=== PATIENT | female | born 1930 | race Caucasian/White ===

== ENCOUNTER → 2016-11-04 | Outpatient (CLI) | payer BC ==
[~2016-11-04] MED LIST: ACET-1311 PO; ASPEC81 PO; ATEZ1200 IV; Boost Nutritional Drink PO; HYDR-4715 PO; MAGN400T6 PO; METO1TAB31 PO; METO1TAB66 PO; MGNO400 PO; MRLP17 PO; MULT-506 PO; NRV5 PO; PANT40TA PO; POLY335019 PO; PRT40 PO; TPRSR/100 PO; TPRSR/25 PO; TPRSR50 PO
[2016-11-04 09:28] LABS: BLOOD UREA NITROGEN 23 mg/dl (7-18); BUN/CREATININE RATIO 22.8 (10-20); CALCIUM 9.2 mg/dl (8.5-10.1); CARBON DIOXIDE 26 mmol/L (21-32); CHLORIDE 101 mmol/L (98-107); GLUCOSE 88 mg/dl (70-99); SODIUM 137 mmol/L (136-145)
== END | disposition home or self-care (01) ==
LOC: C.LABFOXDH 09:05
PROVIDERS: ATTEND Internal Medicine
DX: E87.1 Hypo-osmolality and hyponatremia (principal)

== ENCOUNTER → 2016-11-12 | Outpatient (CLI) | payer BC | END | disposition home or self-care (01) | LOC: C.LABFOXDH 09:23 | PROVIDERS: ATTEND Internal Medicine | DX: E87.1 Hypo-osmolality and hyponatremia (principal) ==

== ENCOUNTER → 2016-11-15 | Outpatient (CLI) | payer BC ==
[2016-11-15 08:41] LABS: BASO % 0.5 %; BASO ABS # 0.01 K/uL (0-0.2); COMPLETE YES; EOS % 4.7 %; IG% 0.5 %; LYMPH % 42.3 %; LYMPH ABS # 0.91 K/uL (1.2-3.4); MEAN CELL VOLUME 86.5 fL (80-100); MEAN CORPUSCULAR HEMOGLOBIN 28.5 pg (25-34); MEAN CORPUSCULAR HGB CONC 32.9 g/dl (32-36); MEAN PLATELET VOLUME 9.9 fL (7.4-10.4); MONO % 1.4 %; NEUT % 50.6 %; PLATELET COUNT 236 K/uL (130-400); RED BLOOD COUNT 3.93 M/uL (4.2-5.4); WHITE BLOOD COUNT 2.15 K/uL (4.8-10.8)
[2016-11-15 08:49] LABS: ALT/SGPT 44 U/L (12-78); BLOOD UREA NITROGEN 32 mg/dl (7-18); BUN/CREATININE RATIO 38.5 (10-20); CALCIUM 8.5 mg/dl (8.5-10.1); CARBON DIOXIDE 25 mmol/L (21-32); CHLORIDE 105 mmol/L (98-107); CREATININE 0.82 mg/dl (0.60-1.20); GLUCOSE 79 mg/dl (70-99); MAGNESIUM 2.4 mg/dl (1.8-2.4); SODIUM 139 mmol/L (136-145)
[2016-11-15 08:52] LABS: ALB/GLOB RATIO 0.8 (0.9-2); ALKALINE PHOSPHATASE 98 U/L (45-117); AST/SGOT 39 U/L (15-37)
== END | disposition home or self-care (01) ==
LOC: C.LABFOXDH 07:57
PROVIDERS: ATTEND Internal Medicine
DX: C66.9 Malignant neoplasm of unspecified ureter (principal)

== ENCOUNTER → 2016-11-19 | Outpatient (CLI) | payer BC | END | disposition home or self-care (01) | LOC: C.LABFOXDH 08:56 | PROVIDERS: ATTEND Internal Medicine | DX: E87.1 Hypo-osmolality and hyponatremia (principal) ==

== ENCOUNTER 2016-11-20 14:34 | Inpatient (IN) | payer BC, OTHER ==
[~2016-11-20] VITALS: Ht 165.1 cm; Wt 70.3 kg
[~2016-11-20 14:34] MED LIST changes: -ACET-1311 PO; -ASPEC81 PO; -ATEZ1200 IV; -Boost Nutritional Drink PO; -HYDR-4715 PO; -MAGN400T6 PO; -METO1TAB31 PO; -METO1TAB66 PO; -MGNO400 PO; -MRLP17 PO; -PANT40TA PO; -POLY335019 PO; -PRT40 PO; -TPRSR/100 PO; -TPRSR50 PO
[2016-11-20] MEDS ORDERED: SODIUM CHLORIDE 0.9% 1000ML 1,000 ML IV STA (15:06)
[2016-11-20] MEDS ORDERED: SODIUM CHLORIDE 0.9% 500ML 500 ML IV STA (15:15)
[2016-11-20] MEDS ORDERED: ONDANSETRON INJ 2 MG/ML 2 ML VIAL IV STA (15:16)
[2016-11-20 15:45] LABS: BASO % 0.1 %; BASO ABS # 0.01 K/uL (0-0.2); COMPLETE YES; EOS % 0.1 %; HEMATOCRIT 41.2 % (37-47); IG% 0.1 %; LYMPH % 16.8 %; LYMPH ABS # 1.16 K/uL (1.2-3.4); MEAN CELL VOLUME 83.2 fL (80-100); MEAN CORPUSCULAR HEMOGLOBIN 28.7 pg (25-34); MEAN CORPUSCULAR HGB CONC 34.5 g/dl (32-36); MONO % 9.4 %; NEUT % 73.5 %; PLATELET COUNT 153 K/uL (130-400); RED BLOOD COUNT 4.95 M/uL (4.2-5.4)
[2016-11-20 16:16] LABS: BUN/CREATININE RATIO 28.3 (10-20); CALCIUM 9.8 mg/dl (8.5-10.1); CREATININE 1.5 mg/dl (0.60-1.20); MAGNESIUM 2.3 mg/dl (1.8-2.4); POTASSIUM 3.3 mmol/L (3.5-5.1)
--- NOTE | 2016-11-20 16:19 | DIAGNOSTIC IMAGING REPORT ---
CT SCAN OF THE ABDOMEN AND PELVIS WITHOUT IV CONTRAST CLINICAL HISTORY: Upper abdominal pain. Vomiting. History of ureteral neoplasm. COMPARISON STUDY: Abdominal CT scans dated 10/17/2016 and 08/19/2016. TECHNIQUE: CT scan of the abdomen and pelvis is performed from the lung bases to the proximal femora. Images are reviewed in the axial, sagittal, and coronal planes. IV contrast was not administered for this examination as per the referring clinician. Note that the examination was performed in significantly suboptimal fashion without oral and IV contrast. The examination is also greater by motion artifact as well as by streak artifact from the patient's arms which could not be elevated above the abdomen. CT DOSE: 647.48 mGy.cm FINDINGS: Lung bases: The heart is normal in size and without pericardial effusion. There are scattered coronary artery calcifications. A large calcified granuloma is seen in the left lower lobe. There are small pleural effusions with bibasilar opacities. There is a tiny hiatal hernia. Calcified mediastinal and hilar nodes are partially imaged. Liver: The unenhanced liver is normal in size, contour, and attenuation. There is central intrahepatic biliary ductal dilatation. Gallbladder: Surgically absent noting clips in the gallbladder fossa. Spleen: Normal in size and attenuation. There are calcified splenic granulomas. Pancreas: Atrophic and grossly unremarkable. Adrenal glands: Unremarkable. Kidneys and ureters: The unenhanced kidneys are atrophic, with the right kidney asymmetrically atrophic as compared to the left. There are no renal calculi identified. There is mild to moderate right-sided hydronephrosis. This has modestly improved from 10/17/2016. There is no left-sided hydronephrosis. A 2.0 cm cyst is noted in the left kidney. There is a large extrarenal pelvis on the right. Again seen is an infiltrative soft tissue lesion consistent with tumor adjacent to the right proximal ureter and extending into the retroperitoneum. Soft tissue density is again suggested in the right proximal ureter and likely represents urothelial lesion. A large fluid collection is again seen in the right retroperitoneal space extending from below the right kidney into the right iliac region. This measures approximately 24.5 x 6 x 6 cm and likely represents a urinoma. This appears 2 modestly decreased in size from the 10/17/2016 examination. Abdominal vasculature: The abdominal aorta is normal in course and caliber noting advanced atherosclerotic calcification. Stomach and bowel: There is a hiatal hernia. The distal esophagus is filled with fluid. The stomach is markedly distended and fluid-filled, as is the duodenum. There is a focal change in caliber in the distal duodenum as seen on axial image #202. There is abrupt transition point identified at this site, and the small bowel is decompressed distally. This is consistent with a distal duodenal obstruction. No pneumatosis intestinalis or portal venous gas is seen. There is moderate to advanced colonic diverticulosis without CT evidence of acute diverticulitis. The appendix is not identified and reported surgically absent. Peritoneum: There is no intraperitoneal free air. No abdominal ascites is seen. A midline surgical scar is noted in the pelvis. Lymphadenopathy: Lymphadenopathy suggested in the upper retroperitoneal space on the right. Pelvic viscera: The bladder wall appears thickened and trabeculated. The uterus is normal as visualized. No adnexal lesion is seen. Surgical clips are noted along the right hemipelvis. Skeletal structures: The skeletal structures are osteopenic. There is moderate lumbosacral spondylosis. Grade 1 anterolisthesis is present L4-L5. Vertebral body height is maintained throughout the imaged spine. A large posterior disc osteophyte complex is seen at L5-S1. Sclerotic changes are seen involving the sacroiliac joints and pubic symphysis. No lytic or blastic bony lesions are seen. IMPRESSION: 1. Significant suboptimal examination without oral and IV contrast. The examination is also significantly degraded by streak and motion artifact. 2. The stomach and duodenum are markedly distended and fluid-filled. There is an abrupt transition point involving the distal duodenum at the ligament of Treitz, and the small bowel distally is decompressed. Findings are consistent with obstruction at the level of the distal duodenum. This is of unclear etiology. Surgical consultation is advised. 3. There is mild to moderate right hydroureteronephrosis. This appears modestly improved from 10/17/2016. 4. Again seen is a large and simple appearing fluid collection in the right retroperitoneal space located below the kidney and extending into the right pelvis. Difference considerations remain a urinoma or possibly a seroma/lymphocele. This appears modestly decreased in size from 10/17/2016. 5. 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 Retroperitoneal lymphadenopathy and a right ureteral urothelial lesion are again suspected. 6. The bladder wall appears thickened, similar to previous. 7. Moderate to advanced colonic diverticulosis without CT evidence of acute diverticulitis. 8. Small pleural effusions with bibasilar airspace opacities comminuted from previous. This could represent atelectasis and/or aspiration pneumonitis. Note that fluid fills visualized portions of the distended esophagus and this may place the patient at risk for aspiration. 9. Additional changes as above. Electronically signed by: Salinas Coleman M.D. 11/20/2016 4:17 PM Dictated Date/Time: 11/20/2016 3:55 PM
[2016-11-20] MEDS ORDERED: XYLOCAINE 1%/SOD BICARB 20 ML VIAL INFIL ONE (16:45)
--- NOTE | 2016-11-20 17:17 | History and Physical ---
History & Physical Date & Time of Service: Nov 20, 2016 at 17:08 Chief Complaint: Vomiting X 5 Days Primary Care Physician: Josh Varghese M.D. History of Present Illness Source: patient, family The patient is a 86 year old female who presents to the Emergency Room from [facility] with complaints of intermittent nausea and vomiting starting about 4 days ago. She also complains of constipation and epigastric abdominal pain. Her last normal bowel movement was 4 days ago. She has not been passing gas. She was given Zofran this morning with some relief. She had a vomiting episode 5 hours after she took the Zofran. She was also given suppository last night and this morning. She had a very small bowel movement last night and this morning. She currently rates a symptom intensity of 3/10. She has had a loss of appetite. The patient denies any history of similar symptoms. She has a history of cholecystectomy and appendectomy occurring many years ago. The patient has a history of bladder cancer. She last had chemotherapy 9 days ago. Pt denies LOC, headache, fevers, chills, diaphoresis, visual changes, neck pain, chest pain, breathing difficulties, back pain, melena, hematochezia, diarrhea, urinary symptoms, numbness, weakness, lymphadenopathy, rash, or other complaints.now pt denies abdominal pain, no fever, no chest pain, Past Medical/Surgical History Medical Problems: (1) A-fib Status: Chronic (2) Acute electrocardiogram changes Status: Resolved (3) Hypertension Status: Chronic (4) Ureteral tumor Status: Chronic Surgical Problems: (1) History of appendectomy Status: Resolved (2) Hx of appendectomy Status: Resolved (3) S/P cholecystectomy Status: Resolved Family History FHx: cancer Social History Smoking Status: Never Smoker Smokeless Tobacco Use: No Alcohol Use: none Drug Use: none Marital Status: Housing status: assisted living Occupational Status: retired Multi-Drug Resistant Organisms History of MDRO: No Allergies Coded Allergies: No Known Allergies (Unverified , `, 11/20/16) Home Medications Scheduled Amlodipine Besylate (Amlodipine Besylate), 10 MG PO QAM Metoprolol Succinate (Metoprolol Succinate ER), 25 MG PO DAILY Multivitamin (Multivitamin), 1 TAB PO QAM Review of Systems Constitutional: No chills, No fatigue, No fever, No problem reported, No sweats , No weakness, No weight loss Eyes: No diplopia, No discharge, No eye pain, No problem reported, No redness, No worsening of vision ENT: No dental problems, No hearing loss, No nasal symptoms, No problem reported, No sore throat, No tinnitus, No trouble swallowing, No unusual epistaxis Respiratory: No cough, No dyspnea at rest, No dyspnea on exertion, No hemoptysis, No problem reported, No shortness of breath, No sputum, No wheezing Cardiovascular: No PND, No chest pain, No claudication, No edema, No orthopnea , No palpitations, No problem reported Abdomen: + nausea, + vomiting Neurologic: No balance problems, No memory loss, No numbness/tingling, No paralysis, No problem reported, No vertigo, No weakness Psychiatric: No anhedonism, No anxiety, No depression symptoms, No insomnia, No problem reported, No substance abuse Endocrine: No excessive thirst, No excessive urination, No fatigue, No problem reported Physical Exam Vital Signs Date Time Temp Pulse Resp B/P Pulse Ox O2 Delivery O2 Flow Rate FiO2 11/20/16 15:42 118 22 111/72 97 Room Air 11/20/16 15:02 110 11/20/16 14:40 37.0 119 14 118/86 93 Room Air General Appearance: WD/WN Head: normocephalic Eyes: normal inspection ENT: normal ENT inspection Neck: supple, no JVD Respiratory/Chest: chest non-tender, lungs clear Cardiovascular: regular rate, rhythm, no edema Abdomen/GI: normal bowel sounds, non tender, soft Genitourinary - Female: external genitalia normal, normal pelvic exam, normal cervix Neurologic/Psych: language therapist II-XII nml as tested, no motor/sensory deficits Skin: normal color, warm/dry Diagnostics Laboratory Results Results Past 24 Hours Test 11/20/16 15:30 Range/Units White Blood Count 6.90 4.8-10.8 K/uL Red Blood Count 4.95 4.2-5.4 M/uL Hemoglobin 14.2 12.0-16.0 g/dL Hematocrit 41.2 37-47 % Mean Corpuscular Volume 83.2 80-100 fL Mean Corpuscular Hemoglobin 28.7 25-34 pg Mean Corpuscular Hemoglobin Concent 34.5 32-36 g/dl Platelet Count 153 130-400 K/uL Mean Platelet Volume 9.0 7.4-10.4 fL Neutrophils (%) (Auto) 73.5 % Lymphocytes (%) (Auto) 16.8 % Monocytes (%) (Auto) 9.4 % Eosinophils (%) (Auto) 0.1 % Basophils (%) (Auto) 0.1 % Neutrophils # (Auto) 5.06 1.4-6.5 K/uL Lymphocytes # (Auto) 1.16 1.2-3.4 K/uL Monocytes # (Auto) 0.65 0.11-0.59 K/uL Eosinophils # (Auto) 0.01 0-0.5 K/uL Basophils # (Auto) 0.01 0-0.2 K/uL RDW Standard Deviation 47.3 36.4-46.3 fL RDW Coefficient of Variation 15.7 11.5-14.5 % Immature Granulocyte % (Auto) 0.1 % Immature Granulocyte # (Auto) 0.01 0.00-0.02 K/uL Sodium Level 130 136-145 mmol/L Potassium Level 3.3 3.5-5.1 mmol/L Chloride Level 85 98-107 mmol/L Carbon Dioxide Level 34 21-32 mmol/L Anion Gap 11.0 3-11 mmol/L Blood Urea Nitrogen 42 7-18 mg/dl Creatinine 1.50 0.60-1.20 mg/dl Est Creatinine Clear Calc Drug Dose 24.7 ml/min Estimated GFR () 36.4 Estimated GFR (Non- 31.4 BUN/Creatinine Ratio 28.3 10-20 Random Glucose 117 70-99 mg/dl Calcium Level 9.8 8.5-10.1 mg/dl Magnesium Level 2.3 1.8-2.4 mg/dl Total Bilirubin 0.8 0.2-1 mg/dl Direct Bilirubin 0.3 0-0.2 mg/dl Aspartate Amino Transf (AST/SGOT) 44 15-37 U/L Alanine Aminotransferase (ALT/SGPT) 57 12-78 U/L Alkaline Phosphatase 124 45-117 U/L Troponin I 0.198 0-0.045 ng/ml Total Protein 7.6 6.4-8.2 gm/dl Albumin 3.3 3.4-5.0 gm/dl Lipase 418 73-393 U/L Diagnostic Radiology CT scan-IMPRESSION: 1. Significant suboptimal examination without oral and IV contrast. The examination is also significantly degraded by streak and motion artifact. 2. The stomach and duodenum are markedly distended and fluid-filled. There is an abrupt transition point involving the distal duodenum at the ligament of Treitz, and the small bowel distally is decompressed. Findings are consistent with obstruction at the level of the distal duodenum. This is of unclear etiology. Surgical consultation is advised. 3. There is mild to moderate right hydroureteronephrosis. This appears modestly improved from 10/17/2016. 4. Again seen is a large and simple appearing fluid collection in the right retroperitoneal space located below the kidney and extending into the right pelvis. Difference considerations remain a urinoma or possibly a seroma/lymphocele. This appears modestly decreased in size from 10/17/2016. 5. 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 Retroperitoneal lymphadenopathy and a right ureteral urothelial lesion are again suspected. 6. The bladder wall appears thickened, similar to previous. 7. Moderate to advanced colonic diverticulosis without CT evidence of acute diverticulitis. 8. Small pleural effusions with bibasilar airspace opacities comminuted from previous. This could represent atelectasis and/or aspiration pneumonitis. Note that fluid fills visualized portions of the distended esophagus and this may place the patient at risk for aspiration. 9. Additional changes as above. Impression Assessment and Plan [facility] will admit to hospital GI consult for EGD NGT IV fluid repeat labs in AM, CBC, CMP, lactic acid I D/W pt and family members about diagnosis and treatment paln, pt may need surgery if pt's symptoms are worse. they understood, I answered all questions, will F/U
[2016-11-20] MEDS ORDERED: PROMETHAZINE HCL INJ 12.5 MG in SODIUM CHLORIDE 0.9% 50ML 50 ML IV PRN (18:15)
[2016-11-20] MEDS ORDERED: ONDANSETRON INJ 2 MG/ML 2 ML VIAL IV PRN ×2 (18:15)
[2016-11-20] MEDS ORDERED: MoRPHine SULFATE 2 MG/ML CARP IV PRN (18:15)
[2016-11-20] MEDS ORDERED: DiphenhydrAMINE HCL 50 MG/ML VIAL IV PRN (18:15)
[2016-11-20] MEDS ORDERED: LORAZEPAM 2 MG/ML 1 ML VIAL IV PRN (18:15)
[2016-11-20] MEDS ORDERED: VANCOMYCIN INJ 1,000 MG in SODIUM CHLORIDE 0.9% 250ML 250 ML IV STA (18:20)
[2016-11-20] MEDS ORDERED: METOPROLOL TARTRATE 1 MG/ML VIAL IV PRN (18:30)
[2016-11-20 18:34] VITALS: O2SAT 92; Ht 165.1 cm; Wt 70.3 kg
[2016-11-20] MEDS ORDERED: PIPERACILLIN/TAZOBACTAM 4.5 GM/100ML D5W ONE (18:38)
[2016-11-20] MEDS ORDERED: BENZOCAIN/TETRACA/BUTAM SPRAY 200 APPLN/20 GM SPRY ONE (18:39)
[2016-11-20] MEDS ORDERED: PANTOprazole INJ 40 MG in SYRINGE 0 ML IV SCH (18:45)
[2016-11-20] MEDS ORDERED: VANCOMYCIN CONSULT ACTIVE PRN (18:45)
[2016-11-20] MEDS ORDERED: PIPERACILL/TAZOBAC CONSULT ACTIVE PRN (18:45)
[2016-11-20] MEDS ORDERED: DIGOXIN IV 250 MCG in SYRINGE 9 ML IV SCH (19:00)
[2016-11-20] MEDS ORDERED: VANCOMYCIN INJ 1,500 MG in SODIUM CHLORIDE 0.9% 500ML 500 ML IV SCH (19:00)
[2016-11-20 19:08] LABS: CKMB/CK RATIO 3.2 (0-3.0)
--- NOTE | 2016-11-20 19:30 | Medical Student: [facility] ---
Med Student History & Physical Date & Time of Service: Nov 20, 2016 at 18:22 Chief Complaint: Vomiting X 5 Days Primary Care Physician: Josh Varghese M.D. 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 Her last BM was 3 days ago, and she has not been passing gas. No diarrhea. She tried using a suppository last night, but only had a very small BM afterwards. She has had minimal oral intake over the last few days. She has had constant chest pain over the last few days after she started vomiting. The pain is non-radiating, and it seems to improve with vomiting. No associated diaphoresis or dyspnea. She normally ambulates with a walker, but has not been very mobile over the last few days secondary to her GI symptoms. She underwent a distal R ureterectomy for a ureteral tumor in June 2016. She reports that she has had R leg swelling and redness since then. She had been doing well, but had a repeat CT scan in October that showed recurrence of the tumor (see below). The plan was to proceed with chemotherapy, and she had her first dose of this 9 days ago. She denies any recent hematuria, but has noticed some tenderness with urination. She was admitted to the hospital 10/26-10/29/17 for AMS related to hyponatremia with Na of 125 on admission. This improved to 135 during admission. Her mentation has improved since then per family. Past Medical/Surgical History CT abd/pelvis from 10/17/16 showed: Significant increase in enhancing infiltrative soft tissue tumor within and adjacent to the R ureter since CT of 08/19/16. Associated vascular encasement. Multiple adjacent enhancing nodules. R hydronephrosis. Medical Problems: (1) Altered mental status Status: Acute (2) Aphasia Status: Acute (3) Change in mental status Status: Acute (4) Dysphagia Status: Acute (5) Speaking difficulty Status: Acute (6) Stroke-like symptoms Status: Acute (7) TIA (transient ischemic attack) Status: Acute (8) UTI (urinary tract infection) Status: Acute Surgical Problems: (1) History of appendectomy Status: Resolved (2) Hx of appendectomy Status: Resolved 3. Ureteral tumor resection Social History Pt lives in an assisted living facility. Smoking Status: Never Smoker Smokeless Tobacco Use: No Alcohol Use: none Drug Use: none Marital Status: Housing status: assisted living Occupational Status: retired Allergies Coded Allergies: No Known Allergies (Unverified , `, 11/22/16) Medications Amlodipine Besylate (Amlodipine Besylate), 10 MG PO QAM Metoprolol Succinate (Metoprolol Succinate ER), 25 MG PO DAILY Multivitamin (Multivitamin), 1 TAB PO QAM Review of Systems Constitutional: No chills, No fever, No sweats ENT: + problem reported (Hoarse voice secondary to vomiting. ) Respiratory: No cough, No shortness of breath Cardiovascular: + chest pain, No palpitations (as per HPI) Abdomen: + constipation, + nausea, + pain, + vomiting, No GI bleeding, No diarrhea Musculoskeletal: + swelling Genitourinary - Female: No hematuria, No urinary frequency, No urinary urgency Integumentary: + color change (R leg) Physical Exam Vital Signs (24 Hours) Date Time Temp Pulse Resp B/P Pulse Ox O2 Delivery O2 Flow Rate FiO2 11/20/16 17:14 124/79 11/20/16 17:04 110 92 11/20/16 16:34 129 24 94 11/20/16 15:42 111/72 11/20/16 15:42 118 22 111/72 97 Room Air 11/20/16 15:34 109 21 92 11/20/16 15:04 124 22 93 11/20/16 15:02 110 11/20/16 14:40 37.0 119 14 118/86 93 Room Air 11/20/16 14:38 118/86 General Appearance: + pertinent finding (Elderly female sitting up in bed with NG tube in place draining green fluid. ) Head: normocephalic, atraumatic Eyes: normal inspection, PERRL, EOMI, sclerae normal ENT: pharynx normal Neck: supple, no JVD, trachea midline Respiratory/Chest: lungs clear, normal breath sounds, no respiratory distress, no accessory muscle use, + pertinent finding (Mild tenderness to palpation over the sternum. ) Cardiovascular: no gallop, no JVD, no murmur, normal peripheral pulses, + pertinent finding (Tachycardic and irregularly irregular. ) Abdomen/GI: soft, + pertinent finding (Tenderness to palpation in the epigastrium, RUQ, and RLQ, worst in the epigastrium. Hypoactive bowel sounds. Appears distended. No rebound or guarding. ) Back: normal inspection, no CVA tenderness Extremities/Musculoskelatal: + pertinent finding (RLE is erythematous, edematous, and warm over the low to mid tibia. No edema of the LLE. ) Neurologic/Psych: car sweeper II-XII nml as tested, no motor/sensory deficits, alert, normal mood/affect, normal reflexes, oriented x 3 Skin: warm/dry, no rash Diagnostics Laboratory Results Results Past 24 Hours Test 11/20/16 15:30 Range/Units White Blood Count 6.90 4.8-10.8 K/uL Red Blood Count 4.95 4.2-5.4 M/uL Hemoglobin 14.2 12.0-16.0 g/dL Hematocrit 41.2 37-47 % Mean Corpuscular Volume 83.2 80-100 fL Mean Corpuscular Hemoglobin 28.7 25-34 pg Mean Corpuscular Hemoglobin Concent 34.5 32-36 g/dl Platelet Count 153 130-400 K/uL Mean Platelet Volume 9.0 7.4-10.4 fL Neutrophils (%) (Auto) 73.5 % Lymphocytes (%) (Auto) 16.8 % Monocytes (%) (Auto) 9.4 % Eosinophils (%) (Auto) 0.1 % Basophils (%) (Auto) 0.1 % Neutrophils # (Auto) 5.06 1.4-6.5 K/uL Lymphocytes # (Auto) 1.16 1.2-3.4 K/uL Monocytes # (Auto) 0.65 0.11-0.59 K/uL Eosinophils # (Auto) 0.01 0-0.5 K/uL Basophils # (Auto) 0.01 0-0.2 K/uL RDW Standard Deviation 47.3 36.4-46.3 fL RDW Coefficient of Variation 15.7 11.5-14.5 % Immature Granulocyte % (Auto) 0.1 % Immature Granulocyte # (Auto) 0.01 0.00-0.02 K/uL Sodium Level 130 136-145 mmol/L Potassium Level 3.3 3.5-5.1 mmol/L Chloride Level 85 98-107 mmol/L Carbon Dioxide Level 34 21-32 mmol/L Anion Gap 11.0 3-11 mmol/L Blood Urea Nitrogen 42 7-18 mg/dl Creatinine 1.50 0.60-1.20 mg/dl Est Creatinine Clear Calc Drug Dose 24.7 ml/min Estimated GFR () 36.4 Estimated GFR (Non- 31.4 BUN/Creatinine Ratio 28.3 10-20 Random Glucose 117 70-99 mg/dl Calcium Level 9.8 8.5-10.1 mg/dl Magnesium Level 2.3 1.8-2.4 mg/dl Total Bilirubin 0.8 0.2-1 mg/dl Direct Bilirubin 0.3 0-0.2 mg/dl Aspartate Amino Transf (AST/SGOT) 44 15-37 U/L Alanine Aminotransferase (ALT/SGPT) 57 12-78 U/L Alkaline Phosphatase 124 45-117 U/L Troponin I 0.198 0-0.045 ng/ml Total Protein 7.6 6.4-8.2 gm/dl Albumin 3.3 3.4-5.0 gm/dl Lipase 418 73-393 U/L Diagnostic Radiology CT abd/-pelvis without contrast: IMPRESSION: 1. Significant suboptimal examination without oral and IV contrast. The examination is also significantly degraded by streak and motion artifact. 2. The stomach and duodenum are markedly distended and fluid-filled. There is an abrupt transition point involving the distal duodenum at the ligament of Treitz, and the small bowel distally is decompressed. Findings are consistent with obstruction at the level of the distal duodenum. This is of unclear etiology. Surgical consultation is advised. 3. There is mild to moderate right hydroureteronephrosis. This appears modestly improved from 10/17/2016. 4. Again seen is a large and simple appearing fluid collection in the right retroperitoneal space located below the kidney and extending into the right pelvis. Difference considerations remain a urinoma or possibly a seroma/lymphocele. This appears modestly decreased in size from 10/17/2016. 5. 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 Retroperitoneal lymphadenopathy and a right ureteral urothelial lesion are again suspected. 6. The bladder wall appears thickened, similar to previous. 7. Moderate to advanced colonic diverticulosis without CT evidence of acute diverticulitis. 8. Small pleural effusions with bibasilar airspace opacities comminuted from previous. This could represent atelectasis and/or aspiration pneumonitis. Note that fluid fills visualized portions of the distended esophagus and this may place the patient at risk for aspiration. 9. Additional changes as above. : Atrial fibrillation at 112 bpm. T wave inversions in inferior leads as well as V2-V6. No STEMI or Q wave MIs. 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 Physical exam with hypoactive bowel sounds and somewhat diffuse abdominal pain. CT abd/ pelvis shows evidence of small bowel obstruction at the level of the distal ileus. Small bowel obstruction - Physical exam with hypoactive bowel sounds and somewhat diffuse abdominal pain. CT abd/pelvis shows evidence of small bowel obstruction at the level of the distal ileus. NG tube was placed in the ED and has drained roughly 2000 mL of green bilious fluid with improvement in the pt's symptoms. No peritoneal signs to suggest perforation. No evidence of aspiration at this time with clear lungs. - Will continue NG tube for at least the next day with NPO status. - General surgery has been consulted. - Promethazine and ondansetron as needed for nausea. - Morphine 1-2 mg as needed for pain, will try to minimize narcotics to prevent worsening obstipation. R leg edema, warmth, and erythema - Physical exam is consistent with cellulitis. CT shows no evidence to suggest obstruction secondary to her ureteral cancer. - Given that the pt has been immobile over the last few days as well as her underlying urologic malignancy, will obtain venous duplex to assess for DVT. - Will start vancomycin and Zosyn to cover for possible healthcare acquired organisms as well as any possible aspiration. Electrolyte abnormalities - Hyponatremia with Na of 130, hypokalemia with K of 3.3, hypochloremia with Cl of 85. These are all likely secondary to dehydration from vomiting. She received 500 mL NS in the ED. - Will give normal saline 125 mL/hr with 20 mEq potassium. - Will recheck BMP in 3-4 hours given that the NG tube has drained roughly 2 L of fluid. - Serial BMPs and magnesium level. Elevated creatinine - 1.5 today, up from baseline of around 1.0. This likely represents prerenal azotemia given BUN/Cr ratio of 28. - Will give IVF as above and monitor daily BMP. - Given that the pt has been immobile and dehydrated the last few days to will obtain CK r/o rhabdomyolysis. Atrial fibrillation - EKG shows Afib with RVR, HR in 110s. The tachycardia is likely compensatory given her dehydration. BP has been stable. - If she remains tachycardic after fluid resuscitation, will consider adding Digoxin. - Hold her PO metoprolol. - Will obtain echocardiogram. - Monitor on telemetry. Elevated troponin of 0.198- This likely represents demand ischemia secondary to her Afib. - Will trend troponin overnight. - Obtain EKG if the pt has chest pain. Elevated lipase of 418 - Given the minimal elevation, this likely represents acute phase reaction, but will add amylase to further assess for pancreatitis. - Repeat lipase and amylase in the morning. HTN, chronic - Will hold PO amlodipine at this time. Ureteral cancer - Pt is followed for this by Dr. Morris of urology and Dr. Carol Suero of hem/onc. - Will consult hem/onc. - Will obtain UA given report of tenderness with urination. DVT prophylaxis - Will place SCDs. Awaiting US results to determine anticoagulation. Level of Care Telemetry Assessment and Plan GI--CT scan has suggested an obstruction involving the distal duodenum at the level of the ligament of Treitz. She had an NG tube placed to low intermittent suction while in the emergency department and has already emptied out 1700 mL, and with patient reporting feeling significantly improved at that time. She was seen by surgery while the emergency department, and they have suggested conservative treatment and they will reassess in the a.m. Atrial fibrillation with RVR with elevated troponin of 0.198 and low potassium of 3.3. The patient will be admitted to the telemetry unit for serial cardiac enzymes, cardiac rhythm monitoring, and a 2-D echocardiogram with Dopplers. She 'll be placed on normal saline with potassium chloride 20 mEq at 100 ML's per hour, and recheck the BMP in 4 hours. She'll be given digoxin 0.25 mg IV 1 in the emergency department, and will have Lopressor 5 mg IV every 4 hours when necessary for rate control. Her primary treatment this point needs to be that of volume replacement and potassium supplementation. We will hold amlodipine 10 mg by mouth every morning and metoprolol succinate ER 25 mg by mouth daily. --patient's blood following with Dr. Morris from urology regarding bladder lesions. There is noted a mild to moderate right hydroureteronephrosis which is modestly improved from 10/17/2016. There is again seen a large and simple- appearing fluid collection in the right retroperitoneal space located below the kidney and extending into the right pelvis with differential including a urinoma or possibly seroma/lymphocele, which is also modestly decreased in size from 10/17/2016. The ill-defined/infiltrative tumor around the right renal pelvis extending into the retroperitoneum is similar to previous. Renal insufficiency --creatinine 1.50 upon admission. Will repeat BMP and magnesium level in 4 hours as noted above and in the a.m. Hyponatremia--when she was admitted on October 26 through October 29 sodium at that time was as low as 125, and was 135 upon discharge. Sodium today is 130 , and will follow serial BMP as noted above. Right lower extremity cellulitis--she did show swelling on the right leg, and Dopplers were negative for DVT bilaterally. To cover both potential organisms of the GI system and skin, she restarted on vancomycin IV with renal dosing, and Zosyn 3.375 mg IV every 8 hours. Attending Addendum: I have seen and examined this patient personally, have supervised the medical student's interaction, and there is a separate H&P associated with this patient.
--- NOTE | 2016-11-20 19:33 | EMERGENCY ROOM VISIT NOTE ---
History Report prepared by Annel: Kosta Dias Under the Supervision of: Dr. Bernard Leon M.D. First contact with patient: 15:05 Chief Complaint: VOMITING Stated Complaint: VOMITING X 5 DAYS Nursing Triage Summary: Patient arrived via EMS from [facility]. Patient c/o n/v since Sat/Sun (5 days) and throat discomfort. Pt denies diarrhea, states she had not had a BM in 4 days so [facility] gave her a suppository last night with minimal results. Patient states she started Chemo Last friday (1 1/2 weeks ago) for bladder/ureter cancer. Pt states hx afib. History of Present Illness The patient is a 86 year old female who presents to the Emergency Room from [facility] with complaints of intermittent nausea and vomiting starting about 4 days ago. She also complains of constipation and epigastric abdominal pain. Her last normal bowel movement was 4 days ago. She has not been passing gas. She was given Zofran this morning with some relief. She had a vomiting episode 5 hours after she took the Zofran. She was also given suppository last night and this morning. She had a very small bowel movement last night and this morning. She currently rates a symptom intensity of 3/10. She has had a loss of appetite. The patient denies any history of similar symptoms. She has a history of cholecystectomy and appendectomy occurring many years ago. The patient has a history of bladder cancer. She last had chemotherapy 9 days ago. Pt denies LOC, headache, fevers, chills, diaphoresis, visual changes, neck pain, chest pain, breathing difficulties, back pain, melena, hematochezia, diarrhea, urinary symptoms, numbness, weakness, lymphadenopathy, rash, or other complaints. Source of History: patient Onset: about 4 days ago Position: other (global) Symptom Intensity: 3/10 Quality: other (nausea and vomiting) Timing: intermittent Modifying Factors (Relieving): other (Zofran with some relief, suppository ) Associated Symptoms: + abdominal pain Review of Systems See HPI for pertinent positives and negatives. A total of ten systems were reviewed and were otherwise negative. Past Medical & Surgical Medical Problems: (1) A-fib (2) Acute electrocardiogram changes (3) Hypertension (4) Hyponatremia (5) SBO (small bowel obstruction) (6) Ureteral tumor Surgical Problems: (1) History of appendectomy (2) Hx of appendectomy (3) S/P cholecystectomy Family History FHx: cancer Social History Smoking Status: Never Smoker Alcohol Use: none Drug Use: none Marital Status: Housing Status: lives alone Occupation Status: retired Current/Historical Medications Scheduled Amlodipine Besylate (Amlodipine Besylate), 10 MG PO QAM Metoprolol Succinate (Metoprolol Succinate ER), 25 MG PO DAILY Multivitamin (Multivitamin), 1 TAB PO QAM Allergies Coded Allergies: No Known Allergies (Unverified , `, 11/20/16) Physical Exam Vital Signs Date Time Temp Pulse Resp B/P Pulse Ox O2 Delivery O2 Flow Rate FiO2 11/20/16 19:03 124 11/20/16 18:34 92 Room Air 11/20/16 17:14 124/79 11/20/16 17:04 110 92 11/20/16 16:34 129 24 94 11/20/16 15:42 111/72 11/20/16 15:42 118 22 111/72 97 Room Air 11/20/16 15:34 109 21 92 11/20/16 15:04 124 22 93 11/20/16 15:02 110 11/20/16 14:40 37.0 119 14 118/86 93 Room Air 11/20/16 14:38 118/86 Physical Exam GENERAL: Awake, alert, uncomfortable-appearing, in no acute distress HENT: Normocephalic, atraumatic. Oropharynx unremarkable. EYES: Normal conjunctiva. Sclera non-icteric. NECK: Supple. No nuchal rigidity. FROM. No JVD. RESPIRATORY: Clear to auscultation. CARDIAC: Irregular rhythm and tachycardic rate. Extremities warm and well perfused. Pulses equal. ABDOMEN: Soft. Right upper quadrant and right lower quadrant tenderness but greater in the lower quadrant. No rebound or guarding. No masses. RECTAL: Deferred. MUSCULOSKELETAL: Chest examination reveals no tenderness. The back is symmetrical on inspection without obvious abnormality. There is no CVA tenderness to palpation. No joint edema. LOWER EXTREMITIES: Calves are equal size bilaterally and non-tender. No discoloration. 1+ edema, right greater than left. NEURO: Normal sensorium. No sensory or motor deficits noted. SKIN: No rash or jaundice noted. Medical Decision & Procedures ER Provider Diagnostic Interpretation: CT: Radiology results as stated below per my review and radiologist interpretation CT SCAN OF THE ABDOMEN AND PELVIS WITHOUT IV CONTRAST CLINICAL HISTORY: Upper abdominal pain. Vomiting. History of ureteral neoplasm. COMPARISON STUDY: Abdominal CT scans dated 10/17/2016 and 08/19/2016. TECHNIQUE: CT scan of the abdomen and pelvis is performed from the lung bases to the proximal femora. Images are reviewed in the axial, sagittal, and coronal planes. IV contrast was not administered for this examination as per the referring clinician. Note that the examination was performed in significantly suboptimal fashion without oral and IV contrast. The examination is also greater by motion artifact as well as by streak artifact from the patient's arms which could not be elevated above the abdomen. CT DOSE: 647.48 mGy.cm FINDINGS: Lung bases: The heart is normal in size and without pericardial effusion. There are scattered coronary artery calcifications. A large calcified granuloma is seen in the left lower lobe. There are small pleural effusions with bibasilar opacities. There is a tiny hiatal hernia. Calcified mediastinal and hilar nodes are partially imaged. Liver: The unenhanced liver is normal in size, contour, and attenuation. There is central intrahepatic biliary ductal dilatation. Gallbladder: Surgically absent noting clips in the gallbladder fossa. Spleen: Normal in size and attenuation. There are calcified splenic granulomas. Pancreas: Atrophic and grossly unremarkable. Adrenal glands: Unremarkable. Kidneys and ureters: The unenhanced kidneys are atrophic, with the right kidney asymmetrically atrophic as compared to the left. There are no renal calculi identified. There is mild to moderate right-sided hydronephrosis. This has modestly improved from 10/17/2016. There is no left-sided hydronephrosis. A 2.0 cm cyst is noted in the left kidney. There is a large extrarenal pelvis on the right. Again seen is an infiltrative soft tissue lesion consistent with tumor adjacent to the right proximal ureter and extending into the retroperitoneum. Soft tissue density is again suggested in the right proximal ureter and likely represents urothelial lesion. A large fluid collection is again seen in the right retroperitoneal space extending from below the right kidney into the right iliac region. This measures approximately 24.5 x 6 x 6 cm and likely represents a urinoma. This appears 2 modestly decreased in size from the 10/17/2016 examination. Abdominal vasculature: The abdominal aorta is normal in course and caliber noting advanced atherosclerotic calcification. Stomach and bowel: There is a hiatal hernia. The distal esophagus is filled with fluid. The stomach is markedly distended and fluid-filled, as is the duodenum. There is a focal change in caliber in the distal duodenum as seen on axial image #202. There is abrupt transition point identified at this site, and the small bowel is decompressed distally. This is consistent with a distal duodenal obstruction. No pneumatosis intestinalis or portal venous gas is seen. There is moderate to advanced colonic diverticulosis without CT evidence of acute diverticulitis. The appendix is not identified and reported surgically absent. Peritoneum: There is no intraperitoneal free air. No abdominal ascites is seen. A midline surgical scar is noted in the pelvis. Lymphadenopathy: Lymphadenopathy suggested in the upper retroperitoneal space on the right. Pelvic viscera: The bladder wall appears thickened and trabeculated. The uterus is normal as visualized. No adnexal lesion is seen. Surgical clips are noted along the right hemipelvis. Skeletal structures: The skeletal structures are osteopenic. There is moderate lumbosacral spondylosis. Grade 1 anterolisthesis is present L4-L5. Vertebral body height is maintained throughout the imaged spine. A large posterior disc osteophyte complex is seen at L5-S1. Sclerotic changes are seen involving the sacroiliac joints and pubic symphysis. No lytic or blastic bony lesions are seen. IMPRESSION: 1. Significant suboptimal examination without oral and IV contrast. The examination is also significantly degraded by streak and motion artifact. 2. The stomach and duodenum are markedly distended and fluid-filled. There is an abrupt transition point involving the distal duodenum at the ligament of Treitz, and the small bowel distally is decompressed. Findings are consistent with obstruction at the level of the distal duodenum. This is of unclear etiology. Surgical consultation is advised. 3. There is mild to moderate right hydroureteronephrosis. This appears modestly improved from 10/17/2016. 4. Again seen is a large and simple appearing fluid collection in the right retroperitoneal space located below the kidney and extending into the right pelvis. Difference considerations remain a urinoma or possibly a seroma/lymphocele. This appears modestly decreased in size from 10/17/2016. 5. 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 Retroperitoneal lymphadenopathy and a right ureteral urothelial lesion are again suspected. 6. The bladder wall appears thickened, similar to previous. 7. Moderate to advanced colonic diverticulosis without CT evidence of acute diverticulitis. 8. Small pleural effusions with bibasilar airspace opacities comminuted from previous. This could represent atelectasis and/or aspiration pneumonitis. Note that fluid fills visualized portions of the distended esophagus and this may place the patient at risk for aspiration. 9. Additional changes as above. Electronically signed by: Salinas Coleman M.D. 11/20/2016 4:17 PM Dictated Date/Time: 11/20/2016 3:55 PM Laboratory Results 11/20/16 15:30 Red Blood Count 4.95, Mean Corpuscular Volume 83.2, Mean Corpuscular Hemoglobin 28.7, Mean Corpuscular Hemoglobin Concent 34.5, Mean Platelet Volume 9.0, Neutrophils (%) (Auto) 73.5, Lymphocytes (%) (Auto) 16.8, Monocytes (%) (Auto) 9.4, Eosinophils (%) (Auto) 0.1, Basophils (%) (Auto) 0.1, Neutrophils # (Auto) 5.06, Lymphocytes # (Auto) 1.16, Monocytes # (Auto) 0.65, Eosinophils # (Auto) 0.01, Basophils # (Auto) 0.01 11/20/16 15:30 Test 11/20/16 15:30 White Blood Count 6.90 K/uL (4.8-10.8) Red Blood Count 4.95 M/uL (4.2-5.4) Hemoglobin 14.2 g/dL (12.0-16.0) Hematocrit 41.2 % (37-47) Mean Corpuscular Volume 83.2 fL (80-100) Mean Corpuscular Hemoglobin 28.7 pg (25-34) Mean Corpuscular Hemoglobin Concent 34.5 g/dl (32-36) Platelet Count 153 K/uL (130-400) Mean Platelet Volume 9.0 fL (7.4-10.4) Neutrophils (%) (Auto) 73.5 % Lymphocytes (%) (Auto) 16.8 % Monocytes (%) (Auto) 9.4 % Eosinophils (%) (Auto) 0.1 % Basophils (%) (Auto) 0.1 % Neutrophils # (Auto) 5.06 K/uL (1.4-6.5) Lymphocytes # (Auto) 1.16 K/uL (1.2-3.4) Monocytes # (Auto) 0.65 K/uL (0.11-0.59) Eosinophils # (Auto) 0.01 K/uL (0-0.5) Basophils # (Auto) 0.01 K/uL (0-0.2) RDW Standard Deviation 47.3 fL (36.4-46.3) RDW Coefficient of Variation 15.7 % (11.5-14.5) Immature Granulocyte % (Auto) 0.1 % Immature Granulocyte # (Auto) 0.01 K/uL (0.00-0.02) Anion Gap 11.0 mmol/L (3-11) Est Creatinine Clear Calc Drug Dose 24.7 ml/min Estimated GFR () 36.4 Estimated GFR (Non- 31.4 BUN/Creatinine Ratio 28.3 (10-20) Calcium Level 9.8 mg/dl (8.5-10.1) Magnesium Level 2.3 mg/dl (1.8-2.4) Total Bilirubin 0.8 mg/dl (0.2-1) Direct Bilirubin 0.3 mg/dl (0-0.2) Aspartate Amino Transf (AST/SGOT) 44 U/L (15-37) Alanine Aminotransferase (ALT/SGPT) 57 U/L (12-78) Alkaline Phosphatase 124 U/L (45-117) Total Creatine Kinase 53 U/L (26-192) Creatine Kinase MB 1.7 ng/ml (0.5-3.6) Creatine Kinase MB Ratio 3.2 (0-3.0) Troponin I 0.193 ng/ml (0-0.045) Total Protein 7.6 gm/dl (6.4-8.2) Albumin 3.3 gm/dl (3.4-5.0) Amylase Level 90 U/L (25-115) Lipase 418 U/L (73-393) Laboratory results reviewed by me Medications Administered Medications (Trade) Dose Ordered Sig/Blank Route Start Time Stop Time Status Last Admin Dose Admin Sodium Chloride 1,000 ml @ 125 mls/hr Q8H STAT IV 11/20/16 15:06 11/20/16 23:05 11/20/16 15:41 125 MLS/HR Sodium Chloride (Nss 500ml) 500 ml @ 999 mls/hr Q31M STAT IV 11/20/16 15:15 11/20/16 15:45 DC 11/20/16 15:42 999 MLS/HR Ondansetron HCl (Zofran Inj) 4 mg NOW STAT IV 11/20/16 15:16 11/20/16 15:18 DC 11/20/16 15:41 4 MG Lidocaine HCl (Buffered Lidocaine 1% Inj) 20 ml ONE ONCE INFIL 11/20/16 16:45 11/20/16 16:46 DC 11/20/16 17:00 20 ML Piperacillin Sod/ Tazobactam Sod (Zosyn Iv) 4.5 gm STK-MED ONCE .ROUTE 11/20/16 18:38 11/20/16 18:40 DC 11/20/16 18:48 4.5 GM Benzocaine/ Butamben/ Tetracaine HCl (Cetacaine Parrish) 200 appln STK-MED ONCE .ROUTE 11/20/16 18:39 11/20/16 18:41 DC 11/20/16 18:47 200 APPLN ECG Indication: nausea, vomiting Rate (beats per minute): 112 Rhythm: atrial fibrillation Findings: T-wave inversion (inferior, anterolateral) Comparison ECG Date: October 16, 2016 Change: T wave inversion in inferior and anterolateral leads are new when compared to October 16, 2016 but have been there before on ECG from June 06, 2016. ED Course 1505: The patient was evaluated in room B02. A complete history and physical exam was performed. 1506: Sodium Chloride 1000 ml @ 125 mls/hr IV 1515: Sodium Chloride 500 ml @ 999 mls/hr IV 1516: Zofran Inj 4 mg IV 1642: I discussed the patient's [facility] Upon reexamination, the patient was resting comfortably. I discussed the test results and treatment plan with her. The patient will be evaluated for further management. A NG tube will be placed. 1645: Lidocaine HCl NG tube. 1648: I discussed the patient's case with Dr. Siegel, general surgeon with [facility]. 1725: The patient had 800 mls output of NG tube. Upon reevaluation, the patient feels better. Internal medicine is aware of her elevated troponin. Medical Decision Triage Nursing notes reviewed. The patient's presentation and history were concerning for vomiting and abdominal pain. Etiologies such as obstruction, diverticulitis, inflammatory bowel disease, renal colic, PUD, biliary pathology, pancreatitis, mesenteric ischemia, aortic pathology, infections, genitourinary, UTI, perforated viscus, as well as others were entertained. The patient was hydrated with normal saline and given 4mg of zofran. She underwent blood work and CT imaging. The patient was doing better on reassessment. Her CT imaging revealed a proximal bowel obstruction. The patient had an NG tube placed with 1700 mL of fluid aspirated. The patient had an unremarkable CBC and dehydration on chemistry panel. The patient had an elevated troponin. Urinalysis pending. Consultation was made with internal medicine and general surgery. The patient was evaluated in the Emergency Room for further treatment. The chart was completed utilizing [employer] Speech voice recognition software. Grammatical errors, random word insertions, pronoun errors, and incomplete sentences are an occasional consequence of this system due to software limitations, ambient noise, and hardware issues. Any formal questions or concerns about the content, text, or information contained within the body of this dictation should be directly addressed to the physician for clarification. Consults Time Called: 1640 Consulting Physician: [facility] Returned Call: 1642 I discussed the patient's case with [facility] Additional Consults: Time Called: 1645 Consulted Physician: Dr. Siegel, general surgeon with [facility] Returned Call: 1649 Additional Comments: I discussed the patient's case with Dr. Siegel, general surgeon with [facility]. Impression Primary Impression: Bowel obstruction Additional Impressions: Elevated troponin Atrial fibrillation with RVR Scribe Attestation The scribe's documentation has been prepared under my direction and personally reviewed by me in its entirety. I confirm that the note above accurately reflects all work, treatment, procedures, and medical decision making performed by me. Departure Information Dispostion Being Evaluated By Hospitalist Referrals Iron Mcbride (PCP) Patient Instructions My [facility] Problem Qualifiers
--- NOTE | 2016-11-20 20:00 | DIAGNOSTIC IMAGING REPORT ---
BILATERAL LOWER EXTREMITY VENOUS DOPPLER HISTORY: Right leg swelling. COMPARISON STUDY: Right leg venous Doppler 08/29/2016. FINDINGS: There is normal compressibility, flow, and augmentation within the bilateral lower extremity deep venous systems. IMPRESSION: No DVT within the right or left lower extremity. Electronically signed by: Enzo Olmedo M.D. 11/20/2016 7:58 PM Dictated Date/Time: 11/20/2016 7:57 PM
[2016-11-20] MEDS ORDERED: MoRPHine SULFATE 4 MG/ML 1 ML CARP\\VIAL IV PRN (20:30)
[2016-11-20] MEDS ORDERED: LORAZEPAM INJ 0.5 MG in SYRINGE 0.75 ML IV PRN (20:45)
--- NOTE | 2016-11-20 20:54 | Pharmacy Progress Note ---
Pharmacy Antibiotic Consult Date of Service: Nov 20, 2016. Pharmacy Dosing Scope Pharmacy is consulted to initiate vancomycin and Zosyn IV dosing therapy, order appropriate labs and adjust drug dose/frequency. Subjective The patient is a 86 year old female admitted on Nov 20, 2016 at 18:20. Objective Height (Feet): 5 Height (Inches): 5.00 Weight (Kilograms): 68.300 Lab Results (24hrs): Laboratory Tests Test 11/20/16 15:30 11/20/16 20:00 BUN/Creatinine Ratio 28.3 Blood Urea Nitrogen 42 mg/dl Creatinine 1.50 mg/dl White Blood Count 6.90 K/uL Red Blood Count 4.95 M/uL Hemoglobin 14.2 g/dL Hematocrit 41.2 % Mean Corpuscular Volume 83.2 fL Mean Corpuscular Hemoglobin 28.7 pg Mean Corpuscular Hemoglobin Concent 34.5 g/dl Platelet Count 153 K/uL Mean Platelet Volume 9.0 fL Neutrophils (%) (Auto) 73.5 % Lymphocytes (%) (Auto) 16.8 % Monocytes (%) (Auto) 9.4 % Eosinophils (%) (Auto) 0.1 % Basophils (%) (Auto) 0.1 % Neutrophils # (Auto) 5.06 K/uL Lymphocytes # (Auto) 1.16 K/uL Monocytes # (Auto) 0.65 K/uL Eosinophils # (Auto) 0.01 K/uL Basophils # (Auto) 0.01 K/uL Recent Pertinent Medications Item Value Date Time Piperacillin Sod/ 115 ml @ 28.75 mls/hr 11/21/16 0000 Tazobactam Sod Q8@0000,0800,1600/IV 3.375 gm/Dextrose Vancomycin HCl 530 ml @ 200 mls/hr 11/20/16 1900 1500 mg/Sodium TODAY@1900/IV 11/20/162007 Chloride Piperacillin Sod/ 4.5 gm 11/20/16 183 Tazobactam Sod .STK-MED ONCE/.ROUTE 11/20/16 1848 (Zosyn Iv) Assessment & Plan Patient with SBO, possible GI infection. Currently dehydrated, so renal function may change with hydration. Loading dose: vancomycin 1500 mg IV X 1 dose then: will check random level in am and redose empirically when vanco level is less than 18. If renal function stabilizes, will calculate ongoing doses. Goal peak level estimate: between 25-40 mcg/mL. Goal trough level estimate: between 15-20 mcg/mL. Random level has been ordered for: 11/21/16 with am labs. Zosyn 4.5 Gm IV loading dose given in ED, then 3.375 Gm (extended infusion over 4 hr) q8h for CrCl greater than 20 ml/min. Pharmacy will continue to follow and will adjust dose/frequency as necessary. Thank you
--- NOTE | 2016-11-20 21:03 | History and Physical ---
History & Physical Date & Time of Service: Nov 20, 2016 at 21:03 Chief Complaint: Afib, Sbo Primary Care Physician: Josh Varghese M.D. History of Present Illness The patient is a 86 year old female resident at [facility] who presents emergency department with complaint of intermittent nausea ,vomiting ,constipation ,lack of appetite and epigastric abdominal pain that began about 4 days prior to arrival. Last BM was 4 days ago, and she has not been passing gas since that time. She has some relief with Zofran this morning but then had a vomiting episode 5 hours after that dose. She was given a suppository last evening and this morning with only minimal results. She has a history of bladder cancer, and last underwent chemotherapy 9 days ago. Past Medical/Surgical History Medical Problems: (1) A-fib Status: Chronic (2) Acute electrocardiogram changes Status: Resolved (3) Hypertension Status: Chronic (4) Ureteral tumor Status: Chronic Surgical Problems: (1) History of appendectomy Status: Resolved (2) Hx of appendectomy Status: Resolved (3) S/P cholecystectomy Status: Resolved Family History FHx: cancer Social History Smoking Status: Never Smoker Smokeless Tobacco Use: No Alcohol Use: none Drug Use: none Marital Status: Housing status: assisted living Occupational Status: retired Multi-Drug Resistant Organisms History of MDRO: No Allergies Coded Allergies: No Known Allergies (Unverified , `, 11/20/16) Home Medications Scheduled Amlodipine Besylate (Amlodipine Besylate), 10 MG PO QAM Metoprolol Succinate (Metoprolol Succinate ER), 25 MG PO DAILY Multivitamin (Multivitamin), 1 TAB PO QAM Review of Systems The patient denies chest pain, palpitations, shortness of breath, cough, lower extremity swelling, vision change, hearing change, sore throat, fevers, chills, sweats, weight change, blood in urine or stool, dysuria, urinary frequency or urgency, lightheadedness, dizziness, headache, memory loss, rash, abnormal bruising or bleeding, imbalance, focal weakness, numbness or tingling in arms or legs, arthralgias or myalgias, back or neck pain, night sweats, or allergy symptoms. The review of systems is otherwise negative other than for that already noted above, and at least 10 systems have been reviewed. Physical Exam Vital Signs Date Time Temp Pulse Resp B/P Pulse Ox O2 Delivery O2 Flow Rate FiO2 11/20/16 20:47 132 11/20/16 19:29 110 18 123/75 94 Room Air 11/20/16 19:03 124 11/20/16 18:34 92 Room Air 11/20/16 17:14 124/79 11/20/16 17:04 110 92 11/20/16 16:34 129 24 94 11/20/16 15:42 111/72 11/20/16 15:42 118 22 111/72 97 Room Air 11/20/16 15:34 109 21 92 11/20/16 15:04 124 22 93 11/20/16 15:02 110 11/20/16 14:40 37.0 119 14 118/86 93 Room Air 11/20/16 14:38 118/86 The patient is awake, well-developed and adequately nourished, alert and oriented 3, has an NG tube in place, lying in bed and in no acute distress. HEENT--PERRL, EOMI, mucous membranes moist, and oropharynx normal. NG tube in place. Neck--supple, no JVD or bruits, thyroid normal, trachea midline, no adenopathy. Heart--normal S1 and S2, no extra beats, no murmurs, rubs or gallops. Lungs--clear bilaterally with good air movement, no respiratory distress, no accessory muscle use. Abdomen--decreased bowel sounds, soft , mildly distended and nontender. Extremities--no cyanosis, clubbing or edema. There are good distal pulses b/l. Dermatologic--normal skin turgor, normal color, warm and dry, no abnormal lymph nodes, no rash. Neurologic--cranial nerves II through XII grossly intact. Rheumatologic--normal range of motion, nontender, muscles and joints. Psychiatric--normal affect. Diagnostics Laboratory Results Results Past 24 Hours Test 11/20/16 15:30 11/20/16 20:25 Range/Units White Blood Count 6.90 4.8-10.8 K/uL Red Blood Count 4.95 4.2-5.4 M/uL Hemoglobin 14.2 12.0-16.0 g/dL Hematocrit 41.2 37-47 % Mean Corpuscular Volume 83.2 80-100 fL Mean Corpuscular Hemoglobin 28.7 25-34 pg Mean Corpuscular Hemoglobin Concent 34.5 32-36 g/dl Platelet Count 153 130-400 K/uL Mean Platelet Volume 9.0 7.4-10.4 fL Neutrophils (%) (Auto) 73.5 % Lymphocytes (%) (Auto) 16.8 % Monocytes (%) (Auto) 9.4 % Eosinophils (%) (Auto) 0.1 % Basophils (%) (Auto) 0.1 % Neutrophils # (Auto) 5.06 1.4-6.5 K/uL Lymphocytes # (Auto) 1.16 1.2-3.4 K/uL Monocytes # (Auto) 0.65 0.11-0.59 K/uL Eosinophils # (Auto) 0.01 0-0.5 K/uL Basophils # (Auto) 0.01 0-0.2 K/uL RDW Standard Deviation 47.3 36.4-46.3 fL RDW Coefficient of Variation 15.7 11.5-14.5 % Immature Granulocyte % (Auto) 0.1 % Immature Granulocyte # (Auto) 0.01 0.00-0.02 K/uL Sodium Level 130 136-145 mmol/L Potassium Level 3.3 3.5-5.1 mmol/L Chloride Level 85 98-107 mmol/L Carbon Dioxide Level 34 21-32 mmol/L Anion Gap 11.0 3-11 mmol/L Blood Urea Nitrogen 42 7-18 mg/dl Creatinine 1.50 0.60-1.20 mg/dl Est Creatinine Clear Calc Drug Dose 24.7 ml/min Estimated GFR () 36.4 Estimated GFR (Non- 31.4 BUN/Creatinine Ratio 28.3 10-20 Random Glucose 117 70-99 mg/dl Calcium Level 9.8 8.5-10.1 mg/dl Magnesium Level 2.3 1.8-2.4 mg/dl Total Bilirubin 0.8 0.2-1 mg/dl Direct Bilirubin 0.3 0-0.2 mg/dl Aspartate Amino Transf (AST/SGOT) 44 15-37 U/L Alanine Aminotransferase (ALT/SGPT) 57 12-78 U/L Alkaline Phosphatase 124 45-117 U/L Total Creatine Kinase 53 26-192 U/L Creatine Kinase MB 1.7 0.5-3.6 ng/ml Creatine Kinase MB Ratio 3.2 0-3.0 Troponin I 0.193 0-0.045 ng/ml Total Protein 7.6 6.4-8.2 gm/dl Albumin 3.3 3.4-5.0 gm/dl Amylase Level 90 25-115 U/L Lipase 418 73-393 U/L Diagnostic Radiology Patient Name: SUBHA MARLOW Unit Number: [id number] Dictated: 11/20/161554 Transcribed: 11/20/161554 EV Printed Date/Time: [~ rep prt dt]/[~ rep prt tm] [~ rep ct labl] - [~ rep ct ivnm] [facility] [place] [address] Dictated: 11/20/161554 Transcribed: 11/20/161554 EV Printed Date/Time: [~ rep prt dt]/[~ rep prt tm] [~ rep ct labl] - [~ rep ct ivnm] CONTRAST CLINICAL HISTORY: Upper abdominal pain. Vomiting. History of ureteral neoplasm. COMPARISON STUDY: Abdominal CT scans dated 10/17/2016 and 08/19/2016. TECHNIQUE: CT scan of the abdomen and pelvis is performed from the lung bases to the proximal femora. Images are reviewed in the axial, sagittal, and coronal planes. IV contrast was not administered for this examination as per the referring clinician. Note that the examination was performed in significantly suboptimal fashion without oral and IV contrast. The examination is also greater by motion artifact as well as by streak artifact from the patient's arms which could not be elevated above the abdomen. CT DOSE: 647.48 mGy.cm FINDINGS: Lung bases: The heart is normal in size and without pericardial effusion. There are scattered coronary artery calcifications. A large calcified granuloma is seen in the left lower lobe. There are small pleural effusions with bibasilar opacities. There is a tiny hiatal hernia. Calcified mediastinal and hilar nodes are partially imaged. Liver: The unenhanced liver is normal in size, contour, and attenuation. There is central intrahepatic biliary ductal dilatation. Gallbladder: Surgically absent noting clips in the gallbladder fossa. Spleen: Normal in size and attenuation. There are calcified splenic granulomas. Pancreas: Atrophic and grossly unremarkable. Adrenal glands: Unremarkable. Kidneys and ureters: The unenhanced kidneys are atrophic, with the right kidney asymmetrically atrophic as compared to the left. There are no renal calculi identified. There is mild to moderate right-sided hydronephrosis. This has modestly improved from 10/17/2016. There is no left-sided hydronephrosis. A 2.0 cm cyst is noted in the left kidney. There is a large extrarenal pelvis on the right. Again seen is an infiltrative soft tissue lesion consistent with tumor adjacent to the right proximal ureter and extending into the retroperitoneum. Soft tissue density is again suggested in the right proximal ureter and likely represents urothelial lesion. A large fluid collection is again seen in the right retroperitoneal space extending from below the right kidney into the right iliac region. This measures approximately 24.5 x 6 x 6 cm and likely represents a urinoma. This appears 2 modestly decreased in size from the 10/17/2016 examination. Abdominal vasculature: The abdominal aorta is normal in course and caliber noting advanced atherosclerotic calcification. Stomach and bowel: There is a hiatal hernia. The distal esophagus is filled with fluid. The stomach is markedly distended and fluid-filled, as is the duodenum. There is a focal change in caliber in the distal duodenum as seen on axial image #202. There is abrupt transition point identified at this site, and the small bowel is decompressed distally. This is consistent with a distal duodenal obstruction. No pneumatosis intestinalis or portal venous gas is seen. There is moderate to advanced colonic diverticulosis without CT evidence of acute diverticulitis. The appendix is not identified and reported surgically absent. Peritoneum: There is no intraperitoneal free air. No abdominal ascites is seen. A midline surgical scar is noted in the pelvis. Lymphadenopathy: Lymphadenopathy suggested in the upper retroperitoneal space on the right. Pelvic viscera: The bladder wall appears thickened and trabeculated. The uterus is normal as visualized. No adnexal lesion is seen. Surgical clips are noted along the right hemipelvis. Skeletal structures: The skeletal structures are osteopenic. There is moderate lumbosacral spondylosis. Grade 1 anterolisthesis is present L4-L5. Vertebral body height is maintained throughout the imaged spine. A large posterior disc osteophyte complex is seen at L5-S1. Sclerotic changes are seen involving the sacroiliac joints and pubic symphysis. No lytic or blastic bony lesions are seen. IMPRESSION: 1. Significant suboptimal examination without oral and IV contrast. The examination is also significantly degraded by streak and motion artifact. 2. The stomach and duodenum are markedly distended and fluid-filled. There is an abrupt transition point involving the distal duodenum at the ligament of Treitz, and the small bowel distally is decompressed. Findings are consistent with obstruction at the level of the distal duodenum. This is of unclear etiology. Surgical consultation is advised. 3. There is mild to moderate right hydroureteronephrosis. This appears modestly improved from 10/17/2016. 4. Again seen is a large and simple appearing fluid collection in the right retroperitoneal space located below the kidney and extending into the right pelvis. Difference considerations remain a urinoma or possibly a seroma/lymphocele. This appears modestly decreased in size from 10/17/2016. 5. 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 Retroperitoneal lymphadenopathy and a right ureteral urothelial lesion are again suspected. 6. The bladder wall appears thickened, similar to previous. 7. Moderate to advanced colonic diverticulosis without CT evidence of acute diverticulitis. 8. Small pleural effusions with bibasilar airspace opacities comminuted from previous. This could represent atelectasis and/or aspiration pneumonitis. Note that fluid fills visualized portions of the distended esophagus and this may place the patient at risk for aspiration. 9. Additional changes as above. Electronically signed by: Salinas Coleman M.D. 11/20/2016 4:17 PM Dictated Date/Time: 11/20/2016 3:55 PM The status of this report is Signed. Draft = Not yet reviewed or approved by Radiologist. Signed = Reviewed and approved by Radiologist. <AttendingPhy></AttendingPhy> <FamilyPhy>Iron Mcbride</FamilyPhy> < PrimaryPhy>Josh Varghese M.D.</PrimaryPhy> <UnitNumber>[id number]</UnitNumber > <VisitNumber>[id number]</VisitNumber> <PatientName>SUBHA MARLOW</ PatientName> <DateOfBirth>1930</DateOfBirth> <Location>[facility]</Location> < ServiceDate>11/20/16</ServiceDate> <MNE>ESINDI</MNE> <OrderingPhy>Bernard Leon MD</OrderingPhy> <OrderingPhyMNE>f rep ord dr escobar</OrderingPhyMNE> < DictatingPhyMNE>f rep dict dr escobar</DictatingPhyMNE> <CCListMNE>f rep ct mne</ CCListMNE> <AdmittingPhyMNE>f pt admit dr escobar</AdmittingPhyMNE> <AttendingPhyMNE >f pt attend dr escobar</AttendingPhyMNE> <ConsultingPhyMNE>f pt consult dr escobar</ConsultingPhyMNE> <FamilyPhyMNE>f pt fam dr escobar</FamilyPhyMNE> <OtherPhyMNE>f pt other dr escobar</OtherPhyMNE> < PrimaryPhyMNE>f pt prim care dr escobar</PrimaryPhyMNE> <ReferringPhyMNE>f pt referring dr escobar</ReferringPhyMNE> Patient Name: SUBHA MARLOW Unit Number: [id number] Dictated: 11/20/161956 Transcribed: 11/20/161956 [facility] Printed Date/Time: [~ rep prt dt]/[~ rep prt tm] [~ rep ct labl] - [~ rep ct ivnm] [facility] [place] [place] [address] Dictated: 11/20/161956 Transcribed: 11/20/161956 [facility] Printed Date/Time: [~ rep prt dt]/[~ rep prt tm] [~ rep ct labl] - [~ rep ct ivnm] BILATERAL LOWER EXTREMITY VENOUS DOPPLER HISTORY: Right leg swelling. COMPARISON STUDY: Right leg venous Doppler 08/29/2016. FINDINGS: There is normal compressibility, flow, and augmentation within the bilateral lower extremity deep venous systems. IMPRESSION: No DVT within the right or left lower extremity. Electronically signed by: Enzo Olmedo M.D. 11/20/2016 7:58 PM Dictated Date/Time: 11/20/2016 7:57 PM The status of this report is Signed. Draft = Not yet reviewed or approved by Radiologist. Signed = Reviewed and approved by Radiologist. <AttendingPhy></AttendingPhy> <FamilyPhy>Iron Mcbride</FamilyPhy> < PrimaryPhy>Josh Varghese M.D.</PrimaryPhy> <UnitNumber>[id number]</UnitNumber > <VisitNumber>[id number]</VisitNumber> <PatientName>SUBHA MARLOW</ PatientName> <DateOfBirth>1930</DateOfBirth> <Location>[facility]</Location> < ServiceDate>11/20/16</ServiceDate> <MNE>ESINDI</MNE> <OrderingPhy>Nicanor Velasquez M.D.</OrderingPhy> <OrderingPhyMNE>f rep ord dr escobar</OrderingPhyMNE> < DictatingPhyMNE>f rep dict dr escobar</DictatingPhyMNE> <CCListMNE>f rep ct shawn</ CCListMNE> <AdmittingPhyMNE>f pt admit dr escobar</AdmittingPhyMNE> <AttendingPhyMNE >f pt attend dr escobar</AttendingPhyMNE> <ConsultingPhyMNE>f pt consult dr escobar</ConsultingPhyMNE> <FamilyPhyMNE>f pt fam dr escobar</FamilyPhyMNE> <OtherPhyMNE>f pt other dr escobar</OtherPhyMNE> < PrimaryPhyMNE>f pt prim care dr escobar</PrimaryPhyMNE> <ReferringPhyMNE>f pt referring dr escobar</ReferringPhyMNE> EKG EKG shows atrial fibrillation with RVR, with ST-T changes in the inferior leads and leads V3 through V6. Impression Assessment and Plan GI--CT scan has suggested an obstruction involving the distal duodenum at the level of the ligament of Treitz. She had an NG tube placed to low intermittent suction while in the emergency department and has already emptied out 1700 mL, and with patient reporting feeling significantly improved at that time. She was seen by surgery while the emergency department, and they have suggested conservative treatment and they will reassess in the a.m. Atrial fibrillation with RVR with elevated troponin of 0.198 and low potassium of 3.3. The patient will be admitted to the telemetry unit for serial cardiac enzymes, cardiac rhythm monitoring, and a 2-D echocardiogram with Dopplers. She 'll be placed on normal saline with potassium chloride 20 mEq at 100 ML's per hour, and recheck the BMP in 4 hours. She'll be given digoxin 0.25 mg IV 1 in the emergency department, and will have Lopressor 5 mg IV every 4 hours when necessary for rate control. Her primary treatment this point needs to be that of volume replacement and potassium supplementation. We will hold amlodipine 10 mg by mouth every morning and metoprolol succinate ER 25 mg by mouth daily. --patient's blood following with Dr. Morris from urology regarding bladder lesions. There is noted a mild to moderate right hydroureteronephrosis which is modestly improved from 10/17/2016. There is again seen a large and simple- appearing fluid collection in the right retroperitoneal space located below the kidney and extending into the right pelvis with differential including a urinoma or possibly seroma/lymphocele, which is also modestly decreased in size from 10/17/2016. The ill-defined/infiltrative tumor around the right renal pelvis extending into the retroperitoneum is similar to previous. Renal insufficiency --creatinine 1.50 upon admission. Will repeat BMP and magnesium level in 4 hours as noted above and in the a.m. Hyponatremia--when she was admitted on October 26 through October 29 sodium at that time was as low as 125, and was 135 upon discharge. Sodium today is 130 , and will follow serial BMP as noted above. Right lower extremity cellulitis--she did show swelling on the right leg, and Dopplers were negative for DVT bilaterally. To cover both potential organisms of the GI system and skin, she restarted on vancomycin IV with renal dosing, and Zosyn 3.375 mg IV every 8 hours. Level of Care Telemetry Advanced Directives Existing Advance Directive: Yes Existing Living Will: Yes Existing Power of Oiler And Greaser: Yes Resuscitation Status FULL RESUSCITATION VTE Prophylaxis VTE Risk Assessment Done? Y/N: Yes Risk Level: Moderate Given or contraindicated: SCD's
[2016-11-20 21:08] LABS: BUN/CREATININE RATIO 29.8 (10-20); CALCIUM 9.2 mg/dl (8.5-10.1); CREATININE 1.4 mg/dl (0.60-1.20); MAGNESIUM 2.2 mg/dl (1.8-2.4); POTASSIUM 2.9 mmol/L (3.5-5.1)
[2016-11-20] MEDS: NSS + 20MEQ KCL 1000ML 1,000 ML IV SCH (21:56)
[2016-11-20 23:56] VITALS: BP 87/55; PULSE 103; TEMP 36.8; O2SAT 90
[2016-11-21] VITALS (7 sets, daily range): BP systolic 90–149; BP diastolic 60–84; PULSE 89–120; TEMP 36.8–38.1; O2SAT 92–95
[2016-11-21] MEDS: PIPERACILL/TAZOBAC IV 3.375 GM in DEXTROSE 5% 100ML 100 ML IV SCH ×4 (00:51→23:51)
[2016-11-21 03:08] LABS: CKMB/CK RATIO 3.1 (0-3.0)
[2016-11-21] MEDS: NSS + 20MEQ KCL 1000ML 1,000 ML IV SCH ×3 (03:54→18:51)
[2016-11-21 06:12] LABS: BASO % 0.2 %; BASO ABS # 0.01 K/uL (0-0.2); COMPLETE YES; EOS % 0.4 %; HEMATOCRIT 33.8 % (37-47); LYMPH % 21.5 %; LYMPH ABS # 1.08 K/uL (1.2-3.4); MEAN CELL VOLUME 84.9 fL (80-100); MEAN CORPUSCULAR HEMOGLOBIN 29.1 pg (25-34); MEAN CORPUSCULAR HGB CONC 34.3 g/dl (32-36); MEAN PLATELET VOLUME 9.4 fL (7.4-10.4); MONO % 9.3 %; NEUT % 68.6 %; PLATELET COUNT 113 K/uL (130-400); RED BLOOD COUNT 3.98 M/uL (4.2-5.4); WHITE BLOOD COUNT 5.03 K/uL (4.8-10.8)
[2016-11-21 06:40] LABS: BUN/CREATININE RATIO 31.2 (10-20); CALCIUM 8.4 mg/dl (8.5-10.1); CREATININE 1.1 mg/dl (0.60-1.20); POTASSIUM 3.2 mmol/L (3.5-5.1)
[2016-11-21 06:55] LABS: ALB/GLOB RATIO 0.8 (0.9-2)
[2016-11-21] MEDS: POTASSIUM CHLR 10 MEQ / WTR 10 MEQ in PREMIXED WATER 100 ML IV SCH ×4 (07:57→12:16)
--- NOTE | 2016-11-21 08:34 | Surgery Progress Note ---
Surgery Progress Note Date of Service Nov 21, 2016. Subjective + feeling well pt is doing better, no abdominal pain, no N/V, no fever, NGT- 1850ml, not pass gas yet, Objective Vital Signs: Date Time Temp Pulse Resp B/P Pulse Ox O2 Delivery O2 Flow Rate FiO2 11/21/16 07:49 37.1 89 18 102/61 92 Room Air 11/21/16 04:05 Room Air 11/21/16 03:58 37.0 96 18 90/60 95 Room Air 11/21/16 00:00 Room Air 11/20/16 23:56 36.8 103 18 87/55 90 Room Air 11/20/16 20:47 132 11/20/16 19:29 110 18 123/75 94 Room Air 11/20/16 19:03 124 11/20/16 18:34 92 Room Air 11/20/16 17:14 124/79 11/20/16 17:04 110 92 11/20/16 16:34 129 24 94 11/20/16 15:42 111/72 11/20/16 15:42 118 22 111/72 97 Room Air 11/20/16 15:34 109 21 92 11/20/16 15:04 124 22 93 11/20/16 15:02 110 11/20/16 14:40 37.0 119 14 118/86 93 Room Air 11/20/16 14:38 118/86 General Appearance: WD/WN Head: normocephalic Neck: supple Respiratory/Chest: chest non-tender, lungs clear, normal breath sounds Cardiovascular: regular rate, rhythm, no edema, no gallop, no JVD Abdomen: normal bowel sounds, non tender, non distended, soft Extremities: normal range of motion, non-tender, normal inspection Laboratory Results: Results Past 24 Hours Test 11/20/16 15:30 11/20/16 20:25 11/21/16 02:29 11/21/16 05:58 Range/Units White Blood Count 6.90 5.03 4.8-10.8 K/uL Red Blood Count 4.95 3.98 4.2-5.4 M/uL Hemoglobin 14.2 11.6 12.0-16.0 g/dL Hematocrit 41.2 33.8 37-47 % Mean Corpuscular Volume 83.2 84.9 80-100 fL Mean Corpuscular Hemoglobin 28.7 29.1 25-34 pg Mean Corpuscular Hemoglobin Concent 34.5 34.3 32-36 g/dl Platelet Count 153 113 130-400 K/uL Mean Platelet Volume 9.0 9.4 7.4-10.4 fL Neutrophils (%) (Auto) 73.5 68.6 % Lymphocytes (%) (Auto) 16.8 21.5 % Monocytes (%) (Auto) 9.4 9.3 % Eosinophils (%) (Auto) 0.1 0.4 % Basophils (%) (Auto) 0.1 0.2 % Neutrophils # (Auto) 5.06 3.45 1.4-6.5 K/uL Lymphocytes # (Auto) 1.16 1.08 1.2-3.4 K/uL Monocytes # (Auto) 0.65 0.47 0.11-0.59 K/uL Eosinophils # (Auto) 0.01 0.02 0-0.5 K/uL Basophils # (Auto) 0.01 0.01 0-0.2 K/uL RDW Standard Deviation 47.3 49.1 36.4-46.3 fL RDW Coefficient of Variation 15.7 15.9 11.5-14.5 % Immature Granulocyte % (Auto) 0.1 0.0 % Immature Granulocyte # (Auto) 0.01 0.00 0.00-0.02 K/uL Sodium Level 130 131 134 136-145 mmol/L Potassium Level 3.3 2.9 3.2 3.5-5.1 mmol/L Chloride Level 85 88 98 98-107 mmol/L Carbon Dioxide Level 34 33 25 21-32 mmol/L Anion Gap 11.0 10.0 11.0 3-11 mmol/L Blood Urea Nitrogen 42 42 34 7-18 mg/dl Creatinine 1.50 1.40 1.10 0.60-1.20 mg/dl Est Creatinine Clear Calc Drug Dose 24.7 26.4 33.6 ml/min Estimated GFR () 36.4 39.6 53.0 Estimated GFR (Non- 31.4 34.2 45.7 BUN/Creatinine Ratio 28.3 29.8 31.2 10-20 Random Glucose 117 105 86 70-99 mg/dl Calcium Level 9.8 9.2 8.4 8.5-10.1 mg/dl Magnesium Level 2.3 2.2 2.0 1.8-2.4 mg/dl Total Bilirubin 0.8 0.8 0.2-1 mg/dl Direct Bilirubin 0.3 0.3 0-0.2 mg/dl Aspartate Amino Transf (AST/SGOT) 44 104 15-37 U/L Alanine Aminotransferase (ALT/SGPT) 57 93 12-78 U/L Alkaline Phosphatase 124 129 45-117 U/L Total Creatine Kinase 53 49 26-192 U/L Creatine Kinase MB 1.7 1.5 0.5-3.6 ng/ml Creatine Kinase MB Ratio 3.2 3.1 0-3.0 Troponin I 0.193 0.263 0-0.045 ng/ml Total Protein 7.6 5.7 6.4-8.2 gm/dl Albumin 3.3 2.5 3.4-5.0 gm/dl Amylase Level 90 25-115 U/L Lipase 418 368 73-393 U/L Lactic Acid Level 0.7 0.4-2.0 mmol/L Globulin 3.2 2.5-4.0 gm/dl Albumin/Globulin Ratio 0.8 0.9-2 Random Vancomycin Level 15.2 mcg/ml Assessment & Plan IMP SBO pt is doing better, lactic acid 1.1 Continue treatment, correct low K repeat labs in AM, will f/u
--- NOTE | 2016-11-21 10:03 | Pharmacy Progress Note ---
Pharmacy Antibiotic Prog Note Date of Service: Nov 21, 2016. Subjective: The patient received a Vancomycin loading dose yesterday with further dosing to be determined after assessing random level/renal fxn today. The patient is currently on day #2 of IV therapy. Objective: Height (Feet): 5 Height (Inches): 5.00 Weight (Kilograms): 68.300 Levels: Item Value Date Time Random Vancomycin Level 15.2 mcg/ml 11/21/16 0558 Lab Results (24hrs): Laboratory Tests Test 11/20/16 15:30 11/20/16 20:25 11/21/16 05:58 BUN/Creatinine Ratio 28.3 29.8 31.2 Blood Urea Nitrogen 42 mg/dl 42 mg/dl 34 mg/dl Creatinine 1.50 mg/dl 1.40 mg/dl 1.10 mg/dl White Blood Count 6.90 K/uL 5.03 K/uL Red Blood Count 4.95 M/uL 3.98 M/uL Hemoglobin 14.2 g/dL 11.6 g/dL Hematocrit 41.2 % 33.8 % Mean Corpuscular Volume 83.2 fL 84.9 fL Mean Corpuscular Hemoglobin 28.7 pg 29.1 pg Mean Corpuscular Hemoglobin Concent 34.5 g/dl 34.3 g/dl Platelet Count 153 K/uL 113 K/uL Mean Platelet Volume 9.0 fL 9.4 fL Neutrophils (%) (Auto) 73.5 % 68.6 % Lymphocytes (%) (Auto) 16.8 % 21.5 % Monocytes (%) (Auto) 9.4 % 9.3 % Eosinophils (%) (Auto) 0.1 % 0.4 % Basophils (%) (Auto) 0.1 % 0.2 % Neutrophils # (Auto) 5.06 K/uL 3.45 K/uL Lymphocytes # (Auto) 1.16 K/uL 1.08 K/uL Monocytes # (Auto) 0.65 K/uL 0.47 K/uL Eosinophils # (Auto) 0.01 K/uL 0.02 K/uL Basophils # (Auto) 0.01 K/uL 0.01 K/uL Recent Pertinent Medications: Item Value Date Time Vancomycin HCl 530 ml @ 200 mls/hr 11/20/16 1900 1500 mg/Sodium TODAY@1900/IV 11/20/16 2008 Chloride Vancomycin HCl 270 ml @ 125 mls/hr 11/21/16 1000 1000 mg/Sodium Q18H/IV Chloride Item Value Date Time Piperacillin Sod/ 4.5 gm 11/20/161837 Tazobactam Sod .STK-MED ONCE/.ROUTE 11/20/16 1848 (Zosyn Iv) Piperacillin Sod/ 115 ml @ 28.75 mls/hr 11/21/16 0000 Tazobactam Sod Q8@0000,0800,1600/IV 11/21/16 0757 3.375 gm/Dextrose Assessment & Plan: Vancomycin * 86 yo female admitted with SBO/RLE cellulitis on IV Vanco/Zosyn to cover infection from possible GI/skin sources * significant improvement in renal fxn overnight, SCr almost returned to baseline * calculated maintenance dosing based on improvement/baseline renal fxn * Maintenance dose: Vancomycin 1gm IV q18h * Goal trough level: ~15mcg/mL * Trough level ordered for: 11/22/16 2200 Pharmacy will continue to follow and will adjust dose/frequency as necessary. Thank you
[2016-11-21] MEDS: PANTOprazole INJ 40 MG in SYRINGE 0 ML IV SCH (10:50)
[2016-11-21] MEDS: VANCOMYCIN INJ 1,000 MG in SODIUM CHLORIDE 0.9% 250ML 250 ML IV SCH (10:51)
--- NOTE | 2016-11-21 10:53 | Medical Student: [facility] ---
Med Student Progress Note Date of Service Nov 21, 2016. 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 She had an NG tube placed and drained roughly 2 L yesterday and an additional 300 mL overnight. She reports feeling much better. No nausea or vomiting, and her abdominal pain has improved. She still has not passed gas. She still has decreased appetite. Her main complaint currently is sore throat. She denies CP, dyspnea, or palpitations. Review of Systems Constitutional: No fever ENT: + sore throat Respiratory: No cough, No shortness of breath Cardiac: No chest pain Abdomen: No nausea, No pain, No vomiting Musculoskeletal: + swelling (R leg) Female : No dysuria All Other Systems: Reviewed and Negative Objective Vital Signs Date Time Temp Pulse Resp B/P Pulse Ox O2 Delivery O2 Flow Rate FiO2 11/21/16 07:49 37.1 89 18 102/61 92 Room Air 11/21/16 04:05 Room Air 11/21/16 03:58 37.0 96 18 90/60 95 Room Air 11/21/16 00:00 Room Air 11/20/16 23:56 36.8 103 18 87/55 90 Room Air 11/20/16 20:47 132 11/20/16 19:29 110 18 123/75 94 Room Air 11/20/16 19:03 124 11/20/16 18:34 92 Room Air 11/20/16 17:14 124/79 11/20/16 17:04 110 92 11/20/16 16:34 129 24 94 11/20/16 15:42 111/72 11/20/16 15:42 118 22 111/72 97 Room Air 11/20/16 15:34 109 21 92 11/20/16 15:04 124 22 93 11/20/16 15:02 110 11/20/16 14:40 37.0 119 14 118/86 93 Room Air 11/20/16 14:38 118/86 Physical Exam General Appearance: + pertinent finding (Elderly pt sitting up in bed with NG tube draining scant clear/green fluid. ) Eyes: bilateral eyes EOMI, bilateral eyes normal inspection ENT: hearing grossly normal, + pertinent finding (NG tube in place. ) Neck: no JVD, no carotid bruits, trachea midline Respiratory/Chest: chest non-tender, lungs clear, normal breath sounds, no respiratory distress, no accessory muscle use Cardiovascular: no gallop, no JVD, no murmur, + pertinent finding (Normal rate , irregularly irregular rhythm. ) Abdomen: non tender, soft, no organomegaly, + pertinent finding (Hypoactive bowel sounds. ) Extremities: + pertinent finding (Redness, swelling, and warmth over the R tibia with some excoriations. Radial and DP pulses 2+. 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 nml as tested, no motor/sensory deficits, alert, normal mood/affect, oriented x 3 Skin: normal color, warm/dry Laboratory Results Last 24 Hours Test 11/20/16 15:30 11/20/16 20:25 11/21/16 02:29 11/21/16 05:58 White Blood Count 6.90 K/uL 5.03 K/uL Red Blood Count 4.95 M/uL 3.98 M/uL Hemoglobin 14.2 g/dL 11.6 g/dL Hematocrit 41.2 % 33.8 % Mean Corpuscular Volume 83.2 fL 84.9 fL Mean Corpuscular Hemoglobin 28.7 pg 29.1 pg Mean Corpuscular Hemoglobin Concent 34.5 g/dl 34.3 g/dl Platelet Count 153 K/uL 113 K/uL Mean Platelet Volume 9.0 fL 9.4 fL Neutrophils (%) (Auto) 73.5 % 68.6 % Lymphocytes (%) (Auto) 16.8 % 21.5 % Monocytes (%) (Auto) 9.4 % 9.3 % Eosinophils (%) (Auto) 0.1 % 0.4 % Basophils (%) (Auto) 0.1 % 0.2 % Neutrophils # (Auto) 5.06 K/uL 3.45 K/uL Lymphocytes # (Auto) 1.16 K/uL 1.08 K/uL Monocytes # (Auto) 0.65 K/uL 0.47 K/uL Eosinophils # (Auto) 0.01 K/uL 0.02 K/uL Basophils # (Auto) 0.01 K/uL 0.01 K/uL RDW Standard Deviation 47.3 fL 49.1 fL RDW Coefficient of Variation 15.7 % 15.9 % Immature Granulocyte % (Auto) 0.1 % 0.0 % Immature Granulocyte # (Auto) 0.01 K/uL 0.00 K/uL Sodium Level 130 mmol/L 131 mmol/L 134 mmol/L Potassium Level 3.3 mmol/L 2.9 mmol/L 3.2 mmol/L Chloride Level 85 mmol/L 88 mmol/L 98 mmol/L Carbon Dioxide Level 34 mmol/L 33 mmol/L 25 mmol/L Anion Gap 11.0 mmol/L 10.0 mmol/L 11.0 mmol/L Blood Urea Nitrogen 42 mg/dl 42 mg/dl 34 mg/dl Creatinine 1.50 mg/dl 1.40 mg/dl 1.10 mg/dl Est Creatinine Clear Calc Drug Dose 24.7 ml/min 26.4 ml/min 33.6 ml/min Estimated GFR () 36.4 39.6 53.0 Estimated GFR (Non- 31.4 34.2 45.7 BUN/Creatinine Ratio 28.3 29.8 31.2 Random Glucose 117 mg/dl 105 mg/dl 86 mg/dl Calcium Level 9.8 mg/dl 9.2 mg/dl 8.4 mg/dl Magnesium Level 2.3 mg/dl 2.2 mg/dl 2.0 mg/dl Total Bilirubin 0.8 mg/dl 0.8 mg/dl Direct Bilirubin 0.3 mg/dl 0.3 mg/dl Aspartate Amino Transf (AST/SGOT) 44 U/L 104 U/L Alanine Aminotransferase (ALT/SGPT) 57 U/L 93 U/L Alkaline Phosphatase 124 U/L 129 U/L Total Creatine Kinase 53 U/L 49 U/L Creatine Kinase MB 1.7 ng/ml 1.5 ng/ml Creatine Kinase MB Ratio 3.2 3.1 Troponin I 0.193 ng/ml 0.263 ng/ml Total Protein 7.6 gm/dl 5.7 gm/dl Albumin 3.3 gm/dl 2.5 gm/dl Amylase Level 90 U/L Lipase 418 U/L 368 U/L Lactic Acid Level 0.7 mmol/L Globulin 3.2 gm/dl Albumin/Globulin Ratio 0.8 Random Vancomycin Level 15.2 mcg/ml Diagnostic Radiology CT abd/-pelvis without contrast: IMPRESSION: 1. Significant suboptimal examination without oral and IV contrast. The examination is also significantly degraded by streak and motion artifact. 2. The stomach and duodenum are markedly distended and fluid-filled. There is an abrupt transition point involving the distal duodenum at the ligament of Treitz, and the small bowel distally is decompressed. Findings are consistent with obstruction at the level of the distal duodenum. This is of unclear etiology. Surgical consultation is advised. 3. There is mild to moderate right hydroureteronephrosis. This appears modestly improved from 10/17/2016. 4. Again seen is a large and simple appearing fluid collection in the right retroperitoneal space located below the kidney and extending into the right pelvis. Difference considerations remain a urinoma or possibly a seroma/lymphocele. This appears modestly decreased in size from 10/17/2016. 5. 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 Retroperitoneal lymphadenopathy and a right ureteral urothelial lesion are again suspected. 6. The bladder wall appears thickened, similar to previous. 7. Moderate to advanced colonic diverticulosis without CT evidence of acute diverticulitis. 8. Small pleural effusions with bibasilar airspace opacities comminuted from previous. This could represent atelectasis and/or aspiration pneumonitis. Note that fluid fills visualized portions of the distended esophagus and this may place the patient at risk for aspiration. 9. Additional changes as above. Electronically signed by: Salinas Coleman M.D. 11/20/2016 4:17 PM BILATERAL LOWER EXTREMITY VENOUS DOPPLER HISTORY: Right leg swelling. COMPARISON STUDY: Right leg venous Doppler 08/29/2016. FINDINGS: There is normal compressibility, flow, and augmentation within the bilateral lower extremity deep venous systems. IMPRESSION: No DVT within the right or left lower extremity. EKG EKG done at 1442 on 11/20/16: Atrial fibrillation at 112 bpm. T wave inversions in inferior leads as well as V2-V6. No STEMI or Q wave MIs. Medications Medications Administered Medications (Trade) Dose Ordered Sig/Blank Route Start Time Stop Time Status Last Admin Dose Admin Sodium Chloride 1,000 ml @ 125 mls/hr Q8H STAT IV 11/20/16 15:06 11/20/16 20:26 DC 11/20/16 15:41 125 MLS/HR Sodium Chloride (Nss 500ml) 500 ml @ 999 mls/hr Q31M STAT IV 11/20/16 15:15 11/20/16 15:45 DC 11/20/16 15:42 999 MLS/HR Ondansetron HCl (Zofran Inj) 4 mg NOW STAT IV 11/20/16 15:16 11/20/16 15:18 DC 11/20/16 15:41 4 MG Lidocaine HCl 20 ml 20 ml ONE ONCE INFIL 11/20/16 16:45 11/20/16 16:46 DC 11/20/16 17:00 20 ML Potassium Chloride/Sodium Chloride 1,000 ml @ 150 mls/hr Q6H40M IV 11/20/16 21:00 12/20/16 20:59 11/21/16 03:54 150 MLS/HR Piperacillin Sod/ Tazobactam Sod 3.375 gm/Dextrose 115 ml @ 28.75 mls/ hr Q8@0000,0800,1600 IV 11/21/16 00:00 11/30/16 20:00 11/21/16 07:57 28.75 MLS/HR Digoxin 250 mcg/ Syringe 10 ml @ 2 mls/min TODAY@1900 IV 11/20/16 19:00 11/20/16 19:30 DC 11/20/16 20:47 2 MLS/MIN Pantoprazole Sodium/Syringe (Protonix Inj/ Syringe) 10 ml @ 5 mls/min TODAY@1845 IV 11/20/16 18:45 11/20/16 19:30 DC 11/20/16 20:05 5 MLS/MIN Piperacillin Sod/ Tazobactam Sod (Zosyn Iv) 4.5 gm STK-MED ONCE .ROUTE 11/20/16 18:38 11/20/16 18:40 DC 11/20/16 18:48 4.5 GM Benzocaine/ Butamben/ Tetracaine HCl 200 appln 200 appln STK-MED ONCE .ROUTE 11/20/16 18:39 11/20/16 18:41 DC 11/20/16 18:47 200 APPLN Vancomycin HCl 1500 mg/Sodium Chloride 530 ml @ 200 mls/hr TODAY@1900 IV 11/20/16 19:00 11/20/16 23:00 DC 11/20/16 20:08 200 MLS/HR Potassium Chloride/Prmx (Kcl 10 Meq / Wtr/Premixed Water) 100 ml @ 100 mls/hr Q1H IV 11/21/16 08:00 11/21/16 11:59 11/21/16 07:57 100 MLS/HR Assessment and Plan Assessment and Plan: Pt is an 86 year old female with a history of Afib, HTN, and 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 Small bowel obstruction - Physical exam with hypoactive bowel sounds, nontender abdomen today. CT abd/pelvis shows evidence of small bowel obstruction at the level of the distal ileus. NG tube was placed in the ED and has drained roughly 2000 mL of billious fluid with another 300 mL overnight. No peritoneal signs to suggest perforation. No evidence of aspiration at this time with clear lungs. - Will continue NG tube until pt passes gas. - General surgery has been consulted. - Promethazine and ondansetron as needed for nausea. - Morphine 1-2 mg as needed for pain, will try to minimize narcotics to prevent worsening obstipation. R leg edema, warmth, and erythema - Venous duplex showed no evidence of DVT in either leg. Physical exam is consistent with cellulitis. CT shows no evidence to suggest obstruction secondary to her ureteral cancer. - Continue vancomycin and Zosyn for cellulitis. Elevated liver enzymes - This is likely secondary to the bowel obstruction with secondary cholestasis, as alkaline phosphatase is also elevated. - Will continue to follow daily LFTs. Electrolyte abnormalities - Na improved from 130 yesterday to 134 today, still hypokalemic with K of 3.2, hypochloremia with Cl of 98 compared to 85 yesterday. These are all likely secondary to dehydration from vomiting. - Continue normal saline 125 mL/hr with 40 mEq potassium. - Continue daily BMPs. Elevated creatinine - Improved to 1.1 today, down from 1.5 yesterday, with IVF. CK was normal. - Will give IVF as above and monitor daily BMP. Atrial fibrillation - Pt has remained in Afib, rate controlled with Digoxin. Echocardiogram from 10/28/16 showed: Interpretation Summary n Conclusions -- n 1. Normal LV size, mild concentric LVH. n 2. Normal LV function. LVEF 60-65%. No regional wall motion abnormalities. n 3. Normal RV size and function. n 4. Grade I diastolic dysfunction. Moderate left atrial enlargement. n 5. No significant valvular pathology. n 6. Compared with prior study on 03/20/2016: No significant changes. - Will plan to restart her home PO metoprolol. -ASHLI VASC score is 4 (age, HTN, female). Will plan to add anticoagulation given moderate high risk of embolic event. Elevated troponin of 0. 263 today, 0.198 yesterday- This likely represents demand ischemia secondary to her Afib. - Will continue to trend troponin. - Obtain EKG if the pt has chest pain. - Will consult cardiology. Elevated lipase of 418 yesterday- Repeat lipase and amylase WNL today. HTN, chronic - Will hold PO amlodipine at this time. Ureteral cancer - Pt is followed for this by Dr. Morris of urology and Dr. Carol Suero of hem/onc. - Will consult hem/onc. - Will obtain UA given report of tenderness with urination. DVT prophylaxis - Will place SCDs. Will plan to add anticoagulation.
[2016-11-21 11:39] LABS: CKMB/CK RATIO 2.9 (0-3.0)
[2016-11-21] MEDS ORDERED: NURSING VERBAL MED ORDER ONE ×2 (14:15→17:45)
--- NOTE | 2016-11-21 14:55 | Progress Note ---
Subjective Date of Service: Nov 21, 2016. Subjective Pt evaluation today including: conversation w/ patient, conversation w/ family , physical exam, chart review, lab review, review of studies, conversation w/ diet consultant, review of inpatient medication list feeling, better, no nausea vomiting, no abdominal pain, not passing gas, no bowel movement yet Problem List Medical Problems: (1) Altered mental status Status: Acute (2) Aphasia Status: Acute (3) Atrial fibrillation with RVR Status: Acute (4) Bowel obstruction Status: Acute (5) Change in mental status Status: Acute (6) Dysphagia Status: Acute (7) Elevated troponin Status: Acute (8) Speaking difficulty Status: Acute (9) Stroke-like symptoms Status: Acute (10) TIA (transient ischemic attack) Status: Acute (11) UTI (urinary tract infection) Status: Acute Review of Systems Constitutional: No chills, No fatigue, No fever, No problem reported, No sweats , No weakness, No weight loss Eyes: No diplopia, No discharge, No eye pain, No redness, No worsening of vision ENT: No dental problems, No hearing loss, No nasal symptoms, No sore throat, No tinnitus, No trouble swallowing, No unusual epistaxis Respiratory: No cough, No dyspnea at rest, No dyspnea on exertion, No hemoptysis, No shortness of breath, No sputum, No wheezing Cardiac: No PND, No chest pain, No claudication, No edema, No orthopnea, No palpitations Abdomen: No constipation, No diarrhea, No nausea, No pain, No vomiting Musculoskeletal: No calf pain, No joint pain, No muscle pain, No swelling Female : No abnormal vaginal bleeding, No dysuria, No hematuria, No incontinence, No urinary frequency, No vaginal discharge Neurologic: No balance problems, No memory loss, No numbness/tingling, No paralysis, No vertigo, No weakness Psychiatric: No anhedonism, No anxiety, No depression symptoms, No insomnia, No substance abuse Heme: No abnormal bleeding/bruising, No clotting problems, No night sweats, No swollen lymph nodes Endo: No excessive thirst, No excessive urination, No fatigue Skin: No bleeding, No color change, No itch, No new/changing skin lesions, No rash Objective Vital Signs Date Time Temp Pulse Resp B/P Pulse Ox O2 Delivery O2 Flow Rate FiO2 11/21/16 12:05 Room Air 11/21/16 08:00 Room Air 11/21/16 07:49 37.1 89 18 102/61 92 Room Air 11/21/16 04:05 Room Air 11/21/16 03:58 37.0 96 18 90/60 95 Room Air 11/21/16 00:00 Room Air 11/20/16 23:56 36.8 103 18 87/55 90 Room Air 11/20/16 20:47 132 11/20/16 19:29 110 18 123/75 94 Room Air 11/20/16 19:03 124 11/20/16 18:34 92 Room Air 11/20/16 17:14 124/79 11/20/16 17:04 110 92 11/20/16 16:34 129 24 94 11/20/16 15:42 111/72 11/20/16 15:42 118 22 111/72 97 Room Air 11/20/16 15:34 109 21 92 11/20/16 15:04 124 22 93 11/20/16 15:02 110 11/20/16 14:40 37.0 119 14 118/86 93 Room Air Physical Exam General Appearance: WD/WN, no apparent distress, + thin, + pertinent finding ( pleasant) Eyes: normal inspection, PERRL, EOMI, sclerae normal ENT: normal ENT inspection, hearing grossly normal, pharynx normal Neck: supple, no adenopathy, thyroid normal, no JVD, no carotid bruits, trachea midline Respiratory/Chest: chest non-tender, lungs clear, normal breath sounds, no respiratory distress, no accessory muscle use, + decreased breath sounds Cardiovascular: regular rate, rhythm, no edema, no gallop, no JVD, no murmur Abdomen: non tender, soft, no organomegaly, no pulsatile mass, + abnormal bowel sounds (decreased bowel sounds) Extremities: normal range of motion, non-tender, normal inspection, no pedal edema, no calf tenderness, normal capillary refill, pelvis stable Neurologic/Psychiatric: mortgage operations manager II-XII nml as tested, no motor/sensory deficits, alert, normal mood/affect, oriented x 3 Skin: warm/dry, no rash, + pertinent finding (right lower extremity skin increase edema is a little bit better than yesterday) Lymphatic: no adenopathy Laboratory Results Last 24 Hours Test 11/20/16 15:30 11/20/16 20:25 11/21/16 02:29 11/21/16 05:58 White Blood Count 6.90 K/uL 5.03 K/uL Red Blood Count 4.95 M/uL 3.98 M/uL Hemoglobin 14.2 g/dL 11.6 g/dL Hematocrit 41.2 % 33.8 % Mean Corpuscular Volume 83.2 fL 84.9 fL Mean Corpuscular Hemoglobin 28.7 pg 29.1 pg Mean Corpuscular Hemoglobin Concent 34.5 g/dl 34.3 g/dl Platelet Count 153 K/uL 113 K/uL Mean Platelet Volume 9.0 fL 9.4 fL Neutrophils (%) (Auto) 73.5 % 68.6 % Lymphocytes (%) (Auto) 16.8 % 21.5 % Monocytes (%) (Auto) 9.4 % 9.3 % Eosinophils (%) (Auto) 0.1 % 0.4 % Basophils (%) (Auto) 0.1 % 0.2 % Neutrophils # (Auto) 5.06 K/uL 3.45 K/uL Lymphocytes # (Auto) 1.16 K/uL 1.08 K/uL Monocytes # (Auto) 0.65 K/uL 0.47 K/uL Eosinophils # (Auto) 0.01 K/uL 0.02 K/uL Basophils # (Auto) 0.01 K/uL 0.01 K/uL RDW Standard Deviation 47.3 fL 49.1 fL RDW Coefficient of Variation 15.7 % 15.9 % Immature Granulocyte % (Auto) 0.1 % 0.0 % Immature Granulocyte # (Auto) 0.01 K/uL 0.00 K/uL Sodium Level 130 mmol/L 131 mmol/L 134 mmol/L Potassium Level 3.3 mmol/L 2.9 mmol/L 3.2 mmol/L Chloride Level 85 mmol/L 88 mmol/L 98 mmol/L Carbon Dioxide Level 34 mmol/L 33 mmol/L 25 mmol/L Anion Gap 11.0 mmol/L 10.0 mmol/L 11.0 mmol/L Blood Urea Nitrogen 42 mg/dl 42 mg/dl 34 mg/dl Creatinine 1.50 mg/dl 1.40 mg/dl 1.10 mg/dl Est Creatinine Clear Calc Drug Dose 24.7 ml/min 26.4 ml/min 33.6 ml/min Estimated GFR () 36.4 39.6 53.0 Estimated GFR (Non- 31.4 34.2 45.7 BUN/Creatinine Ratio 28.3 29.8 31.2 Random Glucose 117 mg/dl 105 mg/dl 86 mg/dl Calcium Level 9.8 mg/dl 9.2 mg/dl 8.4 mg/dl Magnesium Level 2.3 mg/dl 2.2 mg/dl 2.0 mg/dl Total Bilirubin 0.8 mg/dl 0.8 mg/dl Direct Bilirubin 0.3 mg/dl 0.3 mg/dl Aspartate Amino Transf (AST/SGOT) 44 U/L 104 U/L Alanine Aminotransferase (ALT/SGPT) 57 U/L 93 U/L Alkaline Phosphatase 124 U/L 129 U/L Total Creatine Kinase 53 U/L 49 U/L Creatine Kinase MB 1.7 ng/ml 1.5 ng/ml Creatine Kinase MB Ratio 3.2 3.1 Troponin I 0.193 ng/ml 0.263 ng/ml Total Protein 7.6 gm/dl 5.7 gm/dl Albumin 3.3 gm/dl 2.5 gm/dl Amylase Level 90 U/L Lipase 418 U/L 368 U/L Lactic Acid Level 0.7 mmol/L Globulin 3.2 gm/dl Albumin/Globulin Ratio 0.8 Random Vancomycin Level 15.2 mcg/ml Test 11/21/16 11:00 Total Creatine Kinase 58 U/L Creatine Kinase MB 1.7 ng/ml Creatine Kinase MB Ratio 2.9 Troponin I 0.191 ng/ml Assessment and Plan Pt is an 86 year old female with a history of Afib, HTN, and 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 NG tube was placed in the ED and has drained roughly 2000 mL of billious fluid with another 300 mL overnight. Has been on NG tube, seem stable and improving Has consulted General surgery, decrease IV fluid Cellulitis ing right leg Venous duplex showed no evidence of DVT in either leg. Continue antibiotics for now Elevated liver enzymes today is worse , likely from dehydration and bowel obstruction: follow-up Atrial fibrillation - Pt has remained in Afib, rate controlled with Digoxin. Echocardiogram from 10/28/16 showed: Interpretation Summary [id number]- VASc Score: 4 HAS- Bled Score:bleeding rate was 3.74% per year Elevated troponin of 0. 263 today, 0.198 yesterday- This likely represents demand ischemia secondary to her Afib. As requested audiology consult because an elevated troponin, and has chronic A. fib Patient does not have any blood thinner for stroke prevention, and I was not able to identify the reason in her progress note, therefore will consult cardiology HTN, Ureteral cancer : consult Plan: We'll continue current conservative treatment for bowel obstruction, IV fluid pain medication and supportive care, surgeon is on the case We'll request her ply bander to see, Follow-up labs and PLT levels Discussed with patient about care plan answer all the questions, with present of RN discussed with patient about CODE STATUS, she requests do not resuscitation DVT prophylaxis - HEPARIN PLUS SCDs. Continued [facility] stay due to: multiple IV medications needed Discharge planning: uncertain
[2016-11-21] MEDS ORDERED: CHLORASEPTIC 1.4% SOLN 180 ML BTL MT PRN (18:30)
--- NOTE | 2016-11-21 19:01 | CARDIOLOGY CONSULTATION ---
DATE OF CONSULTATION: 11/21/2016 HISTORY OF PRESENT ILLNESS: Klaudia Chung is an 86-year-old female seen in cardiology consultation per the request of Dr. Navarro for the evaluation of atrial fibrillation with rapid ventricular rate. Her primary care provider is Dr. Varghese. I follow her from outpatient cardiology standpoint and she had last seen me in the office on 10/08/2016. The patient presented to [facility] via the Emergency Room yesterday complaining of several days of abdominal discomfort, nauseousness and vomiting. She has been found to have a small-bowel obstruction. She has had significant symptomatic relief after the placement of a nasogastric tube, which is still draining green-bilious material. On arrival to the Emergency Department on 11/20/2016 at 1442 hours, she was noted to be in atrial fibrillation with rapid ventricular rate at 112 beats per minute with mild associated diffuse ST abnormalities in the anterior, lateral and inferior leads. Her cardiac enzymes have been mildly elevated with a troponin of 0.198, 0.193, 0.263, and 0.191 ng/ml thus far this admission with last measurement having been performed at 11:00 this morning. The patient denies any chest discomfort, denies shortness of breath and has no subjective palpitations. She received IV digoxin initially which controlled her rate reasonably well. She has not been on a standing dose of AV-ami blockers due to concerns of relative low blood pressure. This afternoon on telemetry, it was noted that her ventricular rates have gone back up from a previous baseline earlier today of 85 beats per minute when resting to 100-130 beats per minute. At present, the patient is comfortable sitting at the side of her bed and her ventricular rate is 130 beats per minute, right now at 6:00 p.m. on 11/21/2016. She is receiving IV fluids and is also receiving piperacillin/tazobactam antibiotic as well as vancomycin. I had last seen the patient on 10/08/2016. Her cardiac history dates back to an inpatient cardiology consultation in March 2017 and on 03/19/2016. At that time, the patient had been seen in urgent cardiology consultation in the postanesthesia care unit for evaluation of an abnormal EKG. The patient had undergone cystoscopy with laser ablation and fulguration of a ureter tumor with exchanged for a right ureteral stent that day. The patient tolerated the procedure well from a hemodynamic standpoint without any significant fluctuations in her heart rate or blood pressure. On the site monitor; however, it was noted that during the procedure, she developed T-wave inversions. Post-procedure EKG revealed normal sinus rhythm with deep diffuse T-wave inversions, which were new compared to a prior preoperative EKG from January 2016. The patient had no symptoms suggestive of angina at that time. She was kept in the hospital for observation and serial cardiac enzymes were negative. On the day after her initial consultation, she underwent a symptom-limited stress echocardiogram with no evidence of inducible ischemia and she was therefore discharged. She had been seen in preoperative evaluation last month for additional procedures related to her bladder tumor and her EKG at that time revealed stable sinus rhythm at 60 beats per minute with occasional PVCs, normal ST segments and normal T waves. Her previous T-wave inversions had resolved and it was felt that this was a transient catecholamine post-procedure related phenomenon EKG changes in March 2016. PAST MEDICAL HISTORY: 1. Ureteral tumor. 2. Hypertension. PAST SURGICAL HISTORY: Laser cystoscopy. SOCIAL HISTORY: She is a nonsmoker and lives in assisted living. FAMILY HISTORY: Noncontributory. REVIEW OF SYSTEMS: Negative with the exceptions as outlined in the HPI. ALLERGIES: No known drug allergies. CURRENT MEDICATIONS: Acetaminophen intravenously as needed for pain, heparin 5000 units subQ q. 12 hours for DVT prophylaxis, lorazepam 0.5 mg q. 4 hours as needed for anxiety, metoprolol tartrate 5 mg IV q. 4 hours as needed for heart rate greater than 110, she has not received this, morphine sulfate 2 mg q. 2 hours p.r.n. pain, Zofran 4 mg IV q. 6 hours p.r.n. pain, Protonix 40 mg IV daily, Zosyn 3.375 mg IV q. 8 hours, vancomycin 1.5 grams administered earlier today. PHYSICAL EXAMINATION: VITAL SIGNS: Temperature 36.9, heart rate 130 and irregular; blood pressure 149/84 most recently, but it was lower earlier today with systolic blood pressures in the 100 mmHg range. GENERAL APPEARANCE: Well appearing, no acute distress. NECK: No bruits. CARDIOVASCULAR: tachycardia, irregular rhythm. No murmurs. LUNGS: Clear. No rales, rhonchi or wheezing. ABDOMEN: Mild tenderness. EXTREMITIES: No edema. HEENT: Nasogastric tube is in place. DIAGNOSTIC DATA: As noted in the HPI. In addition, the patient had a recent transthoracic echocardiogram performed on 10/28/2016 which revealed no significant valvular heart disease and normal LVEF. FINAL IMPRESSION: An 86-year-old female. 1. Newly recognized atrial fibrillation, mildly elevated ventricular rate, asymptomatic. 2. Small-bowel obstruction. 3. Underlying history of hypertension for which she is on metoprolol succinate 25 mg daily and lisinopril 20 mg daily as an outpatient. 4. History of transient T-wave inversions after laser cystoscopy for ureteral tumor in the past. 5. Ongoing workup for your ureteral tumor/bladder tumor. DISCUSSION AND RECOMMENDATIONS: When I interviewed the patient, she told me that her heart rhythm issue was a chronic issue. However, as far as I know, I have been seeing her for over 6 months and I was unaware that she has a history of atrial fibrillation. She was in sinus rhythm when I had seen her during her hospital stay in March 2016. She had a recent admission in late October 2016 for change in mental status and had a TIA stroke workup that was negative. Review of EKG during that admission revealed sinus rhythm and she is noted to be in atrial fibrillation at this point. As far as I know, this is her first atrial fibrillation episode that I know of. She has not been on chronic anticoagulation. At this time, ideally from a stroke prophylaxis standpoint, would add anticoagulation with perhaps unfractionated heparin infusion; however, given her nasogastric tube in place, and her overall frailty at age 86, and possible need for surgical intervention, I think the bleeding risk outweighs the benefit. I am going to change her IV metoprolol dose to be 5 mg IV q. 6 hours as a standing dose withhold for heart rate less than 60 and blood pressure less than 100 mmHg, to replace her oral metoprolol. The atrial fibrillation is likely precipitated by her high catecholamine state as she had days of symptoms before presenting for treatment for her small-bowel obstruction. I would agree with the impression that it was in her last hospitalist's note that the mild troponin elevation is likely due to demand induced myocardial injury from her atrial fibrillation with elevated rate, and the underlying illness associated with her small-bowel obstruction. I do not think a further repeat echocardiogram is necessary, she just had one less than 1 month ago. We will follow with you. ADDENDUM, 11/22/16, 12:54 PM. Patient reassessed after dictation of consult. Now that rate is improved after metoprolol rhythm appears to be sinus rhythm , sinus tachycardia with frequent PACs, not atrial fibrillation. Prior EKG from 11/20/16 and telemetry also consistent with SR with frequent supraventricular ectopy rather than atrial fibrillation. MTDD
[2016-11-21] MEDS: METOPROLOL TARTRATE 1 MG/ML VIAL IV. SCH ×2 (19:23→23:51)
[2016-11-21] MEDS: HEPARIN SOD 5000 UNIT/0.5 ML CARP SQ SCH (21:02)
--- NOTE | 2016-11-21 21:26 | ECHOCARDIOGRAM REPORT ---
*NOTICE TO RECEIVING REPUBLICAN AGENCY This information is strictly Confidential and protected under [place] law. [place] law prohibits you from making any further disclosure of this information unless further disclosure is expressly permitted by the written consent of the person to whom it pertains or is authorized by law. A general authorization for the release of medical or other information is not sufficient for this purpose. Hospital accepts no responsibility if the information is made available to any other person, INCLUDING THE PATIENT. Interpretation Summary * Name: SUBHA MARLOW Study Date: 11/21/2016 07:30 AM BP: 90/60 mmHg * Patient Location: .[facility]\S\N286\S\2 HR: 89 * : 1930 (M/d/yyyy) Gender: Female Height: 65 in * Age: 86 yrs Ethnicity: CA Weight: 150 lb * Ordering Physician: Nicanor Velasquez * Referring Physician: Iron Mcbride * Performed By: Bridgette Salmeron RDCS * * Reason For Study: Atrial Fibrillation, Elevated Troponin * BSA: 1.8 m2 * -- Conclusions -- * 1. Normal left ventricular size with hyperdynamic systolic function. EF > 70%. No regional wall motion abnormalities. No significant left ventricular hypertrophy. * 2. The left atrium is mildly dilated. * 3. No significant valvular abnormalities. * 4. Rhythm predominantly sinus with PACs, and possibly atrial runs. * 5. Technically difficult study, enhanced with IV Definity. * 6. No significant change from prior study on 10/27/2016. Procedure Details * A complete two-dimensional transthoracic echocardiogram was performed (2D, M-mode, Doppler and color flow Doppler). * The study was technically difficult. * The study was technically difficult, but visualization was adequate with the administration of Definity ultrasound contrast. * A contrast injection of Definity was performed to improve assessment of LV function. * Contrast was injected into an intravenous site in the left arm. * One vial of Definity ultrasound contrast was diluted in normal saline to a total volume of 10 ml. A total of '2' ml of solution was administered during imaging. * Lot # [id number] of Definity utilized for procedure. * Expiration date . * The attending nurse who injected the contrast agent was Eleonora Aguirre RN. Left Ventricle * Normal left ventricular size with hyperdynamic systolic function. EF > 70%. No regional wall motion abnormalities. No significant left ventricular hypertrophy. Right Ventricle * The right ventricle is normal in size and function. * The right ventricular systolic function is normal as assessed by tricuspid annular plane systolic excursion (TAPSE) (normal >1.5 cm). Atria * The left atrium is mildly dilated. * Right atrium not well visualized. * The thickening of interatrial septum suggests lipomatous hypertrophy. Mitral Valve * Sclerotic appearing mitral valve. * There is no mitral valve stenosis. * There is trace mitral regurgitation. Tricuspid Valve * The tricuspid valve is not well visualized. * There is no tricuspid stenosis. * Significant tricuspid regurgitation is absent. Aortic Valve * The aortic valve is normal in structure and function. * The aortic valve is trileaflet. * Focal calcifications noted near non coronary cusp. * No hemodynamically significant valvular aortic stenosis. * No aortic regurgitation is present. Pulmonic Valve * The pulmonary valve is inadequately visualized, but the Doppler data is adequate for interpretation. * There is no pulmonic valvular stenosis. * Trace pulmonic valvular regurgitation. Great Vessels * The aortic root is normal size. * Ascending aorta of normal dimension Pericardium/Pleural * There is no pericardial effusion. Great Vessels * Normal inferior vena cava size and collapsability with sniff indicates a normal right atrial pressure of 3 mmHg MMode 2D Measurements and Calculations IVSd 1.1 cm IVSs 1.2 cm LVIDd 4.0 cm LVIDs 2.4 cm LVPWd 1.1 cm LVPWs 1.7 cm IVS/LVPW 0.99 FS 39.9 % EDV(Teich) 71.1 ml ESV(Teich) 20.5 ml EF(Teich) 71.1 % EDV(cubed) 65.3 ml ESV(cubed) 14.1 ml EF(cubed) 78.3 % % IVS thick 6.0 % % LVPW thick 51.3 % LV mass(C)d 154.1 grams LV mass(C)dI 88.0 grams/m\S\2 LV mass(C)s 115.7 grams LV mass(C)sI 66.1 grams/m\S\2 SV(Teich) 50.6 ml SI(Teich) 28.9 ml/m\S\2 SV(cubed) 51.1 ml SI(cubed) 29.2 ml/m\S\2 Ao root diam 3.1 cm Ao root area 7.5 cm\S\2 ACS 1.5 cm LA dimension 2.5 cm asc Aorta Diam 3.0 cm LA/Ao 0.81 LVAd ap4 15.6 cm\S\2 LVLd ap4 5.9 cm EDV(MOD-sp4) 35.6 ml EDV(sp4-el) 35.3 ml LVAs ap4 7.6 cm\S\2 LVLs ap4 4.6 cm ESV(MOD-sp4) 11.6 ml ESV(sp4-el) 10.7 ml EF(MOD-sp4) 67.4 % EF(sp4-el) 69.7 % SV(MOD-sp4) 24.0 ml SI(MOD-sp4) 13.7 ml/m\S\2 SV(sp4-el) 24.6 ml SI(sp4-el) 14.0 ml/m\S\2 Doppler Measurements and Calculations MV E max prerna 81.5 cm/sec MV A max prerna 82.0 cm/sec MV E/A 0.99 Ao V2 max 153.4 cm/sec Ao max PG 9.4 mmHg Ao max PG (full) 4.0 mmHg LV V1 max PG 5.4 mmHg LV V1 max 116.4 cm/sec PA V2 max 129.0 cm/sec PA max PG 6.7 mmHg PI max prerna 148.0 cm/sec PI max PG 8.8 mmHg PI dec slope 205.0 cm/sec\S\2 PI P1/2t 211.4 msec TR max prerna 167.9 cm/sec RVSP(TR) 14.3 mmHg RAP systole 3.0 mmHg
[2016-11-22] VITALS (9 sets, daily range): BP systolic 119–164; BP diastolic 78–101; PULSE 93–109; TEMP 37.1–37.4; O2SAT 91–95
--- NOTE | 2016-11-22 01:34 | GASTROINTESTINAL CONSULTATION ---
DATE OF CONSULTATION: 11/21/2016 CHIEF COMPLAINT: Duodenal obstruction. HISTORY OF PRESENT ILLNESS: Mrs. Chung is an 86-year-old white female who presents to [facility] with abdominal pain, nausea and vomiting on November 20. This started approximately 3-4 days ago according to the patient and she has had difficulty in having bowel movements. She can recall that her last bowel movement was at least 3 days ago and has not been passing flatus as well. There were some home remedies tried including suppositories and use of Zofran for nausea and vomiting with a little response. Her hepatitis is diminished. The patient has a history of bladder cancer and had a course of chemotherapy approximately 9 days ago. She has a prior cholecystectomy and appendectomy many years ago, at least 30, by the patient's recollection. The patient denied any fevers, shaking chills with these events and also denies any melena or bright red blood per rectum and diarrhea. PAST SURGICAL HISTORY: Includes atrial fibrillation, hypertension, a ureteral tumor, appendectomy, and cholecystectomy remotely. FAMILY HISTORY: Significant for cancer. SOCIAL HISTORY: The patient denies tobacco or alcohol usage, is and and is retired. 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 ALLERGIES: The patient has no known drug allergies. CURRENT MEDICATIONS: Include amlodipine, metoprolol, and multivitamins in addition to the course of chemotherapy recently received. FAMILY HISTORY: Otherwise unremarkable except for history of cancer of unclear type. REVIEW OF SYSTEMS: Otherwise noncontributory based on 14-point exam except for mentioned above. The patient denies any dysuria or hematuria, has not had any rashes, chest pain, shortness of breath, or palpitations. PHYSICAL EXAMINATION: VITAL SIGNS: Today on admission, the patient was febrile with a blood pressure of 118/86, respirations 14, pulse 119 and 93% on room air. GENERAL: The patient is awake, alert and oriented x3 and sitting comfortably in bed. She has an NG tube in place that is draining bilious material. Overnight the patient had over 2000 mL of NG output but has not had any bowel movement or passed gas at this point. HEENT: Sclerae are anicteric. Oral mucosa is moist. HEART: Normal S1, S2. LUNGS: Clear to auscultation without rales, rhonchi or wheezes. ABDOMEN: Soft, mildly tympanitic without rebound or guarding. There is no hepatosplenomegaly. There is no rebound or guarding. I do not appreciate abdominal bruits. EXTREMITIES: Without clubbing, cyanosis or edema. RECTAL: Deferred at this time. NEUROLOGIC: The patient has no lateralizing or focal neurologic abnormalities. LABORATORY STUDIES: On admission, white count 6.9, hemoglobin 14.2, MCV 83, platelets 153,000. BUN and creatinine are 42 and 1.5, bicarbonate 34, potassium is slightly low at 3.3 as is sodium of 130. Liver function tests: Total bilirubin of 0.8, AST 44, ALT 57, alkaline phosphatase 124; lipase is 418, slightly elevated, although this is in the setting of a bowel obstruction; albumin is 3.3. IMAGING DATA: CT scan revealed abnormalities that include a markedly distended stomach and proximal duodenum. There is an abrupt transition point involving the distal duodenum at the level of the ligament of Treitz and the small bowel distal to that appears decompressed. There is also mild to moderate right hydroureteronephrosis that has perhaps slightly improved from October imaging. There is a large fluid collection in the right retroperitoneal space below the kidney. 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 There is also retroperitoneal lymphadenopathy, bladder wall thickening and moderate to advanced colonic diverticulosis without evidence of acute diverticulitis. IMPRESSION AND PLAN: Mrs. Chung is an 86-year-old female with a history of a ureteral/urothelial tumor with adenopathy, a soft tissue mass and currently evidence of a distal duodenal obstruction of unclear etiology. This may reflect either a luminal lesion or extrinsic compression. I believe that it is reasonable to attempt an upper endoscopy/push enteroscopy to get to the side of apparent transition and see if there is a luminal effect that may be sampled. It is unclear if they are downstream obstructions, based on the reports, it appears that the lesion and resulting proximal dilation is at the level of the duodenum. This depending on the nature of this lesion it is possible that a luminal stent of the duodenum may provide palliative relief of obstructive symptoms and permit oral nutrition and minimize obstructive features, if this represents the only lesion and only area of compression. I believe it is prudent to start with an upper endoscopy, enteroscopy tomorrow and further recommendations once this has been performed. I will make arrangements with Dr. Stafford for tomorrow afternoon. In the meantime, the patient should maintain n.p.o., IV fluids as needed and continued intermittent NG tube suction to decompress the stomach and avoid aspiration. All questions answered for the patient. If you have any questions, please contact our service. Thank you for allowing me to participate in this pleasant lady's care. YAIR
[2016-11-22] MEDS: VANCOMYCIN INJ 1,000 MG in SODIUM CHLORIDE 0.9% 250ML 250 ML IV SCH ×2 (04:20→22:48)
[2016-11-22] MEDS ORDERED: METOPROLOL TARTRATE 1 MG/ML VIAL ONE ×2 (06:01→14:17)
[2016-11-22] MEDS: METOPROLOL TARTRATE 1 MG/ML VIAL IV. SCH ×3 (06:08→17:23)
[2016-11-22] MEDS: NSS + 20MEQ KCL 1000ML 1,000 ML IV SCH ×2 (06:08→22:47)
[2016-11-22 06:20] LABS: BASO % 0.2 %; BASO ABS # 0.01 K/uL (0-0.2); COMPLETE YES; HEMATOCRIT 34.7 % (37-47); IG% 0.4 %; LYMPH % 17.2 %; LYMPH ABS # 0.79 K/uL (1.2-3.4); MEAN CORPUSCULAR HEMOGLOBIN 28.9 pg (25-34); MEAN PLATELET VOLUME 9.8 fL (7.4-10.4); MONO % 7.4 %; NEUT % 72.8 %; PLATELET COUNT 138 K/uL (130-400); RED BLOOD COUNT 4.08 M/uL (4.2-5.4); WHITE BLOOD COUNT 4.58 K/uL (4.8-10.8)
[2016-11-22 07:04] LABS: BUN/CREATININE RATIO 25.4 (10-20); CALCIUM 7.8 mg/dl (8.5-10.1); CREATININE 0.85 mg/dl (0.60-1.20); MAGNESIUM 1.9 mg/dl (1.8-2.4); POTASSIUM 3.5 mmol/L (3.5-5.1)
[2016-11-22] MEDS: PIPERACILL/TAZOBAC IV 3.375 GM in DEXTROSE 5% 100ML 100 ML IV SCH ×2 (08:52→16:34)
[2016-11-22] MEDS: HEPARIN SOD 5000 UNIT/0.5 ML CARP SQ SCH ×2 (09:00→22:16)
--- NOTE | 2016-11-22 09:42 | Medical Student: [facility] ---
Med Student Progress Note Date of Service Nov 22, 2016. 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 She had a large formed bowel movement last night and has been passing gas. She has had no further nausea, vomiting, or abdominal pain. Her main complaint today is sore throat with the NG tube in place. Still decreased appetite, and she has not yet had anything by mouth. She has remained in Afib overnight, but no chest pain, dyspnea, or palpitations. She has been up and moving to the restroom with help from nursing. Her R leg is feeling better, less swollen and painful. Review of Systems Constitutional: No fever Respiratory: No shortness of breath Cardiac: No chest pain, No edema Abdomen: + see HPI Female : No dysuria Skin: + see HPI All Other Systems: Reviewed and Negative Objective Vital Signs Date Time Temp Pulse Resp B/P Pulse Ox O2 Delivery O2 Flow Rate FiO2 11/22/16 07:32 37.1 109 18 144/87 93 Room Air 11/22/16 06:08 105 144/77 11/22/16 04:15 Room Air 11/22/16 03:00 37.4 96 18 141/91 91 Room Air 11/22/16 01:52 37.4 97 19 132/88 92 Room Air 11/22/16 00:46 Room Air 11/22/16 00:00 Room Air 11/21/16 23:51 103 129/73 11/21/16 23:48 38.1 103 20 129/73 92 Room Air 11/21/16 20:15 37.5 105 16 144/81 93 Room Air 11/21/16 20:02 Room Air 11/21/16 19:59 36.8 95 17 131/84 93 Room Air 11/21/16 19:23 120 142/80 11/21/16 19:20 120 142/80 11/21/16 16:00 Room Air 11/21/16 15:57 36.9 118 15 149/84 94 Room Air 11/21/16 12:05 Room Air Physical Exam General Appearance: no apparent distress, + pertinent finding (Pt sitting comfortably in bed with NG tube draining scant brownish/green fluid. ) Eyes: bilateral eyes EOMI, bilateral eyes PERRL, bilateral eyes normal inspection ENT: hearing grossly normal, + pertinent finding (NG tube in place) Neck: supple, no JVD, trachea midline Respiratory/Chest: lungs clear, normal breath sounds, no respiratory distress, no accessory muscle use Cardiovascular: no edema, no gallop, no JVD, no murmur, + pertinent finding ( Tachycardic and irregularly irregular rhythm. ) Abdomen: normal bowel sounds, soft, + pertinent finding (Mild diffuse upper abdominal tenderness) Extremities: no calf tenderness, + pertinent finding (Improving erythema over the R mid tibia. No further edema. No noticeable warmth compared to the L leg. ) Neurologic/Psychiatric: recoverer II-XII nml as tested, no motor/sensory deficits, alert, normal mood/affect, oriented x 3 Laboratory Results Last 24 Hours Test 11/21/16 11:00 11/22/16 05:05 Total Creatine Kinase 58 U/L Creatine Kinase MB 1.7 ng/ml Creatine Kinase MB Ratio 2.9 Troponin I 0.191 ng/ml White Blood Count 4.58 K/uL Red Blood Count 4.08 M/uL Hemoglobin 11.8 g/dL Hematocrit 34.7 % Mean Corpuscular Volume 85.0 fL Mean Corpuscular Hemoglobin 28.9 pg Mean Corpuscular Hemoglobin Concent 34.0 g/dl Platelet Count 138 K/uL Mean Platelet Volume 9.8 fL Neutrophils (%) (Auto) 72.8 % Lymphocytes (%) (Auto) 17.2 % Monocytes (%) (Auto) 7.4 % Eosinophils (%) (Auto) 2.0 % Basophils (%) (Auto) 0.2 % Neutrophils # (Auto) 3.33 K/uL Lymphocytes # (Auto) 0.79 K/uL Monocytes # (Auto) 0.34 K/uL Eosinophils # (Auto) 0.09 K/uL Basophils # (Auto) 0.01 K/uL RDW Standard Deviation 49.9 fL RDW Coefficient of Variation 16.1 % Immature Granulocyte % (Auto) 0.4 % Immature Granulocyte # (Auto) 0.02 K/uL Sodium Level 139 mmol/L Potassium Level 3.5 mmol/L Chloride Level 106 mmol/L Carbon Dioxide Level 22 mmol/L Anion Gap 11.0 mmol/L Blood Urea Nitrogen 22 mg/dl Creatinine 0.85 mg/dl Est Creatinine Clear Calc Drug Dose 43.5 ml/min Estimated GFR () 72.4 Estimated GFR (Non- 62.5 BUN/Creatinine Ratio 25.4 Random Glucose 67 mg/dl Calcium Level 7.8 mg/dl Magnesium Level 1.9 mg/dl Total Bilirubin 0.7 mg/dl Direct Bilirubin 0.2 mg/dl Aspartate Amino Transf (AST/SGOT) 42 U/L Alanine Aminotransferase (ALT/SGPT) 59 U/L Alkaline Phosphatase 126 U/L Total Protein 5.6 gm/dl Albumin 2.3 gm/dl Medications Medications Administered Medications (Trade) Dose Ordered Sig/Blank Route Start Time Stop Time Status Last Admin Dose Admin Sodium Chloride 1,000 ml @ 125 mls/hr Q8H STAT IV 11/20/16 15:06 11/20/16 20:26 DC 11/20/16 15:41 125 MLS/HR Sodium Chloride (Nss 500ml) 500 ml @ 999 mls/hr Q31M STAT IV 11/20/16 15:15 11/20/16 15:45 DC 11/20/16 15:42 999 MLS/HR Ondansetron HCl (Zofran Inj) 4 mg NOW STAT IV 11/20/16 15:16 11/20/16 15:18 DC 11/20/16 15:41 4 MG Lidocaine HCl 20 ml 20 ml ONE ONCE INFIL 11/20/16 16:45 11/20/16 16:46 DC 11/20/16 17:00 20 ML Potassium Chloride/Sodium Chloride 1,000 ml @ 80 mls/hr [id number] IV 11/20/16 21:00 12/20/16 20:59 11/22/16 06:08 80 MLS/HR Piperacillin Sod/ Tazobactam Sod 3.375 gm/Dextrose 115 ml @ 28.75 mls/ hr Q8@0000,0800,1600 IV 11/21/16 00:00 11/30/16 20:00 11/21/16 23:51 28.75 MLS/HR Digoxin 250 mcg/ Syringe 10 ml @ 2 mls/min TODAY@1900 IV 11/20/16 19:00 11/20/16 19:30 DC 11/20/16 20:47 2 MLS/MIN Pantoprazole Sodium 40 mg/ Syringe 10 ml @ 5 mls/min DAILY@11 IV 11/21/16 11:00 12/21/16 10:59 11/21/16 10:50 5 MLS/MIN Pantoprazole Sodium/Syringe (Protonix Inj/ Syringe) 10 ml @ 5 mls/min TODAY@1845 IV 11/20/16 18:45 11/20/16 19:30 DC 11/20/16 20:05 5 MLS/MIN Piperacillin Sod/ Tazobactam Sod (Zosyn Iv) 4.5 gm STK-MED ONCE .ROUTE 11/20/16 18:38 11/20/16 18:40 DC 11/20/16 18:48 4.5 GM Benzocaine/ Butamben/ Tetracaine HCl 200 appln 200 appln STK-MED ONCE .ROUTE 11/20/16 18:39 11/20/16 18:41 DC 11/20/16 18:47 200 APPLN Vancomycin HCl 1500 mg/Sodium Chloride 530 ml @ 200 mls/hr TODAY@1900 IV 11/20/16 19:00 11/20/16 23:00 DC 11/20/16 20:08 200 MLS/HR Potassium Chloride 10 meq/ Prmx 100 ml @ 100 mls/hr Q1H IV 11/21/16 08:00 11/21/16 11:59 DC 11/21/16 12:16 100 MLS/HR Vancomycin HCl/ Sodium Chloride (Vancomycin Inj/ Nss 250ml) 270 ml @ 125 mls/hr Q18H IV 11/21/16 10:00 12/01/16 09:59 11/22/16 04:20 125 MLS/HR Heparin Sodium (Porcine) (Heparin Sq 5000 Unit/0.5ml) 5,000 unit Q12 SQ 11/21/16 21:00 12/21/16 20:59 11/21/16 21:02 5,000 UNIT Metoprolol Tartrate (Lopressor Iv) 5 mg Q6 IV. 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 Small bowel obstruction - CT abd/pelvis showed evidence of small bowel obstruction at the level of the distal ileus. Pt had a large BM last night. NG tube has been draining scant brown/green fluid. No peritoneal signs to suggest perforation. No evidence of aspiration at this time with clear lungs. - Will plan to discontinue NG tube today given that she continues to pass gas. - Plan is for an EGD today per GI to assess for any luminal or compressing masses causing the obstruction. Still NPO for this procedure. - Promethazine and ondansetron as needed for nausea. - Morphine 1-2 mg as needed for pain, will try to minimize narcotics to prevent worsening obstipation. R leg edema, warmth, and erythema - Cellulitis appears to be improving compared to admission. Venous duplex showed no evidence of DVT in either leg. CT shows no evidence to suggest obstruction secondary to her ureteral cancer. - Continue vancomycin and Zosyn for cellulitis. Elevated liver enzymes, resolved - This was likely secondary to the bowel obstruction with secondary cholestasis, as alkaline phosphatase was also elevated. Electrolyte abnormalities, resolved - No further hyponatremia or hypokalemia. - Continue daily BMPs. - Continue IVF as pt is NPO for her EGD today. Elevated creatinine - Improved to 0.85 today. - Will give IVF as above and monitor daily BMP. Atrial fibrillation - Pt has remained in Afib with HR in the 90-120s. - Will continue IV metoprolol 5 mg IV q6h. -ASHLI VASC score is 4 (age, HTN, female). Will plan to add anticoagulation given moderate high risk of embolic event, but will consult Cardiology. Echocardiogram from 10/28/16 showed: Interpretation Summary n Conclusions -- n 1. Normal LV size, mild concentric LVH. n 2. Normal LV function. LVEF 60-65%. No regional wall motion abnormalities. n 3. Normal RV size and function. n 4. Grade I diastolic dysfunction. Moderate left atrial enlargement. n 5. No significant valvular pathology. n 6. Compared with prior study on 03/20/2016: No significant changes. Elevated troponin, trending down at 0.191, down from previous 0. 263- This likely represents demand ischemia secondary to her Afib. - Obtain EKG if the pt has chest pain. - Will consult cardiology. Elevated lipase of 418 yesterday- Repeat lipase and amylase WNL. HTN, chronic - Will hold PO amlodipine at this time. Ureteral cancer - Pt is followed for this by Dr. Morris of urology and Dr. Carol Suero of hem/onc. - Will consult hem/onc. - Will obtain UA given report of tenderness with urination. DVT prophylaxis - Will place SCDs. Will plan to add anticoagulation. Continued [facility] stay due to: multiple IV medications needed Discharge planning: uncertain
--- NOTE | 2016-11-22 11:24 | Progress Note ---
Subjective Date of Service: Nov 22, 2016. Subjective Pt evaluation today including: conversation w/ patient, physical exam, chart review, lab review, review of studies, conversation w/ new home sales consultant, review of inpatient medication list Continued doing okay, only minimal amount of NG tube suctioning, no nausea vomiting, has one bowel movement yesterday, no bowel movement today, but has been passing gas Problem List Medical Problems: (1) Altered mental status Status: Acute (2) Aphasia Status: Acute (3) Atrial fibrillation with RVR Status: Acute (4) Bowel obstruction Status: Acute (5) Change in mental status Status: Acute (6) Dysphagia Status: Acute (7) Elevated troponin Status: Acute (8) Speaking difficulty Status: Acute (9) Stroke-like symptoms Status: Acute (10) TIA (transient ischemic attack) Status: Acute (11) UTI (urinary tract infection) Status: Acute Review of Systems Constitutional: + fatigue, + weakness, No chills, No fever, No problem reported , No sweats, No weight loss Eyes: No diplopia, No discharge, No eye pain, No redness, No worsening of vision ENT: No dental problems, No hearing loss, No nasal symptoms, No sore throat, No tinnitus, No trouble swallowing, No unusual epistaxis Respiratory: No cough, No dyspnea at rest, No dyspnea on exertion, No hemoptysis, No shortness of breath, No sputum, No wheezing Cardiac: No PND, No chest pain, No claudication, No edema, No orthopnea, No palpitations Abdomen: No constipation, No diarrhea, No nausea, No pain, No vomiting Musculoskeletal: No calf pain, No joint pain, No muscle pain, No swelling Female : No abnormal vaginal bleeding, No dysuria, No hematuria, No incontinence, No urinary frequency, No vaginal discharge Neurologic: No balance problems, No memory loss, No numbness/tingling, No paralysis, No vertigo, No weakness Psychiatric: No anhedonism, No anxiety, No depression symptoms, No insomnia, No substance abuse Heme: No abnormal bleeding/bruising, No clotting problems, No night sweats, No swollen lymph nodes Endo: No excessive thirst, No excessive urination, No fatigue Skin: No bleeding, No color change, No itch, No new/changing skin lesions, No rash Objective Vital Signs Date Time Temp Pulse Resp B/P Pulse Ox O2 Delivery O2 Flow Rate FiO2 11/22/16 09:46 152/101 11/22/16 08:00 Room Air 11/22/16 07:32 37.1 109 18 144/87 93 Room Air 11/22/16 06:08 105 144/77 11/22/16 04:15 Room Air 11/22/16 03:00 37.4 96 18 141/91 91 Room Air 11/22/16 01:52 37.4 97 19 132/88 92 Room Air 11/22/16 00:46 Room Air 11/22/16 00:00 Room Air 11/21/16 23:51 103 129/73 11/21/16 23:48 38.1 103 20 129/73 92 Room Air 11/21/16 20:15 37.5 105 16 144/81 93 Room Air 11/21/16 20:02 Room Air 11/21/16 19:59 36.8 95 17 131/84 93 Room Air 11/21/16 19:23 120 142/80 11/21/16 19:20 120 142/80 11/21/16 16:00 Room Air 11/21/16 15:57 36.9 118 15 149/84 94 Room Air 11/21/16 12:05 Room Air Physical Exam General Appearance: WD/WN, no apparent distress Eyes: normal inspection, PERRL, EOMI, sclerae normal ENT: normal ENT inspection, hearing grossly normal, pharynx normal, + pertinent finding (NG tube in place) Neck: supple, no adenopathy, thyroid normal, no JVD, no carotid bruits, trachea midline Respiratory/Chest: chest non-tender, normal breath sounds, no respiratory distress, no accessory muscle use, + decreased breath sounds Cardiovascular: regular rate, rhythm, no edema, no gallop, no JVD, no murmur Abdomen: normal bowel sounds, non tender, soft, no organomegaly, no pulsatile mass Extremities: normal range of motion, non-tender, normal inspection, no pedal edema, no calf tenderness, normal capillary refill, pelvis stable 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/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 nml as tested, no motor/sensory deficits, alert, normal mood/affect, oriented x 3 Skin: normal color, warm/dry, no rash Lymphatic: no adenopathy Laboratory Results Last 24 Hours Test 11/22/16 05:05 White Blood Count 4.58 K/uL Red Blood Count 4.08 M/uL Hemoglobin 11.8 g/dL Hematocrit 34.7 % Mean Corpuscular Volume 85.0 fL Mean Corpuscular Hemoglobin 28.9 pg Mean Corpuscular Hemoglobin Concent 34.0 g/dl Platelet Count 138 K/uL Mean Platelet Volume 9.8 fL Neutrophils (%) (Auto) 72.8 % Lymphocytes (%) (Auto) 17.2 % Monocytes (%) (Auto) 7.4 % Eosinophils (%) (Auto) 2.0 % Basophils (%) (Auto) 0.2 % Neutrophils # (Auto) 3.33 K/uL Lymphocytes # (Auto) 0.79 K/uL Monocytes # (Auto) 0.34 K/uL Eosinophils # (Auto) 0.09 K/uL Basophils # (Auto) 0.01 K/uL RDW Standard Deviation 49.9 fL RDW Coefficient of Variation 16.1 % Immature Granulocyte % (Auto) 0.4 % Immature Granulocyte # (Auto) 0.02 K/uL Sodium Level 139 mmol/L Potassium Level 3.5 mmol/L Chloride Level 106 mmol/L Carbon Dioxide Level 22 mmol/L Anion Gap 11.0 mmol/L Blood Urea Nitrogen 22 mg/dl Creatinine 0.85 mg/dl Est Creatinine Clear Calc Drug Dose 43.5 ml/min Estimated GFR () 72.4 Estimated GFR (Non- 62.5 BUN/Creatinine Ratio 25.4 Random Glucose 67 mg/dl Calcium Level 7.8 mg/dl Magnesium Level 1.9 mg/dl Total Bilirubin 0.7 mg/dl Direct Bilirubin 0.2 mg/dl Aspartate Amino Transf (AST/SGOT) 42 U/L Alanine Aminotransferase (ALT/SGPT) 59 U/L Alkaline Phosphatase 126 U/L Total Protein 5.6 gm/dl Albumin 2.3 gm/dl Assessment and Plan Pt is an 86 year old female with a history of Afib, HTN, and 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 NG tube was placed in the ED and has drained roughly 2000 mL of billious fluid with another 300 mL overnight. Has been on NG tube, GI plAN on EGD today because of etiology unknown and history of Ureteral cancer decrease IV fluid Cellulitis ing right leg Venous duplex showed no evidence of DVT in either leg. Continue antibiotics for now because not able to take by mouth Elevated liver enzymes was worse yesterday likely from dehydration and bowel obstruction: follow-up Atrial fibrillation - Pt has remained in Afib, rate controlled with Digoxin. Per cardiology this is new identified A. martín, from a stroke prophylaxis standpoint, would add anticoagulation with perhaps unfractionated heparin infusion; however, given her nasogastric tube in place, and her overall frailty at age 86, and possible need for surgical intervention, I think the bleeding risk outweighs the benefit. Echo was done on yesterday LVEF 70% [id number]- VASc Score: 4 HAS- Bled Score:bleeding rate was 3.74% per year Elevated troponin of 0. 263 today, 0.198 yesterday- This likely represents demand ischemia secondary to her Afib. As requested audiology consult because an elevated troponin, and has chronic A. fib Patient does not have any blood thinner for stroke prevention, and I was not able to identify the reason in her progress note, HTN, Ureteral cancer : consulted Plan: We'll continue current conservative treatment for bowel obstruction, IV fluid pain medication and supportive care, surgeon is on the case We'll request her cellar worker to see, Follow-up labs and PLT levels Discussed with patient about care plan answer all the questions, with present of RN discussed with patient about CODE STATUS, she requests do not resuscitation, patient told me today she do not want to have a heroic procedure or surgery, but agreed to have EGD today DVT prophylaxis - HEPARIN PLUS SCDs. PT OT Continued [facility] stay due to: multiple IV medications needed Discharge planning: uncertain
[2016-11-22] MEDS: PANTOprazole INJ 40 MG in SYRINGE 0 ML IV SCH (11:27)
--- NOTE | 2016-11-22 11:52 | Cardiology Follow-Up ---
Subjective General Date of Service: Nov 22, 2016. Chief Complaint: follow up arrhythmia Pt evaluation today including: conversation w/ patient, physical exam History of Present Illness The patient is a 86 year old female seen in follow up. Patient feeling well. She was moved to room 204 per my request last evening for more intensive monitoring of her rhythm. Pt still has NG tube in place. She feels comfortable. Denies chest pain, palpitations, or shortness of breath. Abdominal discomfort resolved. Allergies Coded Allergies: No Known Allergies (Unverified , `, 11/20/16) Social History Smoking Status: Never Smoker Hx Tobacco Use In Past Year?: No Hx Alcohol Use - Type And Amou: No Hx Substance Use - Type And Am: No Problem List Medical Problems: (1) Altered mental status Status: Acute (2) Aphasia Status: Acute (3) Atrial fibrillation with RVR Status: Acute (4) Bowel obstruction Status: Acute (5) Change in mental status Status: Acute (6) Dysphagia Status: Acute (7) Elevated troponin Status: Acute (8) Speaking difficulty Status: Acute (9) Stroke-like symptoms Status: Acute (10) TIA (transient ischemic attack) Status: Acute (11) UTI (urinary tract infection) Status: Acute Physical Exam Vital Signs Last Vital Signs Documentation Date Time Temp Pulse Resp B/P Pulse Ox O2 Delivery O2 Flow Rate FiO2 11/22/16 11:27 120 11/22/16 09:46 152/101 11/22/16 08:00 Room Air 11/22/16 07:32 37.1 18 93 Physical Exam Constitutional: Level of Distress: NAD Neck: supple Lungs: Auscultation: no wheezing, no rales/crackles, no rhonchi Cardiovascular: Heart Auscultation: no murmurs, irregular rate rhythm Abdomen: Inspection & Palpation: soft, no tenderness, guarding & rebound Extremities: no cyanosis, no edema Assessment and Plan Assessment and Plan Summary of TTE report performed 11/21/16: * 1. Normal left ventricular size with hyperdynamic systolic function. EF > 70%. No regional wall motion abnormalities. No significant left ventricular hypertrophy. * 2. The left atrium is mildly dilated. * 3. No significant valvular abnormalities. * 4. Rhythm predominantly sinus with PACs, and possibly atrial runs. * 5. Technically difficult study, enhanced with IV Definity. * 6. No significant change from prior study on 10/27/2016. EKG performed 11/22/16 , 10:47 am and reviewed / interpreted independently: SR at 98 bpm with frequent PACs Impression: 1. Small bowel obstruction 2. tachycardia, now that rhythm is better controlled with IV metoprolol, telemetry and EKG reveal SR with PACs. -upon reassessment of presenting EKG and prior telemetry, likely had SR with frequent supraventricular ectopy all along this admission. -As noted in initial consultation , pt followed as outpt for T wave abnormalities (present on repeat EKG today) not for atrial fibrillation , and I do not believe she has a history of AF Plan: Increase IV metoprolol to 7.5 mg IV q 6 while NPO. When diet advances, resume prior metoprolol succinate dose. Tachycardia and frequent PACs likely present on presentation due to distress from SBO and several days of missed /ineffective oral metoprolol due to vomiting prior to hospitalization. Tori Novak DO Laboratory Results Last 24 Hours Test 11/22/16 05:05 White Blood Count 4.58 K/uL Red Blood Count 4.08 M/uL Hemoglobin 11.8 g/dL Hematocrit 34.7 % Mean Corpuscular Volume 85.0 fL Mean Corpuscular Hemoglobin 28.9 pg Mean Corpuscular Hemoglobin Concent 34.0 g/dl Platelet Count 138 K/uL Mean Platelet Volume 9.8 fL Neutrophils (%) (Auto) 72.8 % Lymphocytes (%) (Auto) 17.2 % Monocytes (%) (Auto) 7.4 % Eosinophils (%) (Auto) 2.0 % Basophils (%) (Auto) 0.2 % Neutrophils # (Auto) 3.33 K/uL Lymphocytes # (Auto) 0.79 K/uL Monocytes # (Auto) 0.34 K/uL Eosinophils # (Auto) 0.09 K/uL Basophils # (Auto) 0.01 K/uL RDW Standard Deviation 49.9 fL RDW Coefficient of Variation 16.1 % Immature Granulocyte % (Auto) 0.4 % Immature Granulocyte # (Auto) 0.02 K/uL Sodium Level 139 mmol/L Potassium Level 3.5 mmol/L Chloride Level 106 mmol/L Carbon Dioxide Level 22 mmol/L Anion Gap 11.0 mmol/L Blood Urea Nitrogen 22 mg/dl Creatinine 0.85 mg/dl Est Creatinine Clear Calc Drug Dose 43.5 ml/min Estimated GFR () 72.4 Estimated GFR (Non- 62.5 BUN/Creatinine Ratio 25.4 Random Glucose 67 mg/dl Calcium Level 7.8 mg/dl Magnesium Level 1.9 mg/dl Total Bilirubin 0.7 mg/dl Direct Bilirubin 0.2 mg/dl Aspartate Amino Transf (AST/SGOT) 42 U/L Alanine Aminotransferase (ALT/SGPT) 59 U/L Alkaline Phosphatase 126 U/L Total Protein 5.6 gm/dl Albumin 2.3 gm/dl
[2016-11-22] MEDS ORDERED: PROPOFOL IV EMULSION 10 MG/ML 20 ML VIAL IV ONE (13:59)
[2016-11-22] MEDS ORDERED: LIDOCAINE HCL 2% 2 ML VIAL (20MG/ML) ONE (13:59)
--- NOTE | 2016-11-22 14:20 | Endo History and Physical ---
History & Physical Date of Service: Nov 22, 2016. Chief Complaint: SBO Referring Physician: Dr Saab History of Present Illness For push enteroscopy Past Medical History Hypertension Past Surgical History Hx Cardiac Surgery: No Hx Abdominal Surgery: Yes (cholecystectomy, appendectomy) Hx Post-Op Nausea and Vomiting: No Hx Cancer Surgery: No Hx Thoracic Surgery: No Hx Orthopedic: No Hx Urinary Tract Surgery: Yes (June 2016, removal of right ureteral tumor) Social History Smoking Status: Never Smoker Smokeless Tobacco Use: No Hx Substance Use: No Hx Alcohol Use: No Allergies Coded Allergies: No Known Allergies (Unverified , `, 11/20/16) Current Medications Reported Home Medications Medications Dose Route/Sig Max Daily Dose Days Date Category Amlodipine Besylate 5 Mg Tab 10 Mg PO QAM 30 10/29/16 Rx Metoprolol Succinate ER (Metoprolol Succinate) 25 Mg Tabcr 25 Mg PO DAILY 10/19/16 Reported Multivitamin (Multivitamins) Tab 1 Tab PO QAM 02/19/16 Reported Vital Signs Weight (Kilograms): 65.300 Height (Feet): 5 Height (Inches): 5.00 Date Time Temp Pulse Resp B/P Pulse Ox O2 Delivery O2 Flow Rate FiO2 11/22/16 13:59 37 92 16 166/88 94 Room Air 11/22/16 12:05 99 20 155/78 94 Room Air 11/22/16 11:27 120 11/22/16 09:46 152/101 11/22/16 08:00 Room Air 11/22/16 07:32 37.1 109 18 144/87 93 Room Air 11/22/16 06:08 105 144/77 11/22/16 04:15 Room Air 11/22/16 03:00 37.4 96 18 141/91 91 Room Air 11/22/16 01:52 37.4 97 19 132/88 92 Room Air 11/22/16 00:46 37.1 103 20 155/78 94 Room Air 100 11/22/16 00:00 Room Air 11/21/16 23:51 103 129/73 11/21/16 23:48 38.1 103 20 129/73 92 Room Air 11/21/16 20:15 37.5 105 16 144/81 93 Room Air 11/21/16 20:02 Room Air 11/21/16 19:59 36.8 95 17 131/84 93 Room Air 11/21/16 19:23 120 142/80 11/21/16 19:20 120 142/80 11/21/16 16:00 Room Air 11/21/16 15:57 36.9 118 15 149/84 94 Room Air Physical Exam General Appearance: WD/WN, + pertinent finding (NG in place) Respiratory/Chest: Respiratory effort: no dyspnea Auscultation: no wheezing, no rales/crackles, no rhonchi Cardiovascular: Heart Auscultation: RRR Abdomen: Inspection & Palpation: soft Assessment and Plan SBO for push enteroscopy
--- NOTE | 2016-11-22 14:46 | Discharge Instructions ---
Endoscopy Patient Instructions Date / Procedure(s) Performed Nov 22, 2016. Push Enteroscopy Allergy Information Coded Allergies: No Known Allergies (Unverified , `, 11/20/16) Discharge Date / Findings Nov 22, 2016. Partial duodenal obstruction Medication Instructions Restart Stopped Medication(s): resume meds Current Inpatient Medications Medications (Trade) Dose Ordered Sig/Blank Route Start Time Stop Time Status Last Admin Dose Admin Potassium Chloride/Sodium Chloride (Nss + 20meq KCl 1000ml) 1,000 ml @ 80 mls/hr [id number] IV 11/20/16 21:00 12/20/16 20:59 11/22/16 06:08 80 MLS/HR Ondansetron HCl (Zofran Inj) 4 mg Q6H PRN IV 11/20/16 18:15 12/20/16 18:14 Diphenhydramine HCl 25 mg 25 mg Q4H PRN IV 11/20/16 18:15 12/20/16 18:14 Promethazine HCl/ Sodium Chloride (Phenergan Inj/ Nss 50ml) 50.5 ml @ 202 mls/hr Q4H PRN IV 11/20/16 18:15 12/20/16 18:14 Morphine Sulfate 2 mg 2 mg Q2H PRN IV 11/20/16 18:15 12/04/16 18:14 Acetaminophen 100 ml @ 400 mls/hr Q8H PRN IV 11/20/16 18:15 12/20/16 18:14 Piperacillin Sod/ Tazobactam Sod 3.375 gm/Dextrose 115 ml @ 28.75 mls/ hr Q8@0000,0800,1600 IV 11/21/16 00:00 11/30/16 20:00 11/22/16 08:52 28.75 MLS/HR Pantoprazole Sodium/Syringe (Protonix Inj/ Syringe) 10 ml @ 5 mls/min DAILY@11 IV 11/21/16 11:00 12/21/16 10:59 11/22/16 11:27 5 MLS/MIN Piperacillin Sod/ Tazobactam Sod (Consult) 1 ea UD PRN N/A 11/20/16 18:45 12/20/16 18:44 Vancomycin HCl (Consult) 1 ea UD PRN N/A 11/20/16 18:45 12/20/16 18:44 Morphine Sulfate 4 mg 4 mg Q2H PRN IV 11/20/16 20:30 12/04/16 20:29 Lorazepam 0.5 mg/ Syringe 1 ml @ 1 mls/min Q4H PRN IV 11/20/16 20:45 12/20/16 20:44 Vancomycin HCl/ Sodium Chloride (Vancomycin Inj/ Nss 250ml) 270 ml @ 125 mls/hr Q18H IV 11/21/16 10:00 12/01/16 09:59 11/22/16 04:20 125 MLS/HR Heparin Sodium (Porcine) (Heparin Sq 5000 Unit/0.5ml) 5,000 unit Q12 SQ 11/21/16 21:00 12/21/16 20:59 11/21/16 21:02 5,000 UNIT Phenol (Chloraseptic 1.4% [place]) 1 sprays Q2H PRN MT 11/21/16 18:30 12/21/16 18:29 Metoprolol Tartrate (Lopressor Iv) 7.5 mg Q6 IV. 11/22/16 12:00 12/22/16 11:59 11/22/16 11:27 7.5 MG Provider Instructions Activity Restrictions - No exercising or heavy lifting for 24 hours. - Do not drink alcohol the day of the procedure. - Do not drive a car or operate machinery until the day after the procedure. - Do not make any important decisions or sign important papers in 24 hours after the procedure. Following Day: - Return to full activity which may include returning to work/school. Diet Start your diet with liquids and light foods (jello, soup, juice, toast). Then eat your usual diet if not nauseated. Treatment For Common After Affects For mild abdominal pain, bloating, or excessive gas: - Rest - Eat lightly - Lie on right side Follow-Up Information Follow-up with as scheduled Anesthesia Information What You Should Know You have had a procedure that required some medicine to reduce anxiety and discomfort. This treatment is called moderate sedation. After receiving the treatment, you may be sleepy, but you will be able to breathe on your own. The effects of the treatment may last for several hours. Follow these instructions along with Activity/Diet recommendations noted above: * Do NOT do anything where dizziness or clumsiness would be dangerous. * Rest quietly at home today, then you can be up and about tomorrow. * Have a responsible person stay with you the rest of today. * You may have had an I.V. today. If so, you may take the dressing off later today. Recommendations Call your doctor if: * Trouble breathing * Continuous vomiting for more than 24 hours * Temperature above 101 degrees * Severe abdominal pain or bloating * Pain not relieved by pain medicine ordered * There is increased drainage or redness from any incision * A large amount of rectal bleeding greater than 2-3 tablespoons. (If you had a polyp/s removed or have hemorrhoids, a small amount of blood - from the rectum is to be expected.) * You have any unanswered questions or concerns. IN THE EVENT OF A SERIOUS EMERGENCY, GO TO THE NEAREST EMERGENCY ROOM Your discharge instructions were prepared by provider Krishna Stafford. Patient Instructions Signature Page Klaudia Juliet Patient (or Guardian) Signature/Date: I have read and understand the instructions given to me by my caregivers. Caregiver/RN/Doctor Signature/Date: The above-named patient and/or guardian has received patient instructions on this date. + Original Patient Signature Page (only) stays with chart. Please make copy for patient.
--- NOTE | 2016-11-22 14:50 | GI REPORT ---
Procedure Date: 11/22/2016 2:06 PM Procedure: Upper GI endoscopy Indications: Abnormal abdominal x-ray of the GI tract Medicines: Propofol total dose 120 mg IV, Lidocaine 80 mg IV Complications: No immediate complications. Estimated Blood Loss: Estimated blood loss: none. Procedure: Pre-Anesthesia Assessment: - Prior to the procedure, a History and Physical was performed, and patient medications, allergies and sensitivities were reviewed. The patient's tolerance of previous anesthesia was reviewed. - The risks and benefits of the procedure and the sedation options and risks were discussed with the patient. All questions were answered and informed consent was obtained. After obtaining informed consent, the endoscope was passed under direct vision. Throughout the procedure, the patient's blood pressure, pulse, and oxygen saturations were monitored continuously. The scope was introduced through the mouth, and advanced to the fourth part of duodenum. The upper GI endoscopy was somewhat difficult due to abnormal anatomy. The patient tolerated the procedure well. Findings: LA Grade C (one or more mucosal breaks continuous between tops of 2 or more mucosal folds, less than 75% circumference) esophagitis with no bleeding was found. The entire examined stomach was normal. An acquired extrinsic moderate stenosis was found at 4th part of the duodenum and was traversed. Impression: - LA Grade C reflux esophagitis. - Normal stomach. - Acquired duodenal stenosis. - No specimens collected. Recommendation: - [facility] care. Krishna Stafford M.D. Krishna Stafford MD 11/22/2016 2:49:07 PM This report has been signed electronically. Note Initiated On: 11/22/2016 2:06 PM
--- NOTE | 2016-11-22 15:26 | Anesthesiology Progress Note ---
Anesthesia Post Op Note Date & Time Nov 22, 2016 at 15:26 Vital Signs Pain Intensity: 0.0 Vital Signs Past 12 Hours Date Time Temp Pulse Resp B/P Pulse Ox O2 Delivery O2 Flow Rate FiO2 11/22/16 15:20 75 16 131/72 99 Room Air 11/22/16 15:05 94 16 108/69 98 Room Air 11/22/16 14:50 77 16 93/48 98 Room Air 11/22/16 13:59 37 92 16 166/88 94 Room Air 11/22/16 12:05 99 20 155/78 94 Room Air 11/22/16 11:27 120 11/22/16 09:46 152/101 11/22/16 08:00 Room Air 11/22/16 07:32 37.1 109 18 144/87 93 Room Air 11/22/16 06:08 105 144/77 11/22/16 04:15 Room Air Notes Mental Status: alert / awake / arousable, participated in evaluation Pt Amnestic to Procedure: Yes Nausea / Vomiting: adequately controlled Pain: adequately controlled Airway Patency, RR, SpO2: stable & adequate BP & HR: stable & adequate Hydration State: stable & adequate Anesthetic Complications: no major complications apparent
--- NOTE | 2016-11-22 18:12 | PROGRESS NOTE ---
DATE: 11/22/2016 REASON FOR EVALUATION: Partial bowel obstruction in the duodenum. 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 She presented to the hospital with a massively distended stomach and proximal small intestine. She was decompressed with a nasogastric tube of 3 liters of fluid and an upper endoscopy with a pediatric colonoscope was performed today that showed an extrinsic compression of the distal duodenum with normal mucosa. I was able to advance the scope through the narrowed area and as it popped through there was normal looking mucosa beyond as well. There was no intrinsic pathology to biopsy. IMPRESSION: The patient appears to have an extrinsic compression of the distal duodenum. It is unclear if this represents an adhesion or metastatic implant from her urinary tract malignancy. I plan on discussing her case with Dr. Saab. Options are to place a stent endoscopically, which may be a little bit difficult given the location of the lesion. Other possibilities would include surgical decompression which would be more invasive, or simply placing a venting gastrostomy tube. For now I replaced her nasogastric tube for decompression and we will discuss possible stent on Friday.
[2016-11-22] MEDS ORDERED: VANCOMYCIN TROUGH SCH (21:30)
--- NOTE | 2016-11-23 00:04 | Pharmacy Progress Note ---
Pharmacy Antibiotic Prog Note Date of Service: Nov 22, 2016. Subjective: The patient is currently receiving vancomycin 1000 mg IV every 18 hours. The patient is currently on day # 3 of vancomycin and Zosyn IV therapy. Objective: Height (Feet): 5 Height (Inches): 5.00 Weight (Kilograms): 65.300 Levels: Item Value Date Time Vancomycin Level Trough 12.0 mcg/ml 11/22/16 2155 Lab Results (24hrs): Laboratory Tests Test 11/22/16 05:05 BUN/Creatinine Ratio 25.4 Blood Urea Nitrogen 22 mg/dl Creatinine 0.85 mg/dl White Blood Count 4.58 K/uL Red Blood Count 4.08 M/uL Hemoglobin 11.8 g/dL Hematocrit 34.7 % Mean Corpuscular Volume 85.0 fL Mean Corpuscular Hemoglobin 28.9 pg Mean Corpuscular Hemoglobin Concent 34.0 g/dl Platelet Count 138 K/uL Mean Platelet Volume 9.8 fL Neutrophils (%) (Auto) 72.8 % Lymphocytes (%) (Auto) 17.2 % Monocytes (%) (Auto) 7.4 % Eosinophils (%) (Auto) 2.0 % Basophils (%) (Auto) 0.2 % Neutrophils # (Auto) 3.33 K/uL Lymphocytes # (Auto) 0.79 K/uL Monocytes # (Auto) 0.34 K/uL Eosinophils # (Auto) 0.09 K/uL Basophils # (Auto) 0.01 K/uL Recent Pertinent Medications: Zosyn 3.375gm IV q 8 hrs, extended infusion. Assessment & Plan: This drug level is Subtherapeutic--renal function has greatly improved since . Change to vancomycin 1000 mg IV every 14 hours. Goal trough level estimate: between 15 - 20 mcg/mL for RLE cellulitis. Peak and trough or random level has been ordered for: 11/24 prior to 1600 dose. Pharmacy will continue to follow and will adjust dose/frequency as necessary. Thank you
[2016-11-23] MEDS: METOPROLOL TARTRATE 1 MG/ML VIAL IV. SCH ×5 (00:20→23:42)
[2016-11-23] MEDS: PIPERACILL/TAZOBAC IV 3.375 GM in DEXTROSE 5% 100ML 100 ML IV SCH ×4 (00:33→23:40)
[2016-11-23 03:28] VITALS: BP 141/72; PULSE 95; TEMP 37.3; O2SAT 93
[2016-11-23 06:33] LABS: BASO % 0.2 %; BASO ABS # 0.01 K/uL (0-0.2); COMPLETE YES; EOS % 1.6 %; IG% 0.4 %; LYMPH % 17.5 %; LYMPH ABS # 0.88 K/uL (1.2-3.4); MEAN CELL VOLUME 85.5 fL (80-100); MEAN CORPUSCULAR HEMOGLOBIN 28.9 pg (25-34); MEAN CORPUSCULAR HGB CONC 33.8 g/dl (32-36); MEAN PLATELET VOLUME 9.4 fL (7.4-10.4); MONO % 9.8 %; NEUT % 70.5 %; PLATELET COUNT 191 K/uL (130-400); RED BLOOD COUNT 4.33 M/uL (4.2-5.4); WHITE BLOOD COUNT 5.02 K/uL (4.8-10.8)
--- NOTE | 2016-11-23 06:55 | Surgery Progress Note ---
Surgery Progress Note Date of Service Nov 23, 2016. Subjective covering for Dr Siegel- pt is awake, alert- no pain, taking no pain meds NG in place- 210 cc/ shift EGD- extrinsic duodenal compression- ?? tumor Objective Vital Signs: Date Time Temp Pulse Resp B/P Pulse Ox O2 Delivery O2 Flow Rate FiO2 11/23/16 06:13 97 150/83 11/23/16 04:00 Room Air 11/23/16 03:28 37.3 95 20 141/72 93 Room Air 11/23/16 00:20 110 133/76 11/23/16 00:00 Room Air 11/22/16 23:49 37.3 95 18 119/89 92 Room Air 11/22/16 20:00 37.3 93 16 131/91 94 Room Air 11/22/16 20:00 94 Room Air 11/22/16 20:00 37.3 93 16 131/91 94 Room Air 11/22/16 17:23 103 164/87 11/22/16 16:00 Room Air 11/22/16 15:53 37.3 103 16 164/87 95 Room Air 11/22/16 15:20 75 16 131/72 99 Room Air 11/22/16 15:05 94 16 108/69 98 Room Air 11/22/16 14:50 77 16 93/48 98 Room Air 11/22/16 13:59 37 92 16 166/88 94 Room Air 11/22/16 12:05 99 20 155/78 94 Room Air 11/22/16 12:00 Room Air 11/22/16 11:27 120 11/22/16 09:46 152/101 11/22/16 08:00 Room Air 11/22/16 07:32 37.1 109 18 144/87 93 Room Air General Appearance: no apparent distress Respiratory/Chest: no respiratory distress Abdomen: non distended Laboratory Results: Results Past 24 Hours Test 11/22/16 21:55 11/23/16 05:40 Range/Units Vancomycin Level Trough 12.0 SEE COMMENT mcg/ml White Blood Count 5.02 4.8-10.8 K/uL Red Blood Count 4.33 4.2-5.4 M/uL Hemoglobin 12.5 12.0-16.0 g/dL Hematocrit 37.0 37-47 % Mean Corpuscular Volume 85.5 80-100 fL Mean Corpuscular Hemoglobin 28.9 25-34 pg Mean Corpuscular Hemoglobin Concent 33.8 32-36 g/dl Platelet Count 191 130-400 K/uL Mean Platelet Volume 9.4 7.4-10.4 fL Neutrophils (%) (Auto) 70.5 % Lymphocytes (%) (Auto) 17.5 % Monocytes (%) (Auto) 9.8 % Eosinophils (%) (Auto) 1.6 % Basophils (%) (Auto) 0.2 % Neutrophils # (Auto) 3.54 1.4-6.5 K/uL Lymphocytes # (Auto) 0.88 1.2-3.4 K/uL Monocytes # (Auto) 0.49 0.11-0.59 K/uL Eosinophils # (Auto) 0.08 0-0.5 K/uL Basophils # (Auto) 0.01 0-0.2 K/uL RDW Standard Deviation 50.3 36.4-46.3 fL RDW Coefficient of Variation 16.2 11.5-14.5 % Immature Granulocyte % (Auto) 0.4 % Immature Granulocyte # (Auto) 0.02 0.00-0.02 K/uL Assessment & Plan 11/23/16- h/o duodenal obstruction, h/o metastatic TCCa of ureter / bladder- ? could this be retroperitoneal lymphadenopathy causing obstruction. To discuss possible endoscopic stenting of duod. , discussed G-tube, J-tube and briefly enteral bypass to palliate pt. Defer to Dr Siegel and primary service for treatment decision. may benefit from PPN.
[2016-11-23 07:01] LABS: BUN/CREATININE RATIO 21.3 (10-20); CALCIUM 8.6 mg/dl (8.5-10.1); CREATININE 0.7 mg/dl (0.60-1.20); POTASSIUM 3.5 mmol/L (3.5-5.1)
[2016-11-23 08:23] VITALS: BP 171/75; PULSE 91; TEMP 37.3; O2SAT 94
[2016-11-23] MEDS: NSS + 20MEQ KCL 1000ML 1,000 ML IV SCH (08:36)
[2016-11-23] MEDS: HEPARIN SOD 5000 UNIT/0.5 ML CARP SQ SCH ×2 (08:42→21:38)
[2016-11-23] MEDS ORDERED: NURSING VERBAL MED ORDER ONE (09:30)
[2016-11-23] MEDS: D5W AND 1/2NSS + 20MEQ KCL 1000 ML IV SCH ×2 (10:15→23:40)
[2016-11-23] MEDS ORDERED: HydrALAZINE HCL 20 MG/ML VIAL IV. PRN (10:30)
--- NOTE | 2016-11-23 10:30 | Progress Note ---
Subjective Date of Service: Nov 23, 2016. Subjective Pt evaluation today including: conversation w/ patient, conversation w/ family , physical exam, chart review, lab review, review of studies, conversation w/ [facility] consultant, review of inpatient medication list Continue on NG tube, and NG suctioning, patient is awake and alert and orientated, pleasant conversational no nausea vomiting Problem List Medical Problems: (1) Altered mental status Status: Acute (2) Aphasia Status: Acute (3) Atrial fibrillation with RVR Status: Acute (4) Bowel obstruction Status: Acute (5) Change in mental status Status: Acute (6) Dysphagia Status: Acute (7) Elevated troponin Status: Acute (8) Speaking difficulty Status: Acute (9) Stroke-like symptoms Status: Acute (10) TIA (transient ischemic attack) Status: Acute (11) UTI (urinary tract infection) Status: Acute Review of Systems Constitutional: + fatigue, + weakness, No chills, No fever, No problem reported , No sweats, No weight loss Eyes: No diplopia, No discharge, No eye pain, No redness, No worsening of vision ENT: No dental problems, No hearing loss, No nasal symptoms, No sore throat, No tinnitus, No trouble swallowing, No unusual epistaxis Respiratory: No cough, No dyspnea at rest, No dyspnea on exertion, No hemoptysis, No shortness of breath, No sputum, No wheezing Cardiac: No PND, No chest pain, No claudication, No edema, No orthopnea, No palpitations Abdomen: No constipation, No diarrhea, No nausea, No pain, No vomiting Musculoskeletal: No calf pain, No joint pain, No muscle pain, No swelling Female : No abnormal vaginal bleeding, No dysuria, No hematuria, No incontinence, No urinary frequency, No vaginal discharge Neurologic: No balance problems, No memory loss, No numbness/tingling, No paralysis, No vertigo, No weakness Psychiatric: No anhedonism, No anxiety, No depression symptoms, No insomnia, No substance abuse Heme: No abnormal bleeding/bruising, No clotting problems, No night sweats, No swollen lymph nodes Endo: No excessive thirst, No excessive urination, No fatigue Skin: No bleeding, No color change, No itch, No new/changing skin lesions, No rash Objective Vital Signs Date Time Temp Pulse Resp B/P Pulse Ox O2 Delivery O2 Flow Rate FiO2 11/23/16 08:30 Room Air 1/21/17 08:23 37.3 91 18 171/75 94 Room Air 11/23/16 06:13 97 150/83 11/23/16 04:00 Room Air 11/23/16 03:28 37.3 95 20 141/72 93 Room Air 11/23/16 00:20 110 133/76 11/23/16 00:00 Room Air 11/22/16 23:49 37.3 95 18 119/89 92 Room Air 11/22/16 20:00 37.3 93 16 131/91 94 Room Air 11/22/16 20:00 94 Room Air 11/22/16 20:00 37.3 93 16 131/91 94 Room Air 11/22/16 17:23 103 164/87 11/22/16 16:00 Room Air 11/22/16 15:53 37.3 103 16 164/87 95 Room Air 11/22/16 15:20 75 16 131/72 99 Room Air 11/22/16 15:05 94 16 108/69 98 Room Air 11/22/16 14:50 77 16 93/48 98 Room Air 11/22/16 13:59 37 92 16 166/88 94 Room Air 11/22/16 12:05 99 20 155/78 94 Room Air 11/22/16 12:00 Room Air 11/22/16 11:27 120 Physical Exam General Appearance: WD/WN, no apparent distress, + thin, + pertinent finding ( frail) Eyes: normal inspection, PERRL, EOMI, sclerae normal ENT: normal ENT inspection, hearing grossly normal, pharynx normal, + pertinent finding (NG tube in place) Neck: supple, no adenopathy, thyroid normal, no JVD, no carotid bruits, trachea midline Respiratory/Chest: chest non-tender, normal breath sounds, no respiratory distress, no accessory muscle use, + decreased breath sounds Cardiovascular: regular rate, rhythm, no edema, no gallop, no JVD, no murmur Abdomen: normal bowel sounds, non tender, soft, no organomegaly, no pulsatile mass Extremities: normal range of motion, non-tender, normal inspection, no pedal edema, no calf tenderness, normal capillary refill, pelvis stable Neurologic/Psychiatric: dynamiter II-XII nml as tested, no motor/sensory deficits, alert, normal mood/affect, oriented x 3 Skin: normal color, warm/dry, no rash Lymphatic: no adenopathy Laboratory Results Last 24 Hours Test 11/22/16 21:55 11/23/16 05:40 Vancomycin Level Trough 12.0 mcg/ml White Blood Count 5.02 K/uL Red Blood Count 4.33 M/uL Hemoglobin 12.5 g/dL Hematocrit 37.0 % Mean Corpuscular Volume 85.5 fL Mean Corpuscular Hemoglobin 28.9 pg Mean Corpuscular Hemoglobin Concent 33.8 g/dl Platelet Count 191 K/uL Mean Platelet Volume 9.4 fL Neutrophils (%) (Auto) 70.5 % Lymphocytes (%) (Auto) 17.5 % Monocytes (%) (Auto) 9.8 % Eosinophils (%) (Auto) 1.6 % Basophils (%) (Auto) 0.2 % Neutrophils # (Auto) 3.54 K/uL Lymphocytes # (Auto) 0.88 K/uL Monocytes # (Auto) 0.49 K/uL Eosinophils # (Auto) 0.08 K/uL Basophils # (Auto) 0.01 K/uL RDW Standard Deviation 50.3 fL RDW Coefficient of Variation 16.2 % Immature Granulocyte % (Auto) 0.4 % Immature Granulocyte # (Auto) 0.02 K/uL Sodium Level 141 mmol/L Potassium Level 3.5 mmol/L Chloride Level 109 mmol/L Carbon Dioxide Level 18 mmol/L Anion Gap 14.0 mmol/L Blood Urea Nitrogen 15 mg/dl Creatinine 0.70 mg/dl Est Creatinine Clear Calc Drug Dose 52.9 ml/min Estimated GFR () 91.6 Estimated GFR (Non- 79.0 BUN/Creatinine Ratio 21.3 Random Glucose 51 mg/dl Calcium Level 8.6 mg/dl Magnesium Level 2.0 mg/dl Total Bilirubin 0.7 mg/dl Direct Bilirubin 0.2 mg/dl Aspartate Amino Transf (AST/SGOT) 30 U/L Alanine Aminotransferase (ALT/SGPT) 44 U/L Alkaline Phosphatase 127 U/L Total Protein 6.2 gm/dl Albumin 2.6 gm/dl Assessment and Plan Pt is an 86 year old female with a history of Afib, HTN, and ureteral cancer s/ p resection in June 2016 who is admitted for small bowel obstruction on 2016, continue to be stable Small bowel obstruction stable CT abd/pelvis shows evidence of small bowel obstruction at the level of the distal ileus. NG tube was placed in the ED and has drained roughly 2000 mL of billious fluid with another 300 mL overnight. Has been on NG tube, GI had EGD on 11/28/2016, the results showed: An acquired extrinsic moderate stenosis was found at 4th part of the duodenum and was traversed, detail is in below - LA Grade C reflux esophagitis. - Normal stomach. - Acquired duodenal stenosis. - No specimens collected. Cellulitis ing right leg , improving Venous duplex showed no evidence of DVT in either leg. Continue antibiotics for now because not able to take by mouth Elevated liver enzymes was totally resolved likely from dehydration and bowel obstruction Atrial fibrillation - Pt has remained in Afib, rate controlled with Digoxin. Per cardiology this is new identified A. fib, from a stroke prophylaxis standpoint, would add anticoagulation with perhaps unfractionated heparin infusion; however, given her nasogastric tube in place, and her overall frailty at age 86, and possible need for surgical intervention, I think the bleeding risk outweighs the benefit. Echo was done on yesterday LVEF 70% [id number] VASc Score: 4 HAS- Bled Score:bleeding rate was 3.74% per year Elevated troponin of 0. 263 today, 0.198 yesterday- This likely represents demand ischemia secondary to her Afib. As requested audiology consult because an elevated troponin, and has chronic A. 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 These are the questions patient want to know. For general care goal patient wants to be is palliative care, keep her no pain, no suffering, she does not want to have any massive INVASIVE procedure , but if tiny small procedure would be fine with her. She understands and nutrition support is an issue, we discussed options of nutrition support such as tube feeding, and TPN,. This will be decided after more discussion with the specialties. We'll continue current conservative treatment for bowel obstruction, IV fluid pain medication and supportive care, surgeon is on the case We'll request her care taker to see, Follow-up labs and PLT levels DVT prophylaxis - HEPARIN PLUS SCDs. DNR Continued [facility] stay due to: multiple IV medications needed Discharge planning: uncertain
[2016-11-23] MEDS: PANTOprazole INJ 40 MG in SYRINGE 0 ML IV SCH (11:40)
[2016-11-23] MEDS ORDERED: METOPROLOL TARTRATE 1 MG/ML VIAL IV. ONE (12:00)
--- NOTE | 2016-11-23 12:20 | PROGRESS NOTE ---
DATE: 11/23/2016 The patient seen and examined. Chart, medications, telemetry reviewed. SUBJECTIVE: She feels weak this morning, especially when up to the bathroom. Still has an NG tube in place, has taken little p.o. in 7 days. Notes no worsening abdominal pain, continues to have drainage from NG tube. OBJECTIVE: VITAL SIGNS: Heart rate is 90, blood pressure is 171/75. Telemetry reveals sinus tachycardia with short runs of atrial tachycardia. No atrial fibrillation. NECK: Thin. There is no distinct jugular venous distention. LUNGS: Predominantly clear. CARDIOVASCULAR: Regular with ectopic beats. ABDOMEN: Soft with mild distention. EXTREMITIES: Without cyanosis or clubbing. There is no peripheral edema. DATA: EKG today reveals sinus rhythm at a rate of 79 with atrial ectopic beats, wandering atrial pacemaker. Preliminary and unconfirmed EKG tracing. Diagnosis of atrial fibrillation is incorrect. LABORATORY STUDIES: Sodium is 141, potassium is 3.5, chloride is 109, bicarb is 18, BUN is 15, creatinine 0.7, albumin level is 2.6. IMPRESSION: An 86-year-old female admitted with bowel obstruction, history of sinus tachycardia with atrial ectopy, currently stable from a cardiac standpoint. Her past history is notable for labile hypertension. Past stress induced ST segment abnormalities. EKGs reveal no acute ischemia. Plan will be to continue to treat hypertension and tachycardia with IV metoprolol. We would recommend supplementing potassium as ordered. Definitive plan will need to be initiated regarding patient's bowel obstruction, now 7 days without oral intake. Currently, no cardiac contraindications to surgeries or interventions if indicated.
[2016-11-23 12:32] VITALS: BP 140/86; PULSE 106; TEMP 36.7; O2SAT 96
[2016-11-23] MEDS: VANCOMYCIN INJ 1,000 MG in SODIUM CHLORIDE 0.9% 250ML 250 ML IV SCH (12:55)
--- NOTE | 2016-11-23 14:18 | Oncology Consultation ---
Oncology/Heme Consultation Date of Consultation: Nov 23, 2016. Attending Physician: Jer Navarro MD, PhD Reason for Consultation: High-grade urothelial carcinoma Duodenal bowel obstruction History of Present Illness Ms. 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 She initially presented in January 2016 with flank pain that revealed on CT scan right hydroureteronephrosis. In February 2016 cystoscopy would reveal a distal right ureteral mass lesion obstructing the bladder orifice pathology from those biopsies revealed high-grade urothelial carcinoma. Repeat cystoscopy in March revealed recurrence of a mass that extended for 3 cm into the distal ureter. In June she underwent a distal ureterectomy with lymph node dissection and ureteral reimplantation. The mass was 4 cm in greatest dimension and invaded beyond the muscularis into the periureteric fat. No lymphatic invasion was noted. She initially opted away from chemotherapy or radiation however in October multiple bladder masses were noted on cystoscopy and a CT scan done on October 17, 2016 revealed severe right hydronephrosis and an infiltrating lesion in the retroperitoneum near the operative bed consistent with locally recurrent disease. She was treated on November 11 with one dose of gemcitabine and carboplatinum. About 5 or 6 days ago she began to have quite a bit of nausea and vomiting. Apparently there is a virus in the custodial where she lives at [facility]. This nausea and vomiting would continue leading to this admission. CT scans which show a dilated stomach and duodenum. She currently has an NG tube in place. She denies fever or chills. She denies hematemesis. She had a bowel movement 2 days ago. Past Medical/Surgical History Medical Problems: (1) Altered mental status Status: Acute (2) Aphasia Status: Acute (3) Atrial fibrillation with RVR Status: Acute (4) Bowel obstruction Status: Acute (5) Change in mental status Status: Acute (6) Dysphagia Status: Acute (7) Elevated troponin Status: Acute (8) Speaking difficulty Status: Acute (9) Stroke-like symptoms Status: Acute (10) TIA (transient ischemic attack) Status: Acute (11) UTI (urinary tract infection) Status: Acute Family History FHx: cancer Social History Smoking Status: Never Smoker Smokeless Tobacco Use: No Alcohol Use: none Drug Use: none Marital Status: Housing Status: lives alone Occupation Status: retired Allergies Coded Allergies: No Known Allergies (Unverified , `, 11/22/16) Home Medications Scheduled Amlodipine Besylate (Amlodipine Besylate), 10 MG PO QAM Metoprolol Succinate (Metoprolol Succinate ER), 25 MG PO DAILY Multivitamin (Multivitamin), 1 TAB PO QAM Current Inpatient Medications Current Inpatient Medications Medications (Trade) Dose Ordered Sig/Blank Route Start Time Stop Time Status Last Admin Dose Admin Ondansetron HCl (Zofran Inj) 4 mg Q6H PRN IV 11/20/16 18:15 12/20/16 18:14 Diphenhydramine HCl 25 mg 25 mg Q4H PRN IV 11/20/16 18:15 12/20/16 18:14 Promethazine HCl/ Sodium Chloride (Phenergan Inj/ Nss 50ml) 50.5 ml @ 202 mls/hr Q4H PRN IV 11/20/16 18:15 12/20/16 18:14 Morphine Sulfate 2 mg 2 mg Q2H PRN IV 11/20/16 18:15 12/04/16 18:14 Acetaminophen 100 ml @ 400 mls/hr Q8H PRN IV 11/20/16 18:15 12/20/16 18:14 Piperacillin Sod/ Tazobactam Sod 3.375 gm/Dextrose 115 ml @ 28.75 mls/ hr Q8@0000,0800,1600 IV 11/21/16 00:00 11/30/16 20:00 11/23/16 08:35 28.75 MLS/HR Pantoprazole Sodium/Syringe (Protonix Inj/ Syringe) 10 ml @ 5 mls/min DAILY@11 IV 11/21/16 11:00 12/21/16 10:59 11/23/16 11:40 5 MLS/MIN Piperacillin Sod/ Tazobactam Sod (Consult) 1 ea UD PRN N/A 11/20/16 18:45 12/20/16 18:44 Vancomycin HCl (Consult) 1 ea UD PRN N/A 11/20/16 18:45 12/20/16 18:44 Morphine Sulfate 4 mg 4 mg Q2H PRN IV 11/20/16 20:30 12/04/16 20:29 Lorazepam/Syringe (Ativan Inj/ Syringe) 1 ml @ 1 mls/min Q4H PRN IV 11/20/16 20:45 12/20/16 20:44 Heparin Sodium (Porcine) (Heparin Sq 5000 Unit/0.5ml) 5,000 unit Q12 SQ 11/21/16 21:00 12/21/16 20:59 11/23/16 08:42 5,000 UNIT Phenol 1 sprays 1 sprays Q2H PRN MT 11/21/16 18:30 12/21/16 18:29 Vancomycin HCl 1000 mg/Sodium Chloride 270 ml @ 125 mls/hr Q14H IV 11/23/16 12:00 11/30/16 11:59 11/23/16 12:55 125 MLS/HR Potassium Chloride/Dextrose/ Sod Cl (D5W And 1/2nss + 20meq KCl) 1,000 ml @ 80 mls/hr [id number] IV 11/23/16 10:00 12/23/16 09:59 11/23/16 10:15 80 MLS/HR Hydralazine HCl (HydrALAZINE INJ) 20 mg Q6 PRN IV. 11/23/16 10:30 12/23/16 10:29 Metoprolol Tartrate (Lopressor Iv) 10 mg Q6 IV. 11/23/16 18:00 12/23/16 17:59 Review of Systems Constitutional: Negative for weight loss, night sweats, or fever Eyes: Negative for event change of vision ENT: Negative for epistaxis, nasal discharge, sore throat, or deafness Cardiovascular: Negative for chest pain, palpitations, dizziness, diaphoresis Respiratory: Negative for new shortness of breath,hemoptysis, or purulent cough Gastrointestinal: As reviewed in the history of present illness Integumentary (skin): Negative for rash or jaundice discoloration Genitourinary: Negative for urinary frequency, hematuria, or dysuria Neurological: Negative for weakness, seizure activity, headache, or dizziness Lymphatic/Hematologic: Negative for petechiae, bleeding or new adenopathy Musculoskeletal: Negative for new joint or back pain Allergic/Immunologic: Negative for unusual rash or pruritis. Physical Exam Date Time Temp Pulse Resp B/P Pulse Ox O2 Delivery O2 Flow Rate FiO2 11/23/16 12:32 36.7 106 20 140/86 96 Room Air 11/23/16 12:14 102 140/86 11/23/16 12:00 Room Air 11/23/16 11:42 102 140/86 11/23/16 08:30 Room Air 11/23/16 08:23 37.3 91 18 171/75 94 Room Air 11/23/16 06:13 97 150/83 11/23/16 04:00 Room Air 11/23/16 03:28 37.3 95 20 141/72 93 Room Air 11/23/16 00:20 110 133/76 11/23/16 00:00 Room Air 11/22/16 23:49 37.3 95 18 119/89 92 Room Air 11/22/16 20:00 37.3 93 16 131/91 94 Room Air 11/22/16 20:00 94 Room Air 11/22/16 20:00 37.3 93 16 131/91 94 Room Air 11/22/16 17:23 103 164/87 11/22/16 16:00 Room Air 11/22/16 15:53 37.3 103 16 164/87 95 Room Air 11/22/16 15:20 75 16 131/72 99 Room Air 11/22/16 15:05 94 16 108/69 98 Room Air 11/22/16 14:50 77 16 93/48 98 Room Air Constitutional: vitals are stable. Her performance status up until about a week ago apparently was quite acceptable (ECOG 1-2) Eyes: Eyes are MOHINI EOMI without conjuctival erythema or icterus. ENT: External examination was negative for masses. An NG tube is in place Neck: Negative for masses or palpable thyromegaly Respiratory: Lung sounds were generally clear bilaterally Cardiovascular: Heart was RRR without significant murmur, gallops or rubs Gastrointestinal: The abdomen is slightly distended and bowel sounds are slightly high-pitched Lymphatic system: there was no palpable peripheral lymphadenopathy Musculoskeletal System: The musculoskeletal system seemed concordant with age. Skin: The skin was negative for jaundice. Neurologic exam: The exam was negative for any focal findings. Deep tendon reflexes were equal and symmetrical. Psychiatric exam: Was essentially negative with normal mood and effect. Breast exam: Not done Extremities: Negative for edema erythema Laboratory Results Last 24 Hours Test 11/22/16 21:55 11/23/16 05:40 Vancomycin Level Trough 12.0 mcg/ml White Blood Count 5.02 K/uL Red Blood Count 4.33 M/uL Hemoglobin 12.5 g/dL Hematocrit 37.0 % Mean Corpuscular Volume 85.5 fL Mean Corpuscular Hemoglobin 28.9 pg Mean Corpuscular Hemoglobin Concent 33.8 g/dl Platelet Count 191 K/uL Mean Platelet Volume 9.4 fL Neutrophils (%) (Auto) 70.5 % Lymphocytes (%) (Auto) 17.5 % Monocytes (%) (Auto) 9.8 % Eosinophils (%) (Auto) 1.6 % Basophils (%) (Auto) 0.2 % Neutrophils # (Auto) 3.54 K/uL Lymphocytes # (Auto) 0.88 K/uL Monocytes # (Auto) 0.49 K/uL Eosinophils # (Auto) 0.08 K/uL Basophils # (Auto) 0.01 K/uL RDW Standard Deviation 50.3 fL RDW Coefficient of Variation 16.2 % Immature Granulocyte % (Auto) 0.4 % Immature Granulocyte # (Auto) 0.02 K/uL Sodium Level 141 mmol/L Potassium Level 3.5 mmol/L Chloride Level 109 mmol/L Carbon Dioxide Level 18 mmol/L Anion Gap 14.0 mmol/L Blood Urea Nitrogen 15 mg/dl Creatinine 0.70 mg/dl Est Creatinine Clear Calc Drug Dose 52.9 ml/min Estimated GFR () 91.6 Estimated GFR (Non- 79.0 BUN/Creatinine Ratio 21.3 Random Glucose 51 mg/dl Calcium Level 8.6 mg/dl Magnesium Level 2.0 mg/dl Total Bilirubin 0.7 mg/dl Direct Bilirubin 0.2 mg/dl Aspartate Amino Transf (AST/SGOT) 30 U/L Alanine Aminotransferase (ALT/SGPT) 44 U/L Alkaline Phosphatase 127 U/L Total Protein 6.2 gm/dl Albumin 2.6 gm/dl Assessment & Plan 86-year-old delightful female with a history of high-grade urothelial carcinoma with now retroperitoneal adenopathy and evidence of local regional recurrence involving the right ureter. She is status post one dose of gemcitabine and carboplatinum. That regimen usually entails treatment on day 1,8, and 15 every 28 days. Her blood counts are acceptable as are her chemistries. Her performance status leading up to this most recent GI issue seemed to be quite good. I have reviewed the CT scan with the radiologist today over the phone. The area of obstruction was examined on CT scan and reviewed. There are no masses or lymph nodes or any obvious neoplastic process in or around this obstructed duodenal area. These films were also reviewed with the patient and her daughter who is with her today. I stated that it is impossible for me to say that cancer is not responsible for this GI obstruction but again the x-rays (CT scans) don' t show any definite evidence of a neoplastic disease in this area. Subsequently I am not going to be able to define for them the cause of this obstruction. It would take a surgical procedure to first identify the obstruction, as well as its cause, and then plan a procedure to either bypass or relieve the obstruction. They seemed to understand. I understand also that options in regards to bypass whether it be stenting or a surgical procedure will be forthcoming early in the week.
[2016-11-23 15:53] VITALS: BP_SYST 161; BP_SYST 172; BP_DIAS 108; BP_DIAS 99; PULSE 93; TEMP 37.5; O2SAT 96
--- NOTE | 2016-11-23 16:46 | Gastroenterology Progress Note ---
Progress Note Date of Service: Nov 23, 2016 Subjective Pt evaluation today including: conversation w/ patient, conversation w/ family (daughter Power on the phon), physical exam, chart review, lab review, review of studies, review of inpatient medication list CC F/U duodenal obstruction HPI Pt denies abd pain or n/v. EGD yesterday noted extrinsic compression of duodenum Review of Systems Respiratory: No shortness of breath Cardiac: No chest pain Medications Current Inpatient Medications Medications (Trade) Dose Ordered Sig/Blank Route Start Time Stop Time Status Last Admin Dose Admin Ondansetron HCl (Zofran Inj) 4 mg Q6H PRN IV 11/20/16 18:15 12/20/16 18:14 Diphenhydramine HCl 25 mg 25 mg Q4H PRN IV 11/20/16 18:15 12/20/16 18:14 Promethazine HCl/ Sodium Chloride (Phenergan Inj/ Nss 50ml) 50.5 ml @ 202 mls/hr Q4H PRN IV 11/20/16 18:15 12/20/16 18:14 Morphine Sulfate 2 mg 2 mg Q2H PRN IV 11/20/16 18:15 12/04/16 18:14 Acetaminophen 100 ml @ 400 mls/hr Q8H PRN IV 11/20/16 18:15 12/20/16 18:14 Piperacillin Sod/ Tazobactam Sod 3.375 gm/Dextrose 115 ml @ 28.75 mls/ hr Q8@0000,0800,1600 IV 11/21/16 00:00 11/30/16 20:00 11/23/16 08:35 28.75 MLS/HR Pantoprazole Sodium/Syringe (Protonix Inj/ Syringe) 10 ml @ 5 mls/min DAILY@11 IV 11/21/16 11:00 12/21/16 10:59 11/23/16 11:40 5 MLS/MIN Piperacillin Sod/ Tazobactam Sod (Consult) 1 ea UD PRN N/A 11/20/16 18:45 12/20/16 18:44 Vancomycin HCl (Consult) 1 ea UD PRN N/A 11/20/16 18:45 12/20/16 18:44 Morphine Sulfate 4 mg 4 mg Q2H PRN IV 11/20/16 20:30 12/04/16 20:29 Lorazepam/Syringe (Ativan Inj/ Syringe) 1 ml @ 1 mls/min Q4H PRN IV 11/20/16 20:45 12/20/16 20:44 Heparin Sodium (Porcine) (Heparin Sq 5000 Unit/0.5ml) 5,000 unit Q12 SQ 11/21/16 21:00 12/21/16 20:59 11/23/16 08:42 5,000 UNIT Phenol 1 sprays 1 sprays Q2H PRN MT 11/21/16 18:30 12/21/16 18:29 Vancomycin HCl 1000 mg/Sodium Chloride 270 ml @ 125 mls/hr Q14H IV 11/23/16 12:00 11/30/16 11:59 11/23/16 12:55 125 MLS/HR Potassium Chloride/Dextrose/ Sod Cl (D5W And 1/2nss + 20meq KCl) 1,000 ml @ 80 mls/hr [id number] IV 11/23/16 10:00 12/23/16 09:59 11/23/16 10:15 80 MLS/HR Hydralazine HCl (HydrALAZINE INJ) 20 mg Q6 PRN IV. 11/23/16 10:30 12/23/16 10:29 Metoprolol Tartrate (Lopressor Iv) 10 mg Q6 IV. 11/23/16 18:00 12/23/16 17:59 Objective Vital Signs Date Time Temp Pulse Resp B/P Pulse Ox O2 Delivery O2 Flow Rate FiO2 11/23/16 15:53 37.5 93 16 172/99 96 Room Air 11/23/16 12:32 36.7 106 20 140/86 96 Room Air 11/23/16 12:14 102 140/86 11/23/16 12:00 Room Air 11/23/16 11:42 102 140/86 11/23/16 08:30 Room Air 11/23/16 08:23 37.3 91 18 171/75 94 Room Air 11/23/16 06:13 97 150/83 11/23/16 04:00 Room Air 11/23/16 03:28 37.3 95 20 141/72 93 Room Air 11/23/16 00:20 110 133/76 11/23/16 00:00 Room Air 11/22/16 23:49 37.3 95 18 119/89 92 Room Air 11/22/16 20:00 37.3 93 16 131/91 94 Room Air 11/22/16 20:00 94 Room Air 11/22/16 20:00 37.3 93 16 131/91 94 Room Air 11/22/16 17:23 103 164/87 Physical Exam General Appearance: WD/WN, no apparent distress Respiratory/Chest: lungs clear, normal breath sounds Cardiovascular: regular rate, rhythm Abdomen: normal bowel sounds, non tender, no organomegaly, no pulsatile mass, + distended Laboratory Results Last 24 Hours Test 11/22/16 21:55 11/23/16 05:40 Vancomycin Level Trough 12.0 mcg/ml White Blood Count 5.02 K/uL Red Blood Count 4.33 M/uL Hemoglobin 12.5 g/dL Hematocrit 37.0 % Mean Corpuscular Volume 85.5 fL Mean Corpuscular Hemoglobin 28.9 pg Mean Corpuscular Hemoglobin Concent 33.8 g/dl Platelet Count 191 K/uL Mean Platelet Volume 9.4 fL Neutrophils (%) (Auto) 70.5 % Lymphocytes (%) (Auto) 17.5 % Monocytes (%) (Auto) 9.8 % Eosinophils (%) (Auto) 1.6 % Basophils (%) (Auto) 0.2 % Neutrophils # (Auto) 3.54 K/uL Lymphocytes # (Auto) 0.88 K/uL Monocytes # (Auto) 0.49 K/uL Eosinophils # (Auto) 0.08 K/uL Basophils # (Auto) 0.01 K/uL RDW Standard Deviation 50.3 fL RDW Coefficient of Variation 16.2 % Immature Granulocyte % (Auto) 0.4 % Immature Granulocyte # (Auto) 0.02 K/uL Sodium Level 141 mmol/L Potassium Level 3.5 mmol/L Chloride Level 109 mmol/L Carbon Dioxide Level 18 mmol/L Anion Gap 14.0 mmol/L Blood Urea Nitrogen 15 mg/dl Creatinine 0.70 mg/dl Est Creatinine Clear Calc Drug Dose 52.9 ml/min Estimated GFR () 91.6 Estimated GFR (Non- 79.0 BUN/Creatinine Ratio 21.3 Random Glucose 51 mg/dl Calcium Level 8.6 mg/dl Magnesium Level 2.0 mg/dl Total Bilirubin 0.7 mg/dl Direct Bilirubin 0.2 mg/dl Aspartate Amino Transf (AST/SGOT) 30 U/L Alanine Aminotransferase (ALT/SGPT) 44 U/L Alkaline Phosphatase 127 U/L Total Protein 6.2 gm/dl Albumin 2.6 gm/dl Assessment and Plan Duodenal obstruction--extrinsic compression dilated bile duct on CT--perhaps from post melani state Elevated LFTs improved Discussed options with patient in room and daughter Power on phone. Options are EGD with stent friday with Danae Henderson/Jtube and operation. Dr Santo note discussed tthat no tumor seen at are of obstruction on CT scan. Power to discuss with her mother tomorrow and perhaps will call DR Peters also. Power supposed to let me know tomorrow her decision. Discussed with DR Peters who is covering for DR Siegel but feels stent is way to go and not operation.
[2016-11-23 20:17] VITALS: BP 159/63; PULSE 78; TEMP 36.6; O2SAT 94
[2016-11-23 23:37] VITALS: BP 146/60; PULSE 90; TEMP 37.6; O2SAT 92
[2016-11-24] MEDS: VANCOMYCIN INJ 1,000 MG in SODIUM CHLORIDE 0.9% 250ML 250 ML IV SCH (02:24)
[2016-11-24 03:41] VITALS: BP 119/74; PULSE 103; TEMP 37.9; O2SAT 92
[2016-11-24] MEDS: METOPROLOL TARTRATE 1 MG/ML VIAL IV. SCH ×4 (05:33→20:11)
[2016-11-24 06:16] LABS: HEMATOCRIT 37.6 % (37-47); MEAN CELL VOLUME 84.3 fL (80-100); MEAN CORPUSCULAR HEMOGLOBIN 28.3 pg (25-34); MEAN CORPUSCULAR HGB CONC 33.5 g/dl (32-36); MEAN PLATELET VOLUME 9.5 fL (7.4-10.4); PLATELET COUNT 273 K/uL (130-400); RED BLOOD COUNT 4.46 M/uL (4.2-5.4); WHITE BLOOD COUNT 5.76 K/uL (4.8-10.8)
[2016-11-24 07:54] VITALS: BP 158/97; PULSE 85; TEMP 37.6; O2SAT 95
--- NOTE | 2016-11-24 09:23 | Surgery Progress Note ---
Surgery Progress Note Date of Service Nov 24, 2016. Subjective No acute changes, NG output 600/ last shift Objective Vital Signs: Date Time Temp Pulse Resp B/P Pulse Ox O2 Delivery O2 Flow Rate FiO2 11/24/16 07:54 37.6 85 20 158/97 95 Room Air 11/24/16 05:33 95 128/63 11/24/16 04:00 Room Air 11/24/16 03:41 37.9 103 22 119/74 92 Room Air 11/24/16 00:00 Room Air 11/23/16 23:42 88 146/60 11/23/16 23:37 37.6 90 16 146/60 92 Room Air 11/23/16 20:17 36.6 78 16 159/63 94 Room Air 11/23/16 19:00 Room Air 11/23/16 18:05 103 11/23/16 16:48 Room Air 11/23/16 15:53 37.5 93 16 172/99 96 Room Air 11/23/16 12:32 36.7 106 20 140/86 96 Room Air 11/23/16 12:14 102 140/86 11/23/16 12:00 Room Air 11/23/16 11:42 102 140/86 Laboratory Results: Results Past 24 Hours Test 11/24/16 05:26 Range/Units White Blood Count 5.76 4.8-10.8 K/uL Red Blood Count 4.46 4.2-5.4 M/uL Hemoglobin 12.6 12.0-16.0 g/dL Hematocrit 37.6 37-47 % Mean Corpuscular Volume 84.3 80-100 fL Mean Corpuscular Hemoglobin 28.3 25-34 pg Mean Corpuscular Hemoglobin Concent 33.5 32-36 g/dl RDW Standard Deviation 49.3 36.4-46.3 fL RDW Coefficient of Variation 16.1 11.5-14.5 % Platelet Count 273 130-400 K/uL Mean Platelet Volume 9.5 7.4-10.4 fL Assessment & Plan 11/24/16- discussed situation with Power her daughter- stent, if possible least invasive way to palliate, enterostomy tubes would not allow her to eat and still req operation for J tube. Other option is Gastrojejunostomy- major surgery- Power understands and would like to pursue stent if possible. Will discuss with Dr Siegel's service in am. 11/23/16- h/o duodenal obstruction, h/o metastatic TCCa of ureter / bladder- ? could this be retroperitoneal lymphadenopathy causing obstruction. To discuss possible endoscopic stenting of duod. , discussed G-tube, J-tube and briefly enteral bypass to palliate pt. Defer to Dr Siegel and primary service for treatment decision. may benefit from PPN. 11/23/16- h/o duodenal obstruction, h/o metastatic TCCa of ureter / bladder- ? could this be retroperitoneal lymphadenopathy causing obstruction. To discuss possible endoscopic stenting of duod. , discussed G-tube, J-tube and briefly enteral bypass to palliate pt. Defer to Dr Siegel and primary service for treatment decision. may benefit from PPN.
[2016-11-24] MEDS: PIPERACILL/TAZOBAC IV 3.375 GM in DEXTROSE 5% 100ML 100 ML IV SCH (09:36)
[2016-11-24] MEDS: HEPARIN SOD 5000 UNIT/0.5 ML CARP SQ SCH ×2 (09:37→21:26)
--- NOTE | 2016-11-24 10:05 | CARDIOLOGY PROGRESS NOTE ---
DATE: 11/24/2016 CARDIOLOGY CONSULTATION FOLLOWUP NOTE The patient was seen and examined. Chart, medications, and telemetry were reviewed. SUBJECTIVE: The patient denies any specific changes since last examination. She had 1 small bowel movement this morning. She continues to have NG tube drainage. Telemetry did demonstrate a 12-beat run of atrial tachycardia this morning. Rhythms have demonstrated sinus mechanism with frequent atrial and ventricular ectopy and short salvos of atrial tachycardia. OBJECTIVE: VITAL SIGNS: Heart rate is 85 and blood pressure is 158/97. NECK: Thin. There is no jugular venous distention. LUNGS: Reveal mildly diminished breath sounds, but predominantly clear. CARDIOVASCULAR: Regular with atrial ectopy. ABDOMEN: Soft. Mild distention. EXTREMITIES: Without edema. LABORATORY DATA: White cell count is 5.7 and hemoglobin is 12.6. Sodium is 141, potassium is 3.5, chloride is 109, bicarbonate is 18, BUN is 15, and creatinine is 0.7. IMPRESSION: An 86-year-old female admitted with bowel obstruction, seen for issues of recurrent atrial arrhythmias and frequent atrial and ventricular ectopy. RECOMMENDATIONS: We will increase metoprolol dosing to 10 mg IV q. 4 hours for heart rate and blood pressure control. If blood pressure remains persistently elevated, would consider adding topical nitrates to aid in blood pressure management. We will supplement potassium. The patient is using bicarbonate and potassium through NG drainages. We will follow with the patient as well as surgical and automatic driller and reamer consultants. YAIR
[2016-11-24] MEDS: POTASSIUM CHLR 10 MEQ / WTR 10 MEQ in PREMIXED WATER 100 ML IV SCH ×4 (10:37→16:51)
[2016-11-24] MEDS: PANTOprazole INJ 40 MG in SYRINGE 0 ML IV SCH (10:42)
--- NOTE | 2016-11-24 11:31 | Urology Consultation ---
History General Date of Service: Nov 24, 2016. Primary Care Physician: Josh Varghese M.D. 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 Labs are available in the chart and at [facility] Problem List Medical Problems: (1) Altered mental status Status: Acute (2) Aphasia Status: Acute (3) Atrial fibrillation with RVR Status: Acute (4) Bowel obstruction Status: Acute (5) Change in mental status Status: Acute (6) Dysphagia Status: Acute (7) Elevated troponin Status: Acute (8) Speaking difficulty Status: Acute (9) Stroke-like symptoms Status: Acute (10) TIA (transient ischemic attack) Status: Acute (11) UTI (urinary tract infection) Status: Acute Past History kidney stones, urinary tract infection, other Past Surgical History: appendectomy, cholecystectomy, other Family History FHx: cancer Social History Hx Tobacco Use In Past Year?: No Smoking: non-smoker Alcohol: socially Marital status: Housing status: assisted living Occupation status: retired History of MDRO No Allergies Coded Allergies: No Known Allergies (Unverified , `, 11/22/16) Medications Home Medications: Home Meds and Scripts Medications Dose Route/Sig Max Daily Dose Days Date Category Amlodipine Besylate 5 Mg Tab 10 Mg PO QAM 30 10/29/16 Rx Metoprolol Succinate ER (Metoprolol Succinate) 25 Mg Tabcr 25 Mg PO DAILY 10/19/16 Reported Multivitamin (Multivitamins) Tab 1 Tab PO QAM 02/19/16 Reported Inpatient Medications: Current Inpatient Medications Medications (Trade) Dose Ordered Sig/Blank Route Start Time Stop Time Status Last Admin Dose Admin Ondansetron HCl (Zofran Inj) 4 mg Q6H PRN IV 11/20/16 18:15 12/20/16 18:14 Diphenhydramine HCl 25 mg 25 mg Q4H PRN IV 11/20/16 18:15 12/20/16 18:14 Promethazine HCl/ Sodium Chloride (Phenergan Inj/ Nss 50ml) 50.5 ml @ 202 mls/hr Q4H PRN IV 11/20/16 18:15 12/20/16 18:14 Morphine Sulfate 2 mg 2 mg Q2H PRN IV 11/20/16 18:15 12/04/16 18:14 Acetaminophen 100 ml @ 400 mls/hr Q8H PRN IV 11/20/16 18:15 12/20/16 18:14 Piperacillin Sod/ Tazobactam Sod 3.375 gm/Dextrose 115 ml @ 28.75 mls/ hr Q8@0000,0800,1600 IV 11/21/16 00:00 11/30/16 20:00 11/24/16 09:36 28.75 MLS/HR Pantoprazole Sodium/Syringe (Protonix Inj/ Syringe) 10 ml @ 5 mls/min DAILY@11 IV 11/21/16 11:00 12/21/16 10:59 11/24/16 10:42 5 MLS/MIN Piperacillin Sod/ Tazobactam Sod (Consult) 1 ea UD PRN N/A 11/20/16 18:45 12/20/16 18:44 Vancomycin HCl (Consult) 1 ea UD PRN N/A 11/20/16 18:45 12/20/16 18:44 Morphine Sulfate 4 mg 4 mg Q2H PRN IV 11/20/16 20:30 12/04/16 20:29 Lorazepam/Syringe (Ativan Inj/ Syringe) 1 ml @ 1 mls/min Q4H PRN IV 11/20/16 20:45 12/20/16 20:44 Heparin Sodium (Porcine) (Heparin Sq 5000 Unit/0.5ml) 5,000 unit Q12 SQ 11/21/16 21:00 12/21/16 20:59 11/24/16 09:37 5,000 UNIT Phenol 1 sprays 1 sprays Q2H PRN MT 11/21/16 18:30 12/21/16 18:29 Vancomycin HCl 1000 mg/Sodium Chloride 270 ml @ 125 mls/hr Q14H IV 11/23/16 12:00 11/30/16 11:59 11/24/16 02:24 125 MLS/HR Potassium Chloride/Dextrose/ Sod Cl (D5W And 1/2nss + 20meq KCl) 1,000 ml @ 80 mls/hr [id number] IV 11/23/16 10:00 12/23/16 09:59 11/23/16 23:40 80 MLS/HR Metoprolol Tartrate 10 mg 10 mg Q4 IV. 11/24/16 12:00 12/24/16 11:59 Potassium Chloride/Prmx (Kcl 10 Meq / Wtr/Premixed Water) 100 ml @ 100 mls/hr Q1H IV 11/24/16 10:00 11/24/16 13:59 11/24/16 10:37 100 MLS/HR Review of Systems Review of Systems Additional Comments: Review of systems were reviewed from the patient's oncology notes Physical Exam Vital Signs: Vital Signs Past 12 Hours Date Time Temp Pulse Resp B/P Pulse Ox O2 Delivery O2 Flow Rate FiO2 11/24/16 07:54 37.6 85 20 158/97 95 Room Air 11/24/16 05:33 95 128/63 11/24/16 04:00 Room Air 11/24/16 03:41 37.9 103 22 119/74 92 Room Air 11/24/16 00:00 Room Air 11/23/16 23:42 88 146/60 11/23/16 23:37 37.6 90 16 146/60 92 Room Air Physical Exam: General Appearance: WD/WN, no apparent distress Eyes: left eye normal inspection ENT: hearing grossly normal Respiratory/Chest: no respiratory distress, no accessory muscle use Cardiovascular: no edema Assessment & Plan Assessment & Plan Assessment High-grade invasive transitional cell carcinoma Patient was admitted in October and was seen by Dr. Baron who at that time felt that her best option would be chemotherapy/radiation and that surgery would probably fail to eradicate the tumor most recent CT shows severe right hydronephrosis which is unchanged from prior an infiltrating lesion in the retroperitoneum consistent with locally recurrent tumor At this point she is receiving treatment for her bowel or gastric obstruction I believe the plan is to place some type of a stent in the GI system to try to bypass whatever the obstruction is. It is not clear on the CT what is causing the obstruction. In terms of the transitional cell carcinoma believe there is nothing really urologically that we have to offer at this point. She would probably best be served by continuing with her planned chemotherapy and radiation
[2016-11-24 11:59] VITALS: BP 159/119; PULSE 74; O2SAT 96
--- NOTE | 2016-11-24 13:56 | Progress Note ---
Subjective Date of Service: Nov 24, 2016. Subjective Pt evaluation today including: conversation w/ patient, conversation w/ family , physical exam, chart review, lab review, review of studies, conversation w/ recruitment consultant, review of inpatient medication list Doing the same as yesterday, still on NG tube suctioning, no nausea vomiting, passing gas Problem List Medical Problems: (1) Altered mental status Status: Acute (2) Aphasia Status: Acute (3) Atrial fibrillation with RVR Status: Acute (4) Bowel obstruction Status: Acute (5) Change in mental status Status: Acute (6) Dysphagia Status: Acute (7) Elevated troponin Status: Acute (8) Speaking difficulty Status: Acute (9) Stroke-like symptoms Status: Acute (10) TIA (transient ischemic attack) Status: Acute (11) UTI (urinary tract infection) Status: Acute Review of Systems Constitutional: + fatigue, + fever, + weakness, No chills, No problem reported , No sweats, No weight loss Eyes: No diplopia, No discharge, No eye pain, No redness, No worsening of vision ENT: No dental problems, No hearing loss, No nasal symptoms, No sore throat, No tinnitus, No trouble swallowing, No unusual epistaxis Respiratory: No cough, No dyspnea at rest, No dyspnea on exertion, No hemoptysis, No shortness of breath, No sputum, No wheezing Cardiac: No PND, No chest pain, No claudication, No edema, No orthopnea, No palpitations Abdomen: No constipation, No diarrhea, No nausea, No pain, No vomiting Musculoskeletal: No calf pain, No joint pain, No muscle pain, No swelling Female : No abnormal vaginal bleeding, No dysuria, No hematuria, No incontinence, No urinary frequency, No vaginal discharge Neurologic: No balance problems, No memory loss, No numbness/tingling, No paralysis, No vertigo, No weakness Psychiatric: No anhedonism, No anxiety, No depression symptoms, No insomnia, No substance abuse Heme: No abnormal bleeding/bruising, No clotting problems, No night sweats, No swollen lymph nodes Endo: No excessive thirst, No excessive urination, No fatigue Skin: No bleeding, No color change, No itch, No new/changing skin lesions, No rash Objective Vital Signs Date Time Temp Pulse Resp B/P Pulse Ox O2 Delivery O2 Flow Rate FiO2 11/24/16 12:29 82 159/199 11/24/16 12:00 Room Air 11/24/16 11:59 74 16 159/119 96 Room Air 11/24/16 08:00 Room Air 11/24/16 07:54 37.6 85 20 158/97 95 Room Air 11/24/16 05:33 95 128/63 11/24/16 04:00 Room Air 11/24/16 03:41 37.9 103 22 119/74 92 Room Air 11/24/16 00:00 Room Air 11/23/16 23:42 88 146/60 11/23/16 23:37 37.6 90 16 146/60 92 Room Air 11/23/16 20:17 36.6 78 16 159/63 94 Room Air 11/23/16 19:00 Room Air 11/23/16 18:05 103 11/23/16 16:48 Room Air 11/23/16 15:53 37.5 93 16 172/99 96 Room Air Physical Exam General Appearance: WD/WN, no apparent distress, + cachetic, + pertinent finding (frail) Eyes: normal inspection, PERRL, EOMI, sclerae normal ENT: normal ENT inspection, hearing grossly normal, pharynx normal Neck: supple, no adenopathy, thyroid normal, no JVD, no carotid bruits, trachea midline Respiratory/Chest: chest non-tender, normal breath sounds, no respiratory distress, no accessory muscle use, + decreased breath sounds Cardiovascular: regular rate, rhythm, no edema, no gallop, no JVD, no murmur Abdomen: normal bowel sounds, soft, no organomegaly, no pulsatile mass, + pertinent finding (NG tube in place, bowel sound positive) Extremities: normal range of motion, non-tender, normal inspection, no pedal edema, no calf tenderness, normal capillary refill, pelvis stable, + pertinent finding (right lower ext red /swelling is almost gone) Neurologic/Psychiatric: binder cutter hand II-XII nml as tested, no motor/sensory deficits, alert, normal mood/affect, oriented x 3 Skin: normal color, warm/dry, no rash Lymphatic: no adenopathy Laboratory Results Last 24 Hours Test 11/24/16 05:26 White Blood Count 5.76 K/uL Red Blood Count 4.46 M/uL Hemoglobin 12.6 g/dL Hematocrit 37.6 % Mean Corpuscular Volume 84.3 fL Mean Corpuscular Hemoglobin 28.3 pg Mean Corpuscular Hemoglobin Concent 33.5 g/dl RDW Standard Deviation 49.3 fL RDW Coefficient of Variation 16.1 % Platelet Count 273 K/uL Mean Platelet Volume 9.5 fL Assessment and Plan 86 year old female with a history of Afib, HTN, and 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 NG tube was placed in the ED and has drained roughly 2000 mL of billious fluid with another 300 mL overnight. 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 - Normal stomach. - Acquired duodenal stenosis. - No specimens collected. GI discussed with patient about options, the Options are EGD with stent friday with DR Saab, Danae tub/Jtube and operation. Patient told me she decided to go forward to stent Cellulitis in right leg upon admission , improving/resolving, I will DC Vanco, and zosyn, and will give Unasyn for 3 days to complete total 7 days full course. Venous duplex showed no evidence of DVT in either leg. Continue antibiotics for now because not able to take by mouth, will need to minimize the IV antibiotics and switch oral if possible Elevated liver enzymes was totally resolved likely from dehydration and bowel obstruction Atrial fibrillation - Pt has remained in Afib, rate controlled with Digoxin. Per cardiology this is new identified A. fib, from a stroke prophylaxis standpoint, would add anticoagulation with perhaps unfractionated heparin infusion; however, given her nasogastric tube in place, and her overall frailty at age 86, and possible need for surgical intervention, I think the bleeding risk outweighs the benefit. Echo was done on yesterday LVEF 70% [id number]- VASc Score: 4 HAS- Bled Score:bleeding rate was 3.74% per year Elevated troponin of 0. 263 today, 0.198 yesterday- This likely represents demand ischemia secondary to her Afib. As requested audiology consult because an elevated troponin, and has chronic A. fib Patient does not have any blood thinner for stroke prevention, and I was not able to identify the reason in her progress note, HTN, Ureteral cancer : consulted Nutrition support is an issue Plan: Surgeon , , cardio and GI on the case continue current conservative treatment for bowel obstruction, IV fluid pain medication and supportive care, plan stent tomorrow for extrinsic compression of duodenal resulted in stenosis. DVT prophylaxis - HEPARIN PLUS SCDs. DNR Continued [facility] stay due to: multiple IV medications needed Discharge planning: uncertain
[2016-11-24] MEDS ORDERED: VANCOMYCIN TROUGH SCH (15:30)
[2016-11-24] MEDS: AMPICILLIN/SULBACTAM SOD INJ 3,000 MG in SODIUM CHLORIDE 0.9% 100ML 100 ML IV SCH ×2 (15:41→21:19)
[2016-11-24 16:01] VITALS: BP 141/63; PULSE 82; TEMP 36.7; O2SAT 97
--- NOTE | 2016-11-24 16:04 | Gastroenterology Progress Note ---
Progress Note Date of Service: Nov 24, 2016 Subjective Pt evaluation today including: conversation w/ patient, conversation w/ family (Nov on phone to confirm consensus is for attempt at EGD with stent), physical exam, chart review, lab review, review of studies, review of inpatient medication list cc F/u Duod obstruction HPI No abd pain. NO n/v but patient has NG in place. NO stools. Review of Systems Respiratory: No shortness of breath Cardiac: No chest pain Medications Current Inpatient Medications Medications (Trade) Dose Ordered Sig/Blank Route Start Time Stop Time Status Last Admin Dose Admin Ondansetron HCl (Zofran Inj) 4 mg Q6H PRN IV 11/20/16 18:15 12/20/16 18:14 Diphenhydramine HCl 25 mg 25 mg Q4H PRN IV 11/20/16 18:15 12/20/16 18:14 Promethazine HCl/ Sodium Chloride (Phenergan Inj/ Nss 50ml) 50.5 ml @ 202 mls/hr Q4H PRN IV 11/20/16 18:15 12/20/16 18:14 Morphine Sulfate 2 mg 2 mg Q2H PRN IV 11/20/16 18:15 12/04/16 18:14 Acetaminophen 100 ml @ 400 mls/hr Q8H PRN IV 11/20/16 18:15 12/20/16 18:14 Pantoprazole Sodium/Syringe (Protonix Inj/ Syringe) 10 ml @ 5 mls/min DAILY@11 IV 11/21/16 11:00 12/21/16 10:59 11/24/16 10:42 5 MLS/MIN Morphine Sulfate 4 mg 4 mg Q2H PRN IV 11/20/16 20:30 12/04/16 20:29 Lorazepam/Syringe (Ativan Inj/ Syringe) 1 ml @ 1 mls/min Q4H PRN IV 11/20/16 20:45 12/20/16 20:44 Heparin Sodium (Porcine) (Heparin Sq 5000 Unit/0.5ml) 5,000 unit Q12 SQ 11/21/16 21:00 12/21/16 20:59 11/24/16 09:37 5,000 UNIT Phenol 1 sprays 1 sprays Q2H PRN MT 11/21/16 18:30 12/21/16 18:29 Potassium Chloride/Dextrose/ Sod Cl (D5W And 1/2nss + 20meq KCl) 1,000 ml @ 80 mls/hr [id number] IV 11/23/16 10:00 12/23/16 09:59 11/23/16 23:40 80 MLS/HR Metoprolol Tartrate 10 mg 10 mg Q4 IV. 11/24/16 12:00 12/24/16 11:59 11/24/16 12:29 10 MG Ampicillin Sodium/ Sulbactam Sodium/ Sodium Chloride (Unasyn Inj/Nss 100ml) 108 ml @ 200 mls/hr Q6H IV 11/24/16 15:00 12/04/16 14:29 11/24/16 15:41 200 MLS/HR Objective Vital Signs Date Time Temp Pulse Resp B/P Pulse Ox O2 Delivery O2 Flow Rate FiO2 11/24/16 12:29 82 159/199 11/24/16 12:00 Room Air 11/24/16 11:59 74 16 159/119 96 Room Air 11/24/16 08:00 Room Air 11/24/16 07:54 37.6 85 20 158/97 95 Room Air 11/24/16 05:33 95 128/63 11/24/16 04:00 Room Air 11/24/16 03:41 37.9 103 22 119/74 92 Room Air 11/24/16 00:00 Room Air 11/23/16 23:42 88 146/60 11/23/16 23:37 37.6 90 16 146/60 92 Room Air 11/23/16 20:17 36.6 78 16 159/63 94 Room Air 11/23/16 19:00 Room Air 11/23/16 18:05 103 11/23/16 16:48 Room Air Laboratory Results Last 24 Hours Test 11/24/16 05:26 White Blood Count 5.76 K/uL Red Blood Count 4.46 M/uL Hemoglobin 12.6 g/dL Hematocrit 37.6 % Mean Corpuscular Volume 84.3 fL Mean Corpuscular Hemoglobin 28.3 pg Mean Corpuscular Hemoglobin Concent 33.5 g/dl RDW Standard Deviation 49.3 fL RDW Coefficient of Variation 16.1 % Platelet Count 273 K/uL Mean Platelet Volume 9.5 fL Assessment and Plan Duodenal obstruction--extrinsic compression dilated bile duct on CT--perhaps from post melani state Elevated LFTs improved consensus is EGD with duodenal stent placement tomorrow by Dr Saab. Message sent to him so he can plan it. Told patient and daughter will be sometime tomorrow. EXplained to patient proc and risks which include but not limited to medication reaction, bleeding, perforation, and aspiration with increased risk of bleeding and perforation with stent versus standard EGD.
[2016-11-24 19:09] VITALS: BP 139/63; PULSE 82; TEMP 36.5; O2SAT 98
[2016-11-24] MEDS: D5W AND 1/2NSS + 20MEQ KCL 1000 ML IV SCH (20:07)
[2016-11-24] MEDS: ACETAMINOPHEN IV 100 ML IV PRN (21:19)
[2016-11-24 23:32] VITALS: BP 132/45; PULSE 83; TEMP 37.5; O2SAT 92
[2016-11-25] VITALS (9 sets, daily range): BP systolic 88–146; BP diastolic 40–76; PULSE 74–101; TEMP 36.7–37.9; O2SAT 93–98
[2016-11-25] MEDS: METOPROLOL TARTRATE 1 MG/ML VIAL IV. SCH ×6 (00:28→21:14)
[2016-11-25] MEDS: AMPICILLIN/SULBACTAM SOD INJ 3,000 MG in SODIUM CHLORIDE 0.9% 100ML 100 ML IV SCH ×4 (03:18→21:19)
[2016-11-25 06:26] LABS: INR 1.1 (0.9-1.1); PROTHROMBIN TIME (PATIENT) 12.3 SECONDS (9.0-12.0)
[2016-11-25 06:53] LABS: BUN/CREATININE RATIO 7.6 (10-20); CALCIUM 8.4 mg/dl (8.5-10.1); CREATININE 0.85 mg/dl (0.60-1.20); MAGNESIUM 1.6 mg/dl (1.8-2.4); POTASSIUM 3.5 mmol/L (3.5-5.1)
[2016-11-25] MEDS ORDERED: MAGNESIUM SULFATE 1GM / D5W 1 GM in PREMIXED IN D5W 100 ML IV STA (07:26)
--- NOTE | 2016-11-25 07:32 | Surgery Progress Note ---
Surgery Progress Note Date of Service Nov 25, 2016. Subjective + feeling well F/U Duodenal obstruction, pt is doing better, passed one BM this morning, pt denies abdominal pain, no Nausea, no vomiting, NG 150ml, Objective Vital Signs: Date Time Temp Pulse Resp B/P Pulse Ox O2 Delivery O2 Flow Rate FiO2 11/25/16 04:19 94 145/76 11/25/16 04:01 37.9 96 16 146/76 95 Room Air 11/25/16 04:00 Room Air 11/25/16 00:28 85 126/55 11/25/16 00:00 Room Air 11/24/16 23:32 37.5 83 24 132/45 92 Room Air 11/24/16 20:11 85 129/78 11/24/16 20:00 Room Air 11/24/16 19:09 36.5 82 18 139/63 98 11/24/16 16:52 82 141/63 11/24/16 16:01 36.7 82 18 141/63 97 11/24/16 16:00 Room Air 11/24/16 12:29 82 159/199 11/24/16 12:00 Room Air 11/24/16 11:59 74 16 159/119 96 Room Air 11/24/16 08:00 Room Air 11/24/16 07:54 37.6 85 20 158/97 95 Room Air General Appearance: WD/WN Head: normocephalic Neck: supple Respiratory/Chest: chest non-tender, lungs clear, normal breath sounds Cardiovascular: regular rate, rhythm, no edema, no gallop, no JVD, no murmur Abdomen: normal bowel sounds, non tender, non distended, soft Extremities: normal range of motion, non-tender, normal inspection Laboratory Results: Results Past 24 Hours Test 11/25/16 05:23 Range/Units Prothrombin Time 12.3 9.0-12.0 SECONDS Prothromb Time International Ratio 1.1 0.9-1.1 Sodium Level 142 136-145 mmol/L Potassium Level 3.5 3.5-5.1 mmol/L Chloride Level 108 98-107 mmol/L Carbon Dioxide Level 22 21-32 mmol/L Anion Gap 12.0 3-11 mmol/L Blood Urea Nitrogen 7 7-18 mg/dl Creatinine 0.85 0.60-1.20 mg/dl Est Creatinine Clear Calc Drug Dose 43.5 ml/min Estimated GFR () 72.4 Estimated GFR (Non- 62.5 BUN/Creatinine Ratio 7.6 10-20 Random Glucose 93 70-99 mg/dl Calcium Level 8.4 8.5-10.1 mg/dl Magnesium Level 1.6 1.8-2.4 mg/dl Assessment & Plan IMP SBO pt is doing better, I agree with that GI DR. Saab will do EGD possible stent, I agree with Dr. Peters assessment Continue treatment, will f/u IMP SBO pt is doing better, lactic acid 1.1 Continue treatment, correct low K repeat labs in AM, will f/u
[2016-11-25] MEDS: HEPARIN SOD 5000 UNIT/0.5 ML CARP SQ SCH ×2 (09:00→21:15)
[2016-11-25] MEDS: D5W AND 1/2NSS + 20MEQ KCL 1000 ML IV SCH ×2 (09:30→12:00)
[2016-11-25] MEDS: PANTOprazole INJ 40 MG in SYRINGE 0 ML IV SCH (11:03)
--- NOTE | 2016-11-25 12:42 | CARDIOLOGY PROGRESS NOTE ---
DATE: 11/25/2016 The patient seen and examined. Chart, medications, telemetry reviewed. SUBJECTIVE: The patient is seen prior to GI procedure scheduled this morning. Denies any cardiac complaints overnight. Notes no chest pains. Notes no dizziness or lightheadedness. Telemetry demonstrates sinus rhythm with atrial ectopy, wandering atrial pacemaker. Short runs of atrial tachycardia. OBJECTIVE: VITAL SIGNS: Heart rate is 74, blood pressure is 146/61. NECK: Thin. There is no jugular venous distention. There are no carotid bruits. LUNGS: Clear. NG remains in place. CARDIOVASCULAR: Regular with atrial ectopy. ABDOMEN: Soft with mild distention. EXTREMITIES: Without edema. LABORATORY DATA: Sodium is 142, potassium 3.5, chloride is 108, bicarbonate 22, BUN is 7, creatinine 0.85. IMPRESSION: An 86-year-old female with small-bowel obstruction and paroxysmal atrial tachycardia, wandering atrial pacemaker. Currently on IV metoprolol. Would continue current dosing of IV metoprolol. Would recommend supplementing potassium and magnesium as ordered. Hopefully, with removal of NG tube, this will limit electrolyte losses.
--- NOTE | 2016-11-25 13:02 | Progress Note ---
Subjective Date of Service: Nov 25, 2016. Subjective Pt evaluation today including: conversation w/ patient, physical exam, chart review, lab review, review of studies, review of inpatient medication list Resting comfortably in bed Denies any abd pain NGT in place No concerns at this time Problem List Medical Problems: (1) Altered mental status Status: Acute (2) Aphasia Status: Acute (3) Atrial fibrillation with RVR Status: Acute (4) Bowel obstruction Status: Acute (5) Change in mental status Status: Acute (6) Dysphagia Status: Acute (7) Elevated troponin Status: Acute (8) Speaking difficulty Status: Acute (9) Stroke-like symptoms Status: Acute (10) TIA (transient ischemic attack) Status: Acute (11) UTI (urinary tract infection) Status: Acute Review of Systems Constitutional: No chills, No fever Respiratory: No cough, No dyspnea on exertion, No shortness of breath, No sputum, No wheezing Cardiac: No chest pain, No orthopnea Abdomen: No constipation, No diarrhea, No nausea, No pain, No vomiting Musculoskeletal: No joint pain, No muscle pain Female : No dysuria, No urinary frequency Psychiatric: No anhedonism, No depression symptoms Objective Vital Signs Date Time Temp Pulse Resp B/P Pulse Ox O2 Delivery O2 Flow Rate FiO2 11/25/16 12:41 112 139/68 11/25/16 12:11 Room Air 11/25/16 11:54 36.8 76 16 139/68 98 11/25/16 09:35 93 146/61 11/25/16 08:22 36.7 74 18 146/61 95 11/25/16 08:00 Room Air 11/25/16 04:19 94 145/76 11/25/16 04:01 37.9 96 16 146/76 95 Room Air 11/25/16 04:00 Room Air 11/25/16 00:28 85 126/55 11/25/16 00:00 Room Air 11/24/16 23:32 37.5 83 24 132/45 92 Room Air 11/24/16 20:11 85 129/78 11/24/16 20:00 Room Air 11/24/16 19:09 36.5 82 18 139/63 98 11/24/16 16:52 82 141/63 11/24/16 16:01 36.7 82 18 141/63 97 11/24/16 16:00 Room Air Physical Exam General Appearance: WD/WN, no apparent distress Neck: supple, no adenopathy Respiratory/Chest: chest non-tender, lungs clear, normal breath sounds Cardiovascular: + tachycardia, + irregularly irregular Abdomen: non tender, soft Neurologic/Psychiatric: alert, normal mood/affect, oriented x 3 Laboratory Results Last 24 Hours Test 11/25/16 05:23 Prothrombin Time 12.3 SECONDS Prothromb Time International Ratio 1.1 Sodium Level 142 mmol/L Potassium Level 3.5 mmol/L Chloride Level 108 mmol/L Carbon Dioxide Level 22 mmol/L Anion Gap 12.0 mmol/L Blood Urea Nitrogen 7 mg/dl Creatinine 0.85 mg/dl Est Creatinine Clear Calc Drug Dose 43.5 ml/min Estimated GFR () 72.4 Estimated GFR (Non- 62.5 BUN/Creatinine Ratio 7.6 Random Glucose 93 mg/dl Calcium Level 8.4 mg/dl Magnesium Level 1.6 mg/dl Assessment and Plan 86 year old female with a history of Afib, HTN, and 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 NG tube was placed in the ED and continued CT abd/pelvis 11/20/2016 determined an acquired extrinsic moderate stenosis was found at 4th part of the duodenum and was traversed, detail is in below - LA Grade C reflux esophagitis. - Normal stomach. - Acquired duodenal stenosis. - No specimens collected. GI discussed with patient about options, the Options are EGD with stent friday with DR Saab, Danae mora/Sylviatyodit and operation. Patient told me she decided to go forward to stent Cellulitis in right leg upon admission, improving/resolving, I will DC Vanco, and zosyn, and will give Unasyn for 3 days to complete total 7 days full course. Venous duplex showed no evidence of DVT in either leg. Continue antibiotics for now because not able to take by mouth, will need to minimize the IV antibiotics and switch oral if possible Elevated liver enzymes was totally resolved likely from dehydration and bowel obstruction Atrial fibrillation - Pt has remained in Afib, rate controlled with Digoxin. Per cardiology this is new identified A. fib, from a stroke prophylaxis standpoint, would add anticoagulation with perhaps unfractionated heparin infusion; however, given her nasogastric tube in place, and her overall frailty at age 86, and possible need for surgical intervention, I think the bleeding risk outweighs the benefit. Echo was done LVEF 70% [id number] VASc Score: 4 HAS- Bled Score:bleeding rate was 3.74% per year Elevated troponin of 0. 263 today, 0.198 yesterday- This likely represents demand ischemia secondary to her Afib. As requested audiology consult because an elevated troponin, and has chronic A. fib Patient does not have any blood thinner for stroke prevention, and I was not able to identify the reason in her progress note, HTN, Ureteral cancer : consulted Nutrition support is an issue Plan: Surgeon , , cardio and GI on the case continue current conservative treatment for bowel obstruction, IV fluid pain medication and supportive care, plan stent tomorrow for extrinsic compression of duodenal resulted in stenosis. DVT prophylaxis - HEPARIN PLUS SCDs. DNR Continued [facility] stay due to: multiple IV medications needed Discharge planning: uncertain
[2016-11-25] MEDS ORDERED: PROPOFOL IV EMULSION 10 MG/ML 20 ML VIAL IV ONE (13:04)
[2016-11-25] MEDS ORDERED: LIDOCAINE HCL 2% 2 ML VIAL (20MG/ML) ONE (13:04)
[2016-11-25] MEDS ORDERED: FENTANYL CITRATE INJ 50 MCG/1 ML 2 ML VIAL ONE ×2 (13:28→14:21)
--- NOTE | 2016-11-25 13:38 | History & Physical Bridge Note ---
H&P Re-Evaluation Bridge Note: I have examined the patient, reviewed the History & Physical and in the interval since the performance of the History & Physical I have noted the following changes of clinical significance: No changes noted Pt with NG draining biliousl material. results of weekend coverage noted and lack of surgical options per surgery . NG tube not an option per pt as she wishes to take intake by mouth if possible. All risks benefits and options d/w pt and she wishes to proceed with duodenal/SB stent placement
[2016-11-25] MEDS ORDERED: ETOMIDATE 2 MG/ML 20 ML VIAL IV ONE (13:48)
[2016-11-25] MEDS ORDERED: ONDANSETRON INJ 2 MG/ML 2 ML VIAL ONE (14:04)
[2016-11-25] MEDS ORDERED: EpHEDrine SULFATE INJ 50 MG/ML AMP ONE (14:05)
[2016-11-25] MEDS ORDERED: SUCCINYLCHOLINE 100MG/5ML SYR IV ONE (14:18)
[2016-11-25] MEDS ORDERED: METOPROLOL TARTRATE 1 MG/ML VIAL ONE (15:13)
[2016-11-25] MEDS ORDERED: PROMETHAZINE HCL INJ 12.5 MG in SODIUM CHLORIDE 0.9% 50ML 50 ML IV PRN (15:30)
[2016-11-25] MEDS ORDERED: EpHEDrine SULFATE INJ 50 MG/ML AMP IV PRN (15:30)
[2016-11-25] MEDS ORDERED: LABETALOL HCL IV 5 MG/ML 20ML IV PRN (15:30)
[2016-11-25] MEDS ORDERED: NALOXONE HCL 0.4 MG/1 ML VIAL/CARP IV PRN (15:30)
[2016-11-25] MEDS ORDERED: ATROPINE SULFATE 0.1 MG/ML 5ML SYR IV PRN (15:30)
[2016-11-25] MEDS ORDERED: VANCOMYCIN TROUGH SCH (15:30)
[2016-11-25] MEDS ORDERED: ONDANSETRON INJ 2 MG/ML 2 ML VIAL IV PRN (15:30)
[2016-11-25] MEDS: FENTANYL CITRATE INJ 50 MCG/1 ML 2 ML VIAL IV PRN ×2 (16:07→16:12)
--- NOTE | 2016-11-25 16:10 | Hematology/Oncology Prog Note ---
Hematology/Onc Progress Note Date of Service Nov 25, 2016. Diagnoses Ureteral cancer, small bowel obstruction Medications Medications Administered Medications (Trade) Dose Ordered Sig/Blank Route Start Time Stop Time Status Last Admin Dose Admin Sodium Chloride 1,000 ml @ 125 mls/hr Q8H STAT IV 11/20/16 15:06 11/20/16 20:26 DC 11/20/16 15:41 125 MLS/HR Sodium Chloride (Nss 500ml) 500 ml @ 999 mls/hr Q31M STAT IV 11/20/16 15:15 11/20/16 15:45 DC 11/20/16 15:42 999 MLS/HR Ondansetron HCl (Zofran Inj) 4 mg NOW STAT IV 11/20/16 15:16 11/20/16 15:18 DC 11/20/16 15:41 4 MG Lidocaine HCl 20 ml 20 ml ONE ONCE INFIL 11/20/16 16:45 11/20/16 16:46 DC 11/20/16 17:00 20 ML Potassium Chloride/Sodium Chloride 1,000 ml @ 80 mls/hr [id number] IV 11/20/16 21:00 11/23/16 09:43 DC 11/23/16 08:36 80 MLS/HR Acetaminophen 100 ml @ 400 mls/hr Q8H PRN IV 11/20/16 18:15 12/20/16 18:14 11/24/16 21:19 400 MLS/HR Piperacillin Sod/ Tazobactam Sod 3.375 gm/Dextrose 115 ml @ 28.75 mls/ hr Q8@0000,0800,1600 IV 11/21/16 00:00 11/24/16 14:30 DC 11/24/16 09:36 28.75 MLS/HR Digoxin 250 mcg/ Syringe 10 ml @ 2 mls/min TODAY@1900 IV 11/20/16 19:00 11/20/16 19:30 DC 11/20/16 20:47 2 MLS/MIN Pantoprazole Sodium 40 mg/ Syringe 10 ml @ 5 mls/min DAILY@11 IV 11/21/16 11:00 12/21/16 10:59 11/25/16 11:03 5 MLS/MIN Pantoprazole Sodium/Syringe (Protonix Inj/ Syringe) 10 ml @ 5 mls/min TODAY@1845 IV 11/20/16 18:45 11/20/16 19:30 DC 11/20/16 20:05 5 MLS/MIN Piperacillin Sod/ Tazobactam Sod (Zosyn Iv) 4.5 gm STK-MED ONCE .ROUTE 11/20/16 18:38 11/20/16 18:40 DC 11/20/16 18:48 4.5 GM Benzocaine/ Butamben/ Tetracaine HCl 200 appln 200 appln STK-MED ONCE .ROUTE 11/20/16 18:39 11/20/16 18:41 DC 11/20/16 18:47 200 APPLN Vancomycin HCl 1500 mg/Sodium Chloride 530 ml @ 200 mls/hr TODAY@1900 IV 11/20/16 19:00 11/20/16 23:00 DC 11/20/16 20:08 200 MLS/HR Potassium Chloride 10 meq/ Prmx 100 ml @ 100 mls/hr Q1H IV 11/21/16 08:00 11/21/16 11:59 DC 11/21/16 12:16 100 MLS/HR Vancomycin HCl/ Sodium Chloride (Vancomycin Inj/ Nss 250ml) 270 ml @ 125 mls/hr Q18H IV 11/21/16 10:00 11/22/16 23:57 DC 11/22/16 22:48 125 MLS/HR Heparin Sodium (Porcine) (Heparin Sq 5000 Unit/0.5ml) 5,000 unit Q12 SQ 11/21/16 21:00 12/21/16 20:59 11/24/16 21:26 5,000 UNIT Metoprolol Tartrate (Lopressor Iv) 5 mg Q6 IV. 11/21/16 18:00 11/22/16 10:13 DC 11/22/16 06:08 5 MG Metoprolol Tartrate 7.5 mg 7.5 mg Q6 IV. 11/22/16 12:00 11/23/16 11:53 DC 11/23/16 11:42 7.5 MG Vancomycin HCl 1000 mg/Sodium Chloride 270 ml @ 125 mls/hr Q14H IV 11/23/16 12:00 11/24/16 14:30 DC 11/24/16 02:24 125 MLS/HR Potassium Chloride/Dextrose/ Sod Cl (D5W And 1/2nss + 20meq KCl) 1,000 ml @ 80 mls/hr [id number] IV 11/23/16 10:00 12/23/16 09:59 11/25/16 09:30 80 MLS/HR Metoprolol Tartrate (Lopressor Iv) 10 mg Q6 IV. 11/23/16 18:00 11/24/16 09:22 DC 11/24/16 05:33 10 MG Metoprolol Tartrate (Lopressor Iv) 2.5 mg NOW ONCE IV. 11/23/16 12:00 11/23/16 12:01 DC 11/23/16 12:14 2.5 MG Metoprolol Tartrate 10 mg 10 mg Q4 IV. 11/24/16 12:00 12/24/16 11:59 11/25/16 12:41 10 MG Potassium Chloride 10 meq/ Prmx 100 ml @ 100 mls/hr Q1H IV 11/24/16 10:00 11/24/16 13:59 DC 11/24/16 16:51 100 MLS/HR Ampicillin Sodium/ Sulbactam Sodium 3000 mg/Sodium Chloride 108 ml @ 200 mls/hr Q6H IV 11/24/16 15:00 12/04/16 14:29 11/25/16 11:02 200 MLS/HR Magnesium Sulfate/ Prmx (Magnesium Sulfate/Premixed D5W) 100 ml @ 100 mls/hr NOW STAT IV 11/25/16 07:26 11/25/16 08:25 DC 11/25/16 09:24 100 MLS/HR Subjective Ms. Chung is seated comfortably in a chair. She continues to have an NGT to wall suction. She denies any nausea or vomiting since the NGT. She is planning to have a duodenal stent placed later today. She otherwise feels ok and has no major complaints, aside from discomfort from the NGT. Review of Systems: Constitutional: No chills, No fever, No sweats Eyes: No worsening of vision ENT: No trouble swallowing, No unusual epistaxis Respiratory: No cough, No shortness of breath Cardiovascular: No chest pain, No palpitations Abdomen: + problem reported (NGT in place), No pain Musculoskeletal: No joint pain, No muscle pain Female : No dysuria, No urinary frequency Neurologic: No numbness/tingling, No weakness Heme: No abnormal bleeding/bruising, No swollen lymph nodes Skin: No bleeding, No rash Vital Signs Vital Signs Past 12 Hours Date Time Temp Pulse Resp B/P Pulse Ox O2 Delivery O2 Flow Rate FiO2 11/25/16 12:41 112 139/68 11/25/16 12:11 Room Air 11/25/16 11:54 36.8 76 16 139/68 98 11/25/16 09:35 93 146/61 11/25/16 08:22 36.7 74 18 146/61 95 11/25/16 08:00 Room Air 11/25/16 04:19 94 145/76 11/25/16 04:01 37.9 96 16 146/76 95 Room Air 11/25/16 04:00 Room Air Physical Exam Constitutional: Level of Distress: NAD, chronically ill Psychiatric: Mental Status: active & alert Orientation: oriented except where noted Eyes: EOM: EOMI ENMT: pharynx normal, pertinent finding (NGT to wall suction in her right naris ) Neck: supple Lungs: Respiratory Effort: no dyspnea Auscuitation: breath sounds normal Cardiovascular: Heart Auscultation: RRR, no murmurs Abdomen: Inspection & Palpation: soft, non-distended, no tenderness, guarding & rebound Extremities: no edema Neurologic: Cranial Nerves: grossly intact Laboratory Last 24 Hours Test 11/25/16 05:23 Prothrombin Time 12.3 SECONDS Prothromb Time International Ratio 1.1 Sodium Level 142 mmol/L Potassium Level 3.5 mmol/L Chloride Level 108 mmol/L Carbon Dioxide Level 22 mmol/L Anion Gap 12.0 mmol/L Blood Urea Nitrogen 7 mg/dl Creatinine 0.85 mg/dl Est Creatinine Clear Calc Drug Dose 43.5 ml/min Estimated GFR () 72.4 Estimated GFR (Non- 62.5 BUN/Creatinine Ratio 7.6 Random Glucose 93 mg/dl Calcium Level 8.4 mg/dl Magnesium Level 1.6 mg/dl Assessment & Plan Ms. Chung is scheduled for a duodenal stent later today to relieve her duodenal obstruction. This should relieve her nausea and help her eat. As to why the obstruction developed, the etiology isn't totally clear. She has some RP adenopathy in the area of her transition point, so it is possible this is the cause. It is certainly not related to her primary tumor, which is in an entirely different region of her abdomen. It may also be related to scarring or adhesions and not directly to the cancer at all. The obstruction should be relieved by the stent. If the obstruction is caused by neoplastic adenopathy, it should improve with chemotherapy as the nodes shrink. If not, it may potentially recur if the stent migrates, raising the possibility of the need for surgical intervention. I will check in with her again tomorrow post- procedure. Chemo will be on hold until her next scheduled outpatient visit in 2 weeks.
--- NOTE | 2016-11-25 16:31 | DIAGNOSTIC IMAGING REPORT ---
INTRAOPERATIVE RADIOGRAPHS CLINICAL HISTORY: Duodenal stent placement and removal. Fluoroscopy time: 412 seconds. FINDINGS: 6 spot fluoroscopic views of the upper abdomen are presented. Correlation is made with abdominal CT dated 11/20/2016. Initial images show an endoscope project over the stomach. The second 2 images show a duodenal stent in place. The final 2 images show that the stent has been removed. IMPRESSION: Intraoperative images from a duodenal stenting procedure as above. See operative report for detailed findings. Electronically signed by: Salinas Coleman M.D. 11/25/2016 4:29 PM Dictated Date/Time: 11/25/2016 4:27 PM
--- NOTE | 2016-11-25 16:40 | GI REPORT ---
Procedure Date: 11/25/2016 1:27 PM Procedure: Upper GI endoscopy Indications: Stenosis of the duodenum Medicines: General Anesthesia Complications: No immediate complications. Estimated blood loss: Minimal. Estimated Blood Loss: Estimated blood loss was minimal. Procedure: Pre-Anesthesia Assessment: - Prior to the procedure, a History and Physical was performed, and patient medications and allergies were reviewed. The patient's tolerance of previous anesthesia was also reviewed. The risks and benefits of the procedure and the sedation options and risks were discussed with the patient. All questions were answered, and informed consent was obtained. Prior Anticoagulants: The patient has taken no previous anticoagulant or antiplatelet agents. ASA Grade Assessment: II - A patient with mild systemic disease. After reviewing the risks and benefits, the patient was deemed in satisfactory condition to undergo the procedure. After obtaining informed consent, the endoscope was passed under direct vision. Throughout the procedure, the patient's blood pressure, pulse, and oxygen saturations were monitored continuously. The On-site loaner was introduced through the mouth, and advanced to the mid-jejunum. The upper GI endoscopy was performed with difficulty due to abnormal anatomy. The patient tolerated the procedure well. Findings: LA Grade B (one or more mucosal breaks greater than 5 mm, not extending between the tops of two mucosal folds) esophagitis with no bleeding was found in the lower third of the esophagus. The entire examined stomach was normal. The duodenal bulb and 2nd part of the duodenum were normal. An acquired extrinsic mild stenosis was found at 3rd part of the duodenum and at 4th part of the duodenum and was traversed with mild resistance with an adult colonoscope. This appeared to be in the vicinity of the stenosis by description and images of Friday's EGD with a pediatric colonoscope. A wire was placed under fluroscopy and direct visualization to facilitate stent placement. This was initially stented with a 22 mm x 9 cm Evolution controlled-release uncovered stent under fluoroscopic guidance. Estimated blood loss was minimal. Following observation, the stent was fully expanded without a waist developing. Direct visualization demonstrated the stent to be in the proximal jejunum and not opposing the posada of the small bowel. No biopsies or other specimens were collected for this exam. As the stent demonstrated no appearance of opposing the SB posada, anchoring or creating a waist and was wessentially floating in the lumen, it was decided to remove the stent to prevent migration distally. The proximal portion of the stent was grasped in 2 locations and gently removed by slow withdrawal of the endoscope. The upper GI mucosa was reinspected and no obvious mucosal defects were identified. The cardia and gastric fundus were normal on retroflexion. Impression: - LA Grade B reflux esophagitis. - Normal stomach. - Normal duodenal bulb and 2nd part of the duodenum. - Acquired duodenal stenosis. Prosthesis placed. No specimens collected. Recommendation: - [facility]. - NG tube replaced post procedure. Would follow output and eventually clamp and check residuals. If remain low and no features of obstruction, abd pain or vomiting, consider removal. If symptoms return, would perform an UGI/SBFT to identify transition point and stenosis. Presently, a high grade stenosis or obstruction is not identified. Adult colonoscope traversed without significant difficulty. MD Suresh Pisano MD 11/25/2016 4:38:26 PM This report has been signed electronically. Note Initiated On: 11/25/2016 1:27 PM
--- NOTE | 2016-11-25 16:41 | Anesthesiology Progress Note ---
Anesthesia Post Op Note Date & Time Nov 25, 2016 at 16:40 Vital Signs Pain Intensity: 2 Vital Signs Past 12 Hours Date Time Temp Pulse Resp B/P Pulse Ox O2 Delivery O2 Flow Rate FiO2 11/25/16 16:35 36.5 89 18 116/61 95 Nasal Cannula 2 11/25/16 16:25 81 20 113/64 95 Nasal Cannula 2 11/25/16 16:15 87 20 104/57 98 Mask 10 11/25/16 16:05 87 23 112/62 100 Mask 10 11/25/16 15:58 36.4 93 23 113/55 96 Mask 10 11/25/16 12:41 112 139/68 11/25/16 12:11 Room Air 11/25/16 11:54 36.8 76 16 139/68 98 11/25/16 09:35 93 146/61 11/25/16 08:22 36.7 74 18 146/61 95 11/25/16 08:00 Room Air Notes Mental Status: alert / awake / arousable, participated in evaluation Pt Amnestic to Procedure: Yes Nausea / Vomiting: adequately controlled Pain: adequately controlled Airway Patency, RR, SpO2: stable & adequate BP & HR: stable & adequate Hydration State: stable & adequate Anesthetic Complications: no major complications apparent
[2016-11-26] MEDS: D5W AND 1/2NSS + 20MEQ KCL 1000 ML IV SCH ×2 (00:37→13:00)
[2016-11-26] MEDS: METOPROLOL TARTRATE 1 MG/ML VIAL IV. SCH ×9 (00:38→23:15)
[2016-11-26] MEDS: AMPICILLIN/SULBACTAM SOD INJ 3,000 MG in SODIUM CHLORIDE 0.9% 100ML 100 ML IV SCH ×2 (03:11→07:56)
[2016-11-26 04:01] VITALS: BP 115/53; PULSE 89; TEMP 37.6; O2SAT 93
[2016-11-26] MEDS: HEPARIN SOD 5000 UNIT/0.5 ML CARP SQ SCH ×2 (07:48→23:22)
--- NOTE | 2016-11-26 08:02 | Anesthesiology Progress Note ---
Anesthesia Post Op Note Date & Time Nov 26, 2016 at 08:00 Vital Signs Vital Signs Past 12 Hours Date Time Temp Pulse Resp B/P Pulse Ox O2 Delivery O2 Flow Rate FiO2 11/26/16 07:43 103 115/53 11/26/16 04:35 88 11/26/16 04:01 37.6 89 20 115/53 93 Nasal Cannula 2.0 11/26/16 04:00 Nasal Cannula 2.0 11/26/16 00:38 92 11/25/16 23:59 Nasal Cannula 2.0 11/25/16 23:19 37.1 93 18 124/51 93 Room Air 11/25/16 21:14 111 11/25/16 20:07 36.7 101 18 128/69 97 2.0 Notes Mental Status: alert / awake / arousable, participated in evaluation Pt Amnestic to Procedure: Yes Nausea / Vomiting: adequately controlled Pain: adequately controlled Airway Patency, RR, SpO2: stable & adequate BP & HR: stable & adequate Hydration State: stable & adequate Anesthetic Complications: no major complications apparent
[2016-11-26 08:14] VITALS: BP 133/72; PULSE 107; TEMP 37.5; O2SAT 98
[2016-11-26 09:36] LABS: BUN/CREATININE RATIO 7.5 (10-20); CALCIUM 8.4 mg/dl (8.5-10.1); CREATININE 1.2 mg/dl (0.60-1.20); MAGNESIUM 1.9 mg/dl (1.8-2.4); POTASSIUM 3.6 mmol/L (3.5-5.1)
[2016-11-26] MEDS ORDERED: COUGH DROP (SUGAR FREE) LOZ 24 LOZ/1 BOX ONE (09:57)
[2016-11-26] MEDS: ACETAMINOPHEN IV 100 ML IV PRN (10:05)
[2016-11-26] MEDS: PANTOprazole INJ 40 MG in SYRINGE 0 ML IV SCH (10:05)
--- NOTE | 2016-11-26 10:45 | HEME/ONC PROGRESS NOTE ---
DATE: 11/26/2016 DIAGNOSIS: 1. Small-bowel obstruction. 2. Ureteral cancer. SUBJECTIVE: Klaudia is a pleasant 86-year-old female well known to [facility] with history of ureteral cancer. She was taken to the procedural suite by Dr. Albrecht yesterday, underwent upper endoscopy with duodenal stenting. Review of his procedural note states that he was concerned with migration of the stent and for the most part the duodenum was patent. Thus, he removed the device and recommended NG suction with monitoring gastric contents. According to the patient, I believe the primary service is planning on advancing her diet today. She remains comfortable on examination today and offers no specific complaints. She imparts having a liquidy bowel movement approximately 24 hours ago. PHYSICAL EXAMINATION: GENERAL: She is in no acute distress, awake, alert and conversant. VITAL SIGNS: Her 37.5, pulse 107, respirations 20, blood pressure 133/72. SKIN: Without rash or lesion. HEENT: Oral mucosa without erythema or ulceration. NECK: Supple. HEART: Regular rate and rhythm. LUNGS: Clear to auscultation. ABDOMEN: Soft, nontender, nondistended. Bowel sounds are hypoactive. EXTREMITIES: No clubbing, cyanosis or edema. NEUROLOGIC: Grossly intact. LABORATORY DATA: WBC count 5760, hemoglobin 12.6, platelet count 273,000. These were measured on 11/24/2016. Chemistries from today, sodium 142, potassium 3.6, chloride 109, carbon dioxide 21, creatinine 1.2, BUN 9. IMPRESSION: 1. Small-bowel obstruction. 2. Status post endoscopy with duodenal stenting/removal. 3. Ureteral carcinoma. PLAN: I had the pleasure of meeting with Klaudia and her son at bedside today. Clinically, she looks well. NG draining is minimal at this point. I believe plans are underway to advance her diet slowly for tolerance. Reviewed Dr. Albrecht's endoscopy note and it was decided after stenting to remove because of fear of migration. The patient states she has had some minimal flatulence and did have liquidy BM 24 hours ago. Will continue to monitor. From an oncologic standpoint, the patient will continue to hold chemotherapy. She is scheduled for outpatient visit in 2 weeks. Nothing further to add. Will officially sign off. Please reconsult us if a new issue arises.
--- NOTE | 2016-11-26 11:11 | Surgery Progress Note ---
Surgery Progress Note Date of Service Nov 26, 2016. Subjective pt is stable, no abdominal pain, no nausea, no vomiting, passed one soft stool today. pt had EGD done yesterday, I called DR. Saab who told me about EGD finding. see EGD report. NGT- 200ml /5 hours. Objective Vital Signs: Date Time Temp Pulse Resp B/P Pulse Ox O2 Delivery O2 Flow Rate FiO2 11/26/16 08:14 37.5 107 20 133/72 98 Room Air 11/26/16 08:00 Room Air 11/26/16 07:43 103 115/53 11/26/16 04:35 88 11/26/16 04:01 37.6 89 20 115/53 93 Nasal Cannula 2.0 11/26/16 04:00 Nasal Cannula 2.0 11/26/16 00:38 92 11/25/16 23:59 Nasal Cannula 2.0 11/25/16 23:19 37.1 93 18 124/51 93 Room Air 11/25/16 21:14 111 11/25/16 20:07 36.7 101 18 128/69 97 2.0 11/25/16 20:00 Nasal Cannula 2.0 11/25/16 17:32 77 16 113/50 98 Nasal Cannula 2.0 11/25/16 17:04 78 16 101/40 96 Nasal Cannula 2.0 11/25/16 16:58 80 18 96/54 97 Nasal Cannula 2.0 11/25/16 16:46 37.2 11/25/16 16:35 36.5 89 18 116/61 95 Nasal Cannula 2 11/25/16 16:25 81 20 113/64 95 Nasal Cannula 2 11/25/16 16:15 87 20 104/57 98 Mask 10 11/25/16 16:05 87 23 112/62 100 Mask 10 11/25/16 16:00 Room Air 11/25/16 15:58 36.4 93 23 113/55 96 Mask 10 11/25/16 12:41 112 139/68 11/25/16 12:11 Room Air 11/25/16 11:54 36.8 76 16 139/68 98 General Appearance: WD/WN Head: normocephalic Neck: supple, no adenopathy, no JVD Respiratory/Chest: chest non-tender, lungs clear, normal breath sounds Cardiovascular: regular rate, rhythm, no edema, no gallop, no JVD Abdomen: normal bowel sounds, non tender, non distended, soft Extremities: normal range of motion, non-tender, normal inspection Laboratory Results: Results Past 24 Hours Test 11/26/16 08:55 Range/Units Sodium Level 142 136-145 mmol/L Potassium Level 3.6 3.5-5.1 mmol/L Chloride Level 109 98-107 mmol/L Carbon Dioxide Level 21 21-32 mmol/L Anion Gap 12.0 3-11 mmol/L Blood Urea Nitrogen 9 7-18 mg/dl Creatinine 1.20 0.60-1.20 mg/dl Est Creatinine Clear Calc Drug Dose 30.8 ml/min Estimated GFR () 47.7 Estimated GFR (Non- 41.2 BUN/Creatinine Ratio 7.5 10-20 Random Glucose 114 70-99 mg/dl Calcium Level 8.4 8.5-10.1 mg/dl Magnesium Level 1.9 1.8-2.4 mg/dl Assessment & Plan IMP SBO- duodenal obstruction, upper GI study small bowel follow through, depend on finding, for next step, or not. I update information to pt and his son, they agree with the plan. will f/u [facility] pt is doing better, I agree with that GI DR. Saab will do EGD possible stent, I agree with Dr. Peters assessment Continue treatment, will f/u
--- NOTE | 2016-11-26 11:35 | Gastroenterology Progress Note ---
Progress Note Date of Service: Nov 26, 2016 Subjective Pt evaluation today including: conversation w/ patient, physical exam, chart review, lab review, review of studies, review of inpatient medication list cc F/u bowel obstruction HPI Per nursing had NG output of about 500 ml 5 pm to 7 am and since 0700 to now 1130 about 200 ml. NO vomiting. Had stool yesterday per patient report. NO abd pain. Had EGD yesterday with duodenal stent placement attempt but did not hold in any narrowed area so was removed (discussed case with DR Saab yesterday). Review of Systems Respiratory: No shortness of breath Cardiac: No chest pain Medications Current Inpatient Medications Medications (Trade) Dose Ordered Sig/Blank Route Start Time Stop Time Status Last Admin Dose Admin Ondansetron HCl (Zofran Inj) 4 mg Q6H PRN IV 11/20/16 18:15 12/20/16 18:14 Diphenhydramine HCl 25 mg 25 mg Q4H PRN IV 11/20/16 18:15 12/20/16 18:14 Promethazine HCl/ Sodium Chloride (Phenergan Inj/ Nss 50ml) 50.5 ml @ 202 mls/hr Q4H PRN IV 11/20/16 18:15 12/20/16 18:14 Morphine Sulfate 2 mg 2 mg Q2H PRN IV 11/20/16 18:15 12/04/16 18:14 Acetaminophen 100 ml @ 400 mls/hr Q8H PRN IV 11/20/16 18:15 12/20/16 18:14 11/26/16 10:05 400 MLS/HR Pantoprazole Sodium/Syringe (Protonix Inj/ Syringe) 10 ml @ 5 mls/min DAILY@11 IV 11/21/16 11:00 12/21/16 10:59 11/26/16 10:05 5 MLS/MIN Morphine Sulfate 4 mg 4 mg Q2H PRN IV 11/20/16 20:30 12/04/16 20:29 Lorazepam/Syringe (Ativan Inj/ Syringe) 1 ml @ 1 mls/min Q4H PRN IV 11/20/16 20:45 12/20/16 20:44 Heparin Sodium (Porcine) (Heparin Sq 5000 Unit/0.5ml) 5,000 unit Q12 SQ 11/21/16 21:00 12/21/16 20:59 11/26/16 07:48 5,000 UNIT Phenol 1 sprays 1 sprays Q2H PRN MT 11/21/16 18:30 12/21/16 18:29 Potassium Chloride/Dextrose/ Sod Cl (D5W And 1/2nss + 20meq KCl) 1,000 ml @ 80 mls/hr [id number] IV 11/23/16 10:00 12/23/16 09:59 11/26/16 00:37 80 MLS/HR Metoprolol Tartrate 10 mg 10 mg Q4 IV. 11/24/16 12:00 12/24/16 11:59 11/26/16 07:43 10 MG Ampicillin Sodium/ Sulbactam Sodium/ Sodium Chloride (Unasyn Inj/Nss 100ml) 108 ml @ 200 mls/hr Q6H IV 11/24/16 15:00 12/04/16 14:29 11/26/16 07:56 200 MLS/HR Objective Vital Signs Date Time Temp Pulse Resp B/P Pulse Ox O2 Delivery O2 Flow Rate FiO2 11/26/16 08:14 37.5 107 20 133/72 98 Room Air 11/26/16 08:00 Room Air 11/26/16 07:43 103 115/53 11/26/16 04:35 88 11/26/16 04:01 37.6 89 20 115/53 93 Nasal Cannula 2.0 11/26/16 04:00 Nasal Cannula 2.0 11/26/16 00:38 92 11/25/16 23:59 Nasal Cannula 2.0 11/25/16 23:19 37.1 93 18 124/51 93 Room Air 11/25/16 21:14 111 11/25/16 20:07 36.7 101 18 128/69 97 2.0 11/25/16 20:00 Nasal Cannula 2.0 11/25/16 17:32 77 16 113/50 98 Nasal Cannula 2.0 11/25/16 17:04 78 16 101/40 96 Nasal Cannula 2.0 11/25/16 16:58 80 18 96/54 97 Nasal Cannula 2.0 11/25/16 16:46 37.2 11/25/16 16:35 36.5 89 18 116/61 95 Nasal Cannula 2 11/25/16 16:25 81 20 113/64 95 Nasal Cannula 2 11/25/16 16:15 87 20 104/57 98 Mask 10 11/25/16 16:05 87 23 112/62 100 Mask 10 11/25/16 16:00 Room Air 11/25/16 15:58 36.4 93 23 113/55 96 Mask 10 11/25/16 12:41 112 139/68 11/25/16 12:11 Room Air 11/25/16 11:54 36.8 76 16 139/68 98 Physical Exam General Appearance: WD/WN, no apparent distress Respiratory/Chest: normal breath sounds, no respiratory distress Cardiovascular: regular rate, rhythm Abdomen: normal bowel sounds, soft, no organomegaly, + pertinent finding ( mildly distended and tympanitic) Laboratory Results Last 24 Hours Test 11/26/16 08:55 Sodium Level 142 mmol/L Potassium Level 3.6 mmol/L Chloride Level 109 mmol/L Carbon Dioxide Level 21 mmol/L Anion Gap 12.0 mmol/L Blood Urea Nitrogen 9 mg/dl Creatinine 1.20 mg/dl Est Creatinine Clear Calc Drug Dose 30.8 ml/min Estimated GFR () 47.7 Estimated GFR (Non- 41.2 BUN/Creatinine Ratio 7.5 Random Glucose 114 mg/dl Calcium Level 8.4 mg/dl Magnesium Level 1.9 mg/dl Assessment and Plan Duodenal obstruction--extrinsic compression on initial EGD but not confirmed on EGD 11/25/16--UGI with SBFT ordered by surgery for today so will see what that shows. dilated bile duct on CT--perhaps from post melani state Elevated LFTs improved
--- NOTE | 2016-11-26 12:21 | CARDIOLOGY PROGRESS NOTE ---
DATE: 11/26/2016 The patient seen and examined. Chart, medications, telemetry reviewed. SUBJECTIVE: The patient notes no complaints overnight. Denies any dizziness or lightheadedness. Events of day prior and bowel evaluation is ongoing, noted. OBJECTIVE: VITAL SIGNS: Heart rate is 80, blood pressure is 118/70. Telemetry reveals short runs of atrial tachycardia, frequent atrial and ventricular ectopy, wandering atrial pacemaker. NECK: There is no jugular venous distention. LUNGS: Clear. CARDIOVASCULAR: Regular with frequent ectopy. ABDOMEN: Soft. EXTREMITIES: Without edema. IMPRESSION: An 86-year-old female with paroxysmal atrial tachycardia, is multifocal in the setting of acute bowel obstruction and ongoing nasogastric drainage. Potassium this morning was 3.6. Would recommend supplementing potassium to greater than 4. Will increase IV metoprolol for time being until able to take p.o. to 10 mg IV q. 3 hours. This may be held for bradyarrhythmias, though these have not been demonstrated on current evaluations or in past.
--- NOTE | 2016-11-26 12:38 | Progress Note ---
Subjective Date of Service: Nov 26, 2016. Subjective Pt evaluation today including: conversation w/ patient, physical exam, chart review, lab review, review of studies, review of inpatient medication list Pt resting comfortably in bed No concerns Tolerating NG tube Problem List Medical Problems: (1) Altered mental status Status: Acute (2) Aphasia Status: Acute (3) Atrial fibrillation with RVR Status: Acute (4) Bowel obstruction Status: Acute (5) Change in mental status Status: Acute (6) Dysphagia Status: Acute (7) Elevated troponin Status: Acute (8) Speaking difficulty Status: Acute (9) Stroke-like symptoms Status: Acute (10) TIA (transient ischemic attack) Status: Acute (11) UTI (urinary tract infection) Status: Acute Review of Systems Constitutional: No chills, No fever Respiratory: No cough, No sputum Cardiac: No PND, No chest pain, No claudication, No edema, No orthopnea Abdomen: No nausea, No pain Musculoskeletal: No joint pain, No muscle pain Female : No dysuria, No urinary frequency Psychiatric: No anxiety, No depression symptoms Objective Vital Signs Date Time Temp Pulse Resp B/P Pulse Ox O2 Delivery O2 Flow Rate FiO2 11/26/16 12:17 Room Air 11/26/16 11:32 79 109/71 11/26/16 08:14 37.5 107 20 133/72 98 Room Air 11/26/16 08:00 Room Air 11/26/16 07:43 103 115/53 11/26/16 04:35 88 11/26/16 04:01 37.6 89 20 115/53 93 Nasal Cannula 2.0 11/26/16 04:00 Nasal Cannula 2.0 11/26/16 00:38 92 11/25/16 23:59 Nasal Cannula 2.0 11/25/16 23:19 37.1 93 18 124/51 93 Room Air 11/25/16 21:14 111 11/25/16 20:07 36.7 101 18 128/69 97 2.0 11/25/16 20:00 Nasal Cannula 2.0 11/25/16 17:32 77 16 113/50 98 Nasal Cannula 2.0 11/25/16 17:04 78 16 101/40 96 Nasal Cannula 2.0 11/25/16 16:58 80 18 96/54 97 Nasal Cannula 2.0 11/25/16 16:46 37.2 1/23/17 16:35 36.5 89 18 116/61 95 Nasal Cannula 2 11/25/16 16:25 81 20 113/64 95 Nasal Cannula 2 11/25/16 16:15 87 20 104/57 98 Mask 10 11/25/16 16:05 87 23 112/62 100 Mask 10 11/25/16 16:00 Room Air 11/25/16 15:58 36.4 93 23 113/55 96 Mask 10 11/25/16 12:41 112 139/68 Physical Exam General Appearance: WD/WN, no apparent distress Neck: supple, no adenopathy Respiratory/Chest: chest non-tender, lungs clear, normal breath sounds Cardiovascular: no edema, no JVD Abdomen: non tender, soft Neurologic/Psychiatric: alert, oriented x 3 Laboratory Results Last 24 Hours Test 11/26/16 08:55 Sodium Level 142 mmol/L Potassium Level 3.6 mmol/L Chloride Level 109 mmol/L Carbon Dioxide Level 21 mmol/L Anion Gap 12.0 mmol/L Blood Urea Nitrogen 9 mg/dl Creatinine 1.20 mg/dl Est Creatinine Clear Calc Drug Dose 30.8 ml/min Estimated GFR () 47.7 Estimated GFR (Non- 41.2 BUN/Creatinine Ratio 7.5 Random Glucose 114 mg/dl Calcium Level 8.4 mg/dl Magnesium Level 1.9 mg/dl Assessment and Plan 86 year old female with a history of Afib, HTN, and 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 NG tube was placed in the ED and continued CT abd/pelvis 11/20/2016 determined an acquired extrinsic moderate stenosis was found at 4th part of the duodenum and was traversed, detail is in below - LA Grade C reflux esophagitis. - Normal stomach. - Acquired duodenal stenosis. - No specimens collected. GI discussed with patient about options, pt agreed for EGD with possibility of stent on 11/26. Cellulitis in right leg upon admission, improving/resolving, DCed Vanco, and zosyn, and will give Unasyn for 3 days to complete total 7 days full course. Venous duplex showed no evidence of DVT in either leg. Continue antibiotics for now because not able to take by mouth, will need to minimize the IV antibiotics and switch oral if possible Elevated liver enzymes was totally resolved likely from dehydration and bowel obstruction Atrial fibrillation - Pt has remained in Afib, rate controlled with Digoxin. Per cardiology this is new identified A. martín, from a stroke prophylaxis standpoint, would add anticoagulation with perhaps unfractionated heparin infusion; however, given her nasogastric tube in place, and her overall frailty at age 86, and possible need for surgical intervention, I think the bleeding risk outweighs the benefit. Echo was done LVEF 70% [id number] VASc Score: 4 HAS- Bled Score:bleeding rate was 3.74% per year Elevated troponin likely represents demand ischemia secondary to her Afib. As requested cardiology consult because an elevated troponin, and has chronic A. fib Patient does not have any blood thinner for stroke prevention, and I was not able to identify the reason in her progress note, HTN, Ureteral cancer : consulted Nutrition support is an issue DVT prophylaxis - HEPARIN PLUS SCDs. DNR Continued [facility] [place] stay due to: multiple IV medications needed Discharge planning: uncertain
--- NOTE | 2016-11-26 14:08 | DIAGNOSTIC IMAGING REPORT ---
GI SERIES AND SMALL BOWEL CLINICAL HISTORY: duodenal obstruction COMPARISON STUDY: Abdomen and pelvis CT 11/20/2016. FLUOROSCOPY TIME: 2.2 minutes.. FINDINGS: A nasogastric tube terminates in the stomach. Prior cholecystectomy. There is no evidence for a duodenal stent. Gastrovue contrast was placed in the indwelling nasogastric tube. There is mild gastric fold thickening. There is narrowing of the gastric antrum. However, contrast easily flows through the stomach and into the duodenum and small bowel. Contrast reached the cecum at 80 minutes. No evidence for bowel obstruction. IMPRESSION: 1. No evidence for small bowel obstruction. Specifically, there is no significant stenosis within the duodenum. 2. The gastric antrum remains narrowed throughout the examination. However, contrast easily flows through the stomach and into the small bowel. Correlation with recent endoscopy to exclude the possibility of underlying gastric abnormality 3. Mild gastric fold thickening. 4. Nasogastric tube terminates in the body of the stomach. Electronically signed by: Enzo Olmedo M.D. 11/26/2016 1:39 PM Dictated Date/Time: 11/26/2016 1:32 PM
[2016-11-26] MEDS ORDERED: NURSING VERBAL MED ORDER ONE ×2 (16:30→18:00)
[2016-11-26] MEDS: POTASSIUM CHLR 10MEQ / WTR IV SCH ×2 (17:20→20:33)
[2016-11-26 20:25] VITALS: BP 139/77; PULSE 84; TEMP 37.1; O2SAT 95
[2016-11-26 23:08] VITALS: BP 175/88; PULSE 89; TEMP 37.1; O2SAT 93
[2016-11-27 03:33] VITALS: BP 128/71; PULSE 107; TEMP 37.4; O2SAT 91
[2016-11-27] MEDS: METOPROLOL TARTRATE 1 MG/ML VIAL IV. SCH ×4 (03:35→11:57)
[2016-11-27] MEDS: D5W AND 1/2NSS + 20MEQ KCL 1000 ML IV SCH ×2 (06:07→13:48)
[2016-11-27 07:24] VITALS: BP 155/78; PULSE 82; TEMP 37.3; O2SAT 93
[2016-11-27 07:46] LABS: BASO % 0.3 %; BASO ABS # 0.02 K/uL (0-0.2); COMPLETE YES; HEMATOCRIT 34.6 % (37-47); LYMPH % 17.7 %; LYMPH ABS # 1.02 K/uL (1.2-3.4); MEAN CELL VOLUME 85.9 fL (80-100); MEAN CORPUSCULAR HEMOGLOBIN 29.3 pg (25-34); MEAN CORPUSCULAR HGB CONC 34.1 g/dl (32-36); MEAN PLATELET VOLUME 9.7 fL (7.4-10.4); MONO % 12.2 %; NEUT % 63.8 %; PLATELET COUNT 373 K/uL (130-400); RED BLOOD COUNT 4.03 M/uL (4.2-5.4); WHITE BLOOD COUNT 5.76 K/uL (4.8-10.8)
[2016-11-27 08:20] LABS: BUN/CREATININE RATIO 10.5 (10-20); CALCIUM 8.5 mg/dl (8.5-10.1); CREATININE 1.1 mg/dl (0.60-1.20)
[2016-11-27 08:22] LABS: ALB/GLOB RATIO 0.6 (0.9-2)
[2016-11-27] MEDS: HEPARIN SOD 5000 UNIT/0.5 ML CARP SQ SCH ×2 (09:46→20:17)
--- NOTE | 2016-11-27 10:23 | Surgery Progress Note ---
Surgery Progress Note Date of Service Nov 27, 2016. Subjective + feeling well pt is doing better, no vomiting since stop suction on NGT, pt denies abdominal pain, BM yesterday. Objective Vital Signs: Date Time Temp Pulse Resp B/P Pulse Ox O2 Delivery O2 Flow Rate FiO2 11/27/16 09:41 82 155/78 11/27/16 08:08 Nasal Cannula 2.0 11/27/16 08:00 Nasal Cannula 2.0 11/27/16 07:24 37.3 82 20 155/78 93 Nasal Cannula 2.0 11/27/16 06:09 89 114/61 11/27/16 04:00 Nasal Cannula 2.0 11/27/16 03:35 113 11/27/16 03:33 37.4 107 20 128/71 91 Nasal Cannula 2.0 11/26/16 23:59 Nasal Cannula 2.0 11/26/16 23:15 86 11/26/16 23:08 37.1 89 18 175/88 93 Nasal Cannula 2.0 11/26/16 20:25 37.1 84 18 139/77 95 Nasal Cannula 2.0 11/26/16 20:00 Nasal Cannula 2.0 11/26/16 19:40 95 166/93 11/26/16 16:38 Room Air 11/26/16 15:41 108 134/100 11/26/16 12:17 Room Air 11/26/16 11:32 79 109/71 General Appearance: WD/WN Head: normocephalic Neck: supple, no adenopathy Respiratory/Chest: chest non-tender, lungs clear, normal breath sounds Cardiovascular: regular rate, rhythm, no edema, no gallop, no JVD Abdomen: normal bowel sounds, non tender, non distended, soft Extremities: normal range of motion, non-tender, normal inspection Laboratory Results: Results Past 24 Hours Test 11/27/16 07:07 Range/Units White Blood Count 5.76 4.8-10.8 K/uL Red Blood Count 4.03 4.2-5.4 M/uL Hemoglobin 11.8 12.0-16.0 g/dL Hematocrit 34.6 37-47 % Mean Corpuscular Volume 85.9 80-100 fL Mean Corpuscular Hemoglobin 29.3 25-34 pg Mean Corpuscular Hemoglobin Concent 34.1 32-36 g/dl Platelet Count 373 130-400 K/uL Mean Platelet Volume 9.7 7.4-10.4 fL Neutrophils (%) (Auto) 63.8 % Lymphocytes (%) (Auto) 17.7 % Monocytes (%) (Auto) 12.2 % Eosinophils (%) (Auto) 5.0 % Basophils (%) (Auto) 0.3 % Neutrophils # (Auto) 3.67 1.4-6.5 K/uL Lymphocytes # (Auto) 1.02 1.2-3.4 K/uL Monocytes # (Auto) 0.70 0.11-0.59 K/uL Eosinophils # (Auto) 0.29 0-0.5 K/uL Basophils # (Auto) 0.02 0-0.2 K/uL RDW Standard Deviation 53.9 36.4-46.3 fL RDW Coefficient of Variation 17.2 11.5-14.5 % Immature Granulocyte % (Auto) 1.0 % Immature Granulocyte # (Auto) 0.06 0.00-0.02 K/uL Sodium Level 143 136-145 mmol/L Potassium Level 4.0 3.5-5.1 mmol/L Chloride Level 112 98-107 mmol/L Carbon Dioxide Level 20 21-32 mmol/L Anion Gap 11.0 3-11 mmol/L Blood Urea Nitrogen 12 7-18 mg/dl Creatinine 1.10 0.60-1.20 mg/dl Est Creatinine Clear Calc Drug Dose 33.6 ml/min Estimated GFR () 53.0 Estimated GFR (Non- 45.7 BUN/Creatinine Ratio 10.5 10-20 Random Glucose 112 70-99 mg/dl Calcium Level 8.5 8.5-10.1 mg/dl Total Bilirubin 0.3 0.2-1 mg/dl Aspartate Amino Transf (AST/SGOT) 20 15-37 U/L Alanine Aminotransferase (ALT/SGPT) 21 12-78 U/L Alkaline Phosphatase 96 45-117 U/L Total Protein 6.0 6.4-8.2 gm/dl Albumin 2.3 3.4-5.0 gm/dl Globulin 3.7 2.5-4.0 gm/dl Albumin/Globulin Ratio 0.6 0.9-2 Assessment & Plan IMP SBO- duodenal obstruction, upper GI study small bowel follow through, without obstruction I update information to pt and his son, they agree with the plan. D/C NGT clear diet change to po heart meds per station engineer chief may D/C shelter tomorrow may transfer to back to surgical floor will f/u clear liquids IMP SBO- duodenal obstruction, upper GI study small bowel follow through, depend on finding, for next step, or not. I update information to pt and his son, they agree with the plan. will f/u
[2016-11-27 11:13] VITALS: BP 138/78; PULSE 96; TEMP 37; O2SAT 96
[2016-11-27] MEDS ORDERED: THIAMINE HCL INJ 100 MG in SYRINGE 9 ML IV ONE (11:15)
[2016-11-27] MEDS: PANTOprazole INJ 40 MG in SYRINGE 0 ML IV SCH (11:53)
[2016-11-27 12:18] VITALS: O2SAT 96
--- NOTE | 2016-11-27 13:09 | Progress Note ---
Subjective Date of Service: Nov 27, 2016. Subjective Pt evaluation today including: conversation w/ patient, physical exam, chart review, lab review, review of studies, review of inpatient medication list Pt seen and examined Resting in bed comfortably No abd pain NGT in place No further concerns per pt Problem List Medical Problems: (1) Altered mental status Status: Acute (2) Aphasia Status: Acute (3) Atrial fibrillation with RVR Status: Acute (4) Bowel obstruction Status: Acute (5) Change in mental status Status: Acute (6) Dysphagia Status: Acute (7) Elevated troponin Status: Acute (8) Speaking difficulty Status: Acute (9) Stroke-like symptoms Status: Acute (10) TIA (transient ischemic attack) Status: Acute (11) UTI (urinary tract infection) Status: Acute Review of Systems Constitutional: No chills, No fever Respiratory: No cough, No dyspnea on exertion, No shortness of breath, No sputum, No wheezing Cardiac: No chest pain, No edema, No orthopnea Abdomen: No constipation, No diarrhea, No nausea, No pain, No vomiting Musculoskeletal: No joint pain, No muscle pain Female : No dysuria, No urinary frequency Objective Vital Signs Date Time Temp Pulse Resp B/P Pulse Ox O2 Delivery O2 Flow Rate FiO2 11/27/16 12:18 96 Nasal Cannula 2.0 11/27/16 11:57 90 11/27/16 11:13 37.0 96 18 138/78 96 Nasal Cannula 2.0 11/27/16 09:41 82 155/78 11/27/16 08:08 Nasal Cannula 2.0 11/27/16 08:00 Nasal Cannula 2.0 11/27/16 07:24 37.3 82 20 155/78 93 Nasal Cannula 2.0 11/27/16 06:09 89 114/61 11/27/16 04:00 Nasal Cannula 2.0 11/27/16 03:35 113 11/27/16 03:33 37.4 107 20 128/71 91 Nasal Cannula 2.0 11/26/16 23:59 Nasal Cannula 2.0 11/26/16 23:15 86 11/26/16 23:08 37.1 89 18 175/88 93 Nasal Cannula 2.0 11/26/16 20:25 37.1 84 18 139/77 95 Nasal Cannula 2.0 11/26/16 20:00 Nasal Cannula 2.0 11/26/16 19:40 95 166/93 11/26/16 16:38 Room Air 11/26/16 15:41 108 134/100 Physical Exam General Appearance: WD/WN, no apparent distress Neck: supple, no adenopathy Respiratory/Chest: lungs clear, normal breath sounds Cardiovascular: no edema, no gallop Abdomen: non tender, soft Neurologic/Psychiatric: alert, oriented x 3 Laboratory Results Last 24 Hours Test 11/27/16 07:07 White Blood Count 5.76 K/uL Red Blood Count 4.03 M/uL Hemoglobin 11.8 g/dL Hematocrit 34.6 % Mean Corpuscular Volume 85.9 fL Mean Corpuscular Hemoglobin 29.3 pg Mean Corpuscular Hemoglobin Concent 34.1 g/dl Platelet Count 373 K/uL Mean Platelet Volume 9.7 fL Neutrophils (%) (Auto) 63.8 % Lymphocytes (%) (Auto) 17.7 % Monocytes (%) (Auto) 12.2 % Eosinophils (%) (Auto) 5.0 % Basophils (%) (Auto) 0.3 % Neutrophils # (Auto) 3.67 K/uL Lymphocytes # (Auto) 1.02 K/uL Monocytes # (Auto) 0.70 K/uL Eosinophils # (Auto) 0.29 K/uL Basophils # (Auto) 0.02 K/uL RDW Standard Deviation 53.9 fL RDW Coefficient of Variation 17.2 % Immature Granulocyte % (Auto) 1.0 % Immature Granulocyte # (Auto) 0.06 K/uL Sodium Level 143 mmol/L Potassium Level 4.0 mmol/L Chloride Level 112 mmol/L Carbon Dioxide Level 20 mmol/L Anion Gap 11.0 mmol/L Blood Urea Nitrogen 12 mg/dl Creatinine 1.10 mg/dl Est Creatinine Clear Calc Drug Dose 33.6 ml/min Estimated GFR () 53.0 Estimated GFR (Non- 45.7 BUN/Creatinine Ratio 10.5 Random Glucose 112 mg/dl Calcium Level 8.5 mg/dl Total Bilirubin 0.3 mg/dl Aspartate Amino Transf (AST/SGOT) 20 U/L Alanine Aminotransferase (ALT/SGPT) 21 U/L Alkaline Phosphatase 96 U/L Total Protein 6.0 gm/dl Albumin 2.3 gm/dl Globulin 3.7 gm/dl Albumin/Globulin Ratio 0.6 Assessment and Plan 86 year old female with a history of Afib, HTN, and 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 NG tube was placed in the ED CT abd/pelvis 11/20/2016 determined an acquired extrinsic moderate stenosis was found at 4th part of the duodenum and was traversed, detail is in below - LA Grade C reflux esophagitis. - Normal stomach. - Acquired duodenal stenosis. - No specimens collected. GI discussed with patient about options, pt agreed for EGD with possibility of stent on 11/26. EGD confirmed no obstruction therefore no stent placed. UGIS completed following day with no SBO or duodenal obstruction NGT dced on 11/27 and pt advanced to liquids Cellulitis in right leg upon admission, improving/resolving, DCed Vanco, and zosyn, and will give Unasyn for 3 days to complete total 7 days full course. Venous duplex showed no evidence of DVT in either leg. Continue antibiotics for now because not able to take by mouth, will need to minimize the IV antibiotics and switch oral if possible Elevated liver enzymes was totally resolved likely from dehydration and bowel obstruction Paroxysmal Atrial Tachycardia Rate control with metoprolol IV, likely to convert to PO now that NGT dced Echo was done LVEF 70% Elevated troponin likely represents demand ischemia HTN - cont amlodipine Ureteral cancer - consulted, chemo will resume as OP once dced Protein malnutrition - Nutrition support is an issue, boost breeze, thiamine dietary consulted DVT prophylaxis - HEPARIN PLUS SCDs. DNR Continued [facility] stay due to: multiple IV medications needed Discharge planning: uncertain
[2016-11-27] MEDS ORDERED: BOOST BREEZE NUTRITION DRINK 1 BOX PO ONE (13:30)
[2016-11-27] MEDS ORDERED: METOPROLOL SUCC 25MG EXT REL TAB PO ONE (13:30)
--- NOTE | 2016-11-27 14:38 | PROGRESS NOTE ---
DATE: 11/27/2016 The patient got her NG tube out this morning and has been tolerating clear liquids without any abdominal pain, distention or bloating. She is hungry and excited to be able to have something orally. Her bowels are moving. IMPRESSION: The patient had a distended abdomen on admission with a possible bowel obstruction. She had an upper endoscopy that suggested a possible duodenal stricture, but subsequent endoscopy with possible stent placement showed that there was no stricture. X-rays of the remaining small bowel showed that there was free flow of contrast through the small intestine. At this point, I think we can probably advance her diet as tolerated.
[2016-11-27 15:57] VITALS: BP 159/74; PULSE 86; TEMP 36.6; O2SAT 96
[2016-11-27] MEDS: BOOST BREEZE NUTRITION DRINK 1 BOX PO SCH (17:40)
[2016-11-27 20:17] VITALS: BP 146/86; PULSE 110; TEMP 37.5; O2SAT 91
[2016-11-28] VITALS (8 sets, daily range): BP systolic 132–152; BP diastolic 70–96; PULSE 80–120; TEMP 36.8–37.9; O2SAT 91–95
[2016-11-28] MEDS: D5W AND 1/2NSS + 20MEQ KCL 1000 ML IV SCH ×2 (03:40→15:58)
[2016-11-28 06:47] LABS: CALCIUM 7.9 mg/dl (8.5-10.1); PHOSPHORUS 1.8 mg/dl (2.5-4.9); POTASSIUM 3.5 mmol/L (3.5-5.1)
[2016-11-28] MEDS: THIAMINE HCL INJ 100 MG in SYRINGE 9 ML IV SCH (07:30)
[2016-11-28] MEDS: MULTIVITAMIN TAB PO SCH (07:30)
[2016-11-28] MEDS: PANTOprazole SOD 40 MG TAB PO SCH (07:30)
[2016-11-28] MEDS: BOOST BREEZE NUTRITION DRINK 1 BOX PO SCH ×2 (07:31→16:41)
[2016-11-28] MEDS: HEPARIN SOD 5000 UNIT/0.5 ML CARP SQ SCH ×2 (07:34→21:54)
[2016-11-28] MEDS: METOPROLOL SUCC 50MG EXT REL TAB PO SCH (07:57)
[2016-11-28] MEDS ORDERED: METOPROLOL SUCC 25MG EXT REL TAB PO ONE (08:00)
--- NOTE | 2016-11-28 08:14 | Surgery Progress Note ---
Surgery Progress Note Date of Service Nov 28, 2016. Subjective + feeling well she tolerated the liquid diet, pt denies abdominal pain, no nausea, no vomiting, Objective Vital Signs: Date Time Temp Pulse Resp B/P Pulse Ox O2 Delivery O2 Flow Rate FiO2 11/28/16 07:51 36.9 120 20 141/91 94 Room Air 11/28/16 05:08 37.6 11/28/16 04:36 37.9 108 18 143/79 91 Room Air 11/28/16 04:00 Room Air 11/28/16 00:23 37.7 80 18 134/70 94 Nasal Cannula 2.0 11/27/16 23:59 Room Air 11/27/16 20:17 37.5 110 18 146/86 91 Room Air 11/27/16 20:00 Room Air 11/27/16 16:00 Room Air 11/27/16 15:57 36.6 86 20 159/74 96 Room Air 11/27/16 12:18 96 Nasal Cannula 2.0 11/27/16 11:57 90 11/27/16 11:13 37.0 96 18 138/78 96 Nasal Cannula 2.0 11/27/16 09:41 82 155/78 General Appearance: WD/WN Head: normocephalic Neck: supple Respiratory/Chest: chest non-tender, lungs clear, normal breath sounds Cardiovascular: regular rate, rhythm, no edema, no gallop Abdomen: normal bowel sounds, non tender, non distended, soft Extremities: normal range of motion, non-tender Laboratory Results: Results Past 24 Hours Test 11/28/16 05:40 Range/Units Sodium Level 138 136-145 mmol/L Potassium Level 3.5 3.5-5.1 mmol/L Chloride Level 108 98-107 mmol/L Carbon Dioxide Level 18 21-32 mmol/L Anion Gap 12.0 3-11 mmol/L Blood Urea Nitrogen 10 7-18 mg/dl Creatinine 1.00 0.60-1.20 mg/dl Est Creatinine Clear Calc Drug Dose 37.0 ml/min Estimated GFR () 59.5 Estimated GFR (Non- 51.3 BUN/Creatinine Ratio 10.0 10-20 Random Glucose 109 70-99 mg/dl Calcium Level 7.9 8.5-10.1 mg/dl Phosphorus Level 1.8 2.5-4.9 mg/dl Assessment & Plan IMP SBO- duodenal obstruction, upper GI study small bowel follow through, without obstruction I update information to pt and his son, they agree with the plan. clear diet (Full) change to po heart meds per plaster foreman may D/C jail tomorrow once plaster foreman control HR may transfer to back to surgical floor will f/u full liquids IMP SBO- duodenal obstruction, upper GI study small bowel follow through, without obstruction I update information to pt and his son, they agree with the plan. D/C NGT clear diet change to po heart meds per plaster foreman may D/C jail tomorrow may transfer to back to surgical floor will f/u
[2016-11-28] MEDS ORDERED: METOPROLOL SUCC 25MG EXT REL TAB PO SCH (09:00)
[2016-11-28] MEDS ORDERED: AMLODIPINE BESYLATE 5 MG TAB PO SCH (09:00)
--- NOTE | 2016-11-28 12:13 | CARDIOLOGY PROGRESS NOTE ---
DATE: 11/28/2016 DATE: 11/28/2016. The patient seen and examined. Chart, medications, telemetry reviewed. SUBJECTIVE: The patient had diarrhea and loose stools this morning, is taking clear liquids. Was able to take medications this morning. IV metoprolol has been discontinued and switched to oral. OBJECTIVE: VITAL SIGNS: Heart rate is 100-110 with intermittent atrial tachycardia, blood pressure is 141/91. NECK: Thin. There is no jugular venous distention. LUNGS: Reveal mildly diminished breath sounds. CARDIOVASCULAR EXAMINATION: Irregular with atrial tachycardia at times. ABDOMEN: Soft with mild distention. EXTREMITIES: Without edema. IMPRESSION: An 86-year-old female with cardiac issues as follows: 1. Paroxysmal atrial tachycardia. 2. Small-bowel obstruction. 3. Hypertension. RECOMMENDATIONS: I agree with switching metoprolol to oral. She received Toprol-XL 25 mg this morning with planned dosing of 50 mg daily. Heart rate remains elevated. We will give additional 25 mg this morning and supplement potassium with 20 mEq orally. If blood pressures remain persistently elevated, would consider adding low dose topical nitrates for management as clinical course progresses but optimally like to use a lower dose amlodipine and will write a.m. dose to be 5 mg, though will reassess at that time.
[2016-11-28] MEDS ORDERED: POTASSIUM CHLORIDE 20 MEQ/15 ML UDC PO ONE (12:30)
[2016-11-28] MEDS ORDERED: METOPROLOL SUCC 50MG EXT REL TAB PO ONE (12:30)
--- NOTE | 2016-11-28 14:15 | Gastroenterology Progress Note ---
Progress Note Date of Service: Nov 28, 2016 Subjective Pt evaluation today including: conversation w/ patient, physical exam, chart review, lab review, review of studies, review of inpatient medication list cc f/u n/v HPI Pt states she is doing well tolerating a liquid diet. States having diarrhea. No abd pain. No N/V. Review of Systems Respiratory: No shortness of breath Cardiac: No chest pain Medications Current Inpatient Medications Medications (Trade) Dose Ordered Sig/Blank Route Start Time Stop Time Status Last Admin Dose Admin Ondansetron HCl (Zofran Inj) 4 mg Q6H PRN IV 11/20/16 18:15 12/20/16 18:14 11/28/16 07:48 4 MG Diphenhydramine HCl 25 mg 25 mg Q4H PRN IV 11/20/16 18:15 12/20/16 18:14 Promethazine HCl/ Sodium Chloride (Phenergan Inj/ Nss 50ml) 50.5 ml @ 202 mls/hr Q4H PRN IV 11/20/16 18:15 12/20/16 18:14 Morphine Sulfate 2 mg 2 mg Q2H PRN IV 11/20/16 18:15 12/04/16 18:14 Acetaminophen (Ofirmev Iv) 100 ml @ 400 mls/hr Q8H PRN IV 11/20/16 18:15 12/20/16 18:14 11/26/16 10:05 400 MLS/HR Morphine Sulfate 4 mg 4 mg Q2H PRN IV 11/20/16 20:30 12/04/16 20:29 Lorazepam/Syringe (Ativan Inj/ Syringe) 1 ml @ 1 mls/min Q4H PRN IV 11/20/16 20:45 12/20/16 20:44 Heparin Sodium (Porcine) (Heparin Sq 5000 Unit/0.5ml) 5,000 unit Q12 SQ 11/21/16 21:00 12/21/16 20:59 11/28/16 07:34 5,000 UNIT Phenol 1 sprays 1 sprays Q2H PRN MT 11/21/16 18:30 12/21/16 18:29 Potassium Chloride/Dextrose/ Sod Cl 1,000 ml @ 80 mls/hr [id number] IV 11/23/16 10:00 12/23/16 09:59 11/28/16 03:40 80 MLS/HR Thiamine HCl/ Syringe (Vitamin B-1 Inj/ Syringe) 10 ml @ 2 mls/min QAM IV 11/28/16 09:00 12/28/16 08:59 11/28/16 07:30 2 MLS/MIN Multivitamins (Multivitamin Tab) 1 tab QAM PO 11/28/16 09:00 12/28/16 08:59 11/28/16 07:30 1 TAB Pantoprazole Sodium (Protonix Tab) 40 mg QAM PO 11/28/16 09:00 12/28/16 08:59 11/28/16 07:30 40 MG Enteral Nutritional Formula (Boost Breeze Nutritional Drink) 1 box BIDM PO 11/27/16 16:45 12/27/16 16:44 11/28/16 07:31 1 BOX Metoprolol Succinate (Toprol Xl Tab) 50 mg DAILY PO 11/28/16 09:00 12/28/16 08:59 Amlodipine Besylate (Norvasc Tab) 5 mg QAM PO 11/29/16 09:00 12/29/16 08:59 Objective Vital Signs Date Time Temp Pulse Resp B/P Pulse Ox O2 Delivery O2 Flow Rate FiO2 11/28/16 12:00 Room Air 11/28/16 11:34 37.0 96 20 147/93 94 Room Air 11/28/16 08:00 Room Air 11/28/16 07:51 36.9 120 20 141/91 94 Room Air 11/28/16 05:08 37.6 11/28/16 04:36 37.9 108 18 143/79 91 Room Air 11/28/16 04:00 Room Air 11/28/16 00:23 37.7 80 18 134/70 94 Nasal Cannula 2.0 11/27/16 23:59 Room Air 11/27/16 20:17 37.5 110 18 146/86 91 Room Air 11/27/16 20:00 Room Air 11/27/16 16:00 Room Air 11/27/16 15:57 36.6 86 20 159/74 96 Room Air Physical Exam General Appearance: WD/WN, no apparent distress Respiratory/Chest: lungs clear, normal breath sounds Cardiovascular: regular rate, rhythm Abdomen: normal bowel sounds, non tender, soft, no organomegaly, + pertinent finding (mildly distended and tympanitic) Laboratory Results Last 24 Hours Test 11/28/16 05:40 Sodium Level 138 mmol/L Potassium Level 3.5 mmol/L Chloride Level 108 mmol/L Carbon Dioxide Level 18 mmol/L Anion Gap 12.0 mmol/L Blood Urea Nitrogen 10 mg/dl Creatinine 1.00 mg/dl Est Creatinine Clear Calc Drug Dose 37.0 ml/min Estimated GFR () 59.5 Estimated GFR (Non- 51.3 BUN/Creatinine Ratio 10.0 Random Glucose 109 mg/dl Calcium Level 7.9 mg/dl Phosphorus Level 1.8 mg/dl Assessment and Plan Duodenal obstruction--extrinsic compression on initial EGD but not confirmed on EGD 11/25/16--UGI with SBFT negative for obstruction--unclear etiology but is tolerating diet Further advance in diet per surgery. Diarrhea--could be just from initiation of bowel movements but check Cdiff dilated bile duct on CT--perhaps from post melani state Elevated LFTs resolved as of 11/17/16
--- NOTE | 2016-11-28 15:41 | Progress Note ---
Subjective Date of Service: Nov 28, 2016. Subjective Pt evaluation today including: conversation w/ patient, physical exam, chart review, lab review, review of studies, review of inpatient medication list Pt resting comfortably in bed Some nausea this AM tolerating diet Problem List Medical Problems: (1) Altered mental status Status: Acute (2) Aphasia Status: Acute (3) Atrial fibrillation with RVR Status: Acute (4) Bowel obstruction Status: Acute (5) Change in mental status Status: Acute (6) Dysphagia Status: Acute (7) Elevated troponin Status: Acute (8) Speaking difficulty Status: Acute (9) Stroke-like symptoms Status: Acute (10) TIA (transient ischemic attack) Status: Acute (11) UTI (urinary tract infection) Status: Acute Review of Systems Constitutional: No chills, No fever Respiratory: No cough, No dyspnea on exertion, No shortness of breath, No sputum, No wheezing Cardiac: No chest pain, No orthopnea Abdomen: No diarrhea, No nausea, No pain, No vomiting Musculoskeletal: No joint pain, No muscle pain Female : No dysuria, No urinary frequency Objective Vital Signs Date Time Temp Pulse Resp B/P Pulse Ox O2 Delivery O2 Flow Rate FiO2 11/28/16 12:00 Room Air 11/28/16 11:34 37.0 96 20 147/93 94 Room Air 11/28/16 08:00 Room Air 11/28/16 07:51 36.9 120 20 141/91 94 Room Air 11/28/16 05:08 37.6 11/28/16 04:36 37.9 108 18 143/79 91 Room Air 11/28/16 04:00 Room Air 11/28/16 00:23 37.7 80 18 134/70 94 Nasal Cannula 2.0 11/27/16 23:59 Room Air 11/27/16 20:17 37.5 110 18 146/86 91 Room Air 11/27/16 20:00 Room Air 11/27/16 16:00 Room Air 11/27/16 15:57 36.6 86 20 159/74 96 Room Air Physical Exam General Appearance: WD/WN, no apparent distress Neck: supple, no adenopathy Respiratory/Chest: lungs clear, normal breath sounds Cardiovascular: no edema, no gallop Abdomen: normal bowel sounds, soft Neurologic/Psychiatric: alert, oriented x 3 Laboratory Results Last 24 Hours Test 11/28/16 05:40 Sodium Level 138 mmol/L Potassium Level 3.5 mmol/L Chloride Level 108 mmol/L Carbon Dioxide Level 18 mmol/L Anion Gap 12.0 mmol/L Blood Urea Nitrogen 10 mg/dl Creatinine 1.00 mg/dl Est Creatinine Clear Calc Drug Dose 37.0 ml/min Estimated GFR () 59.5 Estimated GFR (Non- 51.3 BUN/Creatinine Ratio 10.0 Random Glucose 109 mg/dl Calcium Level 7.9 mg/dl Phosphorus Level 1.8 mg/dl Assessment and Plan 86 year old female with a history of Afib, HTN, and 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 NG tube was placed in the ED CT abd/pelvis 11/20/2016 determined an acquired extrinsic moderate stenosis was found at 4th part of the duodenum and was traversed, detail is in below - LA Grade C reflux esophagitis. - Normal stomach. - Acquired duodenal stenosis. - No specimens collected. GI discussed with patient about options, pt agreed for EGD with possibility of stent on 11/26. EGD confirmed no obstruction therefore no stent placed. UGIS completed following day with no SBO or duodenal obstruction NGT dced on 11/27 and pt advanced to liquids Cellulitis in right leg upon admission, improving/resolving, DCed Vanco, and zosyn, and will give Unasyn for 3 days to complete total 7 days full course. Venous duplex showed no evidence of DVT in either leg. Continue antibiotics for now because not able to take by mouth, will need to minimize the IV antibiotics and switch oral if possible Elevated liver enzymes was totally resolved likely from dehydration and bowel obstruction Paroxysmal Atrial Tachycardia Rate control with metoprolol IV, likely to convert to PO now that NGT dced Echo was done LVEF 70% Elevated troponin likely represents demand ischemia HTN - cont amlodipine Ureteral cancer - consulted, chemo will resume as OP once dced Protein malnutrition - Nutrition support is an issue, boost breeze, thiamine dietary consulted DVT prophylaxis - HEPARIN PLUS SCDs. DNR Continued [facility] stay due to: multiple IV medications needed Discharge planning: uncertain
[2016-11-29 04:10] VITALS: BP 158/83; PULSE 94; TEMP 37.1; O2SAT 95
[2016-11-29] MEDS: D5W AND 1/2NSS + 20MEQ KCL 1000 ML IV SCH (04:13)
[2016-11-29 05:42] LABS: HEMATOCRIT 33.5 % (37-47); MEAN CELL VOLUME 86.1 fL (80-100); MEAN CORPUSCULAR HEMOGLOBIN 29.3 pg (25-34); MEAN PLATELET VOLUME 9.1 fL (7.4-10.4); PLATELET COUNT 338 K/uL (130-400); RED BLOOD COUNT 3.89 M/uL (4.2-5.4); WHITE BLOOD COUNT 5.87 K/uL (4.8-10.8)
[2016-11-29 06:02] LABS: BASO % 0.5 %; BASO ABS # 0.03 K/uL (0-0.2); COMPLETE YES; EOS % 1.7 %; IG% 2.4 %; LYMPH % 24.2 %; LYMPH ABS # 1.42 K/uL (1.2-3.4); MONO % 9.5 %; NEUT % 61.7 %
[2016-11-29 06:20] LABS: BUN/CREATININE RATIO 6.9 (10-20); CALCIUM 7.9 mg/dl (8.5-10.1); CREATININE 0.88 mg/dl (0.60-1.20); POTASSIUM 3.9 mmol/L (3.5-5.1)
[2016-11-29 06:23] LABS: ALB/GLOB RATIO 0.6 (0.9-2)
[2016-11-29] MEDS: BOOST BREEZE NUTRITION DRINK 1 BOX PO SCH ×2 (07:30→16:45)
[2016-11-29 07:45] VITALS: BP 141/92; PULSE 114; TEMP 36.9; O2SAT 96
[2016-11-29] MEDS: MULTIVITAMIN TAB PO SCH (07:45)
[2016-11-29] MEDS: PANTOprazole SOD 40 MG TAB PO SCH (07:45)
[2016-11-29] MEDS: METOPROLOL SUCC 50MG EXT REL TAB PO SCH (07:45)
[2016-11-29] MEDS: AMLODIPINE BESYLATE 5 MG TAB PO SCH (07:46)
[2016-11-29] MEDS: HEPARIN SOD 5000 UNIT/0.5 ML CARP SQ SCH ×2 (07:51→21:17)
[2016-11-29] MEDS: THIAMINE HCL INJ 100 MG in SYRINGE 9 ML IV SCH (07:59)
[2016-11-29 08:23] LABS: MAGNESIUM 1.5 mg/dl (1.8-2.4); PHOSPHORUS 2.2 mg/dl (2.5-4.9)
--- NOTE | 2016-11-29 08:30 | Gastroenterology Progress Note ---
Progress Note Date of Service: Nov 29, 2016 Subjective Pt evaluation today including: conversation w/ patient, physical exam, chart review, lab review, review of studies, review of inpatient medication list cc f/u n/v bowel obstruction HPI Pt tolerating full liquid diet. NO n/v , no abd pain Review of Systems Respiratory: + shortness of breath (off and on) Cardiac: No chest pain Medications Current Inpatient Medications Medications (Trade) Dose Ordered Sig/Blank Route Start Time Stop Time Status Last Admin Dose Admin Ondansetron HCl (Zofran Inj) 4 mg Q6H PRN IV 11/20/16 18:15 12/20/16 18:14 11/28/16 07:48 4 MG Diphenhydramine HCl 25 mg 25 mg Q4H PRN IV 11/20/16 18:15 12/20/16 18:14 Promethazine HCl/ Sodium Chloride (Phenergan Inj/ Nss 50ml) 50.5 ml @ 202 mls/hr Q4H PRN IV 11/20/16 18:15 12/20/16 18:14 Morphine Sulfate 2 mg 2 mg Q2H PRN IV 11/20/16 18:15 12/04/16 18:14 Acetaminophen (Ofirmev Iv) 100 ml @ 400 mls/hr Q8H PRN IV 11/20/16 18:15 12/20/16 18:14 11/26/16 10:05 400 MLS/HR Morphine Sulfate 4 mg 4 mg Q2H PRN IV 11/20/16 20:30 12/04/16 20:29 Lorazepam/Syringe (Ativan Inj/ Syringe) 1 ml @ 1 mls/min Q4H PRN IV 11/20/16 20:45 12/20/16 20:44 Heparin Sodium (Porcine) (Heparin Sq 5000 Unit/0.5ml) 5,000 unit Q12 SQ 11/21/16 21:00 12/21/16 20:59 11/29/16 07:51 5,000 UNIT Phenol 1 sprays 1 sprays Q2H PRN MT 11/21/16 18:30 12/21/16 18:29 Potassium Chloride/Dextrose/ Sod Cl 1,000 ml @ 80 mls/hr [id number] IV 11/23/16 10:00 12/23/16 09:59 11/29/16 04:13 80 MLS/HR Thiamine HCl/ Syringe (Vitamin B-1 Inj/ Syringe) 10 ml @ 2 mls/min QAM IV 11/28/16 09:00 12/28/16 08:59 11/29/16 07:59 2 MLS/MIN Multivitamins (Multivitamin Tab) 1 tab QAM PO 11/28/16 09:00 12/28/16 08:59 11/29/16 07:45 1 TAB Pantoprazole Sodium (Protonix Tab) 40 mg QAM PO 11/28/16 09:00 12/28/16 08:59 11/29/16 07:45 40 MG Enteral Nutritional Formula (Boost Breeze Nutritional Drink) 1 box BIDM PO 11/27/16 16:45 12/27/16 16:44 11/28/16 16:41 1 BOX Metoprolol Succinate (Toprol Xl Tab) 50 mg DAILY PO 11/28/16 09:00 12/28/16 08:59 11/29/16 07:45 50 MG Amlodipine Besylate (Norvasc Tab) 5 mg QAM PO 11/29/16 09:00 12/29/16 08:59 11/29/16 07:46 5 MG Objective Vital Signs Date Time Temp Pulse Resp B/P Pulse Ox O2 Delivery O2 Flow Rate FiO2 11/29/16 07:45 36.9 114 18 141/92 96 Room Air 11/29/16 04:10 37.1 94 20 158/83 95 2.0 11/29/16 04:00 Room Air 11/28/16 23:59 Room Air 11/28/16 23:43 37.6 90 18 146/77 92 Nasal Cannula 2.0 11/28/16 20:00 Room Air 11/28/16 19:24 36.8 109 18 132/77 95 11/28/16 16:37 36.8 88 18 152/96 93 11/28/16 16:00 Room Air 11/28/16 12:00 Room Air 11/28/16 11:34 37.0 96 20 147/93 94 Room Air Physical Exam General Appearance: WD/WN, no apparent distress Cardiovascular: regular rate, rhythm Abdomen: normal bowel sounds, non tender, soft, + pertinent finding (mildly tympanitic) Laboratory Results Last 24 Hours Test 11/29/16 05:26 White Blood Count 5.87 K/uL Red Blood Count 3.89 M/uL Hemoglobin 11.4 g/dL Hematocrit 33.5 % Mean Corpuscular Volume 86.1 fL Mean Corpuscular Hemoglobin 29.3 pg Mean Corpuscular Hemoglobin Concent 34.0 g/dl Platelet Count 338 K/uL Mean Platelet Volume 9.1 fL Neutrophils (%) (Auto) 61.7 % Lymphocytes (%) (Auto) 24.2 % Monocytes (%) (Auto) 9.5 % Eosinophils (%) (Auto) 1.7 % Basophils (%) (Auto) 0.5 % Neutrophils # (Auto) 3.62 K/uL Lymphocytes # (Auto) 1.42 K/uL Monocytes # (Auto) 0.56 K/uL Eosinophils # (Auto) 0.10 K/uL Basophils # (Auto) 0.03 K/uL RDW Standard Deviation 52.9 fL RDW Coefficient of Variation 16.8 % Immature Granulocyte % (Auto) 2.4 % Immature Granulocyte # (Auto) 0.14 K/uL Sodium Level 137 mmol/L Potassium Level 3.9 mmol/L Chloride Level 106 mmol/L Carbon Dioxide Level 23 mmol/L Anion Gap 8.0 mmol/L Blood Urea Nitrogen 6 mg/dl Creatinine 0.88 mg/dl Est Creatinine Clear Calc Drug Dose 42.1 ml/min Estimated GFR () 69.4 Estimated GFR (Non- 59.9 BUN/Creatinine Ratio 6.9 Random Glucose 96 mg/dl Calcium Level 7.9 mg/dl Phosphorus Level 2.2 mg/dl Magnesium Level 1.5 mg/dl Total Bilirubin 0.4 mg/dl Aspartate Amino Transf (AST/SGOT) 15 U/L Alanine Aminotransferase (ALT/SGPT) 18 U/L Alkaline Phosphatase 89 U/L Total Protein 5.6 gm/dl Albumin 2.0 gm/dl Globulin 3.6 gm/dl Albumin/Globulin Ratio 0.6 Assessment and Plan Duodenal obstruction--extrinsic compression on initial EGD but not confirmed on EGD 11/25/16--UGI with SBFT negative for obstruction--unclear etiology but is tolerating diet Further advance in diet per surgery. Diarrhea--could be just from initiation of bowel movements but check Cdiff-- ordered but no real real stools since last pm dilated bile duct on CT--perhaps from post melani state Elevated LFTs resolved as of 11/17/16
[2016-11-29] MEDS ORDERED: NURSING VERBAL MED ORDER ONE ×2 (09:30→09:45)
[2016-11-29] MEDS ORDERED: POTASSIUM CHLORIDE 20 MEQ/15 ML UDC PO ONE (10:15)
[2016-11-29] MEDS ORDERED: MAGNESIUM OXIDE 400 MG TAB PO ONE (10:15)
--- NOTE | 2016-11-29 10:24 | CARDIOLOGY PROGRESS NOTE ---
DATE: 11/29/2016 DATE: 11/29/2016. The patient seen and examined. Chart, medications, telemetry reviewed. SUBJECTIVE: The patient notes no overt complains, is taking clear to full liquids. Notes no dizziness or lightheadedness. Notes no syncope. Is aware of her heart pounding at times. Rhythms demonstrate intermittent atrial tachycardia. OBJECTIVE: VITAL SIGNS: Heart rate is 90-100, blood pressure is 141/92. NECK: Thin. There is no jugular venous distention. LUNGS: Clear. CARDIOVASCULAR EXAMINATION: Regular with intermittent atrial tachycardia. ABDOMEN: Soft with minimal distention. EXTREMITIES: Without edema. IMPRESSION: An 86-year-old female followed for paroxysmal/multifocal atrial tachycardia during her current hospitalization for acute small-bowel obstruction. PLAN: Will be to titrate beta ubaldo further 100 mg of Toprol per day. Will supplement potassium and magnesium. Blood pressure is slightly elevated today, but would not increase amlodipine further at this point.
[2016-11-29] MEDS ORDERED: METOPROLOL SUCC 50MG EXT REL TAB PO ONE (10:30)
[2016-11-29 11:00] VITALS: BP 138/63; PULSE 93; TEMP 36.8; O2SAT 98
--- NOTE | 2016-11-29 11:12 | Progress Note ---
Subjective Date of Service: Nov 29, 2016. Subjective Pt evaluation today including: conversation w/ patient, conversation w/ family , physical exam, chart review, lab review, review of studies, review of inpatient medication list Pt feeling much better No more nausea or diarrhea Resting comfortably in bed Problem List Medical Problems: (1) Altered mental status Status: Acute (2) Aphasia Status: Acute (3) Atrial fibrillation with RVR Status: Acute (4) Bowel obstruction Status: Acute (5) Change in mental status Status: Acute (6) Dysphagia Status: Acute (7) Elevated troponin Status: Acute (8) Speaking difficulty Status: Acute (9) Stroke-like symptoms Status: Acute (10) TIA (transient ischemic attack) Status: Acute (11) UTI (urinary tract infection) Status: Acute Review of Systems Constitutional: No chills, No fever Respiratory: No cough, No shortness of breath, No sputum, No wheezing Cardiac: No chest pain, No orthopnea Abdomen: No diarrhea, No nausea, No pain, No vomiting Musculoskeletal: No joint pain, No muscle pain Female : No dysuria, No urinary frequency Objective Vital Signs Date Time Temp Pulse Resp B/P Pulse Ox O2 Delivery O2 Flow Rate FiO2 11/29/16 08:00 Nasal Cannula 2.0 11/29/16 07:45 36.9 114 18 141/92 96 Room Air 11/29/16 04:10 37.1 94 20 158/83 95 2.0 11/29/16 04:00 Room Air 11/28/16 23:59 Room Air 11/28/16 23:43 37.6 90 18 146/77 92 Nasal Cannula 2.0 11/28/16 20:00 Room Air 11/28/16 19:24 36.8 109 18 132/77 95 11/28/16 16:37 36.8 88 18 152/96 93 11/28/16 16:00 Room Air 11/28/16 12:00 Room Air 11/28/16 11:34 37.0 96 20 147/93 94 Room Air Physical Exam General Appearance: WD/WN, no apparent distress Neck: supple, no adenopathy Respiratory/Chest: chest non-tender, normal breath sounds Cardiovascular: no edema, no gallop Abdomen: non tender, soft Neurologic/Psychiatric: alert, oriented x 3 Laboratory Results Last 24 Hours Test 11/29/16 05:26 White Blood Count 5.87 K/uL Red Blood Count 3.89 M/uL Hemoglobin 11.4 g/dL Hematocrit 33.5 % Mean Corpuscular Volume 86.1 fL Mean Corpuscular Hemoglobin 29.3 pg Mean Corpuscular Hemoglobin Concent 34.0 g/dl Platelet Count 338 K/uL Mean Platelet Volume 9.1 fL Neutrophils (%) (Auto) 61.7 % Lymphocytes (%) (Auto) 24.2 % Monocytes (%) (Auto) 9.5 % Eosinophils (%) (Auto) 1.7 % Basophils (%) (Auto) 0.5 % Neutrophils # (Auto) 3.62 K/uL Lymphocytes # (Auto) 1.42 K/uL Monocytes # (Auto) 0.56 K/uL Eosinophils # (Auto) 0.10 K/uL Basophils # (Auto) 0.03 K/uL RDW Standard Deviation 52.9 fL RDW Coefficient of Variation 16.8 % Immature Granulocyte % (Auto) 2.4 % Immature Granulocyte # (Auto) 0.14 K/uL Sodium Level 137 mmol/L Potassium Level 3.9 mmol/L Chloride Level 106 mmol/L Carbon Dioxide Level 23 mmol/L Anion Gap 8.0 mmol/L Blood Urea Nitrogen 6 mg/dl Creatinine 0.88 mg/dl Est Creatinine Clear Calc Drug Dose 42.1 ml/min Estimated GFR () 69.4 Estimated GFR (Non- 59.9 BUN/Creatinine Ratio 6.9 Random Glucose 96 mg/dl Calcium Level 7.9 mg/dl Phosphorus Level 2.2 mg/dl Magnesium Level 1.5 mg/dl Total Bilirubin 0.4 mg/dl Aspartate Amino Transf (AST/SGOT) 15 U/L Alanine Aminotransferase (ALT/SGPT) 18 U/L Alkaline Phosphatase 89 U/L Total Protein 5.6 gm/dl Albumin 2.0 gm/dl Globulin 3.6 gm/dl Albumin/Globulin Ratio 0.6 Assessment and Plan 86 year old female with a history of Afib, HTN, and 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 NG tube was placed in the ED CT abd/pelvis 11/20/2016 determined an acquired extrinsic moderate stenosis was found at 4th part of the duodenum and was traversed, detail is in below - LA Grade C reflux esophagitis. - Normal stomach. - Acquired duodenal stenosis. - No specimens collected. GI discussed with patient about options, pt agreed for EGD with possibility of stent on 11/26. EGD confirmed no obstruction therefore no stent placed. UGIS completed following day with no SBO or duodenal obstruction NGT dced on 11/27 and pt advanced to liquids Cellulitis in right leg upon admission, improving/resolving, DCed Vanco, and zosyn, and will give Unasyn for 3 days to complete total 7 days full course. Venous duplex showed no evidence of DVT in either leg. Continue antibiotics for now because not able to take by mouth, will need to minimize the IV antibiotics and switch oral if possible Elevated liver enzymes was totally resolved likely from dehydration and bowel obstruction Paroxysmal Atrial Tachycardia Rate control with metoprolol IV converted to PO now that NGT dced Echo was done LVEF 70% Elevated troponin likely represents demand ischemia HTN - cont amlodipine Ureteral cancer - consulted, chemo will resume as OP once dced Protein malnutrition - Nutrition support is an issue, boost breeze, thiamine dietary consulted DVT prophylaxis - HEPARIN PLUS SCDs. DNR Continued [facility] stay due to: multiple IV medications needed Discharge planning: uncertain
--- NOTE | 2016-11-29 13:05 | Surgery Progress Note ---
Surgery Progress Note Date of Service Nov 29, 2016. Subjective + feeling well pt is doing fine, no abdominal pain, no N/V, Objective Vital Signs: Date Time Temp Pulse Resp B/P Pulse Ox O2 Delivery O2 Flow Rate FiO2 11/29/16 08:00 Nasal Cannula 2.0 11/29/16 07:45 36.9 114 18 141/92 96 Room Air 11/29/16 04:10 37.1 94 20 158/83 95 2.0 11/29/16 04:00 Room Air 11/28/16 23:59 Room Air 11/28/16 23:43 37.6 90 18 146/77 92 Nasal Cannula 2.0 11/28/16 20:00 Room Air 11/28/16 19:24 36.8 109 18 132/77 95 11/28/16 16:37 36.8 88 18 152/96 93 11/28/16 16:00 Room Air General Appearance: WD/WN Head: normocephalic Neck: supple, no adenopathy Respiratory/Chest: chest non-tender, lungs clear Cardiovascular: regular rate, rhythm, no edema, no gallop, no JVD Abdomen: normal bowel sounds, non tender, non distended, soft Extremities: normal range of motion, non-tender, normal inspection Laboratory Results: Results Past 24 Hours Test 11/29/16 05:26 Range/Units White Blood Count 5.87 4.8-10.8 K/uL Red Blood Count 3.89 4.2-5.4 M/uL Hemoglobin 11.4 12.0-16.0 g/dL Hematocrit 33.5 37-47 % Mean Corpuscular Volume 86.1 80-100 fL Mean Corpuscular Hemoglobin 29.3 25-34 pg Mean Corpuscular Hemoglobin Concent 34.0 32-36 g/dl Platelet Count 338 130-400 K/uL Mean Platelet Volume 9.1 7.4-10.4 fL Neutrophils (%) (Auto) 61.7 % Lymphocytes (%) (Auto) 24.2 % Monocytes (%) (Auto) 9.5 % Eosinophils (%) (Auto) 1.7 % Basophils (%) (Auto) 0.5 % Neutrophils # (Auto) 3.62 1.4-6.5 K/uL Lymphocytes # (Auto) 1.42 1.2-3.4 K/uL Monocytes # (Auto) 0.56 0.11-0.59 K/uL Eosinophils # (Auto) 0.10 0-0.5 K/uL Basophils # (Auto) 0.03 0-0.2 K/uL RDW Standard Deviation 52.9 36.4-46.3 fL RDW Coefficient of Variation 16.8 11.5-14.5 % Immature Granulocyte % (Auto) 2.4 % Immature Granulocyte # (Auto) 0.14 0.00-0.02 K/uL Sodium Level 137 136-145 mmol/L Potassium Level 3.9 3.5-5.1 mmol/L Chloride Level 106 98-107 mmol/L Carbon Dioxide Level 23 21-32 mmol/L Anion Gap 8.0 3-11 mmol/L Blood Urea Nitrogen 6 7-18 mg/dl Creatinine 0.88 0.60-1.20 mg/dl Est Creatinine Clear Calc Drug Dose 42.1 ml/min Estimated GFR () 69.4 Estimated GFR (Non- 59.9 BUN/Creatinine Ratio 6.9 10-20 Random Glucose 96 70-99 mg/dl Calcium Level 7.9 8.5-10.1 mg/dl Phosphorus Level 2.2 2.5-4.9 mg/dl Magnesium Level 1.5 1.8-2.4 mg/dl Total Bilirubin 0.4 0.2-1 mg/dl Aspartate Amino Transf (AST/SGOT) 15 15-37 U/L Alanine Aminotransferase (ALT/SGPT) 18 12-78 U/L Alkaline Phosphatase 89 45-117 U/L Total Protein 5.6 6.4-8.2 gm/dl Albumin 2.0 3.4-5.0 gm/dl Globulin 3.6 2.5-4.0 gm/dl Albumin/Globulin Ratio 0.6 0.9-2 Microbiology Results 11/29/16 C.difficile Toxin B Gene (PCR) - Final, Complete No C. difficile toxin B gene detected Assessment & Plan IMP SBO- duodenal obstruction, upper GI study small bowel follow through, without obstruction I update information to pt and his son, they agree with the plan. regular diet (soft) change to po heart meds per chapter relations administrator may D/C prison tomorrow once chapter relations administrator control HR may transfer to back to surgical floor will f/u IMP SBO- duodenal obstruction, upper GI study small bowel follow through, without obstruction I update information to pt and his son, they agree with the plan. clear diet (Full) change to po heart meds per chapter relations administrator may D/C prison tomorrow once chapter relations administrator control HR may transfer to back to surgical floor will f/u
[2016-11-29 15:28] VITALS: BP 146/73; PULSE 90; TEMP 37.6; O2SAT 93
[2016-11-29 19:49] VITALS: BP 144/88; PULSE 98; TEMP 37.4; O2SAT 93
[2016-11-29 23:41] VITALS: BP 155/82; PULSE 89; TEMP 38.1; O2SAT 94
[2016-11-30 04:02] VITALS: BP 134/85; PULSE 76; TEMP 37.7; O2SAT 95
[2016-11-30 05:45] LABS: HEMATOCRIT 34.2 % (37-47); MEAN CELL VOLUME 85.5 fL (80-100); MEAN CORPUSCULAR HGB CONC 33.9 g/dl (32-36); MEAN PLATELET VOLUME 9.7 fL (7.4-10.4); PLATELET COUNT 374 K/uL (130-400); WHITE BLOOD COUNT 7.34 K/uL (4.8-10.8)
[2016-11-30 06:15] LABS: BUN/CREATININE RATIO 10.3 (10-20); CALCIUM 8.3 mg/dl (8.5-10.1); CREATININE 0.85 mg/dl (0.60-1.20); POTASSIUM 3.9 mmol/L (3.5-5.1)
--- NOTE | 2016-11-30 07:02 | Surgery Progress Note ---
Surgery Progress Note Date of Service Nov 30, 2016. Subjective Post OP Day: HD 10 + diet (soft), + feeling well, No complaints, No nausea, No vomiting Objective Vital Signs: Date Time Temp Pulse Resp B/P Pulse Ox O2 Delivery O2 Flow Rate FiO2 11/30/16 04:50 Room Air 11/30/16 04:02 37.7 76 20 134/85 95 Room Air 11/30/16 00:55 Room Air 11/29/16 23:41 38.1 89 18 155/82 94 Room Air 11/29/16 20:19 Room Air 11/29/16 19:49 37.4 98 18 144/88 93 Room Air 11/29/16 16:24 Room Air 11/29/16 15:28 37.6 90 16 146/73 93 Room Air 11/29/16 12:00 Room Air 11/29/16 11:00 36.8 93 18 138/63 98 11/29/16 08:00 Nasal Cannula 2.0 11/29/16 07:45 36.9 114 18 141/92 96 Room Air General Appearance: WD/WN, no apparent distress Head: normocephalic, atraumatic Neck: supple, trachea midline Respiratory/Chest: lungs clear Cardiovascular: regular rate, rhythm Abdomen: normal bowel sounds, non tender, non distended, soft Extremities: non-tender, no pedal edema Laboratory Results: Results Past 24 Hours Test 11/30/16 05:05 Range/Units White Blood Count 7.34 4.8-10.8 K/uL Red Blood Count 4.00 4.2-5.4 M/uL Hemoglobin 11.6 12.0-16.0 g/dL Hematocrit 34.2 37-47 % Mean Corpuscular Volume 85.5 80-100 fL Mean Corpuscular Hemoglobin 29.0 25-34 pg Mean Corpuscular Hemoglobin Concent 33.9 32-36 g/dl RDW Standard Deviation 52.9 36.4-46.3 fL RDW Coefficient of Variation 16.7 11.5-14.5 % Platelet Count 374 130-400 K/uL Mean Platelet Volume 9.7 7.4-10.4 fL Sodium Level 138 136-145 mmol/L Potassium Level 3.9 3.5-5.1 mmol/L Chloride Level 105 98-107 mmol/L Carbon Dioxide Level 23 21-32 mmol/L Anion Gap 10.0 3-11 mmol/L Blood Urea Nitrogen 9 7-18 mg/dl Creatinine 0.85 0.60-1.20 mg/dl Est Creatinine Clear Calc Drug Dose 43.5 ml/min Estimated GFR () 72.4 Estimated GFR (Non- 62.5 BUN/Creatinine Ratio 10.3 10-20 Random Glucose 87 70-99 mg/dl Calcium Level 8.3 8.5-10.1 mg/dl Microbiology Results 11/29/16 C.difficile Toxin B Gene (PCR) - Final, Complete No C. difficile toxin B gene detected Assessment & Plan partial obstruction of gastroduodenal junction -soft diet -doing well -no pain -no N/V -discharge to home per medical team
[2016-11-30 07:50] VITALS: BP 135/75; PULSE 112; TEMP 37.2; O2SAT 91
[2016-11-30] MEDS ORDERED: METOPROLOL SUCC 50MG EXT REL TAB PO SCH (09:00)
[2016-11-30] MEDS: BOOST BREEZE NUTRITION DRINK 1 BOX PO SCH ×2 (09:05→17:18)
[2016-11-30] MEDS: MAGNESIUM OXIDE 400 MG TAB PO SCH (09:05)
[2016-11-30] MEDS: MULTIVITAMIN TAB PO SCH (09:05)
[2016-11-30] MEDS: AMLODIPINE BESYLATE 5 MG TAB PO SCH (09:05)
[2016-11-30] MEDS: PANTOprazole SOD 40 MG TAB PO SCH (09:05)
[2016-11-30] MEDS: HEPARIN SOD 5000 UNIT/0.5 ML CARP SQ SCH ×2 (09:06→20:24)
[2016-11-30] MEDS: THIAMINE HCL INJ 100 MG in SYRINGE 9 ML IV SCH ×2 (09:06→09:58)
[2016-11-30] MEDS ORDERED: NURSING VERBAL MED ORDER ONE (10:00)
[2016-11-30 11:53] VITALS: BP 121/91; PULSE 110; TEMP 37.2; O2SAT 91
[2016-11-30] MEDS ORDERED: METOPROLOL SUCC 50MG EXT REL TAB PO ONE (13:30)
--- NOTE | 2016-11-30 15:16 | Progress Note ---
Subjective Date of Service: Nov 30, 2016. Subjective Pt evaluation today including: conversation w/ patient, physical exam, chart review, lab review, review of studies, review of inpatient medication list Problem List Medical Problems: (1) Altered mental status Status: Acute (2) Aphasia Status: Acute (3) Atrial fibrillation with RVR Status: Acute (4) Bowel obstruction Status: Acute (5) Change in mental status Status: Acute (6) Dysphagia Status: Acute (7) Elevated troponin Status: Acute (8) Speaking difficulty Status: Acute (9) Stroke-like symptoms Status: Acute (10) TIA (transient ischemic attack) Status: Acute (11) UTI (urinary tract infection) Status: Acute Review of Systems Constitutional: No chills, No fever Respiratory: No cough, No dyspnea on exertion, No shortness of breath, No sputum, No wheezing Cardiac: No chest pain, No orthopnea Abdomen: No constipation, No nausea, No pain, No vomiting Musculoskeletal: No joint pain, No muscle pain Female : No dysuria, No urinary frequency Objective Vital Signs Date Time Temp Pulse Resp B/P Pulse Ox O2 Delivery O2 Flow Rate FiO2 11/30/16 12:00 Room Air 11/30/16 11:53 37.2 110 20 121/91 91 Room Air 11/30/16 08:00 Room Air 11/30/16 07:50 37.2 112 18 135/75 91 Room Air 11/30/16 04:50 Room Air 11/30/16 04:02 37.7 76 20 134/85 95 Room Air 11/30/16 00:55 Room Air 11/29/16 23:41 38.1 89 18 155/82 94 Room Air 11/29/16 20:19 Room Air 11/29/16 19:49 37.4 98 18 144/88 93 Room Air 11/29/16 16:24 Room Air 11/29/16 15:28 37.6 90 16 146/73 93 Room Air Physical Exam General Appearance: WD/WN, no apparent distress Neck: supple, no adenopathy Respiratory/Chest: chest non-tender, lungs clear, normal breath sounds Cardiovascular: no edema, no gallop, + tachycardia Abdomen: non tender, soft Neurologic/Psychiatric: alert, normal mood/affect Laboratory Results Last 24 Hours Test 11/30/16 05:05 White Blood Count 7.34 K/uL Red Blood Count 4.00 M/uL Hemoglobin 11.6 g/dL Hematocrit 34.2 % Mean Corpuscular Volume 85.5 fL Mean Corpuscular Hemoglobin 29.0 pg Mean Corpuscular Hemoglobin Concent 33.9 g/dl RDW Standard Deviation 52.9 fL RDW Coefficient of Variation 16.7 % Platelet Count 374 K/uL Mean Platelet Volume 9.7 fL Sodium Level 138 mmol/L Potassium Level 3.9 mmol/L Chloride Level 105 mmol/L Carbon Dioxide Level 23 mmol/L Anion Gap 10.0 mmol/L Blood Urea Nitrogen 9 mg/dl Creatinine 0.85 mg/dl Est Creatinine Clear Calc Drug Dose 43.5 ml/min Estimated GFR () 72.4 Estimated GFR (Non- 62.5 BUN/Creatinine Ratio 10.3 Random Glucose 87 mg/dl Calcium Level 8.3 mg/dl Assessment and Plan 86 year old female with a history of Afib, HTN, and 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 NG tube was placed in the ED CT abd/pelvis 11/20/2016 determined an acquired extrinsic moderate stenosis was found at 4th part of the duodenum and was traversed, detail is in below - LA Grade C reflux esophagitis. - Normal stomach. - Acquired duodenal stenosis. - No specimens collected. GI discussed with patient about options, pt agreed for EGD with possibility of stent on 11/26. EGD confirmed no obstruction therefore no stent placed. UGIS completed following day with no SBO or duodenal obstruction NGT dced on 11/27 and pt advanced on diet Cellulitis in right leg upon admission, improving/resolving, DCed Vanco, and zosyn, and will give Unasyn for 3 days to complete total 7 days full course. Venous duplex showed no evidence of DVT in either leg. Continue antibiotics for now because not able to take by mouth, will need to minimize the IV antibiotics and switch oral if possible Elevated liver enzymes was totally resolved likely from dehydration and bowel obstruction Paroxysmal Atrial Tachycardia Rate control with metoprolol IV converted to PO now that NGT dced, titrating PO metoprolol due to elev HR Echo was done LVEF 70% Elevated troponin likely represents demand ischemia HTN - cont amlodipine Ureteral cancer - consulted, chemo will resume as OP once dced Protein malnutrition - Nutrition support is an issue, anum breeze, thiamine dietary consulted DVT prophylaxis - HEPARIN PLUS SCDs. DNR Continued [facility] stay due to: multiple IV medications needed Discharge planning: uncertain
--- NOTE | 2016-11-30 16:05 | Gastroenterology Progress Note ---
Progress Note Date of Service: Nov 30, 2016 Subjective Pt evaluation today including: conversation w/ patient, physical exam, chart review, lab review, review of studies, review of inpatient medication list cc F/U duodenal obstruction HPI Pt tolerating soft diet without abd pain. NO N/V. No stools for 2 days. Review of Systems Respiratory: No shortness of breath Cardiac: No chest pain Medications Current Inpatient Medications Medications (Trade) Dose Ordered Sig/Blank Route Start Time Stop Time Status Last Admin Dose Admin Ondansetron HCl (Zofran Inj) 4 mg Q6H PRN IV 11/20/16 18:15 12/20/16 18:14 11/28/16 07:48 4 MG Diphenhydramine HCl 25 mg 25 mg Q4H PRN IV 11/20/16 18:15 12/20/16 18:14 Promethazine HCl/ Sodium Chloride (Phenergan Inj/ Nss 50ml) 50.5 ml @ 202 mls/hr Q4H PRN IV 11/20/16 18:15 12/20/16 18:14 Morphine Sulfate 2 mg 2 mg Q2H PRN IV 11/20/16 18:15 12/04/16 18:14 Acetaminophen (Ofirmev Iv) 100 ml @ 400 mls/hr Q8H PRN IV 11/20/16 18:15 12/20/16 18:14 11/26/16 10:05 400 MLS/HR Morphine Sulfate 4 mg 4 mg Q2H PRN IV 11/20/16 20:30 12/04/16 20:29 Lorazepam/Syringe (Ativan Inj/ Syringe) 1 ml @ 1 mls/min Q4H PRN IV 11/20/16 20:45 12/20/16 20:44 Heparin Sodium (Porcine) (Heparin Sq 5000 Unit/0.5ml) 5,000 unit Q12 SQ 11/21/16 21:00 12/21/16 20:59 11/30/16 09:06 5,000 UNIT Phenol (Chloraseptic 1.4% [place]) 1 sprays Q2H PRN MT 11/21/16 18:30 12/21/16 18:29 Multivitamins (Multivitamin Tab) 1 tab QAM PO 11/28/16 09:00 12/28/16 08:59 11/30/16 09:05 1 TAB Pantoprazole Sodium (Protonix Tab) 40 mg QAM PO 11/28/16 09:00 12/28/16 08:59 11/30/16 09:05 40 MG Enteral Nutritional Formula (Boost Breeze Nutritional Drink) 1 box BIDM PO 11/27/16 16:45 12/27/16 16:44 11/30/16 09:05 1 BOX Amlodipine Besylate (Norvasc Tab) 5 mg QAM PO 11/29/16 09:00 12/29/16 08:59 11/30/16 09:05 5 MG Magnesium Oxide (Mag-Ox Tab) 400 mg QAM PO 11/30/16 09:00 12/30/16 08:59 11/30/16 09:05 400 MG Metoprolol Succinate (Toprol Xl Tab) 200 mg DAILY PO 12/01/16 09:00 12/31/16 08:59 Objective Vital Signs Date Time Temp Pulse Resp B/P Pulse Ox O2 Delivery O2 Flow Rate FiO2 11/30/16 12:00 Room Air 11/30/16 11:53 37.2 110 20 121/91 91 Room Air 11/30/16 08:00 Room Air 11/30/16 07:50 37.2 112 18 135/75 91 Room Air 11/30/16 04:50 Room Air 11/30/16 04:02 37.7 76 20 134/85 95 Room Air 11/30/16 00:55 Room Air 11/29/16 23:41 38.1 89 18 155/82 94 Room Air 11/29/16 20:19 Room Air 11/29/16 19:49 37.4 98 18 144/88 93 Room Air 11/29/16 16:24 Room Air Physical Exam General Appearance: WD/WN, no apparent distress Respiratory/Chest: normal breath sounds, no respiratory distress Cardiovascular: regular rate, rhythm Abdomen: normal bowel sounds, non tender, no organomegaly, + pertinent finding (mildly distended and tympanitic but stable) Laboratory Results Last 24 Hours Test 11/30/16 05:05 White Blood Count 7.34 K/uL Red Blood Count 4.00 M/uL Hemoglobin 11.6 g/dL Hematocrit 34.2 % Mean Corpuscular Volume 85.5 fL Mean Corpuscular Hemoglobin 29.0 pg Mean Corpuscular Hemoglobin Concent 33.9 g/dl RDW Standard Deviation 52.9 fL RDW Coefficient of Variation 16.7 % Platelet Count 374 K/uL Mean Platelet Volume 9.7 fL Sodium Level 138 mmol/L Potassium Level 3.9 mmol/L Chloride Level 105 mmol/L Carbon Dioxide Level 23 mmol/L Anion Gap 10.0 mmol/L Blood Urea Nitrogen 9 mg/dl Creatinine 0.85 mg/dl Est Creatinine Clear Calc Drug Dose 43.5 ml/min Estimated GFR () 72.4 Estimated GFR (Non- 62.5 BUN/Creatinine Ratio 10.3 Random Glucose 87 mg/dl Calcium Level 8.3 mg/dl Assessment and Plan Duodenal obstruction--extrinsic compression on initial EGD but not confirmed on EGD 11/25/16--UGI with SBFT negative for obstruction--unclear etiology but is tolerating soft diet. Diarrhea--Cdiff negative--resolved Erosive esophagitis on EGD--contineue PPI. dilated bile duct on CT--perhaps from post melani state Elevated LFTs resolved as of 11/17/16 Stable for DC from GI problem standpoint. Defer DC decision to hospitalist to determine based on other problems.
[2016-11-30 16:19] VITALS: BP 137/78; PULSE 112; TEMP 37.2; O2SAT 92
[2016-11-30 20:48] VITALS: BP 116/81; PULSE 87; TEMP 36.9; O2SAT 93
[2016-11-30 23:47] VITALS: BP 134/79; PULSE 103; TEMP 37.4; O2SAT 91
[2016-12-01 04:02] VITALS: BP 154/79; PULSE 84; TEMP 37; O2SAT 93
[2016-12-01 06:30] LABS: BUN/CREATININE RATIO 14.2 (10-20); CALCIUM 8.3 mg/dl (8.5-10.1); CREATININE 0.89 mg/dl (0.60-1.20); POTASSIUM 3.5 mmol/L (3.5-5.1)
[2016-12-01] MEDS: MULTIVITAMIN TAB PO SCH (07:27)
[2016-12-01] MEDS: AMLODIPINE BESYLATE 5 MG TAB PO SCH (07:27)
[2016-12-01] MEDS: PANTOprazole SOD 40 MG TAB PO SCH (07:27)
[2016-12-01] MEDS: MAGNESIUM OXIDE 400 MG TAB PO SCH (07:28)
[2016-12-01] MEDS: METOPROLOL SUCC 50MG EXT REL TAB PO SCH (07:28)
[2016-12-01] MEDS: HEPARIN SOD 5000 UNIT/0.5 ML CARP SQ SCH ×2 (07:29→21:51)
[2016-12-01 07:45] VITALS: BP 156/92; PULSE 95; TEMP 36.4; O2SAT 94
[2016-12-01] MEDS ORDERED: BISACODYL 5 MG TABEC PO ONE (11:00)
[2016-12-01 11:18] VITALS: BP 107/85; PULSE 82; TEMP 36.8; O2SAT 96
--- NOTE | 2016-12-01 11:18 | Progress Note ---
Subjective Date of Service: Dec 01, 2016. Subjective Pt evaluation today including: conversation w/ patient, physical exam, chart review, lab review, review of studies, review of inpatient medication list Problem List Medical Problems: (1) Altered mental status Status: Acute (2) Aphasia Status: Acute (3) Atrial fibrillation with RVR Status: Acute (4) Bowel obstruction Status: Acute (5) Change in mental status Status: Acute (6) Dysphagia Status: Acute (7) Elevated troponin Status: Acute (8) Speaking difficulty Status: Acute (9) Stroke-like symptoms Status: Acute (10) TIA (transient ischemic attack) Status: Acute (11) UTI (urinary tract infection) Status: Acute Review of Systems Constitutional: No chills, No fever Respiratory: No cough, No dyspnea on exertion, No shortness of breath, No sputum, No wheezing Cardiac: No chest pain, No orthopnea Abdomen: + nausea, + vomiting, No constipation, No diarrhea, No pain Musculoskeletal: No joint pain, No muscle pain Female : No dysuria, No urinary frequency Psychiatric: No anhedonism, No anxiety, No depression symptoms Objective Vital Signs Date Time Temp Pulse Resp B/P Pulse Ox O2 Delivery O2 Flow Rate FiO2 12/01/16 08:00 Room Air 12/01/16 07:45 36.4 95 20 156/92 94 Room Air 12/01/16 04:34 Room Air 12/01/16 04:02 37.0 84 20 154/79 93 Room Air 12/01/16 01:10 Room Air 11/30/16 23:47 37.4 103 20 134/79 91 Room Air 11/30/16 20:48 36.9 87 16 116/81 93 Room Air 11/30/16 20:20 Room Air 11/30/16 16:19 37.2 112 20 137/78 92 Room Air 11/30/16 16:00 Room Air 11/30/16 12:00 Room Air 11/30/16 11:53 37.2 110 20 121/91 91 Room Air Physical Exam General Appearance: WD/WN, no apparent distress Neck: supple, no adenopathy Respiratory/Chest: chest non-tender, + decreased breath sounds Cardiovascular: no edema, no gallop, + tachycardia Abdomen: non tender, soft Neurologic/Psychiatric: alert, normal mood/affect, oriented x 3 Laboratory Results Last 24 Hours Test 12/01/16 05:24 Sodium Level 136 mmol/L Potassium Level 3.5 mmol/L Chloride Level 103 mmol/L Carbon Dioxide Level 22 mmol/L Anion Gap 11.0 mmol/L Blood Urea Nitrogen 13 mg/dl Creatinine 0.89 mg/dl Est Creatinine Clear Calc Drug Dose 45.3 ml/min Estimated GFR () 68.5 Estimated GFR (Non- 59.1 BUN/Creatinine Ratio 14.2 Random Glucose 104 mg/dl Calcium Level 8.3 mg/dl Assessment and Plan 86 year old female with a history of Afib, HTN, and 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 NG tube was placed in the ED CT abd/pelvis 11/20/2016 determined an acquired extrinsic moderate stenosis was found at 4th part of the duodenum and was traversed, detail is in below - LA Grade C reflux esophagitis. - Normal stomach. - Acquired duodenal stenosis. - No specimens collected. GI discussed with patient about options, pt agreed for EGD with possibility of stent on 11/26. EGD confirmed no obstruction therefore no stent placed. UGIS completed following day with no SBO or duodenal obstruction NGT dced on 11/27 and pt advanced on diet Cellulitis in right leg upon admission, improving/resolving, DCed Vanco, and zosyn, and will give Unasyn for 3 days to complete total 7 days full course. Paroxysmal Atrial Tachycardia Rate control with metoprolol IV converted to PO now that NGT dced, titrating PO metoprolol due to elev HR Echo was done LVEF 70% Venous duplex showed no evidence of DVT in either leg. Continue antibiotics for now because not able to take by mouth, will need to minimize the IV antibiotics and switch oral if possible Elevated liver enzymes was totally resolved likely from dehydration and bowel obstruction Elevated troponin likely represents demand ischemia HTN - cont amlodipine Ureteral cancer - consulted, chemo will resume as OP once dced Protein malnutrition - Nutrition support is an issue, boost breeze, thiamine dietary consulted DVT prophylaxis - HEPARIN PLUS SCDs. DNR Continued [facility] stay due to: multiple IV medications needed Discharge planning: uncertain
[2016-12-01] MEDS: BOOST BREEZE NUTRITION DRINK 1 BOX PO SCH ×2 (11:44→17:31)
[2016-12-01] MEDS ORDERED: SENNA 8.6 MG TAB PO ONE (12:00)
--- NOTE | 2016-12-01 16:00 | Gastroenterology Progress Note ---
Progress Note Date of Service: Dec 01, 2016 Subjective Pt evaluation today including: conversation w/ patient, physical exam, chart review, lab review, review of studies, review of inpatient medication list CC f/u doudenal obstruction HPI Pt states has some N/V small amounts at 0200 and with pills at 0500 per nursing and patient but none since and tolerating diet. Feels constipated with no bms couple days. Given dulcolax and senokot 4 hours ago no BMs yet. Review of Systems Respiratory: No shortness of breath Cardiac: No chest pain Medications Current Inpatient Medications Medications (Trade) Dose Ordered Sig/Blank Route Start Time Stop Time Status Last Admin Dose Admin Ondansetron HCl (Zofran Inj) 4 mg Q6H PRN IV 11/20/16 18:15 12/20/16 18:14 11/28/16 07:48 4 MG Diphenhydramine HCl 25 mg 25 mg Q4H PRN IV 11/20/16 18:15 12/20/16 18:14 Promethazine HCl/ Sodium Chloride (Phenergan Inj/ Nss 50ml) 50.5 ml @ 202 mls/hr Q4H PRN IV 11/20/16 18:15 12/20/16 18:14 Morphine Sulfate 2 mg 2 mg Q2H PRN IV 11/20/16 18:15 12/04/16 18:14 Acetaminophen (Ofirmev Iv) 100 ml @ 400 mls/hr Q8H PRN IV 11/20/16 18:15 12/20/16 18:14 11/26/16 10:05 400 MLS/HR Morphine Sulfate 4 mg 4 mg Q2H PRN IV 11/20/16 20:30 12/04/16 20:29 Lorazepam/Syringe (Ativan Inj/ Syringe) 1 ml @ 1 mls/min Q4H PRN IV 11/20/16 20:45 12/20/16 20:44 Heparin Sodium (Porcine) (Heparin Sq 5000 Unit/0.5ml) 5,000 unit Q12 SQ 11/21/16 21:00 12/21/16 20:59 12/01/16 07:29 5,000 UNIT Phenol (Chloraseptic 1.4% [place]) 1 sprays Q2H PRN MT 11/21/16 18:30 12/21/16 18:29 Multivitamins (Multivitamin Tab) 1 tab QAM PO 11/28/16 09:00 12/28/16 08:59 12/01/16 07:27 1 TAB Pantoprazole Sodium (Protonix Tab) 40 mg QAM PO 11/28/16 09:00 12/28/16 08:59 12/01/16 07:27 40 MG Enteral Nutritional Formula (Boost Breeze Nutritional Drink) 1 box BIDM PO 11/27/16 16:45 12/27/16 16:44 12/01/16 11:44 1 BOX Amlodipine Besylate (Norvasc Tab) 5 mg QAM PO 11/29/16 09:00 12/29/16 08:59 12/01/16 07:27 5 MG Magnesium Oxide (Mag-Ox Tab) 400 mg QAM PO 11/30/16 09:00 12/30/16 08:59 12/01/16 07:28 400 MG Metoprolol Succinate (Toprol Xl Tab) 200 mg DAILY PO 12/01/16 09:00 12/31/16 08:59 12/01/16 07:28 200 MG Senna (Senokot Tab) 8.6 mg QAM PO 12/02/16 09:00 01/01/17 08:59 Ciprofloxacin (Cipro Tab) 500 mg BID PO 12/01/16 21:00 12/06/16 20:59 Objective Vital Signs Date Time Temp Pulse Resp B/P Pulse Ox O2 Delivery O2 Flow Rate FiO2 12/01/16 12:00 Room Air 12/01/16 11:18 36.8 82 18 107/85 96 Room Air 12/01/16 08:00 Room Air 12/01/16 07:45 36.4 95 20 156/92 94 Room Air 12/01/16 04:34 Room Air 12/01/16 04:02 37.0 84 20 154/79 93 Room Air 12/01/16 01:10 Room Air 11/30/16 23:47 37.4 103 20 134/79 91 Room Air 11/30/16 20:48 36.9 87 16 116/81 93 Room Air 11/30/16 20:20 Room Air 11/30/16 16:19 37.2 112 20 137/78 92 Room Air 11/30/16 16:00 Room Air Physical Exam General Appearance: WD/WN, no apparent distress Respiratory/Chest: normal breath sounds, no respiratory distress Cardiovascular: regular rate, rhythm Abdomen: normal bowel sounds, non tender, soft, no organomegaly, no pulsatile mass, + pertinent finding (mildly distended and tympanitic) Laboratory Results Last 24 Hours Test 12/01/16 05:24 Sodium Level 136 mmol/L Potassium Level 3.5 mmol/L Chloride Level 103 mmol/L Carbon Dioxide Level 22 mmol/L Anion Gap 11.0 mmol/L Blood Urea Nitrogen 13 mg/dl Creatinine 0.89 mg/dl Est Creatinine Clear Calc Drug Dose 45.3 ml/min Estimated GFR () 68.5 Estimated GFR (Non- 59.1 BUN/Creatinine Ratio 14.2 Random Glucose 104 mg/dl Calcium Level 8.3 mg/dl Assessment and Plan Duodenal obstruction--extrinsic compression on initial EGD but not confirmed on EGD 11/25/16--UGI with SBFT negative for obstruction--unclear etiology but is tolerating soft diet. N/V--perhaps from constipation, better during the day Constipation---will add miralax bid to regimen. May need suppository or enema Erosive esophagitis on EGD--contineue PPI. dilated bile duct on CT--perhaps from post melani state Elevated LFTs resolved as of 11/17/16 I am going off service tomorrow 12/02/[address] Stafford is on schedule to be assuming care then.
[2016-12-01 16:04] VITALS: BP 167/93; PULSE 81; TEMP 36.9; O2SAT 96
[2016-12-01 20:14] VITALS: BP 115/76; PULSE 86; TEMP 36.5; O2SAT 95
[2016-12-01] MEDS: POLYETHYLENE (MIRALAX) 17 GM PACK PO SCH (21:50)
[2016-12-01] MEDS: CIPROFLOXACIN 500 MG TAB PO SCH (21:50)
[2016-12-01 23:31] VITALS: BP 110/61; PULSE 88; TEMP 37.2; O2SAT 93
[2016-12-02 03:54] VITALS: BP 124/67; PULSE 96; TEMP 37.2; O2SAT 92
[2016-12-02 06:32] LABS: BUN/CREATININE RATIO 15.1 (10-20); CREATININE 0.85 mg/dl (0.60-1.20); POTASSIUM 3.7 mmol/L (3.5-5.1)
[2016-12-02 07:51] VITALS: BP 129/69; PULSE 83; TEMP 36.9; O2SAT 93
[2016-12-02] MEDS: CIPROFLOXACIN 500 MG TAB PO SCH (08:37)
[2016-12-02] MEDS: BOOST BREEZE NUTRITION DRINK 1 BOX PO SCH (08:37)
[2016-12-02] MEDS: MAGNESIUM OXIDE 400 MG TAB PO SCH (08:38)
[2016-12-02] MEDS: AMLODIPINE BESYLATE 5 MG TAB PO SCH (08:38)
[2016-12-02] MEDS: POLYETHYLENE (MIRALAX) 17 GM PACK PO SCH (08:38)
[2016-12-02] MEDS: PANTOprazole SOD 40 MG TAB PO SCH (08:39)
[2016-12-02] MEDS: METOPROLOL SUCC 50MG EXT REL TAB PO SCH (08:39)
[2016-12-02] MEDS: MULTIVITAMIN TAB PO SCH (08:39)
[2016-12-02] MEDS: HEPARIN SOD 5000 UNIT/0.5 ML CARP SQ SCH (09:00)
[2016-12-02] MEDS ORDERED: SENNA 8.6 MG TAB PO SCH (09:00)
--- NOTE | 2016-12-02 10:31 | Surgery Progress Note ---
Surgery Progress Note Date of Service Dec 02, 2016. Subjective + feeling well passed a BM today, pt denies abdominal pain, no N/V, Objective Vital Signs: Date Time Temp Pulse Resp B/P Pulse Ox O2 Delivery O2 Flow Rate FiO2 12/02/16 07:51 36.9 83 16 129/69 93 Room Air 12/02/16 04:12 Room Air 12/02/16 03:54 37.2 96 19 124/67 92 Room Air 12/02/16 00:10 Room Air 12/01/16 23:31 37.2 88 17 110/61 93 Room Air 12/01/16 20:45 Room Air 12/01/16 20:14 36.5 86 16 115/76 95 Room Air 12/01/16 16:04 36.9 81 16 167/93 96 Room Air 12/01/16 16:00 Room Air 12/01/16 12:00 Room Air 12/01/16 11:18 36.8 82 18 107/85 96 Room Air General Appearance: WD/WN Head: normocephalic Neck: supple Respiratory/Chest: chest non-tender, lungs clear Cardiovascular: regular rate, rhythm, no edema, no JVD Abdomen: normal bowel sounds, non tender, non distended, soft Extremities: normal range of motion, non-tender, normal inspection Laboratory Results: Results Past 24 Hours Test 12/02/16 05:16 Range/Units Sodium Level 136 136-145 mmol/L Potassium Level 3.7 3.5-5.1 mmol/L Chloride Level 102 98-107 mmol/L Carbon Dioxide Level 24 21-32 mmol/L Anion Gap 10.0 3-11 mmol/L Blood Urea Nitrogen 13 7-18 mg/dl Creatinine 0.85 0.60-1.20 mg/dl Est Creatinine Clear Calc Drug Dose 47.6 ml/min Estimated GFR () 72.4 Estimated GFR (Non- 62.5 BUN/Creatinine Ratio 15.1 10-20 Random Glucose 86 70-99 mg/dl Calcium Level 8.0 8.5-10.1 mg/dl Assessment & Plan IMP SBO- duodenal obstruction, upper GI study small bowel follow through, without obstruction I update information to pt and his son, they agree with the plan. she tolerated diet I sign off today, please call me if need me, F/U 2 weeks, pt will be D/C residential by hospitalist DEYVI SBO- duodenal obstruction, upper GI study small bowel follow through, without obstruction I update information to pt and his son, they agree with the plan. regular diet (soft) change to po heart meds per beauty therapist may D/C residential tomorrow once beauty therapist control HR may transfer to back to surgical floor will f/u
[2016-12-02 12:19] VITALS: BP 115/55; PULSE 73; TEMP 36.8; O2SAT 96
[2016-12-02 15:29] VITALS: BP 131/82; PULSE 73; TEMP 36.6; O2SAT 97
--- NOTE | 2016-12-02 15:42 | Discharge Instructions ---
Discharge Instructions Admission Reason for Admission: Afib, Sbo Discharge Discharge Diagnosis / Problem: Small bowel obstruction Discharge Goals Goal(s): Decrease discomfort, Improve function, Increase independence, Improve disease control, Improve nutritional status, Learn about illness, Diagnostic testing, Therapeutic intervention, Prevent Disease Progression, Specific goals Activity Recommendations Activity Level: Up Ad Ximena Therapies: Physical Therapy, Occupational Therapy . Additional Information Patient informed of condition: Yes Advance Directives: Yes DNR: Yes Level of Care: Skilled Communicable Disease: No Prognosis: Other (guarded) Brown Catheter: No Instructions / Follow-Up Instructions / Follow-Up you have Small bowel obstruction, Erosive esophagitis on EGD, need to continue Protonix, and Follow up with gastro Dr. Whitaker as instructed Cellulitis in right leg upon admission, do not need any antibiotics you have Paroxysmal Atrial Tachycardia, your medicine is changes you have Ureteral cancer , you need to follow up with Dr. Bond as instructed and oncologist as instructed you have Protein malnutrition , we continue boost breeze, - you need to follow up with your primary care physician in 1 week, - take medication as instructed, never overdose or any misuse, or take with alcohol, because misuse of medicine may cause organ damage or , call your primary care physician if have questions of medicaitons. - call your primary care physician OR go to local emergency room if has any fever/chill, chest pain, shortness of breathing, nausea/vomiting/abdominal pain , facial droop/slurry speech/local weakness, or if has any questions. - fall precaution - diet as instructed - you need to follow up with your subspecialist - you should understand that it is important to follow up the above instruction , and "not following the above instruction" may cause delayed or missed care of your medical conditions which may cause permanent organ damage and even . Current Hospital Diet Patient's current hospital diet: AHA Diet (Heart Healthy) Discharge Diet Recommended Diet: AHA Diet (Heart Healthy) Procedures Procedures Performed: Esophagogastroduodenoscopy with Stent Placement Pending Studies Studies pending at discharge: no Physician Orders On Transfer POLST Discussion: without POLST completion Medical Emergencies . Who to Call and When: Medical Emergencies: If at any time you feel your situation is an emergency, please call 911 immediately. . Non-Emergent Contact Non-Emergency issues call your: Primary Care Provider . . "Provider Documentation" section prepared by Jer Navarro. Core Measure Problem Core Measures: None
[2016-12-02] MEDS ORDERED: MRLP17 PO ×2 (15:51)
[2016-12-02] MEDS ORDERED: TPRSR50 PO ×2 (15:51)
[2016-12-02] MEDS ORDERED: Boost Nutritional Drink PO ×2 (15:51)
[2016-12-02] MEDS ORDERED: PRT40 PO ×2 (15:51)
[2016-12-02] MEDS ORDERED: MGNO400 PO ×2 (15:51)
--- NOTE | 2016-12-02 15:58 | Discharge Summary ---
Discharge Summary Admission Date: Nov 20, 2016 at 18:20 Discharge Date: Dec 02, 2016 Principal Diagnosis: Small bowel obstruction Problems/Secondary Diagnoses: Small bowel obstruction LA Grade C reflux esophagitis Cellulitis in right leg upon admission, improving/resolving Paroxysmal Atrial Tachycardia Venous duplex showed no evidence of DVT in either leg. Ureteral cancer Procedures: egd Consultations: GI, , cardiology, oncologist Medication Reconciliation New Medications: Magnesium Oxide (Magnesium-Oxide) 400 Mg Tab 400 MG PO QAM for 7 Days, #7 TAB Metoprolol Succinate (Metoprolol Succinate ER) 50 Mg Tabcr 200 MG PO DAILY for 30 Days hold when SBP <105, or DBP<60, or HR<65 Pantoprazole (Pantoprazole Sodium) 40 Mg Tab 40 MG PO QAM for 30 Days, #30 TAB Polyethylene (Miralax) 17 Gm Pow 17 GM PO BID PRN for Constipation for 7 Days [Boost Nutritional Drink] () 1 BOX LIQD 1 BOX PO BIDM for 30 Days Continued Medications: Amlodipine Besylate (Amlodipine Besylate) 5 Mg Tab 10 MG PO QAM for 30 Days, #30 TAB Multivitamin (Multivitamin) Tab 1 TAB PO QAM, TAB Discontinued Medications: Metoprolol Succinate (Metoprolol Succinate ER) 25 Mg Tabcr 25 MG PO DAILY Discharge Exam Doing well, out of bed and walk, tolerate diet, present, no complaint Review of Systems: Constitutional: No chills, No fatigue, No fever, No problem reported, No sweats, No weakness, No weight loss Eyes: No diplopia, No discharge, No eye pain, No problem reported, No redness, No worsening of vision ENT: No dental problems, No hearing loss, No nasal symptoms, No problem reported, No sore throat, No tinnitus, No trouble swallowing, No unusual epistaxis Respiratory: No cough, No dyspnea at rest, No dyspnea on exertion, No hemoptysis, No problem reported, No shortness of breath, No sputum, No wheezing Cardiovascular: No PND, No chest pain, No claudication, No edema, No orthopnea, No palpitations, No problem reported Abdomen: No GI bleeding, No constipation, No diarrhea, No nausea, No pain, No problem reported, No vomiting Musculoskeletal: No calf pain, No joint pain, No muscle pain, No problem reported, No swelling Genitourinary - Female: No dysmenorrhea, No dysuria, No hematuria, No menorrhagia, No metrorrhagia, No , No problem reported, No rash, No urinary frequency, No urinary incontinence, No urinary retention, No urinary urgency, No vaginal bleeding, No vaginal discharge, No vaginal itching, No vulvodynia Neurologic: No balance problems, No memory loss, No numbness/tingling, No paralysis, No problem reported, No vertigo, No weakness Psychiatric: No anhedonism, No anxiety, No depression symptoms, No insomnia , No problem reported, No substance abuse Endocrine: No excessive thirst, No excessive urination, No fatigue, No problem reported Hematologic / Lymphatic: No abnormal bleeding/bruising, No clotting problems , No night sweats, No problem reported, No swollen lymph nodes Integumentary: No bleeding, No color change, No itch, No new/changing skin lesions, No problem reported, No rash Physical Exam: General Appearance: WD/WN, no apparent distress, + pertinent finding (out of bed to chair, pleasant, conversational) Eyes: normal inspection, PERRL, EOMI ENT: normal ENT inspection, hearing grossly normal, TMs normal, pharynx normal Neck: supple, no adenopathy Respiratory/Chest: chest non-tender, normal breath sounds, no respiratory distress, no accessory muscle use, + decreased breath sounds Cardiovascular: regular rate, rhythm, no edema, no gallop, no JVD, no murmur , normal peripheral pulses Abdomen / GI: normal bowel sounds, non tender, soft, no organomegaly, no pulsatile mass Extremities: normal inspection, no calf tenderness, normal capillary refill 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 NG tube was placed in the ED CT abd/pelvis 11/20/2016 determined an acquired extrinsic moderate stenosis was found at 4th part of the duodenum and was traversed, detail is in below - LA Grade C reflux esophagitis, will continue Protonix - Normal stomach. - Acquired duodenal stenosis. - No specimens collected. GI discussed with patient about options, pt agreed for EGD with possibility of stent on 11/26 2016. EGD confirmed no obstruction therefore no stent placed. UGIS completed following day with no SBO or duodenal obstruction NGT dced on 11/27 and pt advanced on diet, patient tolerated diet well Cellulitis in right leg upon admission, improving/resolving, DCed Vanco, and zosyn, and was Unasyn, and Cipro, I believe patient got enough antibiotics, no need any antibiotic to home Paroxysmal Atrial Tachycardia , no A. 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 Elevated liver enzymes was totally resolved likely from dehydration and bowel obstruction Elevated troponin likely represents demand ischemia HTN - cont amlodipine Ureteral cancer - consulted, chemo will resume as OP once dced Protein malnutrition - Nutrition support is an issue, boost breeze, thiamine dietary consulted Today patient is doing well we'll discharge home with the discharge instructions to follow-up with specialties and PCP DVT prophylaxis - HEPARIN PLUS SCDs. DNR Instructions / Follow-Up you have Small bowel obstruction, Erosive esophagitis on EGD, need to continue Protonix, and Follow up with gastro Dr. Whitaker as instructed Cellulitis in right leg upon admission, do not need any antibiotics you have Paroxysmal Atrial Tachycardia, your medicine is changes you have Ureteral cancer , you need to follow up with Dr. Bond as instructed and oncologist as instructed you have Protein malnutrition , we continue boost breeze, - you need to follow up with your primary care physician in 1 week, - take medication as instructed, never overdose or any misuse, or take with alcohol, because misuse of medicine may cause organ damage or , call your primary care physician if have questions of medicaitons. - call your primary care physician OR go to local emergency room if has any fever/chill, chest pain, shortness of breathing, nausea/vomiting/abdominal pain , facial droop/slurry speech/local weakness, or if has any questions. - fall precaution - diet as instructed - you need to follow up with your subspecialist - you should understand that it is important to follow up the above instruction , and "not following the above instruction" may cause delayed or missed care of your medical conditions which may cause permanent organ damage and even . 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 Paroxysmal Atrial Tachycardia Rate control with metoprolol IV converted to PO now that NGT dced, titrating PO metoprolol due to elev HR Echo was done LVEF 70% Venous duplex showed no evidence of DVT in either leg. Continue antibiotics for now because not able to take by mouth, will need to minimize the IV antibiotics and switch oral if possible Elevated liver enzymes was totally resolved likely from dehydration and bowel obstruction Elevated troponin likely represents demand ischemia HTN - cont amlodipine Ureteral cancer - consulted, chemo will resume as OP once dced Protein malnutrition - Nutrition support is an issue, boost breeze, thiamine dietary consulted DVT prophylaxis - HEPARIN PLUS SCDs. DNR This includes examination of the patient, discharge planning, medication reconciliation, and communication with other providers. Discharge Instructions Please refer to the electronic Patient Visit Report (Discharge Instructions) for additional information. Additional Copies To [employer]
[2016-12-02 16:27] VITALS: BP 131/82; PULSE 73; TEMP 36.6; O2SAT 97
--- NOTE | 2016-12-02 16:27 | PROGRESS NOTE ---
DATE: 12/02/2016 The patient is tolerating a soft diet and had a bowel movement today with the aid of some Dulcolax, Senokot and MiraLax twice a day. She had not had a bowel movement in about 3 days prior to that. There is no evidence of duodenal obstruction at this point. IMPRESSION: The patient presented with what appeared to be duodenal obstruction, but this appears to have opened up and there is no evidence of blockage endoscopically or on imaging studies. She is tolerating diet and has started to move her bowels. At this point, I would continue with MiraLax twice a day. At this point, we will sign off as we have no further input.
[2016-12-11] MEDS ORDERED: TPRSR/100 PO (13:14)
[2016-12-11] MEDS ORDERED: MULT-506 PO (13:14)
[2016-12-11] MEDS ORDERED: PANT40TA PO (13:19)
[2016-12-11] MEDS ORDERED: HYDR-4715 PO (13:22)
[2016-12-12] MEDS ORDERED: POLY335019 PO (10:18)
[2016-12-12] MEDS ORDERED: ACET-1311 PO (10:18)
[2017-04-13] MEDS ORDERED: NRV5 PO (15:59)
[2017-04-13] MEDS ORDERED: METO1TAB31 PO (15:59)
[2017-04-13] MEDS ORDERED: ASPEC81 PO (15:59)
[2017-04-13] MEDS ORDERED: METO1TAB66 PO (17:32)
== END 2016-12-02 17:40 | DRG 381 ==
LOC: ENRESERVTM → ENRESERVDT → EDBD 14:34 → C.EDB 14:35 → C.MED 18:20 → C.2E 11-21 20:14 → CANBEDREQ 11-22 15:45
PROVIDERS: ADMIT Hospitalist; ATTEND Hospitalist
PROC: 0DJ08ZZ Inspection of Upper Intestinal Tract, Via Natural or Artificial Opening Endoscopic (ICD-10-PCS; principal; 2016-11-22 13:55)
PROC: 0D798DZ Dilation of Duodenum with Intraluminal Device, Via Natural or Artificial Opening Endoscopic (ICD-10-PCS; 2016-11-25)
PROC: 0DP08DZ Removal of Intraluminal Device from Upper Intestinal Tract, Via Natural or Artificial Opening Endoscopic (ICD-10-PCS; 2016-11-25)
DX: K31.5 Obstruction of duodenum (principal); L03.115 Cellulitis of right lower limb; I24.8 Other forms of acute ischemic heart disease; C66.1 Malignant neoplasm of right ureter; N13.30 Unspecified hydronephrosis; I47.1 Supraventricular tachycardia; C64.9 Malignant neoplasm of unspecified kidney, except renal pelvis; E46 Unspecified protein-calorie malnutrition; C67.9 Malignant neoplasm of bladder, unspecified; Z51.5 Encounter for palliative care; Z66 Do not resuscitate; I10 Essential (primary) hypertension; I48.2 Chronic atrial fibrillation; E86.0 Dehydration; I49.1 Atrial premature depolarization; K21.0 Gastro-esophageal reflux disease with esophagitis; I49.3 Ventricular premature depolarization; R59.0 Localized enlarged lymph nodes; R74.8 Abnormal levels of other serum enzymes; R19.7 Diarrhea, unspecified; Z86.73 Personal history of transient ischemic attack (TIA), and cerebral infarction without residual deficits; Z90.49 Acquired absence of other specified parts of digestive tract; Z90.6 Acquired absence of other parts of urinary tract; Z90.89 Acquired absence of other organs; Z98.890 Other specified postprocedural states; Z79.899 Other long term (current) drug therapy; E87.1 Hypo-osmolality and hyponatremia

== ENCOUNTER → 2016-12-05 | Outpatient (CLI) | payer BC ==
[~2016-12-05] MED LIST changes: +ACET-1311 PO; +ASPEC81 PO; +ATEZ1200 IV; +Boost Nutritional Drink PO; +HYDR-4715 PO; +MAGN400T6 PO; +METO1TAB31 PO; +METO1TAB66 PO; +MGNO400 PO; +MRLP17 PO; +PANT40TA PO; +POLY335019 PO; +PRT40 PO; +TPRSR/100 PO; +TPRSR50 PO
[2016-12-05 08:28] LABS: HEMATOCRIT 31.3 % (37-47); MEAN CELL VOLUME 86.2 fL (80-100); MEAN CORPUSCULAR HEMOGLOBIN 28.9 pg (25-34); MEAN CORPUSCULAR HGB CONC 33.5 g/dl (32-36); PLATELET COUNT 325 K/uL (130-400); RED BLOOD COUNT 3.63 M/uL (4.2-5.4); WHITE BLOOD COUNT 5.69 K/uL (4.8-10.8)
[2016-12-05 08:34] LABS: BLOOD UREA NITROGEN 14 mg/dl (7-18); BUN/CREATININE RATIO 15.6 (10-20); CALCIUM 8.2 mg/dl (8.5-10.1); CARBON DIOXIDE 23 mmol/L (21-32); CHLORIDE 105 mmol/L (98-107); CREATININE 0.89 mg/dl (0.60-1.20); GLUCOSE 84 mg/dl (70-99); SODIUM 138 mmol/L (136-145)
== END ==
LOC: C.LABFOXAN 08:18
PROVIDERS: ATTEND Internal Medicine
DX: I48.91 Unspecified atrial fibrillation (principal)

== ENCOUNTER → 2016-12-12 | Day surgery (SDC) | payer BC ==
[2016-12-11 13:14] VITALS: BMI 25.0
[~2016-12-12] VITALS: Ht 165.1 cm; Wt 68.2 kg
[~2016-12-12] MED LIST changes: -Boost Nutritional Drink PO; +LACTATED RINGER'S 1000ML 1,000 ML IV SCH; +LIDOCAINE HCL 1% 20 ML VIAL ONE; -MGNO400 PO; -MRLP17 PO; -PRT40 PO; -TPRSR/25 PO; -TPRSR50 PO
[2016-12-12 09:40] VITALS: BP 150/71; PULSE 75; TEMP 36.7; O2SAT 97; Ht 165.1 cm; Wt 68.2 kg
[2016-12-12 10:13] LABS: HEMATOCRIT 32.8 % (37-47); MEAN CELL VOLUME 87.5 fL (80-100); MEAN CORPUSCULAR HEMOGLOBIN 29.3 pg (25-34); MEAN PLATELET VOLUME 9.3 fL (7.4-10.4); PLATELET COUNT 288 K/uL (130-400); RED BLOOD COUNT 3.75 M/uL (4.2-5.4); WHITE BLOOD COUNT 5.88 K/uL (4.8-10.8)
[2016-12-12 10:25] LABS: MEAN CORPUSCULAR HGB CONC 33.5 g/dl (32-36)
--- NOTE | 2016-12-12 11:03 | Anesthesiology Progress Note ---
Anesthesia Progress Note Date of Service Dec 12, 2016. Progress Notes Patient was given pudding this morning to take her medications, thus is not npo , and Dr Velazco unable to wait until later in the afternoon so she will have to be rescheduled.
== END | disposition home or self-care (01) ==
LOC: C.ACU 09:32
PROVIDERS: ATTEND Surgery
DX: C67.9 Malignant neoplasm of bladder, unspecified (principal)

== ENCOUNTER 2016-12-13 07:14 | Day surgery (SDC) | payer BC ==
[2016-12-12 12:12] VITALS: BMI 25.0
[~2016-12-13] VITALS: Ht 165.1 cm; Wt 68.2 kg
[~2016-12-13 07:14] MED LIST changes: -ASPEC81 PO; -ATEZ1200 IV; -LIDOCAINE HCL 1% 20 ML VIAL ONE; -MAGN400T6 PO; -METO1TAB31 PO; -METO1TAB66 PO; -NRV5 PO
[2016-12-13 07:48] VITALS: BP 152/68; PULSE 67; TEMP 36.5; O2SAT 98; Ht 165.1 cm; Wt 68.2 kg
[2016-12-13] MEDS ORDERED: LIDOCAINE HCL 2% 2 ML VIAL (20MG/ML) ONE (07:57)
[2016-12-13] MEDS ORDERED: PROPOFOL IV EMULSION 10 MG/ML 20 ML VIAL IV ONE (07:57)
[2016-12-13] MEDS ORDERED: FENTANYL CITRATE INJ 50 MCG/1 ML 2 ML VIAL ONE (07:57)
[2016-12-13] MEDS ORDERED: PHENYLEPHRINE 100MCG/ML 5ML SYR IV PRN (08:00)
[2016-12-13] MEDS ORDERED: FLUMAZENIL 0.1 MG/1 ML 10 ML VIAL IV PRN (08:00)
[2016-12-13] MEDS ORDERED: LABETALOL HCL IV 5 MG/ML 20ML IV PRN (08:00)
[2016-12-13] MEDS ORDERED: EpHEDrine SULFATE INJ 50 MG/ML AMP IV PRN (08:00)
[2016-12-13] MEDS ORDERED: NALOXONE HCL 0.4 MG/1 ML VIAL/CARP IV PRN (08:00)
[2016-12-13] MEDS ORDERED: FENTANYL CITRATE INJ 50 MCG/1 ML 2 ML VIAL IV PRN (08:00)
[2016-12-13] MEDS ORDERED: ONDANSETRON INJ 2 MG/ML 2 ML VIAL IV PRN ×2 (08:00→10:00)
[2016-12-13] MEDS ORDERED: ATROPINE SULFATE 0.1 MG/ML 5ML SYR IV PRN (08:00)
[2016-12-13] MEDS ORDERED: HYDROmorphone INJ 2 MG/ML SYR/VIAL IV PRN (08:00)
[2016-12-13] MEDS ORDERED: MEPERIDINE HCL 25 MG/ML CARP IV PRN (08:00)
[2016-12-13] MEDS ORDERED: MAGN400T6 PO (08:14)
[2016-12-13 08:22] LABS: HEMATOCRIT 31.6 % (37-47); MEAN CELL VOLUME 86.8 fL (80-100); MEAN CORPUSCULAR HEMOGLOBIN 28.8 pg (25-34); MEAN PLATELET VOLUME 9.3 fL (7.4-10.4); PLATELET COUNT 276 K/uL (130-400); RED BLOOD COUNT 3.64 M/uL (4.2-5.4); WHITE BLOOD COUNT 4.23 K/uL (4.8-10.8)
--- NOTE | 2016-12-13 08:26 | History & Physical Bridge Note ---
H&P Re-Evaluation Bridge Note: I have examined the patient, reviewed the History & Physical and in the interval since the performance of the History & Physical I have noted the following changes of clinical significance: No changes noted son at bedside
[2016-12-13 09:02] LABS: MEAN CORPUSCULAR HGB CONC 33.2 g/dl (32-36)
[2016-12-13] MEDS ORDERED: CEFAZOLIN SOD 1 GM VIAL ONE ×2 (09:04→09:05)
[2016-12-13] MEDS ORDERED: MIDAZOLAM HCL 1 MG/ML 2ML VIAL ONE (09:10)
--- NOTE | 2016-12-13 09:35 | Discharge Instructions ---
Discharge Instructions Visit Reason for Visit: Bladder Cancer Discharge Discharge Diagnosis / Problem: A-port placement Activity Recommendations Activity Limitations: as noted below Shower/Bathe: tomorrow Anesthesia . Post Anesthesia Instructions: If you have had General Anesthesia or IV Sedation: * Do not drive today. * Resume driving when surgeon permits. * Do not make important decisions or sign legal documents today. * Call surgeon for: 1. Temperature elevations greater than 101 degrees F. 2. Uncontrollable pain. 3. Excessive bleeding. 4. Persistent nausea and vomiting. 5. Medication intolerance (nausea, vomiting or rash). * For nausea and vomiting use only clear liquids such as: tea, soda, bouillon until nausea subsides, then gradually increase diet as tolerated. * If you have any concerns or questions, call your surgeon's office. If physician is unavailable and it is an emergency, call 911 or go to the nearest emergency room. . Instructions / Follow-Up Instructions / Follow-Up Dr. Velazco as needed for any concerns about incision Diet Recommendations Recommended Home Diet: no limitations Procedures Procedures Performed: Insertion of A-Port, left subclavian Pending Studies Studies pending at discharge: no Medical Emergencies . Who to Call and When: Medical Emergencies: If at any time you feel your situation is an emergency, please call 911 immediately. . Non-Emergent Contact Non-Emergency issues call your: Hospital Doctor, Surgeon Call Non-Emergent contact if: you have a fever, temperature is above 101.5, your pain is not controlled, wound has increased redness . . "Provider Documentation" section prepared by Deepak Barnes.
[2016-12-13] MEDS ORDERED: LIDOCAINE HCL 0.5% 50 ML VIAL INJ ONE (09:47)
[2016-12-13] MEDS ORDERED: HEPARIN 500 UNITS/5ML FLUSH SYRINGE FLUSH ONE (09:48)
[2016-12-13] MEDS ORDERED: LACTATED RINGER'S 1000ML 1,000 ML IV SCH (09:50)
--- NOTE | 2016-12-13 09:52 | [facility] Post Operative Brief Note ---
Immediate Operative Summary Operative Date Dec 13, 2016. 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
[2016-12-13] MEDS ORDERED: HYDROCODONE/ACETAMOPHEN 5/325MG TAB PO PRN (10:00)
[2016-12-13] MEDS ORDERED: MoRPHine SULFATE 2 MG/ML CARP IV PRN (10:00)
--- NOTE | 2016-12-13 10:06 | DIAGNOSTIC IMAGING REPORT ---
SINGLE VIEW CHEST CLINICAL HISTORY: Status post infusion port placement. FINDINGS: An AP, portable, upright chest radiograph is compared to study dated 10/26/2016 and correlated with chest CT dated 10/17/2016. The examination is degraded by portable technique and patient rotation. A left subclavian central venous infusion has been placed. The tip of the catheter projects over the right atrium. The heart is mildly enlarged and there is atherosclerotic calcification of the thoracic aorta. The pulmonary vasculature is noncongested. Chronic interstitial thickening is similar to previous. A large calcified granuloma is present in the left lower lobe. No airspace consolidation, large pleural effusion, or pneumothorax is seen. The skeletal structures are osteopenic. Advanced arthritic change is noted in the shoulders. Large calcified joint bodies are present in the left shoulder. Cholecystectomy clips are seen in the right upper quadrant. IMPRESSION: 1. A left subclavian central venous infusion port has been placed as detailed above. No pneumothorax is seen post procedure. 2. Cardiomegaly and chronic parenchymal changes as above. No acute cardiopulmonary abnormality is seen. Electronically signed by: Salinas Coleman M.D. 12/13/2016 10:05 AM Dictated Date/Time: 12/13/2016 10:02 AM
[2016-12-13 10:20] VITALS: BP 141/76; TEMP 36.5; O2SAT 94
[2016-12-13 10:21] VITALS: BP 141/76; PULSE 76; TEMP 36.5; O2SAT 94
--- NOTE | 2016-12-13 10:21 | OPERATIVE REPORT ---
DATE OF OPERATION: 12/13/2016 SURGEON: Juan A. PREOPERATIVE DIAGNOSIS: Ureteral cancer, need for chemotherapy. POSTOPERATIVE DIAGNOSIS: Same. PROCEDURE: A-port insertion through the left subclavian. SUMMARY: The patient was brought into the operating room theater. A roll underneath her shoulders. Left chest and neck was prepped with scrubbing solution and properly draped. IV sedation was given. The patient was placed in Trendelenburg position. Local anesthetic was used to infiltrate the angle of the clavicle and percutaneously we accessed the subclavian vein without any problem, fluoroscopically we positioned the guidewire in superior vena cava. At this point, we made an incision about 2 fingerbreadths below the insertion of this guidewire on the chest with local anesthetic. The incision was about 2 inches in maximum long. We created a pocket for the reservoir by making sure that the skin was defatted to a pulse as sufficient enough to palpate the prongs on an MRI-compatible port. We tested the port and appeared to be easily palpable. We at this point dissected more cephalad, got the guidewire, brought about through this incision and placed a 7-Bermudian introducer followed by the catheter with a black bolster. This was about 23 cm from the insertion of the subclavian area for fluoroscopically the catheter was in the right atrial area. At this point, we cut the catheter and then placed it on the reservoir. We secured it in place with a black bolster, aspirated and flushed easily. We then placed in the previously made pocket, suturing it 3 prongs with 2-0 nylon. We then closed the subcutaneous tissue in multiple layer 2-0 Dexon, 4-0 Monocryl subcuticular. We aspirated and flushed the catheter percutaneously without any problem. We could see easily appreciated the prongs and in fact may have been a little ecchymotic underneath, but nothing significant. A 4 x 4 and Op-Site applied. The procedure was tolerated well by the patient and was taken to recovery room. Chest x-ray was fine postoperatively in position catheter and no pneumothorax. I attest to the content of the Intraoperative Record and any orders documented therein. Any exceptio ns are noted below.
[2016-12-13 10:50] VITALS: BP 129/62; PULSE 64; TEMP 36.4; O2SAT 94
--- NOTE | 2016-12-13 10:52 | Anesthesiology Progress Note ---
Anesthesia Post Op Note Date & Time Dec 13, 2016 at 10:53 Vital Signs Pain Intensity: 0 Vital Signs Past 12 Hours Date Time Temp Pulse Resp B/P Pulse Ox O2 Delivery O2 Flow Rate FiO2 12/13/16 10:20 36.5 16 141/76 94 Room Air 12/13/16 10:10 66 16 95 12/13/16 10:10 36.2 64 16 12/13/16 10:08 137/72 12/13/16 10:05 64 20 96 12/13/16 10:05 64 12/13/16 10:03 141/78 12/13/16 10:00 58 23 12/13/16 10:00 57 23 96 12/13/16 09:58 122/75 12/13/16 09:55 69 20 12/13/16 09:55 79 20 96 12/13/16 09:53 130/65 12/13/16 09:50 36.3 81 14 124/65 96 Room Air 12/13/16 09:50 87 14 96 12/13/16 09:50 74 14 12/13/16 07:48 36.5 67 18 152/68 98 Room Air Notes Mental Status: alert / awake / arousable, participated in evaluation Pt Amnestic to Procedure: Yes Nausea / Vomiting: adequately controlled Pain: adequately controlled Airway Patency, RR, SpO2: stable & adequate BP & HR: stable & adequate Hydration State: stable & adequate Anesthetic Complications: no major complications apparent
[2017-04-13] MEDS ORDERED: ASPEC81 PO (15:59)
[2017-04-13] MEDS ORDERED: METO1TAB31 PO (15:59)
[2017-04-13] MEDS ORDERED: NRV5 PO (15:59)
[2017-04-13] MEDS ORDERED: METO1TAB66 PO (17:32)
== END 2016-12-13 11:06 | disposition home or self-care (01) ==
LOC: C.ACU 07:14
PROVIDERS: ATTEND Surgery
DX: C66.1 Malignant neoplasm of right ureter (principal); Z90.49 Acquired absence of other specified parts of digestive tract; Z87.442 Personal history of urinary calculi; Z80.0 Family history of malignant neoplasm of digestive organs

== ENCOUNTER → 2016-12-23 | Outpatient (CLI) | payer BC ==
[~2016-12-23] MED LIST changes: +ASPEC81 PO; +ATEZ1200 IV; -LACTATED RINGER'S 1000ML 1,000 ML IV SCH; +MAGN400T6 PO; +METO1TAB31 PO; +METO1TAB66 PO; +NRV5 PO
[2016-12-23 10:12] LABS: BASO % 0.5 %; BASO ABS # 0.02 K/uL (0-0.2); COMPLETE YES; EOS % 3.8 %; HEMATOCRIT 33.9 % (37-47); IG% 0.7 %; LYMPH ABS # 1.44 K/uL (1.2-3.4); MEAN CELL VOLUME 87.8 fL (80-100); MEAN CORPUSCULAR HEMOGLOBIN 29.3 pg (25-34); MEAN CORPUSCULAR HGB CONC 33.3 g/dl (32-36); MEAN PLATELET VOLUME 10.1 fL (7.4-10.4); MONO % 14.4 %; NEUT % 46.6 %; PLATELET COUNT 246 K/uL (130-400); RED BLOOD COUNT 3.86 M/uL (4.2-5.4); WHITE BLOOD COUNT 4.23 K/uL (4.8-10.8)
[2016-12-23 11:05] LABS: ALT/SGPT 28 U/L (12-78); AST/SGOT 19 U/L (15-37); BLOOD UREA NITROGEN 15 mg/dl (7-18); BUN/CREATININE RATIO 16.4 (10-20); CALCIUM 9.3 mg/dl (8.5-10.1); CARBON DIOXIDE 28 mmol/L (21-32); CHLORIDE 104 mmol/L (98-107); GLUCOSE 90 mg/dl (70-99); MAGNESIUM 2.1 mg/dl (1.8-2.4); POTASSIUM 4.2 mmol/L (3.5-5.1); SODIUM 141 mmol/L (136-145)
[2016-12-23 11:08] LABS: ALB/GLOB RATIO 0.7 (0.9-2); ALKALINE PHOSPHATASE 125 U/L (45-117)
== END | disposition home or self-care (01) ==
LOC: C.LABFOXDH 09:48
PROVIDERS: ATTEND Internal Medicine
DX: C66.1 Malignant neoplasm of right ureter (principal)

== ENCOUNTER → 2016-12-30 | Outpatient (CLI) | payer BC ==
[2016-12-30 11:26] LABS: HEMATOCRIT 30.8 % (37-47); MEAN CELL VOLUME 88.3 fL (80-100); MEAN CORPUSCULAR HEMOGLOBIN 28.9 pg (25-34); MEAN CORPUSCULAR HGB CONC 32.8 g/dl (32-36); MEAN PLATELET VOLUME 9.3 fL (7.4-10.4); PLATELET COUNT 287 K/uL (130-400); RED BLOOD COUNT 3.49 M/uL (4.2-5.4); WHITE BLOOD COUNT 1.82 K/uL (4.8-10.8)
[2016-12-30 11:31] LABS: COMPLETE YES; EOSINOPHIL % 2.7 %; LARGE GRANULAR LYMPH ABSOLUTE 0.32 K/uL; LARGE GRANULAR LYMPHOCYTE % 17.7 %; LYMPH ABS # 0.48 K/uL (1.2-3.4); LYMPHOCYTE % 26.5 %; MYELOCYTE % 0.9 %; NEUTROPHILS % 49.5 %
[2016-12-30 11:41] LABS: ALT/SGPT 69 U/L (12-78); BLOOD UREA NITROGEN 21 mg/dl (7-18); BUN/CREATININE RATIO 25.8 (10-20); CALCIUM 8.8 mg/dl (8.5-10.1); CARBON DIOXIDE 28 mmol/L (21-32); CHLORIDE 101 mmol/L (98-107); CREATININE 0.81 mg/dl (0.60-1.20); GLUCOSE 78 mg/dl (70-99); POTASSIUM 4.2 mmol/L (3.5-5.1); SODIUM 135 mmol/L (136-145)
[2016-12-30 11:44] LABS: ALB/GLOB RATIO 0.7 (0.9-2); ALKALINE PHOSPHATASE 141 U/L (45-117); AST/SGOT 57 U/L (15-37)
== END | disposition home or self-care (01) ==
LOC: C.LABFOXDH 09:40
PROVIDERS: ATTEND Internal Medicine
DX: C66.1 Malignant neoplasm of right ureter (principal)

== ENCOUNTER → 2017-02-07 | Outpatient (CLI) | payer BC ==
[~2017-02-07] MED LIST changes: +DIGO0.1219 PO; +METO-452 PO; +METO-478 PO; -METO1TAB31 PO; -METO1TAB66 PO; +METO50TA7 PO; +PANTPAK PO; +WARF2.5T8 PO
--- NOTE | 2017-02-07 15:23 | DIAGNOSTIC IMAGING REPORT ---
CT OF THE CHEST WITH IV CONTRAST CLINICAL HISTORY: Ureteral cancer. COMPARISON STUDY: Chest CT October 17, 2016. TECHNIQUE: Following IV administration of 116 mL of Optiray-320, helical axial images of the chest were obtained. Images were viewed in the axial, sagittal and coronal planes. IV contrast was administered without complication. CT DOSE: 519.89 mGy.cm FINDINGS: No enlarged axillary, mediastinal or hilar lymph nodes are present. There are calcified mediastinal and left hilar lymph nodes. The heart is moderately enlarged. There is no pericardial effusion. A 1 cm right lobe thyroid nodule is present. Central airways are patent. A calcified granuloma within the left lower lobe is noted. An 8 mm irregular density within the left lung apex is similar to exam of January 25, 2014. This favors scarring. There is no consolidation to suggest pneumonia. There are no new pulmonary nodules. No suspicious osseous lesions are present. There are healed bilateral rib fractures. A right retroperitoneal infiltrative mass is partially imaged on this exam and better depicted on the CT of the abdomen and pelvis. IMPRESSION: 1. No evidence of metastatic disease within the chest. 2. 8 mm subpleural opacity within left lung apex which favors scarring. This is unchanged. Electronically signed by: Manuel Lewis M.D. 02/07/2017 3:21 PM Dictated Date/Time: 02/07/2017 3:13 PM
--- NOTE | 2017-02-07 15:27 | DIAGNOSTIC IMAGING REPORT ---
ABDOMEN AND PELVIS CT WITH IV AND ORAL CONTRAST CT DOSE: HISTORY: Carcinoma. Restaging. URETERAL CA TECHNIQUE: Multiaxial CT images of the abdomen and pelvis were performed following the use of intravenous and oral contrast. COMPARISON STUDY: 11/20/2016 FINDINGS: Interval resolution of the small bilateral pleural effusions on the prior study. Esophagus is no longer distended and fluid-filled. Mild fatty infiltration of liver. No biliary ductal distention. Prior cholecystectomy. Gastric distention has resolved. Low-density cystic lesion measuring 1 cm inferior margin pancreatic uncinate process. Inferior to the pancreatic uncinate process is a masslike process to the root of the mesentery measuring 5 x 2.5 cm. Several surrounding regional nodes are present. Right kidney shows what appears to be progressive neoplastic infiltrative change of the bulk of the substance of the right kidney. This extends to the right periaortic region with the overall bulk of tumor mass similar given the severe limitations of comparison of enhancement study to an unenhanced scan. Mild infiltrative change of the right renal perinephric fat stable from the prior exam. Fluid collection inferior to the right kidney is unchanged and stable. This extends to the right lateral soft tissue pelvic region. Postoperative changes to the right lateral pelvis and pelvic sidewall are noted. Bladder thickening at the right lateral wall is stable IMPRESSION: 1. The current enhanced scan is difficult to directly compared to the prior unenhanced study dated 11/20/2016. 2. Improved appearance to the lung bases with the pleural effusions previously described now resolved.. 3. Suggestion of mildly progressive infiltrative neoplastic change to the right kidney, right renal pelvis, with extension to the midline structures. 4. Interval decompression of the previously described bowel and gastric distention and associated obstructive change. 5. Mass at the root of the mesentery and inferior to the pancreatic uncinate process most likely representing an interval development. This measures 5 x 2.5 cm with moderate surrounding regional adenopathy. 6. Fluid collection inferior to the right kidney extending to the right lower renal pelvis unchanged. 7. Right lateral bladder wall thickening also unchanged. 8. Shotty inguinal nodes bilaterally stable compared to the prior study. 9. 1 cm cystic lesion pancreatic uncinate process. 10. Overall, mixed findings with localized progression of disease at the level of the right kidney and root of the mesentery, with interval improvement in relation to the previously described bowel and ureteral obstructive change. Interval resolution of the basilar pleural effusions Electronically signed by: Carlitos Murphy M.D. 02/07/2017 3:25 PM Dictated Date/Time: 02/07/2017 3:13 PM
== END | disposition home or self-care (01) ==
LOC: C.CTS 14:33
PROVIDERS: ATTEND Internal Medicine Hematology & Oncology
DX: C66.1 Malignant neoplasm of right ureter (principal)

== ENCOUNTER → 2017-04-01 | Outpatient (CLI) | payer BC ==
[2017-04-01 10:14] LABS: BASO % 0.9 %; BASO ABS # 0.04 K/uL (0-0.2); COMPLETE YES; HEMATOCRIT 41.9 % (37-47); IG% 0.5 %; LYMPH % 32.3 %; LYMPH ABS # 1.42 K/uL (1.2-3.4); MEAN CELL VOLUME 89.7 fL (80-100); MEAN CORPUSCULAR HEMOGLOBIN 28.5 pg (25-34); MEAN CORPUSCULAR HGB CONC 31.7 g/dl (32-36); MEAN PLATELET VOLUME 9.7 fL (7.4-10.4); NEUT % 49.3 %; PLATELET COUNT 201 K/uL (130-400); RED BLOOD COUNT 4.67 M/uL (4.2-5.4)
[2017-04-01 10:22] LABS: ALT/SGPT 25 U/L (12-78); BLOOD UREA NITROGEN 16 mg/dl (7-18); BUN/CREATININE RATIO 16.3 (10-20); CARBON DIOXIDE 28 mmol/L (21-32); CHLORIDE 106 mmol/L (98-107); CREATININE 0.97 mg/dl (0.60-1.20); GLUCOSE 109 mg/dl (70-99); POTASSIUM 4.2 mmol/L (3.5-5.1); SODIUM 140 mmol/L (136-145)
[2017-04-01 10:25] LABS: ALB/GLOB RATIO 0.6 (0.9-2); ALKALINE PHOSPHATASE 96 U/L (45-117); AST/SGOT 23 U/L (15-37)
[2017-04-01 10:40] LABS: CALCIUM 9.4 mg/dl (8.5-10.1)
== END | disposition home or self-care (01) ==
LOC: C.LABFOXMH 09:46
PROVIDERS: ATTEND Internal Medicine Hematology & Oncology
DX: C66.1 Malignant neoplasm of right ureter (principal)

== ENCOUNTER 2017-04-11 16:32 | Observation (INO) | payer BC ==
[~2017-04-11] VITALS: Ht 165.1 cm; Wt 64.2 kg
[~2017-04-11 16:32] MED LIST changes: -ASPEC81 PO; -ATEZ1200 IV; -DIGO0.1219 PO; -METO-452 PO; -METO-478 PO; -METO50TA7 PO; -NRV5 PO; -PANTPAK PO; -WARF2.5T8 PO
[2017-04-11] MEDS ORDERED: ATEZ1200 IV (17:14)
[2017-04-11] MEDS ORDERED: MECLIZINE HCL 25 MG TAB PO STA (17:19)
[2017-04-11] MEDS ORDERED: SODIUM CHLORIDE 0.9% 1000ML 1,000 ML IV STA (17:19)
[2017-04-11 17:45] LABS: BASO % 0.5 %; BASO ABS # 0.02 K/uL (0-0.2); COMPLETE YES; EOS % 2.1 %; HEMATOCRIT 42.6 % (37-47); LYMPH % 23.2 %; LYMPH ABS # 0.98 K/uL (1.2-3.4); MEAN CORPUSCULAR HEMOGLOBIN 28.9 pg (25-34); MEAN CORPUSCULAR HGB CONC 32.9 g/dl (32-36); MEAN PLATELET VOLUME 8.9 fL (7.4-10.4); MONO % 6.6 %; NEUT % 67.6 %; PLATELET COUNT 182 K/uL (130-400); RED BLOOD COUNT 4.84 M/uL (4.2-5.4); WHITE BLOOD COUNT 4.22 K/uL (4.8-10.8)
--- NOTE | 2017-04-11 17:54 | DIAGNOSTIC IMAGING REPORT ---
CHEST ONE VIEW PORTABLE CLINICAL HISTORY: Weakness COMPARISON STUDY: 12/13/2016 FINDINGS: The heart remains enlarged. There is a left-sided A-Port catheter unchanged in position. There is no lobar consolidation. There is mild chronic interstitial thickening. There are no pleural effusions.[ IMPRESSION: Mild cardiomegaly and mild chronic interstitial thickening. No acute findings. Electronically signed by: Miguel Vega M.D. 04/11/2017 5:53 PM Dictated Date/Time: 04/11/2017 5:52 PM
[2017-04-11 18:25] LABS: ALT/SGPT 25 U/L (12-78); AST/SGOT 24 U/L (15-37); BLOOD UREA NITROGEN 16 mg/dl (7-18); BUN/CREATININE RATIO 17.3 (10-20); CALCIUM 8.8 mg/dl (8.5-10.1); CARBON DIOXIDE 29 mmol/L (21-32); CHLORIDE 100 mmol/L (98-107); CREATININE 0.95 mg/dl (0.60-1.20); GLUCOSE 161 mg/dl (70-99); SODIUM 136 mmol/L (136-145)
[2017-04-11] MEDS ORDERED: LABETALOL HCL IV 5 MG/ML 20ML IV STA (18:27)
[2017-04-11 18:36] LABS: ALKALINE PHOSPHATASE 104 U/L (45-117)
--- NOTE | 2017-04-11 18:54 | DIAGNOSTIC IMAGING REPORT ---
CT HEAD WITHOUT CONTRAST (CT) CLINICAL HISTORY: Dizziness. Weakness. COMPARISON STUDY: 10/26/2016 TECHNIQUE: Axial CT of the brain is performed from the vertex to the skull base. IV contrast was not administered for this examination. CT DOSE: 773.57 mGy.cm FINDINGS: No intra or extra-axial mass lesions are visualized. There is no CT evidence of acute cortical infarction. There is no evidence of midline shift. There is no acute hemorrhage. No calvarial fractures are visualized. There are patchy white matter hypodensities likely on a small vessel basis. There is no evidence of pathologic ventricular dilatation. There is no evidence of acute sinusitis IMPRESSION: No acute intracranial findings Electronically signed by: Miguel Vega M.D. 04/11/2017 6:53 PM Dictated Date/Time: 04/11/2017 6:52 PM
[2017-04-11] MEDS ORDERED: HydrALAZINE 10 MG TAB PO STA (19:47)
[2017-04-11] MEDS ORDERED: NURSING VERBAL MED ORDER ONE (20:22)
[2017-04-11 21:48] LABS: URINE APPEARANCE CLEAR (CLEAR); URINE BILIRUBIN NEG (NEG); URINE COLOR YELLOW; URINE NITRITE NEG (NEG); URINE PH 7.5 (4.5-7.5); URINE SPECIFIC GRAVITY 1.013 (1.000-1.030); UROBILINOGEN NEG (NEG)
[2017-04-11 21:51] LABS: MANUAL MICROSCOPIC REQUIRED? NO; REVIEW REQ? NO
[2017-04-11 21:52] LABS: SULFASALICYLIC ACID POS (NEG)
[2017-04-11] MEDS ORDERED: ACETAMINOPHEN 325 MG TAB PO PRN (23:45)
[2017-04-11] MEDS ORDERED: ONDANSETRON INJ 2 MG/ML 2 ML VIAL IV PRN (23:45)
[2017-04-11] MEDS ORDERED: ALUMINUM/MAGNESIUM/SIMETH (MAALOX MAX) 30 ML UDC PO PRN (23:45)
[2017-04-11] MEDS ORDERED: MAGNESIUM HYDROXIDE SUSP 30 ML UDC PO PRN (23:45)
[2017-04-11] MEDS ORDERED: POLYETHYLENE (MIRALAX) 17 GM PACK PO PRN (23:45)
[2017-04-11] MEDS ORDERED: NON-FORMULARY MEDICATION (Polyethylene Glycol 3350 (Miralax) 17 GM) PO PRN (23:45)
[2017-04-11] MEDS ORDERED: MoRPHine SULFATE 2 MG/ML CARP IV PRN (23:45)
[2017-04-12] VITALS (12 sets, daily range): BP systolic 141–188; BP diastolic 74–96; PULSE 50–77; TEMP 36.6–37; O2SAT 94–96; Ht 165.1 cm; Wt 64.2 kg
--- NOTE | 2017-04-12 00:39 | History and Physical ---
History & Physical Date & Time of Service: Apr 12, 2017 at 00:13 Chief Complaint: DIZZY Primary Care Physician: Iron Mcbride History of Present Illness Source: patient, family 87 y/o F Hx HTN, Ureteral CA, paroxysmal AF - presenting from a NH with complaint of an unsteady gait. She has been unable to keep her balance since waking up this AM. She normally ambulates independently with a walker. She denies visual changes, a headache, slurred speech, cognitive impairment, unilateral weakness or palpitations. She does not have an earache or change in hearing. She was at her MDs office and had one episode of nausea and vomiting when attempting to get up. Her MD noted that her SBP was in the 190s during her visit. It was approximately 190 on arrival to the ER. 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 which she is tolerating well Surgical Problems: (1) History of appendectomy Status: Resolved (2) Hx of appendectomy Status: Resolved (3) S/P cholecystectomy Status: Resolved Family History FHx: cancer Social History Smoking Status: Never Smoker Drug Use: none Marital Status: Housing status: assisted living Occupational Status: retired Multi-Drug Resistant Organisms History of MDRO: No Allergies Coded Allergies: No Known Allergies (Unverified , `, 04/11/17) Home Medications Scheduled Hydralazine Hcl (Apresoline), 10 MG PO BID Metoprolol Succinate (Metoprolol Succinate ER), 200 MG PO QAM Multivitamin (Multivitamin), 1 TAB PO QAM Pantoprazole (Protonix), 40 MG PO QAM Scheduled PRN Acetaminophen (Tylenol), 650 MG PO for Pain Polyethylene Glycol 3350 (Miralax), 17 GM PO DAILY PRN for Constipation Miscellaneous Medications Atezolizumab (Tecentriq), 1 DOSE IV Review of Systems Constitutional: No fever, No chills, No sweats Eyes: No worsening of vision, No eye pain ENT: No hearing loss, No unusual epistaxis, No nasal symptoms Respiratory: No cough, No sputum, No wheezing Cardiovascular: No chest pain, No orthopnea, No PND Abdomen: + nausea, + vomiting, No pain Musculoskeletal: No joint pain, No muscle pain Genitourinary - Female: No dysuria, No urinary frequency, No urinary urgency Neurologic: + balance problems, No memory loss, No paralysis, No weakness Psychiatric: No depression symptoms Endocrine: No fatigue Hematologic / Lymphatic: No abnormal bleeding/bruising Integumentary: No rash Allergic / Immunologic: No environmental allergies Physical Exam Vital Signs Date Time Temp Pulse Resp B/P (MAP) Pulse Ox O2 Delivery O2 Flow Rate FiO2 04/11/17 22:12 176/85 04/11/17 20:02 160/85 04/11/17 19:55 71 22 04/11/17 19:50 74 20 04/11/17 19:47 181/94 04/11/17 19:42 184/85 04/11/17 19:35 69 20 04/11/17 19:20 71 18 04/11/17 19:12 216/92 04/11/17 18:35 65 20 04/11/17 18:24 54 18 214/97 98 Room Air 04/11/17 18:21 214/97 04/11/17 18:20 56 19 215/111 04/11/17 18:05 61 20 04/11/17 17:50 63 20 04/11/17 17:35 61 21 04/11/17 17:21 95 Room Air 04/11/17 17:21 95 Room Air 04/11/17 17:20 58 20 04/11/17 17:05 61 20 96 04/11/17 16:53 59 04/11/17 16:50 59 225/103 Room Air 64 200/112 87 212/111 04/11/17 16:43 36.5 62 20 225/103 97 Room Air General Appearance: WD/WN, no apparent distress Head: normocephalic Eyes: normal inspection ENT: normal ENT inspection, pharynx normal Neck: supple, no JVD Respiratory/Chest: chest non-tender, lungs clear, normal breath sounds Cardiovascular: regular rate, rhythm, no edema, no gallop Abdomen/GI: normal bowel sounds, non tender, soft Back: normal inspection, no CVA tenderness, no muscle spasm, normal range of motion Extremities/Musculoskelatal: normal inspection, normal range of motion Neurologic/Psych: superintendent of generation II-XII nml as tested, no motor/sensory deficits, alert, normal mood/affect, normal reflexes, oriented x 3, + pertinent finding (Pt has no focal deficits and no nystagmus - she is asymptomatic lying down but unable to maintain her balance) Skin: normal color, warm/dry, no rash Diagnostics Laboratory Results Results Past 24 Hours Test 04/11/17 17:34 04/11/17 17:36 04/11/17 18:40 Range/Units White Blood Count 4.22 4.8-10.8 K/uL Red Blood Count 4.84 4.2-5.4 M/uL Hemoglobin 14.0 12.0-16.0 g/dL Hematocrit 42.6 37-47 % Mean Corpuscular Volume 88.0 80-100 fL Mean Corpuscular Hemoglobin 28.9 25-34 pg Mean Corpuscular Hemoglobin Concent 32.9 32-36 g/dl Platelet Count 182 130-400 K/uL Mean Platelet Volume 8.9 7.4-10.4 fL Neutrophils (%) (Auto) 67.6 % Lymphocytes (%) (Auto) 23.2 % Monocytes (%) (Auto) 6.6 % Eosinophils (%) (Auto) 2.1 % Basophils (%) (Auto) 0.5 % Neutrophils # (Auto) 2.85 1.4-6.5 K/uL Lymphocytes # (Auto) 0.98 1.2-3.4 K/uL Monocytes # (Auto) 0.28 0.11-0.59 K/uL Eosinophils # (Auto) 0.09 0-0.5 K/uL Basophils # (Auto) 0.02 0-0.2 K/uL RDW Standard Deviation 47.8 36.4-46.3 fL RDW Coefficient of Variation 14.8 11.5-14.5 % Immature Granulocyte % (Auto) 0.0 % Immature Granulocyte # (Auto) 0.00 0.00-0.02 K/uL Sodium Level 136 136-145 mmol/L Potassium Level 4.0 3.5-5.1 mmol/L Chloride Level 100 98-107 mmol/L Carbon Dioxide Level 29 21-32 mmol/L Anion Gap 7.0 3-11 mmol/L Blood Urea Nitrogen 16 7-18 mg/dl Creatinine 0.95 0.60-1.20 mg/dl Est Creatinine Clear Calc Drug Dose 40.2 ml/min Estimated GFR () 62.9 Estimated GFR (Non- 54.2 BUN/Creatinine Ratio 17.3 10-20 Random Glucose 161 70-99 mg/dl Calcium Level 8.8 8.5-10.1 mg/dl Total Bilirubin 0.4 0.2-1 mg/dl Direct Bilirubin 0.1 0-0.2 mg/dl Aspartate Amino Transf (AST/SGOT) 24 15-37 U/L Alanine Aminotransferase (ALT/SGPT) 25 12-78 U/L Alkaline Phosphatase 104 45-117 U/L Troponin I < 0.015 0-0.045 ng/ml Total Protein 8.5 6.4-8.2 gm/dl Albumin 3.6 3.4-5.0 gm/dl Thyroid Stimulating Hormone (TSH) 1.480 0.300-4.500 uIu/ml Bedside Glucose 188 70-90 mg/dl Urine Color YELLOW Urine Appearance CLEAR CLEAR Urine pH 7.5 4.5-7.5 Urine Specific [place] 1.013 1.000-1.030 Urine Protein 1+ NEG Urine Glucose (UA) NEG NEG Urine Ketones NEG NEG Urine Occult Blood NEG NEG Urine Nitrite NEG NEG Urine Bilirubin NEG NEG Urine Urobilinogen NEG NEG Urine Leukocyte Esterase NEG NEG Urine WBC (Auto) 1-5 0-5 /hpf Urine RBC (Auto) 0-4 0-4 /hpf Urine Hyaline Casts (Auto) 1-5 0-5 /lpf Urine Epithelial Cells (Auto) 10-20 0-5 /lpf Urine Bacteria (Auto) NEG NEG Diagnostic Radiology CT head - negative for acute findings EKG Sinus bradycardia Impression Assessment and Plan 87 y/o F Hx HTN, Ureteral CA, paroxysmal AF - presenting with complaint of an unsteady gait. She has been unable to keep her balance since waking up this AM. She normally ambulates independently with a walker. She was at her MDs office and had one episode of nausea and vomiting when attempting to get up. Her MD noted that her SBP was in the 190s during her visit. It was approximately 190 on arrival to the ER. 1) Unsteady gate - she does not describe vertigo-like symptoms or additional neurological issues. She does have an elevated SBP and a history of PAF per records so that a CVA cannot entirely be ruled out. She is asymptomatic lying down and does not have additional deficits. We will monitor overnight, obtain an MRI and consult PT to evaluate her gait AM. A full CVA workup should be pursued if her symptoms do not resolve or if there are abnormalities on her MRI. She will be started on full-dose ASA and a statin in the interim. 2) Bradycardia - her HR is in the low 50s and she is on a high dose of Metoprolol daily. It is possible that this is leading to a degree of decompensation in cerebral blood flow when she stands up however this would be unlikely. We will decrease he dose and obtain an EKG AM. 3) HTN - she had missed her PM Hydralazine although she was apparently hypertensive throughout the day. We will hold additional meds considering the possibility of a small CVA. Would reintroduce her Hydralazine if a CVA/TIA is ruled out and she may need a dose increase or substitution for the decrease in her B ubaldo. 4) Paroxysmal AF in records - not on anticoagulation - consider starting on DC if infarct is suspected. 5) Ureteral tumor - apparently responding to Ketruda and pt has not had adverse effects to date. F/U as outpt. Full code - Heparin prophylaxis Total time for this admit including review of labs, meds, EKG - discussion with pt , family, ER attending - 40 min Level of Care Telemetry Resuscitation Status FULL RESUSCITATION VTE Prophylaxis VTE Risk Assessment Done? Y/N: Yes Risk Level: Moderate Given or contraindicated: Unfractionated heparin SQ
[2017-04-12] MEDS ORDERED: ASPIRIN/ALUM/MAGNES/CAL CARB 325 MG TAB PO STA (00:59)
[2017-04-12] MEDS ORDERED: SODIUM CHLORIDE 0.9% 1000ML 1,000 ML IV SCH (01:00)
--- NOTE | 2017-04-12 01:22 | EMERGENCY ROOM VISIT NOTE ---
History Report prepared by Annel: Suresh Willams Under the Supervision of: Dr. Ramo Davis D.O. First contact with patient: 17:03 Chief Complaint: DIZZY Stated Complaint: DIZZY Nursing Triage Summary: pt getting chemo for several tumors in body that started in kidneys pt getting chemo, last dose 2 weeks ago pt from [facility]. today walking around apartment complex at 10 am and had sudden onset of dizziness pt had 2 emesis History of Present Illness The patient is an 87 year old female who presents to the Emergency Room with complaints of constant weakness beginning three days ago. The patient states that she went for a walk around the neighborhood and then had trouble walking. She notes that after this episode, she had to use a walker to get around the house, which she normally doesn't do. She reports that she was not spinning and she continued her day. The patient notes that when she gets up she feels unsteady and has to hold onto something. The patient states that she called the health center around 1500 and informed them of her symptoms. She notes that she was scared because she lives alone and her blood pressure was high. The patient reports that she has never had symptoms like this before. She complains of vomiting a dark substance after sitting up at her doctors office. The patient denies being lightheaded and having numbness in her groin or legs. She reports that she gets more unsteady when she is moving and feels better with rest. 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 She reports that her last does of chemotherapy was 2 weeks ago, and she has not had side affects. The patient states that she is currently taking a blood thinner. Source of History: patient Onset: three days ago Position: other (global) Quality: other (weakness) Modifying Factors (Worsening): movement Modifying Factors (Relieving): rest Associated Symptoms: + vomiting, No numbness Note: Pt denies lightheadedness Review of Systems See HPI for pertinent positives & negatives. A total of 10 systems reviewed and were otherwise negative. Past Medical & Surgical Medical Problems: (1) A-fib (2) Acute electrocardiogram changes (3) Dizziness (4) Gait abnormality (5) Hypertension (6) Hyponatremia (7) SBO (small bowel obstruction) (8) Ureteral tumor Surgical Problems: (1) History of appendectomy (2) Hx of appendectomy (3) S/P cholecystectomy Family History FHx: cancer Social History Smoking Status: Never Smoker Alcohol Use: none Drug Use: none Marital Status: Housing Status: lives alone Occupation Status: retired Current/Historical Medications Scheduled Hydralazine Hcl (Apresoline), 10 MG PO BID Metoprolol Succinate (Metoprolol Succinate ER), 200 MG PO QAM Multivitamin (Multivitamin), 1 TAB PO QAM Pantoprazole (Protonix), 40 MG PO QAM Scheduled PRN Acetaminophen (Tylenol), 650 MG PO for Pain Polyethylene Glycol 3350 (Miralax), 17 GM PO DAILY PRN for Constipation Miscellaneous Medications Atezolizumab (Tecentriq), 1 DOSE IV Allergies Coded Allergies: No Known Allergies (Unverified , `, 04/11/17) Physical Exam Vital Signs Date Time Temp Pulse Resp B/P (MAP) Pulse Ox O2 Delivery O2 Flow Rate FiO2 04/11/17 22:12 176/85 04/11/17 20:02 160/85 04/11/17 19:55 71 22 04/11/17 19:50 74 20 04/11/17 19:47 181/94 04/11/17 19:42 184/85 04/11/17 19:35 69 20 04/11/17 19:20 71 18 04/11/17 19:12 216/92 04/11/17 18:35 65 20 04/11/17 18:24 54 18 214/97 98 Room Air 04/11/17 18:21 214/97 04/11/17 18:20 56 19 215/111 04/11/17 18:05 61 20 04/11/17 17:50 63 20 04/11/17 17:35 61 21 04/11/17 17:21 95 Room Air 04/11/17 17:21 95 Room Air 04/11/17 17:20 58 20 04/11/17 17:05 61 20 96 04/11/17 16:53 59 04/11/17 16:50 59 225/103 Room Air 64 200/112 87 212/111 04/11/17 16:43 36.5 62 20 225/103 97 Room Air Physical Exam GENERAL: alert, well appearing, well nourished, no distress, non-toxic EYE EXAM: normal conjunctiva, PERRL and EOM's intact OROPHARYNX: no exudate, no erythema, lips, buccal mucosa, and tongue normal and mucous membranes are moist NECK: supple, no nuchal rigidity, no adenopathy, non-tender LUNGS: Clear to auscultation. Normal chest wall mechanics HEART: no murmurs, S1 normal and S2 normal ABDOMEN: abdomen soft, non-tender, normo-active bowel sounds, no masses, no rebound or guarding. BACK: Back is symmetrical on inspection and there is no deformity, no midline tenderness, no CVA tenderness. SKIN: no rashes and no bruising UPPER EXTREMITIES: upper extremities are grossly normal. LOWER EXTREMITIES: No pitting edema. NEURO EXAM: Normal sensorium, cranial nerves II-XII intact, normal speech, no weakness of arms, no weakness of legs. No drift. Finger to nose intact. Gross sensation intact. Rapid alternating movement of the upper extremities intact. Medical Decision & Procedures ER Provider Diagnostic Interpretation: Radiology results as stated below per my review and the radiologist's interpretation: CT HEAD WITHOUT CONTRAST (CT) CLINICAL HISTORY: Dizziness. Weakness. COMPARISON STUDY: 10/26/2016 TECHNIQUE: Axial CT of the brain is performed from the vertex to the skull base. IV contrast was not administered for this examination. CT DOSE: 773.57 mGy.cm FINDINGS: No intra or extra-axial mass lesions are visualized. There is no CT evidence of acute cortical infarction. There is no evidence of midline shift. There is no acute hemorrhage. No calvarial fractures are visualized. There are patchy white matter hypodensities likely on a small vessel basis. There is no evidence of pathologic ventricular dilatation. There is no evidence of acute sinusitis IMPRESSION: No acute intracranial findings Electronically signed by: Miguel Vega M.D. 04/11/2017 6:53 PM Dictated Date/Time: 04/11/2017 6:52 PM CHEST ONE VIEW PORTABLE CLINICAL HISTORY: Weakness COMPARISON STUDY: 12/13/2016 FINDINGS: The heart remains enlarged. There is a left-sided A-Port catheter unchanged in position. There is no lobar consolidation. There is mild chronic interstitial thickening. There are no pleural effusions.[ IMPRESSION: Mild cardiomegaly and mild chronic interstitial thickening. No acute findings. Electronically signed by: Miguel Vega M.D. 04/11/2017 5:53 PM Dictated Date/Time: 04/11/2017 5:52 PM Laboratory Results 04/11/17 17:34 Red Blood Count 4.84, Mean Corpuscular Volume 88.0, Mean Corpuscular Hemoglobin 28.9, Mean Corpuscular Hemoglobin Concent 32.9, Mean Platelet Volume 8.9, Neutrophils (%) (Auto) 67.6, Lymphocytes (%) (Auto) 23.2, Monocytes (%) (Auto) 6.6, Eosinophils (%) (Auto) 2.1, Basophils (%) (Auto) 0.5, Neutrophils # (Auto) 2.85, Lymphocytes # (Auto) 0.98, Monocytes # (Auto) 0.28, Eosinophils # (Auto) 0.09, Basophils # (Auto) 0.02 04/11/17 17:34 Test 04/11/17 17:34 04/11/17 17:36 04/11/17 18:40 White Blood Count 4.22 K/uL (4.8-10.8) Red Blood Count 4.84 M/uL (4.2-5.4) Hemoglobin 14.0 g/dL (12.0-16.0) Hematocrit 42.6 % (37-47) Mean Corpuscular Volume 88.0 fL (80-100) Mean Corpuscular Hemoglobin 28.9 pg (25-34) Mean Corpuscular Hemoglobin Concent 32.9 g/dl (32-36) Platelet Count 182 K/uL (130-400) Mean Platelet Volume 8.9 fL (7.4-10.4) Neutrophils (%) (Auto) 67.6 % Lymphocytes (%) (Auto) 23.2 % Monocytes (%) (Auto) 6.6 % Eosinophils (%) (Auto) 2.1 % Basophils (%) (Auto) 0.5 % Neutrophils # (Auto) 2.85 K/uL (1.4-6.5) Lymphocytes # (Auto) 0.98 K/uL (1.2-3.4) Monocytes # (Auto) 0.28 K/uL (0.11-0.59) Eosinophils # (Auto) 0.09 K/uL (0-0.5) Basophils # (Auto) 0.02 K/uL (0-0.2) RDW Standard Deviation 47.8 fL (36.4-46.3) RDW Coefficient of Variation 14.8 % (11.5-14.5) Immature Granulocyte % (Auto) 0.0 % Immature Granulocyte # (Auto) 0.00 K/uL (0.00-0.02) Anion Gap 7.0 mmol/L (3-11) Est Creatinine Clear Calc Drug Dose 40.2 ml/min Estimated GFR () 62.9 Estimated GFR (Non- 54.2 BUN/Creatinine Ratio 17.3 (10-20) Calcium Level 8.8 mg/dl (8.5-10.1) Total Bilirubin 0.4 mg/dl (0.2-1) Direct Bilirubin 0.1 mg/dl (0-0.2) Aspartate Amino Transf (AST/SGOT) 24 U/L (15-37) Alanine Aminotransferase (ALT/SGPT) 25 U/L (12-78) Alkaline Phosphatase 104 U/L (45-117) Troponin I < 0.015 ng/ml (0-0.045) Total Protein 8.5 gm/dl (6.4-8.2) Albumin 3.6 gm/dl (3.4-5.0) Thyroid Stimulating Hormone (TSH) 1.480 uIu/ml (0.300-4.500) Bedside Glucose 188 mg/dl (70-90) Urine Color YELLOW Urine Appearance CLEAR (CLEAR) Urine pH 7.5 (4.5-7.5) Urine Specific [place] 1.013 (1.000-1.030) Urine Protein 1+ (NEG) Urine Glucose (UA) NEG (NEG) Urine Ketones NEG (NEG) Urine Occult Blood NEG (NEG) Urine Nitrite NEG (NEG) Urine Bilirubin NEG (NEG) Urine Urobilinogen NEG (NEG) Urine Leukocyte Esterase NEG (NEG) Urine WBC (Auto) 1-5 /hpf (0-5) Urine RBC (Auto) 0-4 /hpf (0-4) Urine Hyaline Casts (Auto) 1-5 /lpf (0-5) Urine Epithelial Cells (Auto) 10-20 /lpf (0-5) Urine Bacteria (Auto) NEG (NEG) Laboratory results per my review. Medications Administered Medications (Trade) Dose Ordered Sig/Blank Route Start Time Stop Time Status Last Admin Dose Admin Sodium Chloride 1,000 ml @ 999 mls/hr Q1H1M STAT IV 6/9/17 17:19 04/11/17 18:19 DC 04/11/17 17:45 999 MLS/HR Meclizine HCl (Antivert Tab) 25 mg NOW STAT PO 04/11/17 17:19 04/11/17 17:21 DC 04/11/17 18:33 25 MG Labetalol HCl (Normodyne IV) 10 mg NOW STAT IV 04/11/17 18:27 04/11/17 18:29 DC 04/11/17 19:13 10 MG ECG Indication: weakness Rate (beats per minute): 56 Rhythm: sinus bradycardia Findings: T-wave inversion (Lateral), other (normal axis) Comparison ECG Date: 11/22/16 Change: no significant change ED Course ED COURSE: Vital signs were reviewed and showed hypertension. The patients medical record was reviewed The above diagnostic studies were performed and reviewed. ED treatments and interventions as stated above. 170: The patient was evaluated in room C01B. A complete history and physical examination was performed. 171: Ordered Meclizine HCl 25mg PO, Sodium Chloride 1000 ml @ 999 mls/hr IV 182: I reevaluated the patient, and she is still hypertensive. She still has an unsteady gait. 1826: Ordered Labetalol HCl 10 mg IV 1946: Ordered Hydralazine HCl 10 mg PO 2001: Upon reevaluation, the patient is resting. I discussed my findings with the patient and she understands and agrees with the treatment plan. 2012: I discussed the patient's case with Dr. Arnold, [facility] Hospitalist. The patient will be evaluated for further treatment. Based on the patients age, coexisting illnesses, exam and lab findings the decision to treat as an inpatient was made. The patient remained stable while under my care. The patient will be evaluated for further management. Medical Decision Differential diagnosis includes etiologies such as benign positional vertigo, dehydration, hypovolemia, anemia, tumor, infection, hypoglycemia, electrolyte abnormalities, cardiac sources, intracerebral event, toxicologic, neurologic, as well as others were entertained. Medication Reconciliation: I attest that I have personally reviewed the patient' s current medication list. Blood pressure screening: Patient was found to have an elevated blood pressure and was referred to their primary doctor for recheck and further treatment. Patient is an 87 her old female who presents the ER for trouble ambulating which is been present for the past 4 hours. Patient was initially hypertensive with systolic blood pressures in the 220s. CBC along with BMP, LFTs, bilirubin and troponin were normal. Patient normally ambulates without a walker in the house and she has been using that. CT head was negative. EKG was unremarkable. Patient was given IV labetalol with improvement of her systolic pressures. She also was given Antivert without improvement. I do believe that her symptoms are likely secondary to peripheral vertigo however with her extreme hypertension and age I felt was prudent to watch her overnight especially since she received IV antihypertensives and is still having trouble ambulating. Consults Time Called: 2009 Consulting Physician: Dr. Arnold, [facility] Hospitalist Returned Call: 2012 I discussed the patient's case with Dr. Arnold, [facility] Hospitalist. The patient will be evaluated for further treatment. Impression Primary Impression: Dizziness Additional Impressions: Unstable gait Hypertensive urgency Scribe Attestation The scribe's documentation has been prepared under my direction and personally reviewed by me in its entirety. I confirm that the note above accurately reflects all work, treatment, procedures, and medical decision making performed by me. Departure Information Dispostion Being Evaluated By Hospitalist Referrals Iron Mcbride (PCP) Patient Instructions My [facility] Problem Qualifiers
[2017-04-12 02:14] LABS: PROTHROMBIN TIME (PATIENT) 10.8 SECONDS (9.0-12.0)
[2017-04-12] MEDS ORDERED: IV FLUIDS COMPLETED PRN (05:00)
[2017-04-12] MEDS: HEPARIN SOD 5000 UNIT/0.5 ML CARP SQ SCH ×3 (05:39→21:20)
[2017-04-12 07:19] LABS: CHOLESTEROL/HDL RATIO 6.6
[2017-04-12 08:25] LABS: ESTIMATED AVERAGE GLUCOSE 117 mg/dl; HA1C FLAG Normal (Normal)
[2017-04-12] MEDS: PANTOprazole SOD 40 MG TAB PO SCH (08:36)
[2017-04-12] MEDS: ATORVASTATIN 20 MG TAB PO SCH (08:36)
[2017-04-12] MEDS ORDERED: METOPROLOL SUCCINATE 200 MG PO SCH (09:00)
--- NOTE | 2017-04-12 11:25 | Neurology Consultation ---
Neurology Consultation Date of Consultation: Apr 12, 2017. Attending Physician: Karine Hammond MD Primary Care Physician: Iron Mcbride Reason for Consultation: Consultation for dizziness rule out stroke History of Present Illness Source: patient, hospital records This is a 87-year-old right-handed female who presents with the chief complaint of dizziness. She denies any vertigo components and also denies that it's lightheadedness. She persists on calling it dizziness, but when trying to get a better description says that it just doesn't seem like her legs are working correctly. It does not clearly discoordination either. Not clearly weakness. Seems to be more just unsteady gait. Patient reports that she's had in the past but it was much worse yesterday when she presented to the hospital. When she presented to the hospital her blood pressure was noted to be systolically in the 200s and heart rate in the 50s to 60s. Patient has had multiple other medical issues going on at the same time. She reports some sort of kidney problem which she is being monitored for alcohol her any functional basic lab work this admission looks okay. 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 She's had chemotherapy for this and is now on some sort of immune modulator for treatment. She denies any numbness or focal weakness anywhere. She denies any changes with her vision or speech. Denies any trouble eating or swallowing. No change in cognition or thinking. Daughter is present to confirm this. Patient denies being sick recently. Patient does have the diagnosis of paroxysmal A. fib. She reports is never been a discussion about anticoagulation for this. I did review the cardiology note from previous this year which mentions new onset paroxysmal A. fib, but the patient feels that she's had this for a long time. She was not taking any antiplatelets or blood thinners at that time. Past Medical/Surgical History Medical Problems: (1) Altered mental status Status: Acute (2) Aphasia Status: Acute (3) Atrial fibrillation with RVR Status: Acute (4) Bowel obstruction Status: Acute (5) Change in mental status Status: Acute (6) Dysphagia Status: Acute (7) Elevated troponin Status: Acute (8) Hypertensive urgency Status: Acute (9) Speaking difficulty Status: Acute (10) Stroke-like symptoms Status: Acute (11) TIA (transient ischemic attack) Status: Acute (12) Unstable gait Status: Acute (13) UTI (urinary tract infection) Status: Acute Past mental history 79 for paroxysmal A. fib not on anticoagulation, hypertension, ureteral tumor. Family History Denies any significant family history. She had a brother with some sort of physical and intellectual disability and epilepsy, father with kidney disease, mother with liver cancer. Social History Patient lives in assisted living at [facility]. She walks with the assistance for walker. She reports she's been doing this for the last year. She root remains as active as she can. Reports that she does 20 sit-ups in the evening every day. Note tobacco use. Occasional rare alcohol use. No herbal use. Drug Use: none Marital Status: Housing Status: lives alone Occupation Status: retired Allergies Coded Allergies: No Known Allergies (Unverified , `, 04/11/17) Current Inpatient Medications Current Inpatient Medications Medications (Trade) Dose Ordered Sig/Blank Route Start Time Stop Time Status Last Admin Dose Admin Heparin Sodium (Porcine) (Heparin Sq 5000 Unit/0.5ml) 5,000 unit Q8 SQ 04/12/17 06:00 05/12/17 05:59 04/12/17 05:39 5,000 UNIT Acetaminophen (Tylenol Tab) 650 mg Q4H PRN PO 04/11/17 23:45 05/11/17 23:44 Al Hydrox/Mg Hydrox/Simethicone (Maalox Max Susp) 15 ml Q4H PRN PO 04/11/17 23:45 05/11/17 23:44 Magnesium Hydroxide (Milk Of Magnesia Susp) 30 ml Q12H PRN PO 04/11/17 23:45 05/11/17 23:44 Ondansetron HCl (Zofran Inj) 4 mg Q6H PRN IV 04/11/17 23:45 05/11/17 23:44 Morphine Sulfate (MoRPHine SULFATE INJ) 2 mg Q30M PRN IV 04/11/17 23:45 04/25/17 23:44 Polyethylene (Miralax Powder Packet) 17 gm DAILY PRN PO 04/11/17 23:45 05/11/17 23:44 Pantoprazole Sodium (Protonix Tab) 40 mg QAM PO 04/12/17 09:00 05/12/17 08:59 04/12/17 08:36 40 MG Atorvastatin Calcium (Lipitor Tab) 20 mg QAM PO 04/12/17 09:00 05/12/17 08:59 04/12/17 08:36 20 MG Metoprolol Tartrate (Lopressor Tab) 50 mg BID PO 04/12/17 09:00 05/12/17 08:59 Miscellaneous (Iv Fluids Completed) 1 ea PRN PRN N/A 04/12/17 05:00 04/12/18 04:59 Review of Systems Complete review of systems otherwise negative except for the above noted in history of present illness Physical Exam Vital Signs (Past 24 Hrs): Date Time Temp Pulse Resp B/P (MAP) Pulse Ox O2 Delivery O2 Flow Rate FiO2 04/12/17 10:28 56 147/80 (102) 04/12/17 07:52 36.8 55 18 173/75 (107) 96 Room Air 04/12/17 04:40 37.0 51 17 145/77 (99) 96 Room Air 04/12/17 04:00 96 Room Air 04/12/17 01:36 36.7 57 16 188/96 96 Room Air 04/12/17 01:00 50 179/74 (109) 154/95 (114) 188/96 (126) 04/12/17 01:00 57 188/96 (126) 04/12/17 00:06 36.6 60 18 168/84 96 Room Air 04/11/17 22:12 176/85 04/11/17 20:02 160/85 04/11/17 19:55 71 22 04/11/17 19:50 74 20 04/11/17 19:47 181/94 04/11/17 19:42 184/85 04/11/17 19:35 69 20 04/11/17 19:20 71 18 04/11/17 19:12 216/92 04/11/17 18:35 65 20 04/11/17 18:24 54 18 214/97 98 Room Air 04/11/17 18:21 214/97 04/11/17 18:20 56 19 215/111 04/11/17 18:05 61 20 04/11/17 17:50 63 20 04/11/17 17:35 61 21 04/11/17 17:21 95 Room Air 04/11/17 17:21 95 Room Air 04/11/17 17:20 58 20 04/11/17 17:05 61 20 96 04/11/17 16:53 59 04/11/17 16:50 59 225/103 Room Air 64 200/112 87 212/111 04/11/17 16:43 36.5 62 20 225/103 97 Room Air Gen.: Patient is alert and sitting in bed, in no acute distress. HEENT: Normocephalic /atraumatic, no scleral icterus Heart: Regular rate and rhythm Extremities: No gross deformities or rashes noted Neurological examination: Mental status: Patient is alert and oriented x3. Attention and concentration normal for the situation. Good fund of knowledge. Able to give her own history. Speech is fluent without any dysarthria or aphasia noted Cranial nerve: Funduscopic examination was unremarkable. No papilledema. Pupils equally round and reactive to light. Extraocular muscles intact without nystagmus. No facial asymmetry noted. Facial sensation intact. Tongue is midline. Good palatal elevation. Good shoulder shrug bilaterally. Hearing grossly intact to voice. Strength: 5/5 both proximal and distally in all extremities. There is no arm drift. Tone is normal. Sensation: Grossly intact to light touch in all extremities. Deep tendon reflexes: +1 in bilateral biceps, brachioradialis and patellar. Toes were downgoing to plantar stimulation Coordination: Patient had good finger to nose without dysmetria Station within the bed was normal Laboratory Results Past 24 Hours: 04/11/17 17:34 Red Blood Count 4.84, Mean Corpuscular Volume 88.0, Mean Corpuscular Hemoglobin 28.9, Mean Corpuscular Hemoglobin Concent 32.9, Mean Platelet Volume 8.9, Neutrophils (%) (Auto) 67.6, Lymphocytes (%) (Auto) 23.2, Monocytes (%) (Auto) 6.6, Eosinophils (%) (Auto) 2.1, Basophils (%) (Auto) 0.5, Neutrophils # (Auto) 2.85, Lymphocytes # (Auto) 0.98, Monocytes # (Auto) 0.28, Eosinophils # (Auto) 0.09, Basophils # (Auto) 0.02 04/11/17 17:34 Test 04/11/17 17:34 04/11/17 17:36 04/11/17 18:40 04/12/17 06:12 White Blood Count 4.22 K/uL (4.8-10.8) Red Blood Count 4.84 M/uL (4.2-5.4) Hemoglobin 14.0 g/dL (12.0-16.0) Hematocrit 42.6 % (37-47) Mean Corpuscular Volume 88.0 fL (80-100) Mean Corpuscular Hemoglobin 28.9 pg (25-34) Mean Corpuscular Hemoglobin Concent 32.9 g/dl (32-36) Platelet Count 182 K/uL (130-400) Mean Platelet Volume 8.9 fL (7.4-10.4) Neutrophils (%) (Auto) 67.6 % Lymphocytes (%) (Auto) 23.2 % Monocytes (%) (Auto) 6.6 % Eosinophils (%) (Auto) 2.1 % Basophils (%) (Auto) 0.5 % Neutrophils # (Auto) 2.85 K/uL (1.4-6.5) Lymphocytes # (Auto) 0.98 K/uL (1.2-3.4) Monocytes # (Auto) 0.28 K/uL (0.11-0.59) Eosinophils # (Auto) 0.09 K/uL (0-0.5) Basophils # (Auto) 0.02 K/uL (0-0.2) RDW Standard Deviation 47.8 fL (36.4-46.3) RDW Coefficient of Variation 14.8 % (11.5-14.5) Immature Granulocyte % (Auto) 0.0 % Immature Granulocyte # (Auto) 0.00 K/uL (0.00-0.02) Prothrombin Time 10.8 SECONDS (9.0-12.0) Prothromb Time International Ratio 1.0 (0.9-1.1) Anion Gap 7.0 mmol/L (3-11) Est Creatinine Clear Calc Drug Dose 40.2 ml/min Estimated GFR () 62.9 Estimated GFR (Non- 54.2 BUN/Creatinine Ratio 17.3 (10-20) Estimated Average Glucose 117 mg/dl Hemoglobin A1c 5.7 % (4.5-5.6) Calcium Level 8.8 mg/dl (8.5-10.1) Total Bilirubin 0.4 mg/dl (0.2-1) Direct Bilirubin 0.1 mg/dl (0-0.2) Aspartate Amino Transf (AST/SGOT) 24 U/L (15-37) Alanine Aminotransferase (ALT/SGPT) 25 U/L (12-78) Alkaline Phosphatase 104 U/L (45-117) Troponin I < 0.015 ng/ml (0-0.045) Total Protein 8.5 gm/dl (6.4-8.2) Albumin 3.6 gm/dl (3.4-5.0) Thyroid Stimulating Hormone (TSH) 1.480 uIu/ml (0.300-4.500) Bedside Glucose 188 mg/dl (70-90) Urine Color YELLOW Urine Appearance CLEAR (CLEAR) Urine pH 7.5 (4.5-7.5) Urine Specific [place] 1.013 (1.000-1.030) Urine Protein 1+ (NEG) Urine Glucose (UA) NEG (NEG) Urine Ketones NEG (NEG) Urine Occult Blood NEG (NEG) Urine Nitrite NEG (NEG) Urine Bilirubin NEG (NEG) Urine Urobilinogen NEG (NEG) Urine Leukocyte Esterase NEG (NEG) Urine WBC (Auto) 1-5 /hpf (0-5) Urine RBC (Auto) 0-4 /hpf (0-4) Urine Hyaline Casts (Auto) 1-5 /lpf (0-5) Urine Epithelial Cells (Auto) 10-20 /lpf (0-5) Urine Bacteria (Auto) NEG (NEG) Triglycerides Level 167 mg/dl (0-150) Cholesterol Level 224 mg/dl (0-200) HDL Cholesterol 34 mg/dl LDL Cholesterol, Calculated 157 mg/dl VLDL Cholesterol, Calculated 33 mg/dl Cholesterol/HDL Ratio 6.6 Date/Time Source Procedure Growth Status 04/12/17 04:06 Nasal MRSA DNA Surveillance Screen - Final Specimen Negative for MRSA by DNA Probe Complete Imaging CT of the head report and images reviewed and unremarkable for any acute changes. Impression This is a 87-year-old female who presents with vague complaints of unsteady gait which she calls dizziness. The patient does not have any symptoms of vertigo or orthostatic dizziness. No focal neurological signs or symptoms. Nothing specific for stroke at this time. Potentially could be a combination of other medical conditions including uncontrolled hypertension, low heart rate, history of chemotherapy which could cause some mild neuropathy and balance dysfunction, ongoing ureteral cancer treatment, ect. That being said the patient is at high risk for cardioembolic stroke with paroxysmal A. fib not on anticoagulation. In addition having cancer could create hypercoagulable state as well. Additional stroke risk factor includes uncontrolled hypertension. Plan Agree with obtaining an MRI of the brain to rule out acute stroke. (At this time my suspicion for stroke is low) Agree with physical therapy evaluation and treatment. At this time I do not see any contraindications towards anticoagulation. Highly would consider anticoagulation for stroke prevention in the setting of paroxysmal A. fib (either with Coumadin or one of the newer agents). If patient does not go on anticoagulation, would recommend Plavix 75 mg daily for stroke prevention. Blood pressure recommendations while in hospital 175/95-150/80 Avoid hypotension and dehydration Stroke risk factor modifications and recommendations: Blood pressure recommendations for the first month post hospital discharge 150/ 90-130/80, and after that blood pressure recommendations 130/80-110/70 Total cholesterol goal 100- 200 and LDL goal less than 100 Hemoglobin A1c goal less than 7 Encourage cardiovascular exercise at least 3 times a week for 30 minutes. If there is any questions or concerns, feel free to call/page me.
[2017-04-12] MEDS ORDERED: GADAVIST IV PRN (12:45)
[2017-04-12] MEDS: METOPROLOL TARTRATE 25 MG TAB PO SCH ×2 (13:03→21:00)
--- NOTE | 2017-04-12 13:05 | DIAGNOSTIC IMAGING REPORT ---
MRI OF THE BRAIN WITHOUT AND WITH IV CONTRAST CLINICAL HISTORY: Dizziness. Gait abnormality. History of malignancy. COMPARISON STUDY: MRI of the brain October 26, [address] April 11, 2017. TECHNIQUE: Utilizing a 1.5 Gissel magnet and dedicated coil, multiplanar, multiecho imaging of the brain was performed pre and postcontrast administration. IV administration of 6 mL of Gadavist contrast was uneventful. FINDINGS: This exam is mildly compromised by motion artifact. There are no areas of restricted diffusion. No acute intracranial hemorrhage, midline shift or mass effect is present. Ventricular dilatation is unchanged and related to moderate cerebral atrophy. White matter T2 hyperintense foci suggest small vessel disease. There is no intracranial mass or pathologic enhancement. The appearance of the brain is similar to MRI of October 26, 2016. There are no calvarial lesions. IMPRESSION: 1. No acute intracranial findings. 2. No change since MRI of October 26, 2016. Moderate atrophy and small vessel disease. 3. No intracranial masses or pathologic enhancement. Electronically signed by: Manuel Lewis M.D. 04/12/2017 1:04 PM Dictated Date/Time: 04/12/2017 1:00 PM
[2017-04-12] MEDS ORDERED: HydrALAZINE 10 MG TAB PO ONE (16:11)
[2017-04-12] MEDS: HydrALAZINE 10 MG TAB PO SCH (21:19)
--- NOTE | 2017-04-12 23:55 | Hospitalist Progress Note ---
Hospitalist Progress Note Date of Service Apr 12, 2017. Subjective Pt evaluation today including: conversation w/ patient, conversation w/ family Orthostasis persists, remains sinus tyson on tele, no blocks. Still feeling unsteady sometimes worse with going from sitting to standing, but definitely improved since admission. MRI brain no acute CVA All Other Systems: Reviewed and Negative Objective Vital Signs Date Time Temp Pulse Resp B/P (MAP) Pulse Ox O2 Delivery O2 Flow Rate FiO2 04/12/17 20:00 Room Air 04/12/17 19:33 36.7 77 18 163/76 (105) 94 Room Air 04/12/17 16:00 96 Room Air 04/12/17 16:00 55 187/75 (112) 58 163/81 (108) 62 157/77 (103) 04/12/17 15:19 36.7 61 18 141/78 (99) 96 Room Air 04/12/17 12:17 36.6 65 16 181/86 (117) 94 Room Air 04/12/17 12:00 94 Room Air 04/12/17 10:28 56 147/80 (102) 04/12/17 08:00 96 Room Air 04/12/17 07:52 36.8 55 18 173/75 (107) 96 Room Air 04/12/17 04:40 37.0 51 17 145/77 (99) 96 Room Air 04/12/17 04:00 96 Room Air 04/12/17 01:36 36.7 57 16 188/96 96 Room Air 04/12/17 01:00 50 179/74 (109) 154/95 (114) 188/96 (126) 04/12/17 01:00 57 188/96 (126) 04/12/17 00:06 36.6 60 18 168/84 96 Room Air Physical Exam General Appearance: WD/WN, no apparent distress Eyes: normal inspection, sclerae normal ENT: hearing grossly normal Neck: no carotid bruits, trachea midline Respiratory/Chest: lungs clear, normal breath sounds, no respiratory distress, no accessory muscle use Cardiovascular: regular rate, rhythm, no edema, no gallop, no murmur Abdomen: normal bowel sounds, non tender, no organomegaly, no pulsatile mass Extremities: non-tender, normal inspection, no pedal edema, no calf tenderness Neurologic/Psychiatric: infection control preventionist II-XII nml as tested, no motor/sensory deficits, alert, normal mood/affect, oriented x 3 Skin: normal color, warm/dry, no rash Laboratory Results Last 24 Hours Test 04/12/17 06:12 Triglycerides Level 167 mg/dl Cholesterol Level 224 mg/dl HDL Cholesterol 34 mg/dl LDL Cholesterol, Calculated 157 mg/dl VLDL Cholesterol, Calculated 33 mg/dl Cholesterol/HDL Ratio 6.6 Assessment and Plan 87 y/o F Hx HTN, Ureteral CA, paroxysmal AF - presenting with complaint of an unsteady gait. She has been unable to keep her balance since waking up the AM of admission. She normally ambulates independently with a walker. She was at her MDs office and had one episode of nausea and vomiting when attempting to get up. Her MD noted that her SBP was in the 190s during her visit. It was approximately 190 on arrival to the ER. 1) Unsteady gate - could be secondary to orthostatic hypotension (relative with starting HTN) and/or bradycardia. There are no vertigo-like symptoms or additional neurological issues. MRI brain neg for acute CVA Appreciate Neuro consult. Review of previous Cardiology notes report she DOES NOT have PAF on admission in nov 2016. She therefore does not need anticoagulation, however I will consult her Senior Geologist to weigh in on this plus her new orthostasis and bradycardia. -reduce metoprolol even further to tartrate 25mg bid (from Toprol XL 200mg daily ) -f/u Cardio consult -PT consult says ok to return home 2) HTN - she had missed her PM Hydralazine although she was apparently hypertensive throughout the day. CVA/TIA is ruled out so will improve control of BP -add hydralazine back on -reduce metoprolol dose so can be given in setting of bradycardia (has been held ) -may need another agent -continue statin and ASA given elevated lipids on labs 3) Ureteral tumor - apparently responding to Ketruda and pt has not had adverse effects to date. F/U as outpt. Full code - Heparin prophylaxis
[2017-04-13] VITALS (8 sets, daily range): BP systolic 148–192; BP diastolic 74–108; PULSE 59–78; TEMP 36.6–37.1; O2SAT 94–96
[2017-04-13] MEDS: HEPARIN SOD 5000 UNIT/0.5 ML CARP SQ SCH ×2 (05:59→14:05)
[2017-04-13] MEDS: ATORVASTATIN 20 MG TAB PO SCH (08:35)
[2017-04-13] MEDS: PANTOprazole SOD 40 MG TAB PO SCH (08:35)
[2017-04-13] MEDS: HydrALAZINE 10 MG TAB PO SCH (08:35)
[2017-04-13] MEDS ORDERED: METOPROLOL TARTRATE 25 MG TAB PO SCH (09:00)
[2017-04-13] MEDS ORDERED: ASPIRIN 81 MG ECTAB PO SCH (09:00)
[2017-04-13] MEDS ORDERED: AMLODIPINE BESYLATE 5 MG TAB PO ONE (12:00)
--- NOTE | 2017-04-13 13:31 | CARDIOLOGY CONSULTATION ---
DATE OF CONSULTATION: 04/13/2017 REFERRING PHYSICIAN: Dr. Karine Hammond. REASON FOR CONSULTATION: Bradycardia. HISTORY OF PRESENT ILLNESS: Ms. Chung is an 87-year-old patient who lives in an apartment at [facility]. She came to the Emergency Room with a chief complaint of dizziness. States she was having some difficulty walking and having to hold on to her walker for support. She went to see the nurse at [facility], was subsequently referred to the Emergency Department. Denies any vertiginous symptoms. No syncope or near syncope. Blood pressure elevated. When reviewing prior cardiology notes from Dr. Novak in October 2016, there appears to have been significant medication changes. According her current list she is taking 200 mg of Toprol-XL when she was noted to be taking only [address] Novak's recommendations at that time. Also, she had previously been treated with lisinopril 20 mg daily for hypertension, and this medication also appears to have been discontinued at some point in the interim and she is receiving treatment for a bladder tumor. Telemetry reviewed overnight revealing sinus rhythm, sinus bradycardia as well as 4 short salvos of paroxysmal atrial tachycardia. There is no evidence of atrial fibrillation. There is a chart record of possible atrial fibrillation last year, however, upon review of the medical records, it appears this was determined to be atrial tachycardia and not atrial fibrillation. She carries a history of normal left ventricular systolic function. Denies history of congestive heart failure, rheumatic fever as a child, diabetes. Currently, the patient is resting comfortably. She is reading a newspaper. She is awake and alert. Offers no complaints at this time. REVIEW OF SYSTEMS: The pertinent positive noted above, a comprehensive 10-system review is otherwise negative. PAST MEDICAL HISTORY: 1. Paroxysmal atrial tachycardia. 2. Hypertension. 3. Abnormal ECG. 4. Gait abnormality. 5. Hyponatremia. 6. Small-bowel obstruction. 7. Ureteral tumor. PAST SURGICAL HISTORY: 1. Appendectomy. 2. Cholecystectomy. 3. Urologic procedure. FAMILY HISTORY: Negative for premature CAD or sudden cardiac , however, noncontributory given patient's advanced age. ALLERGIES: No known drug allergies. OUTPATIENT MEDICATIONS: 1. Hydralazine 10 mg twice daily. 2. Toprol-XL 200 mg daily. 3. Multivitamin daily. 4. Protonix 40 mg daily. 5. Atezolizumab 1 dose IV. ECG ON ADMISSION: Sinus bradycardia, 56 beats per minute, left ventricular hypertrophy. LABORATORY DATA: Sodium 136, potassium 4.0, chloride is 100, CO2 is 29, BUN is 16, creatinine is 0.95. Triglycerides 167, total cholesterol 224, LDL 157, HDL is 34. TSH 1.480. Cardiac enzymes negative x1 set. White blood cell count 4.22, hemoglobin is 14.0, platelet count is 182. MRI of the brain, no acute intracranial findings, moderate atrophy of small vessel disease. CHEST X-RAY ON ADMISSION: No acute findings. PHYSICAL EXAMINATION: VITAL SIGNS: Temperature is 36.6 degrees centigrade, pulse is 76 beats per minute and regular. Respiratory rate is 16 breaths per minute, blood pressure 164/91 supine, 186/99 sitting, 176/108 standing. SAO2 is 94% on room air. GENERAL: NAD, awake, alert and oriented x3. HEENT: Mucous membranes are moist. No scleral icterus. Conjunctivae pink. NECK: Supple. There is no JVD, no HJR, no carotid bruit. HEART: Regular with a normal S1 and S2. There is no murmur, rub, or gallop. LUNGS: Clear without rales, rhonchi or wheeze. ABDOMEN: Soft, nontender. No rebound or guarding. Normal bowel sounds. EXTREMITIES: Warm and dry. There is no clubbing, cyanosis or edema. NEUROLOGIC: Demonstrates no focal motor deficit. Cranial nerves grossly intact. FINAL IMPRESSION: 1. An 87-year-old female admitted with weakness, questionable dizziness. There are mild orthostatic blood pressure changes noted on exam, however, do not appear there are associated symptoms. There is no symptomatic bradycardia recorded on telemetry to explain her symptoms at this time. Beta-ubaldo dosing has been reduced to 25 mg b.i.d. It appears it was titrated to 100 mg by cardiology in November 2016, subsequently titrated again to 200 mg, although the details regarding this change are not available. 2. Uncontrolled hypertension. 3. Unstable gait. 4. Hypertensive heart disease. PLAN AND RECOMMENDATIONS: I agree with reduction in dose of beta-ubaldo currently. We will continue to observe telemetry. There were 4 short salvos of atrial tachycardia without associated symptoms noted. No symptomatic bradycardia has been observed. May need to titrate beta-ubaldo during hospitalization to control episodes of atrial tachycardia, although borderline tachy-tyson syndrome is a concern. I recommend restarting amlodipine 5mg daily for uncontrolled hypertension if there is no contraindication. No indication for anticoagulation at this time. I will continue to follow during hospitalization. PARISD
[2017-04-13] MEDS ORDERED: METO-478 PO (15:59)
[2017-04-13] MEDS ORDERED: NRV5 PO (15:59)
[2017-04-13] MEDS ORDERED: ASPEC81 PO (15:59)
--- NOTE | 2017-04-13 16:06 | Discharge Instructions ---
Discharge Instructions Date of Service Apr 13, 2017. Admission Reason for Admission: Dizziness, Gait Abnormality Discharge Discharge Diagnosis / Problem: Dizziness Discharge Goals Goal(s): Improve disease control, Diagnostic testing, Therapeutic intervention Activity Recommendations Activity Limitations: resume your previous activity Exercise/Sports Limitations: as tolerated Shower/Bathe: no limitations . Instructions / Follow-Up Instructions / Follow-Up You were admitted for dizziness. You had a brain MRI which did NOT show a stroke. You were seen by the Neurologist. Your heart rate was low and your blood pressures were high. You also had orthostasis where your blood pressure dropped from lying to sitting to standing. Your metoprolol dose was lowered to 50mg once daily and you were started on amlodipine for your blood pressure. The Physical Therapist evaluated you and determined you did not need any further PT after discharge. Please keep your appointment with Dr. Novak for this Friday04/15/17. Please see Dr. Varghese in 1-2 days. Current Hospital Diet Patient's current hospital diet: Regular Diet Discharge Diet Recommended Diet: Regular Diet Procedures Procedures Performed: MRI brain Head CT Chest xray Pending Studies Studies pending at discharge: no Laboratory Results Hemoglobin A1c Test 04/11/17 17:34 Range/Units Estimated Average Glucose 117 mg/dl Hemoglobin A1c 5.7 H 4.5-5.6 % Lipid Panel Test 04/12/17 06:12 Range/Units Triglycerides Level 167 H 0-150 mg/dl Cholesterol Level 224 H 0-200 mg/dl HDL Cholesterol 34 mg/dl Cholesterol/HDL Ratio 6.6 LDL Cholesterol, Calculated 157 mg/dl Medical Emergencies . Who to Call and When: Medical Emergencies: If at any time you feel your situation is an emergency, please call 911 immediately. . Non-Emergent Contact Non-Emergency issues call your: Primary Care Provider, Liquid Flavor Compounder Call Non-Emergent contact if: you have any medication questions you have worsening dizziness again. If you pass out or feel faint, please call 911. . . "Provider Documentation" section prepared by Karine Hammond. . VTE Core Measure Inpt VTE Proph given/why not?: Unfractionated heparin SQ
[2017-04-13] MEDS ORDERED: METO-452 PO (17:32)
[2017-04-14] MEDS ORDERED: AMLODIPINE BESYLATE 5 MG TAB PO SCH (09:00)
[2017-04-14] MEDS ORDERED: LISINOPRIL 20 MG TAB PO SCH (09:00)
--- NOTE | 2017-04-17 13:11 | EDITING REQUIRED CODING QUERY ---
CQSUPPORTING DIAGNOSIS NEEDED A supporting diagnosis is required for the test/procedure performed on this patient in order for us to be reimbursed by the patient's insurance. Please provide a supporting diagnosis for the following test/procedure listed below next to the test name along with your signature. *If there is no additional diagnosis for this patient that would support the following test/procedure please document that below next to the test/procedure. Test(s)/Procedure(s) that require a supporting diagnosis: DOS 04/11/17 GLYCATED HEMOGLOBIN Provider Signature: Date: Thank you Kiesha Zimmerman [employer] Once completed, please kindly fax back to [phone] For questions please call [phone]
--- NOTE | 2017-04-21 07:38 | EDITING REQUIRED CODING QUERY ---
CQSUPPORTING DIAGNOSIS NEEDED A supporting diagnosis is required for the test/procedure performed on this patient in order for us to be reimbursed by the patient's insurance. Please provide a supporting diagnosis for the following test/procedure listed below next to the test name along with your signature. *If there is no additional diagnosis for this patient that would support the following test/procedure please document that below next to the test/procedure. Test(s)/Procedure(s) that require a supporting diagnosis: DOS 04/11/17 GLYCATED HEMOGLOBIN YOU SIGNED PREVIOUS QUERY BUT FORGOT TO ADD DIAGNOSIS FOR THE TEST THANK YOU FOR YOUR HELP Provider Signature: CVA - hyperglycemia Date: Thank you Kiesha Zimmerman [employer] Information [employer] Once completed, please kindly fax back to [phone] For questions please call [phone]
--- NOTE | 2017-05-01 11:34 | Discharge Summary ---
Discharge Summary Date of Service Apr 13, 2017. Discharge Summary Admission Date: Apr 11, 2017 at 23:47 Discharge Date: Apr 13, 2017 Discharge Disposition: Home with services Principal Diagnosis: Dizziness Problems/Secondary Diagnoses: HTN-uncontrolled Ureteral CA Orthostatic hypotension Bradycardia Paroxysmal atrial tachycardia Borderline tachy-tyson syndrome Procedures: CHEST ONE VIEW PORTABLE CLINICAL HISTORY: Weakness COMPARISON STUDY: 12/13/2016 FINDINGS: The heart remains enlarged. There is a left-sided A-Port catheter unchanged in position. There is no lobar consolidation. There is mild chronic interstitial thickening. There are no pleural effusions.[ IMPRESSION: Mild cardiomegaly and mild chronic interstitial thickening. No acute findings. MRI OF THE BRAIN WITHOUT AND WITH IV CONTRAST CLINICAL HISTORY: Dizziness. Gait abnormality. History of malignancy. COMPARISON STUDY: MRI of the brain October 26, [address] April 11, 2017. TECHNIQUE: Utilizing a 1.5 Gissel magnet and dedicated coil, multiplanar, multiecho imaging of the brain was performed pre and postcontrast administration. IV administration of 6 mL of Gadavist contrast was uneventful. FINDINGS: This exam is mildly compromised by motion artifact. There are no areas of restricted diffusion. No acute intracranial hemorrhage, midline shift or mass effect is present. Ventricular dilatation is unchanged and related to moderate cerebral atrophy. White matter T2 hyperintense foci suggest small vessel disease. There is no intracranial mass or pathologic enhancement. The appearance of the brain is similar to MRI of October 26, 2016. There are no calvarial lesions. IMPRESSION: 1. No acute intracranial findings. 2. No change since MRI of October 26, 2016. Moderate atrophy and small vessel disease. 3. No intracranial masses or pathologic enhancement. CT HEAD WITHOUT CONTRAST (CT) CLINICAL HISTORY: Dizziness. Weakness. COMPARISON STUDY: 10/26/2016 TECHNIQUE: Axial CT of the brain is performed from the vertex to the skull base. IV contrast was not administered for this examination. CT DOSE: 773.57 mGy.cm FINDINGS: No intra or extra-axial mass lesions are visualized. There is no CT evidence of acute cortical infarction. There is no evidence of midline shift. There is no acute hemorrhage. No calvarial fractures are visualized. There are patchy white matter hypodensities likely on a small vessel basis. There is no evidence of pathologic ventricular dilatation. There is no evidence of acute sinusitis IMPRESSION: No acute intracranial findings Consultations: Cardiology Neurology Medication Reconciliation New Medications: Metoprolol Succinate (Toprol Xl) 50 Mg Tab 1 TAB PO DAILY for 30 Days, #30 TAB 0 Refills Amlodipine Besylate (Amlodipine Besylate) 5 Mg Tab 5 MG PO QAM for 30 Days, #30 TAB Aspirin (Aspirin EC Low Dose) 81 Mg Ectab 81 MG PO QAM for 30 Days, #30 TAB Continued Medications: Acetaminophen (Tylenol) 325 Mg Tab 650 MG PO PRN for Pain, TAB Atezolizumab (Tecentriq) 1,200 Mg/20 Ml Inj 1 DOSE IV EVERY 3 WEEKS Hydralazine Hcl (Apresoline) 10 Mg Tab 10 MG PO BID, TAB Multivitamin (Multivitamin) Tab 1 TAB PO QAM, TAB Pantoprazole (Protonix) 40 Mg Tab 40 MG PO QAM, #30 TAB Polyethylene Glycol 3350 (Miralax) 1 Pow Pow 17 GM PO DAILY PRN for Constipation, #527 GM Discontinued Medications: Metoprolol Succinate (Metoprolol Succinate ER) 100 Mg Tabcr 200 MG PO QAM Referrals At Discharge Follow up Referrals: Corporate Travel Coordinator Referral - 04/15/17 with Maurice Novak D.O. Physician Referral - Within 1 Week with Josh Varghese M.D. Discharge Exam Doing well, no further symptoms at time of discharge Physical Exam General Appearance: WD/WN, no apparent distress Eyes: normal inspection, sclerae normal ENT: hearing grossly normal Neck: no carotid bruits, trachea midline Respiratory/Chest: lungs clear, normal breath sounds, no respiratory distress, no accessory muscle use Cardiovascular: regular rate, rhythm, no edema, no gallop, no murmur Abdomen: normal bowel sounds, non tender, no organomegaly, no pulsatile mass Extremities: non-tender, normal inspection, no pedal edema, no calf tenderness Neurologic/Psychiatric: vice principal II-XII nml as tested, no motor/sensory deficits, alert, normal mood/affect, oriented x 3 Skin: normal color, warm/dry, no rash Review of Systems: Constitutional: No fever Eyes: No problem reported ENT: No problem reported Respiratory: No shortness of breath Cardiovascular: No chest pain Abdomen: No pain Musculoskeletal: No problem reported Genitourinary - Female: No problem reported Neurologic: No problem reported Psychiatric: No problem reported Endocrine: No problem reported Hematologic / Lymphatic: No problem reported Integumentary: No problem reported Hospital Course 87 y/o F Hx HTN, Ureteral CA, atrial tachycardia - presenting with complaint of an unsteady gait. She has been unable to keep her balance since waking up the AM of admission. She normally ambulates independently with a walker. She was at her MD's office and had one episode of nausea and vomiting when attempting to get up. Her MD noted that her SBP was in the 190s during her visit. It was approximately 190 on arrival to the ER. 1) Unsteady gate - likely secondary to orthostatic hypotension (relative with starting HTN) and/or bradycardia. There are no vertigo-like symptoms or additional neurological issues. MRI brain neg for acute CVA Appreciate Neuro consult. Review of previous Cardiology notes report she DOES NOT have PAF on admission in Nov 2016; she has paroxysmal atrial tachycardia in the past and this admission on telemetry monitoring. She therefore does not need anticoagulation. Cardiology evaluated her and felt her Toprol dose should be reduced, if has further symptoms or continued episodes of bradycardia--> could be borderline tachy-tyson syndrome. -reduced metoprolol dose to 50mg XL once daily (from Toprol XL 200mg daily) -PT consult says ok to return home -Appreciate Neurology consultation 2) HTN - she had missed her PM Hydralazine although she was apparently hypertensive throughout the day. CVA/TIA is ruled out so will improve control of BP -dc hydralazine and added amlodipine -continue statin and ASA given elevated lipids on labs -f/u PCP and Cardiology within 1 week 3) Ureteral tumor - apparently responding to Ketruda and pt has not had adverse effects to date. F/U as outpt. Total Time Spent: Greater than 30 minutes This includes examination of the patient, discharge planning, medication reconciliation, and communication with other providers. Discharge Instructions Please refer to the electronic Patient Visit Report (Discharge Instructions) for additional information. Follow-Up PCP and Cardiology within 1 week Additional Copies To Maurice Novak D.O.; Josh Varghese M.D.
== END 2017-04-13 17:48 | disposition home or self-care (01) ==
LOC: C.EDC 16:32 → EDBD 16:32 → C.2T 23:47 → ENRESERV 23:57
PROVIDERS: ADMIT Internal Medicine; ATTEND Family Medicine
DX: R00.1 Bradycardia, unspecified (principal); I47.1 Supraventricular tachycardia; I10 Essential (primary) hypertension; R94.31 Abnormal electrocardiogram [ECG] [EKG]; R26.9 Unspecified abnormalities of gait and mobility; C66.1 Malignant neoplasm of right ureter; Z90.89 Acquired absence of other organs; Z90.49 Acquired absence of other specified parts of digestive tract; Z98.890 Other specified postprocedural states; Z86.73 Personal history of transient ischemic attack (TIA), and cerebral infarction without residual deficits; Z80.9 Family history of malignant neoplasm, unspecified; Z81.0 Family history of intellectual disabilities; Z82.0 Family history of epilepsy and other diseases of the nervous system; Z84.1 Family history of disorders of kidney and ureter; R73.9 Hyperglycemia, unspecified; I63.9 Cerebral infarction, unspecified

== ENCOUNTER → 2017-04-18 | Outpatient (CLI) | payer BC ==
[~2017-04-18] MED LIST changes: +ASPEC81 PO; +ATEZ1200 IV; +DIGO0.1219 PO; -MAGN400T6 PO; +METO-452 PO; +METO50TA7 PO; +NRV5 PO; +PANTPAK PO; -TPRSR/100 PO; +WARF2.5T8 PO
[2017-04-18 10:13] LABS: BASO % 0.5 %; BASO ABS # 0.02 K/uL (0-0.2); COMPLETE YES; EOS % 7.9 %; HEMATOCRIT 40.3 % (37-47); IG% 0.3 %; LYMPH % 35.6 %; MEAN CELL VOLUME 88.2 fL (80-100); MEAN CORPUSCULAR HEMOGLOBIN 28.4 pg (25-34); MEAN CORPUSCULAR HGB CONC 32.3 g/dl (32-36); MEAN PLATELET VOLUME 9.1 fL (7.4-10.4); MONO % 9.4 %; NEUT % 46.3 %; PLATELET COUNT 169 K/uL (130-400); RED BLOOD COUNT 4.57 M/uL (4.2-5.4); WHITE BLOOD COUNT 3.93 K/uL (4.8-10.8)
[2017-04-18 10:29] LABS: ALT/SGPT 26 U/L (12-78); BLOOD UREA NITROGEN 20 mg/dl (7-18); BUN/CREATININE RATIO 18.1 (10-20); CARBON DIOXIDE 21 mmol/L (21-32); CHLORIDE 107 mmol/L (98-107); GLUCOSE 128 mg/dl (70-99); POTASSIUM 4.2 mmol/L (3.5-5.1); SODIUM 138 mmol/L (136-145)
[2017-04-18 10:34] LABS: INR 1.2 (0.9-1.1); PROTHROMBIN TIME (PATIENT) 12.8 SECONDS (9.0-12.0)
[2017-04-18 10:40] LABS: ALB/GLOB RATIO 0.7 (0.9-2); ALKALINE PHOSPHATASE 83 U/L (45-117); AST/SGOT 24 U/L (15-37)
== END ==
LOC: C.LABSPEC 08:55
PROVIDERS: ATTEND Internal Medicine Hematology & Oncology
DX: Z79.01 Long term (current) use of anticoagulants (principal); C66.1 Malignant neoplasm of right ureter

== ENCOUNTER → 2017-04-21 | Outpatient (CLI) | payer BC ==
[2017-04-21 10:15] LABS: INR 2.9 (0.9-1.1); PROTHROMBIN TIME (PATIENT) 32.3 SECONDS (9.0-12.0)
== END | disposition home or self-care (01) ==
LOC: C.LABFOXDH 09:03
PROVIDERS: ATTEND Internal Medicine
DX: Z79.01 Long term (current) use of anticoagulants (principal)

== ENCOUNTER → 2017-04-22 | Outpatient (CLI) | payer BC ==
--- NOTE | 2017-04-22 13:25 | DIAGNOSTIC IMAGING REPORT ---
CHEST 2 VIEWS ROUTINE CLINICAL HISTORY: C66.1 COUGH COMPARISON STUDY: 04/11/2017 FINDINGS: The cardiac and mediastinal contours remain stable. There is a left-sided A-Port catheter present. Since the prior study, the patient developed right basilar airspace opacities. This could represent a pneumonitis. There is a suspected small right pleural effusion. Left lower lung zone nodules are likely postinflammatory.[ IMPRESSION: Interval development of right basilar airspace opacities. These could be atelectatic or secondary to a pneumonia. Clinical and radiographic follow-up is recommended. Electronically signed by: Miguel Vega M.D. 04/22/2017 1:24 PM Dictated Date/Time: 04/22/2017 1:22 PM
== END ==
LOC: C.RAD 12:33
PROVIDERS: ATTEND Internal Medicine Hematology & Oncology
DX: C66.1 Malignant neoplasm of right ureter (principal)

== ENCOUNTER → 2017-04-23 | Outpatient (CLI) | payer BC ==
[2017-04-23 09:17] LABS: INR 3.4 (0.9-1.1); PROTHROMBIN TIME (PATIENT) 37.8 SECONDS (9.0-12.0)
== END | disposition home or self-care (01) ==
LOC: C.LABFOXMH 08:42
PROVIDERS: ATTEND Internal Medicine
DX: Z79.01 Long term (current) use of anticoagulants (principal)

== ENCOUNTER → 2017-04-28 | Outpatient (CLI) | payer BC ==
[2017-04-28 11:01] LABS: PROTHROMBIN TIME (PATIENT) 44.7 SECONDS (9.0-12.0)
[2017-04-28 11:04] LABS: INR 3.9 (0.9-1.1)
== END | disposition home or self-care (01) ==
LOC: C.LABFOXMH 08:27
PROVIDERS: ATTEND Internal Medicine
DX: Z79.01 Long term (current) use of anticoagulants (principal)

== ENCOUNTER → 2017-04-30 | Outpatient (CLI) | payer BC ==
[~2017-04-30] MED LIST changes: -DIGO0.1219 PO; -METO-452 PO; +METO1TAB66 PO; -METO50TA7 PO; -PANTPAK PO; -WARF2.5T8 PO
[2017-04-30 10:52] LABS: INR 2.4 (0.9-1.1); PROTHROMBIN TIME (PATIENT) 26.8 SECONDS (9.0-12.0)
== END | disposition home or self-care (01) ==
LOC: C.LABFOXMH 09:22
PROVIDERS: ATTEND Internal Medicine
DX: Z51.81 Encounter for therapeutic drug level monitoring (principal); Z79.01 Long term (current) use of anticoagulants

== ENCOUNTER → 2017-05-02 | Outpatient (CLI) | payer BC ==
[2017-05-02 09:30] LABS: INR 1.5 (0.9-1.1); PROTHROMBIN TIME (PATIENT) 16.5 SECONDS (9.0-12.0)
== END | disposition home or self-care (01) ==
LOC: C.LABFOXMH 08:04
PROVIDERS: ATTEND Nurse Practitioner Family
DX: Z51.81 Encounter for therapeutic drug level monitoring (principal); Z79.01 Long term (current) use of anticoagulants

== ENCOUNTER → 2017-05-05 | Outpatient (CLI) | payer BC ==
[2017-05-05 09:03] LABS: INR 1.5 (0.9-1.1); PROTHROMBIN TIME (PATIENT) 16.1 SECONDS (9.0-12.0)
== END | disposition home or self-care (01) ==
LOC: C.LABFOXMH 07:50
PROVIDERS: ATTEND Internal Medicine
DX: Z51.81 Encounter for therapeutic drug level monitoring (principal); Z79.01 Long term (current) use of anticoagulants

== ENCOUNTER → 2017-05-12 | Outpatient (CLI) | payer BC ==
[2017-05-12 10:46] LABS: INR 3.2 (0.9-1.1); PROTHROMBIN TIME (PATIENT) 35.8 SECONDS (9.0-12.0)
--- NOTE | 2017-05-14 12:31 | CODING QUERY NO DIAGNOSIS ---
TREATMENT RENDERED WITHOUT A DIAGNOSIS To promote full compliance with coding requirements relating to patient care, physician participation is requested in all cases of braille coder uncertainty. Please assist us with providing a diagnosis/symptom for the test(s) below: A diagnosis/symptom was not documented on your Order. A valid diagnosis/symptom is required to bill all insurances. Please remember that we are unable to code a diagnosis of rule out, probable, possible, questionable, or suspected. Tests that require a diagnosis: * PT/INR DIAGNOSIS: Provider Signature: Date: Thank you Mita Shultz [employer] Once completed, please kindly fax back to [phone] For questions please call [phone]
== END | disposition home or self-care (01) ==
LOC: C.LABFOXMH 09:33
PROVIDERS: ATTEND Internal Medicine
DX: Z51.81 Encounter for therapeutic drug level monitoring (principal); Z79.01 Long term (current) use of anticoagulants

== ENCOUNTER → 2017-05-19 | Outpatient (CLI) | payer BC ==
[2017-05-19 10:33] LABS: INR 2.3 (0.9-1.1); PROTHROMBIN TIME (PATIENT) 25.4 SECONDS (9.0-12.0)
== END | disposition home or self-care (01) ==
LOC: C.LABFOXMH 09:27
PROVIDERS: ATTEND Internal Medicine Hospice and Palliative Medicine
DX: Z51.81 Encounter for therapeutic drug level monitoring (principal); Z79.01 Long term (current) use of anticoagulants

== ENCOUNTER → 2017-06-02 | Outpatient (CLI) | payer BC ==
[2017-06-02 10:26] LABS: BASO % 0.7 %; BASO ABS # 0.03 K/uL (0-0.2); COMPLETE YES; EOS % 6.7 %; HEMATOCRIT 42.8 % (37-47); IG% 0.2 %; LYMPH % 33.7 %; LYMPH ABS # 1.42 K/uL (1.2-3.4); MEAN CELL VOLUME 85.8 fL (80-100); MEAN CORPUSCULAR HEMOGLOBIN 27.5 pg (25-34); MEAN PLATELET VOLUME 9.6 fL (7.4-10.4); MONO % 8.1 %; NEUT % 50.6 %; PLATELET COUNT 235 K/uL (130-400); RED BLOOD COUNT 4.99 M/uL (4.2-5.4); WHITE BLOOD COUNT 4.21 K/uL (4.8-10.8)
[2017-06-02 10:37] LABS: INR 2.7 (0.9-1.1); PROTHROMBIN TIME (PATIENT) 30.5 SECONDS (9.0-12.0)
[2017-06-02 10:39] LABS: ALB/GLOB RATIO 0.8 (0.9-2); ALT/SGPT 27 U/L (12-78); AST/SGOT 26 U/L (15-37); BLOOD UREA NITROGEN 14 mg/dl (7-18); BUN/CREATININE RATIO 13.5 (10-20); CALCIUM 9.4 mg/dl (8.5-10.1); CARBON DIOXIDE 25 mmol/L (21-32); CHLORIDE 106 mmol/L (98-107); GLUCOSE 98 mg/dl (70-99); MAGNESIUM 2.1 mg/dl (1.8-2.4); POTASSIUM 4.2 mmol/L (3.5-5.1); SODIUM 139 mmol/L (136-145)
[2017-06-02 10:40] LABS: ALKALINE PHOSPHATASE 91 U/L (45-117)
== END | disposition home or self-care (01) ==
LOC: C.LABFOXMH 09:55
PROVIDERS: ATTEND Internal Medicine Hospice and Palliative Medicine
DX: Z51.81 Encounter for therapeutic drug level monitoring (principal); Z79.01 Long term (current) use of anticoagulants; C66.1 Malignant neoplasm of right ureter

== ENCOUNTER → 2017-06-16 | Outpatient (CLI) | payer BC ==
[2017-06-16 09:03] LABS: INR 2.8 (0.9-1.1); PROTHROMBIN TIME (PATIENT) 30.7 SECONDS (9.0-12.0)
== END | disposition home or self-care (01) ==
LOC: C.LABFOXMH 08:34
PROVIDERS: ATTEND Internal Medicine Hospice and Palliative Medicine
DX: Z51.81 Encounter for therapeutic drug level monitoring (principal); Z79.01 Long term (current) use of anticoagulants

== ENCOUNTER → 2017-06-19 | Outpatient (CLI) | payer BC ==
[~2017-06-19] MED LIST changes: +OPTIRAY 320 IV PRN
--- NOTE | 2017-06-19 13:24 | DIAGNOSTIC IMAGING REPORT ---
CHEST CT WITH CONTRAST CT DOSE: HISTORY: UTERINE cancer. TECHNIQUE: Multiaxial CT images of the chest were performed following the intravenous administration of contrast. A dose lowering technique was utilized adhering to the principles of ALARA. COMPARISON: Chest CT 02/07/2017. FINDINGS: The central airways are patent. No pleural effusions. No pneumothorax. Partially calcified biapical pleural-parenchymal scarlike densities. Stable 8 mm nodular density within the left lung apex. This favors an area of scarring. No new pulmonary nodules. Calcified granuloma within the left lower lobe, unchanged. Small linear densities the right lower lobe. This may represent atelectasis. No new nodules identified. No suspicious lytic or blastic osseous lesions. Old, healed right rib fractures. Normal caliber thoracic aorta. The heart is borderline enlarged. The central pulmonary arteries are patent. Multiple small thyroid nodules with the largest on the right measuring 9 mm. Left Port-A-Cath terminates in the distal SVC. No mediastinal or hilar lymphadenopathy. Calcified left hilar lymph nodes are again noted. IMPRESSION: No significant change compared to the prior study. No evidence for metastatic disease within the chest. Electronically signed by: Enzo Olmedo M.D. 06/19/2017 1:22 PM Dictated Date/Time: 06/19/2017 1:14 PM
--- NOTE | 2017-06-19 13:32 | DIAGNOSTIC IMAGING REPORT ---
CT ABD/PELVIS IV AND ORAL CONT CLINICAL HISTORY: UTERINE CA COMPARISON STUDY: 02/07/2017 TECHNIQUE: Following the IV administration of 118 mL of Optiray-320, CT scan of the abdomen and pelvis was performed from the lung bases to the proximal femurs. Images are reviewed in the axial, sagittal, and coronal planes. IV contrast was administered without complication. A dose lowering technique was utilized adhering to the principles of ALARA. CT DOSE: 490.75 mGy.cm FINDINGS: Lower chest: The heart is enlarged. There is a calcified left lower lobe granuloma. Liver: The contrast-enhanced liver is normal in size, contour, and attenuation. There is no intrahepatic biliary ductal dilatation. The hepatic veins and portal veins are patent. Gallbladder: Surgically absent Spleen: There is a stable 8 mm splenic hypodensity Pancreas: There is a 13 mm cystic lesion within the pancreatic head. This is 2 mm larger than on the preceding study. There is significant interval decrease in the size of the infrapancreatic mesenteric root mass. Adrenal glands: Unremarkable. Kidneys: The right kidney appears atrophic. There is a 27 mm left renal cortical cyst. There is interval decrease in the infiltrative mass at the level of the right renal pelvis, and retrocaval region. Bowel: There are no transition zones indicate bowel obstruction. There is colonic diverticulosis. There is no acute peridiverticular inflammatory change. Peritoneum: There is interval decrease in the size of the fluid collection located between the ascending this currently measures 35 x 8 mm in cross-sectional diameter. Colon and psoas. Vasculature: The abdominal aorta is normal in course and caliber. Pelvic viscera: The bladder, and pelvic viscera are unremarkable. Skeletal structures: No destructive osseous lesions are seen. IMPRESSION: 1. Significant interval decrease in the size of the mesenteric root mass. 2. Right renal atrophy. Interval decrease in the size of the infiltrative mass at the level the right renal pelvis and retrocaval area 3. Marked interval decrease in the size of the fluid collection located between the ascending colon psoas 4. Stable 8 mm splenic hypodensity 5. Slight interval increase in the size of the 13 mm pancreatic head cystic lesion 6. No evidence of bowel obstruction. No evidence of free air 7. Extensive colonic diverticulosis Electronically signed by: Miguel Vega M.D. 06/19/2017 1:31 PM Dictated Date/Time: 06/19/2017 1:12 PM
== END | disposition home or self-care (01) ==
LOC: C.CTS 12:37
PROVIDERS: ATTEND Internal Medicine Hematology & Oncology
DX: C66.1 Malignant neoplasm of right ureter (principal); N26.1 Atrophy of kidney (terminal); K57.30 Diverticulosis of large intestine without perforation or abscess without bleeding; R93.5 Abnormal findings on diagnostic imaging of other abdominal regions, including retroperitoneum

== ENCOUNTER → 2017-06-24 | Outpatient (CLI) | payer BC ==
[~2017-06-24] MED LIST changes: -OPTIRAY 320 IV PRN
[2017-06-24 09:37] LABS: ALT/SGPT 25 U/L (12-78); BLOOD UREA NITROGEN 12 mg/dl (7-18); BUN/CREATININE RATIO 12.4 (10-20); CARBON DIOXIDE 28 mmol/L (21-32); CHLORIDE 104 mmol/L (98-107); GLUCOSE 99 mg/dl (70-99); MAGNESIUM 1.9 mg/dl (1.8-2.4); POTASSIUM 4.2 mmol/L (3.5-5.1); SODIUM 137 mmol/L (136-145)
[2017-06-24 09:40] LABS: ALB/GLOB RATIO 0.8 (0.9-2); ALKALINE PHOSPHATASE 96 U/L (45-117); AST/SGOT 29 U/L (15-37)
[2017-06-24 09:44] LABS: BASO % 0.5 %; BASO ABS # 0.02 K/uL (0-0.2); COMPLETE YES; EOS % 5.7 %; HEMATOCRIT 40.6 % (37-47); IG% 0.5 %; LYMPH % 34.8 %; LYMPH ABS # 1.52 K/uL (1.2-3.4); MEAN CELL VOLUME 84.8 fL (80-100); MEAN CORPUSCULAR HEMOGLOBIN 28.8 pg (25-34); MEAN PLATELET VOLUME 9.5 fL (7.4-10.4); MONO % 8.9 %; NEUT % 49.6 %; PLATELET COUNT 215 K/uL (130-400); RED BLOOD COUNT 4.79 M/uL (4.2-5.4); WHITE BLOOD COUNT 4.37 K/uL (4.8-10.8)
== END | disposition home or self-care (01) ==
LOC: C.LABFOXMH 09:10
PROVIDERS: ATTEND Internal Medicine Hematology & Oncology
DX: C66.1 Malignant neoplasm of right ureter (principal)

== ENCOUNTER → 2017-06-30 | Outpatient (CLI) | payer BC ==
[2017-06-30 08:59] LABS: INR 2.2 (0.9-1.1); PROTHROMBIN TIME (PATIENT) 23.8 SECONDS (9.0-12.0)
== END | disposition home or self-care (01) ==
LOC: C.LABFOXMH 08:26
PROVIDERS: ATTEND Internal Medicine Hospice and Palliative Medicine
DX: Z51.81 Encounter for therapeutic drug level monitoring (principal); Z79.01 Long term (current) use of anticoagulants

== ENCOUNTER → 2017-07-14 | Outpatient (CLI) | payer BC ==
[2017-07-14 09:20] LABS: INR 2.3 (0.9-1.1); PROTHROMBIN TIME (PATIENT) 25.6 SECONDS (9.0-12.0)
[2017-07-14 09:24] LABS: ALT/SGPT 24 U/L (12-78); BLOOD UREA NITROGEN 12 mg/dl (7-18); BUN/CREATININE RATIO 12.3 (10-20); CALCIUM 9.3 mg/dl (8.5-10.1); CARBON DIOXIDE 24 mmol/L (21-32); CHLORIDE 105 mmol/L (98-107); GLUCOSE 101 mg/dl (70-99); POTASSIUM 4.3 mmol/L (3.5-5.1); SODIUM 137 mmol/L (136-145)
[2017-07-14 09:27] LABS: ALB/GLOB RATIO 0.8 (0.9-2); ALKALINE PHOSPHATASE 87 U/L (45-117); AST/SGOT 28 U/L (15-37)
[2017-07-14 09:29] LABS: BASO % 0.4 %; BASO ABS # 0.02 K/uL (0-0.2); COMPLETE YES; EOS % 2.3 %; HEMATOCRIT 41.1 % (37-47); IG% 0.2 %; LYMPH % 27.3 %; LYMPH ABS # 1.45 K/uL (1.2-3.4); MEAN CELL VOLUME 87.1 fL (80-100); MEAN CORPUSCULAR HGB CONC 32.1 g/dl (32-36); MEAN PLATELET VOLUME 9.6 fL (7.4-10.4); NEUT % 62.8 %; PLATELET COUNT 236 K/uL (130-400); RED BLOOD COUNT 4.72 M/uL (4.2-5.4); WHITE BLOOD COUNT 5.32 K/uL (4.8-10.8)
== END ==
LOC: C.LABFOXMH 08:57
PROVIDERS: ATTEND Internal Medicine Hematology & Oncology
DX: Z51.81 Encounter for therapeutic drug level monitoring (principal); Z79.01 Long term (current) use of anticoagulants; C66.1 Malignant neoplasm of right ureter

== ENCOUNTER → 2017-08-04 | Outpatient (CLI) | payer BC ==
[2017-08-04 08:32] LABS: BASO % 0.7 %; BASO ABS # 0.03 K/uL (0-0.2); COMPLETE YES; EOS % 3.1 %; HEMATOCRIT 42.1 % (37-47); IG% 0.5 %; LYMPH % 36.1 %; LYMPH ABS # 1.49 K/uL (1.2-3.4); MEAN CELL VOLUME 87.7 fL (80-100); MEAN CORPUSCULAR HEMOGLOBIN 28.5 pg (25-34); MEAN CORPUSCULAR HGB CONC 32.5 g/dl (32-36); MEAN PLATELET VOLUME 9.3 fL (7.4-10.4); NEUT % 51.6 %; PLATELET COUNT 208 K/uL (130-400); WHITE BLOOD COUNT 4.13 K/uL (4.8-10.8)
[2017-08-04 08:40] LABS: ALT/SGPT 24 U/L (12-78); BLOOD UREA NITROGEN 16 mg/dl (7-18); BUN/CREATININE RATIO 14.7 (10-20); CALCIUM 9.6 mg/dl (8.5-10.1); CARBON DIOXIDE 26 mmol/L (21-32); CHLORIDE 105 mmol/L (98-107); GLUCOSE 109 mg/dl (70-99); MAGNESIUM 2.1 mg/dl (1.8-2.4); POTASSIUM 4.3 mmol/L (3.5-5.1); SODIUM 140 mmol/L (136-145)
[2017-08-04 08:42] LABS: INR 2.4 (0.9-1.1); PROTHROMBIN TIME (PATIENT) 26.1 SECONDS (9.0-12.0)
[2017-08-04 08:43] LABS: ALB/GLOB RATIO 0.8 (0.9-2); ALKALINE PHOSPHATASE 89 U/L (45-117); AST/SGOT 28 U/L (15-37)
== END | disposition home or self-care (01) ==
LOC: C.LABFOXMH 08:20
PROVIDERS: ATTEND Internal Medicine
DX: Z79.01 Long term (current) use of anticoagulants (principal); C66.1 Malignant neoplasm of right ureter

== ENCOUNTER → 2017-08-25 | Outpatient (CLI) | payer BC ==
[~2017-08-25] MED LIST changes: +METO-452 PO; -METO1TAB66 PO
[2017-08-25 08:29] LABS: INR 1.9 (0.9-1.1); PROTHROMBIN TIME (PATIENT) 20.8 SECONDS (9.0-12.0)
== END | disposition home or self-care (01) ==
LOC: C.LABFOXMH 07:58
PROVIDERS: ATTEND Internal Medicine
DX: Z51.81 Encounter for therapeutic drug level monitoring (principal); Z79.01 Long term (current) use of anticoagulants

== ENCOUNTER → 2017-08-26 | Outpatient (CLI) | payer BC ==
[~2017-08-26] MED LIST changes: -METO-452 PO; +METO1TAB66 PO
[2017-08-26 10:33] LABS: BASO % 1.1 %; BASO ABS # 0.05 K/uL (0-0.2); COMPLETE YES; EOS % 2.5 %; HEMATOCRIT 38.5 % (37-47); IG% 0.4 %; LYMPH ABS # 1.81 K/uL (1.2-3.4); MEAN CELL VOLUME 86.3 fL (80-100); MEAN CORPUSCULAR HEMOGLOBIN 28.5 pg (25-34); MONO % 8.6 %; NEUT % 49.4 %; PLATELET COUNT 204 K/uL (130-400); RED BLOOD COUNT 4.46 M/uL (4.2-5.4); WHITE BLOOD COUNT 4.76 K/uL (4.8-10.8)
[2017-08-26 10:44] LABS: ALT/SGPT 21 U/L (12-78); AST/SGOT 22 U/L (15-37); BLOOD UREA NITROGEN 18 mg/dl (7-18); BUN/CREATININE RATIO 17.5 (10-20); CALCIUM 8.8 mg/dl (8.5-10.1); CARBON DIOXIDE 26 mmol/L (21-32); CHLORIDE 106 mmol/L (98-107); CREATININE 1.01 mg/dl (0.60-1.20); GLUCOSE 89 mg/dl (70-99); POTASSIUM 4.4 mmol/L (3.5-5.1); SODIUM 138 mmol/L (136-145)
[2017-08-26 10:55] LABS: ALB/GLOB RATIO 0.8 (0.9-2); ALKALINE PHOSPHATASE 83 U/L (45-117)
== END | disposition home or self-care (01) ==
LOC: C.LAB 10:32
PROVIDERS: ATTEND Internal Medicine Hematology & Oncology
DX: C66.1 Malignant neoplasm of right ureter (principal)

== ENCOUNTER → 2017-09-15 | Outpatient (CLI) | payer BC ==
[~2017-09-15] MED LIST changes: +METO-452 PO; -METO1TAB66 PO
[2017-09-15 08:14] LABS: BASO % 0.8 %; BASO ABS # 0.03 K/uL (0-0.2); COMPLETE YES; HEMATOCRIT 45.3 % (37-47); IG% 0.8 %; LYMPH ABS # 1.58 K/uL (1.2-3.4); MEAN CELL VOLUME 86.9 fL (80-100); MEAN CORPUSCULAR HEMOGLOBIN 28.6 pg (25-34); MEAN CORPUSCULAR HGB CONC 32.9 g/dl (32-36); MEAN PLATELET VOLUME 9.5 fL (7.4-10.4); MONO % 8.9 %; NEUT % 46.5 %; PLATELET COUNT 197 K/uL (130-400); RED BLOOD COUNT 5.21 M/uL (4.2-5.4); WHITE BLOOD COUNT 3.95 K/uL (4.8-10.8)
[2017-09-15 08:19] LABS: ALT/SGPT 29 U/L (12-78); BLOOD UREA NITROGEN 15 mg/dl (7-18); CALCIUM 9.7 mg/dl (8.5-10.1); CARBON DIOXIDE 26 mmol/L (21-32); CHLORIDE 103 mmol/L (98-107); CREATININE 1.12 mg/dl (0.60-1.20); GLUCOSE 101 mg/dl (70-99); INR 2.4 (0.9-1.1); MAGNESIUM 2.2 mg/dl (1.8-2.4); POTASSIUM 4.2 mmol/L (3.5-5.1); PROTHROMBIN TIME (PATIENT) 26.4 SECONDS (9.0-12.0); SODIUM 140 mmol/L (136-145)
[2017-09-15 08:21] LABS: ALB/GLOB RATIO 0.9 (0.9-2); ALKALINE PHOSPHATASE 96 U/L (45-117); AST/SGOT 33 U/L (15-37)
== END | disposition home or self-care (01) ==
LOC: C.LABFOXMH 07:42
PROVIDERS: ATTEND Internal Medicine Hematology & Oncology
DX: C66.1 Malignant neoplasm of right ureter (principal); Z79.01 Long term (current) use of anticoagulants

== ENCOUNTER 2017-09-24 11:07 | Emergency (ER) | payer BC ==
[~2017-09-24] VITALS: Ht 165.1 cm; Wt 66.0 kg
[2017-09-24 11:12] VITALS: TEMP 36.6; Ht 165.1 cm; Wt 66.0 kg
[2017-09-24] MEDS ORDERED: SODIUM CHLORIDE 0.9% 500ML 500 ML IV STA (11:29)
--- NOTE | 2017-09-24 11:36 | EMERGENCY ROOM VISIT NOTE ---
History Report prepared by Annel: Amanda Almaguer Under the Supervision of: Dr. Storm Albarran M.D. First contact with patient: 11:16 Stated Complaint: CHEST PAIN History of Present Illness The patient is an 87 year old female who presents to the Emergency Room with complaints of persistent chest pain that began just prior to arrival. She currently rates her discomfort as a 6/10 in severity. The patient states that she was at a meeting this morning and notes that she had a sudden loss of consciousness. She denies having chest pain prior to the syncopal episode. The patient states that her chest pain is localized to her right side. Per nursing staff EMS was called because the staff at [facility] felt that the patient was not acting herself. 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 She reports that her last chemo treatment was one week ago. Source of History: patient Onset: just prior to arrival Position: chest (right) Symptom Intensity: 6/10 Timing: other (persistent) Associated Symptoms: + LOC Review of Systems See HPI for pertinent positives & negatives. A total of 10 systems reviewed and were otherwise negative. Past Medical & Surgical Medical Problems: (1) A-fib (2) Acute electrocardiogram changes (3) Bradycardia (4) Dizziness (5) Gait abnormality (6) Hypertension (7) Hyponatremia (8) SBO (small bowel obstruction) (9) Ureteral tumor Surgical Problems: (1) History of appendectomy (2) Hx of appendectomy (3) S/P cholecystectomy Family History FHx: cancer Social History Smoking Status: Never Smoker Alcohol Use: none Drug Use: none Marital Status: Housing Status: lives alone Occupation Status: retired Current/Historical Medications Scheduled Aspirin (Aspirin EC Low Dose), 81 MG PO QAM Digoxin (Digox), 125 MCG PO 3XWK Hydralazine Hcl (Apresoline), 10 MG PO BID Metoprolol Succ (Toprol Xl) (Toprol-Xl), 50 MG PO BID Multivitamin (Multivitamin), 1 TAB PO QAM Pantoprazole Sodium (Protonix), 40 MG PO DAILY Warfarin Sod (Jantoven), 2.5 MG PO UD Scheduled PRN Acetaminophen (Tylenol), 650 MG PO for Pain Miscellaneous Medications Atezolizumab (Tecentriq), 1 DOSE IV Allergies Coded Allergies: No Known Allergies (Unverified , `, 09/24/17) Physical Exam Vital Signs Date Time Temp Pulse Resp B/P (MAP) Pulse Ox O2 Delivery O2 Flow Rate FiO2 09/24/17 13:50 59 25 143/70 96 Room Air 09/24/17 13:00 52 21 157/84 97 Room Air 09/24/17 12:03 54 18 110/50 94 Room Air 09/24/17 11:37 94 Room Air 09/24/17 11:37 94 Room Air 09/24/17 11:32 47 09/24/17 11:20 94 Room Air 09/24/17 11:12 36.6 52 16 102/53 94 Room Air Physical Exam GENERAL: Patient is a healthy-appearing well-nourished female HEAD: Normocephalic atraumatic EYES: Ocular movements intact pupils equal and react to light OROPHARYNX mucous membranes are moist no exudates present no erythema or edema present NECK: Supple no nuchal rigidity CHEST: Good equal expansion LUNGS: Clear and equal to auscultation CARDIAC: Normal S1 and S2 ABDOMEN: Soft tender in right upper quadrant, no guarding BACK: No CVA tenderness EXTREMITIES: No pain upon palpation normal muscle strength in all groups no clubbing cyanosis or edema NEURO: Patient is following commands and answering questions appropriately. Alert and oriented x3 Cranial Nerves 2-12 grossly intact Medical Decision & Procedures ER Provider Diagnostic Interpretation: Radiology results as stated below per my review and radiologist interpretation: CHEST ONE VIEW PORTABLE CLINICAL HISTORY: CHEST PAIN pain COMPARISON STUDY: 04/22/2017 FINDINGS: Mild stable cardiomegaly. Calcified granuloma left lung base. Central catheters. Vena cava. Lungs otherwise appear clear. IMPRESSION: Mild emphysematous change. No acute process. The above report was generated using voice recognition software. It may contain grammatical, syntax or spelling errors. Electronically signed by: Carlitos Murphy M.D. 09/24/2017 12:03 PM Dictated Date/Time: 09/24/2017 12:03 PM BILIARY ULTRASOUND CLINICAL HISTORY: Right upper quadrant abdominal pain COMPARISON STUDY: CT scan dated 06/19/2017 FINDINGS: There is a 2.4 cm hypodense lesion within or adjacent to the pancreatic head. The liver appears sonographically normal. The gallbladder surgically absent. Common bile duct is mildly dilated measuring 1 cm. The right kidney appears atrophic. There is no hydronephrosis. There is cortical thinning. IMPRESSION: 1. 2.4 cm hypodense lesion within or adjacent to the pancreatic head. CT correlation is advocated 2. Surgically absent gallbladder. 1 cm common bile duct 3. Atrophic right kidney. No hydronephrosis. Electronically signed by: Miguel Vega M.D. 09/24/2017 12:52 PM Dictated Date/Time: 09/24/2017 12:[address] ABD/PELVIS IV CONTRAST ONLY CLINICAL HISTORY: Right upper quadrant abdominal pain COMPARISON STUDY: 06/19/2017, ultrasound study dated 09/24/2017 TECHNIQUE: Following the IV administration of 94 mL of Optiray-320, CT scan of the abdomen and pelvis was performed from the lung bases to the proximal femurs. Images are reviewed in the axial, sagittal, and coronal planes. IV contrast was administered without complication. A dose lowering technique was utilized adhering to the principles of ALARA. CT DOSE: 315.94 mGy.cm FINDINGS: Lower chest: There are bibasal atelectatic changes. Liver: There is mild hepatic steatosis. No focal masses are visualized. Gallbladder: Surgically absent Spleen: There is a stable 6 mm splenic hypodensity. Pancreas: There is a stable 13 mm cystic lesion within the uncinate process. Adrenal glands: There is a new 35mm right adrenal mass. This contiguous with the previous described infiltrative process at the level of the right kidney. Given the rapid interval change, diagnostic considerations include hemorrhage or metastatic disease. A short-term follow-up CT scan or MRI is recommended. Kidneys: The right kidney is atrophic. There is a 28 mm left renal cyst. Bowel: There are no transition zones indicate bowel obstruction. There is colonic diverticulosis. There are no acute peridiverticular inflammatory changes. The appendix is surgically absent. Peritoneum: The small residual mesenteric root mass remains unchanged in size. This measures 15 mm in transverse diameter. Vasculature: The abdominal aorta is normal in course and caliber. Adenopathy: There are mildly prominent central mesenteric lymph nodes similar to the prior study. Mildly prominent iliac lymph nodes are not pathologic by size criteria Pelvic viscera: The bladder, and pelvic viscera are unremarkable. Skeletal structures: Cirrhotic changes involve the right symphysis pubis. IMPRESSION: 1. No evidence of bowel obstruction. No evidence of free air 2. Stable 13 mm pancreatic head cystic lesion 3. Extensive colonic diverticulosis. No evidence of acute diverticulitis 4. Interval development of a 35mm right adrenal mass. This is adjacent to the previously described infiltrative lesion at the level of the right kidney. Diagnostic considerations include metastatic disease versus adrenal hemorrhage. A short-term follow CT scan or MRI is recommended. 5. Stable mesenteric root mass with borderline enlarged adjacent mesenteric lymph nodes Electronically signed by: Miguel Vega M.D. 09/24/2017 2:04 PM Dictated Date/Time: 09/24/2017 1:50 PM Laboratory Results 09/24/17 12:01 Red Blood Count 4.28, Mean Corpuscular Volume 88.3, Mean Corpuscular Hemoglobin 28.0, Mean Corpuscular Hemoglobin Concent 31.7, Mean Platelet Volume 9.7, Neutrophils (%) (Auto) 58.6, Lymphocytes (%) (Auto) 30.4, Monocytes (%) (Auto) 7.7, Eosinophils (%) (Auto) 2.5, Basophils (%) (Auto) 0.6, Neutrophils # (Auto) 2.83, Lymphocytes # (Auto) 1.47, Monocytes # (Auto) 0.37, Eosinophils # (Auto) 0.12, Basophils # (Auto) 0.03 09/24/17 12:01 Test 09/24/17 12:01 09/24/17 13:00 White Blood Count 4.83 K/uL (4.8-10.8) Red Blood Count 4.28 M/uL (4.2-5.4) Hemoglobin 12.0 g/dL (12.0-16.0) Hematocrit 37.8 % (37-47) Mean Corpuscular Volume 88.3 fL (80-100) Mean Corpuscular Hemoglobin 28.0 pg (25-34) Mean Corpuscular Hemoglobin Concent 31.7 g/dl (32-36) Platelet Count 171 K/uL (130-400) Mean Platelet Volume 9.7 fL (7.4-10.4) Neutrophils (%) (Auto) 58.6 % Lymphocytes (%) (Auto) 30.4 % Monocytes (%) (Auto) 7.7 % Eosinophils (%) (Auto) 2.5 % Basophils (%) (Auto) 0.6 % Neutrophils # (Auto) 2.83 K/uL (1.4-6.5) Lymphocytes # (Auto) 1.47 K/uL (1.2-3.4) Monocytes # (Auto) 0.37 K/uL (0.11-0.59) Eosinophils # (Auto) 0.12 K/uL (0-0.5) Basophils # (Auto) 0.03 K/uL (0-0.2) RDW Standard Deviation 47.6 fL (36.4-46.3) RDW Coefficient of Variation 15.0 % (11.5-14.5) Immature Granulocyte % (Auto) 0.2 % Immature Granulocyte # (Auto) 0.01 K/uL (0.00-0.02) Platelet Estimate NORMAL Prothrombin Time 23.6 SECONDS (9.0-12.0) Prothromb Time International Ratio 2.1 (0.9-1.1) Anion Gap 6.0 mmol/L (3-11) Est Creatinine Clear Calc Drug Dose 27.3 ml/min Estimated GFR () 41.8 Estimated GFR (Non- 36.1 BUN/Creatinine Ratio 16.3 (10-20) Calcium Level 8.5 mg/dl (8.5-10.1) Total Bilirubin 0.3 mg/dl (0.2-1) Direct Bilirubin < 0.1 mg/dl (0-0.2) Aspartate Amino Transf (AST/SGOT) 22 U/L (15-37) Alanine Aminotransferase (ALT/SGPT) 23 U/L (12-78) Alkaline Phosphatase 73 U/L (45-117) Total Creatine Kinase 125 U/L (26-192) Creatine Kinase MB 3.3 ng/ml (0.5-3.6) Creatine Kinase MB Ratio 2.6 (0-3.0) Troponin I < 0.015 ng/ml (0-0.045) Total Protein 6.8 gm/dl (6.4-8.2) Albumin 3.1 gm/dl (3.4-5.0) Lipase 297 U/L (73-393) Urine Color DK YELLOW Urine Appearance CLEAR (CLEAR) Urine pH 7.0 (4.5-7.5) Urine Specific [place] 1.021 (1.000-1.030) Urine Protein 1+ (NEG) Urine Glucose (UA) NEG (NEG) Urine Ketones NEG (NEG) Urine Occult Blood NEG (NEG) Urine Nitrite NEG (NEG) Urine Bilirubin NEG (NEG) Urine Urobilinogen NEG (NEG) Urine Leukocyte Esterase SMALL (NEG) Urine WBC (Auto) 5-10 /hpf (0-5) Urine RBC (Auto) 0-4 /hpf (0-4) Urine Hyaline Casts (Auto) 10-30 /lpf (0-5) Urine Epithelial Cells (Auto) >30 /lpf (0-5) Urine Bacteria (Auto) NEG (NEG) Urine Renal Epithelial Cells /lpf (0-5) Urine Pathogenic Casts 0-3 GRANULAR CASTS /lpf (0) Labs reviewed by ED physician. Medications Administered Medications (Trade) Dose Ordered Sig/Blank Route Start Time Stop Time Status Last Admin Dose Admin Sodium Chloride 500 ml @ 999 mls/hr Q31M STAT IV 09/24/17 11:29 09/24/17 11:59 DC 09/24/17 11:29 999 MLS/HR ECG Indication: chest pain Rate (beats per minute): 53 Rhythm: sinus bradycardia Findings: T-wave inversion (Anterolateral), no acute ischemic change, no ectopy Comparison ECG Date: 04/11/17 Change: no significant change ED Course 1124: Past medical records reviewed. The patient was evaluated in room B4B. A complete history and physical examination was performed. 1129: Ordered Sodium Chloride 500 ml @ 999 mls/hr IV. Medical Decision Differential diagnosis: Etiologies such as appendicitis, diverticulitis, PUD, biliary pathology, UTI, pancreatitis, obstruction, mesenteric ischemia, aortic pathology, infections, inflammatory bowel disease, renal colic, as well as others were entertained. This is an 87-year-old female who presents emergency department bradycardic after syncopal episode. The patient is also complaining of epigastric pain. Based on the patient's complaint she was sent for an ultrasound of the gallbladder as well as a CAT scan of the abdomen. The patient's CAT scan was concerning for an adrenal infarction along with what appears to be spread of her tumor. I attempted 2 may contact with the patient's oncologist however we have not had any call backs. While we're awaiting I strongly recommended that the patient be admitted to the hospital however she is adamantly refusing. I feel that this is reasonable as she is afebrile and is nontender on examination at this point. I did discuss her with the vascular surgeon who also felt that she could be safely discharged home for follow-up with oncology. Patient and family were in agreement with the treatment plan. Medication Reconcilliation Current Medication List: was personally reviewed by me Blood Pressure Screening Patient's blood pressure: Normal blood pressure Blood pressure disposition: Did not require urgent referral Impression Primary Impression: Adrenal infarction Additional Impression: Epigastric abdominal pain Scribe Attestation The scribe's documentation has been prepared under my direction and personally reviewed by me in its entirety. I confirm that the note above accurately reflects all work, treatment, procedures, and medical decision making performed by me. Departure Information Dispostion Home / Self-Care Referrals Iron Mcbride (PCP) Problem Qualifiers
[2017-09-24 11:37] VITALS: O2SAT 94
[2017-09-24] MEDS ORDERED: OPTIRAY 320 IV PRN (11:45)
--- NOTE | 2017-09-24 12:04 | DIAGNOSTIC IMAGING REPORT ---
CHEST ONE VIEW PORTABLE CLINICAL HISTORY: CHEST PAIN pain COMPARISON STUDY: 04/22/2017 FINDINGS: Mild stable cardiomegaly. Calcified granuloma left lung base. Central catheters. Vena cava. Lungs otherwise appear clear. IMPRESSION: Mild emphysematous change. No acute process. The above report was generated using voice recognition software. It may contain grammatical, syntax or spelling errors. Electronically signed by: Carlitos Murphy M.D. 09/24/2017 12:03 PM Dictated Date/Time: 09/24/2017 12:03 PM
[2017-09-24] MEDS ORDERED: WARF2.5T8 PO (12:08)
[2017-09-24] MEDS ORDERED: METO50TA7 PO (12:08)
[2017-09-24] MEDS ORDERED: PANTPAK PO (12:08)
[2017-09-24] MEDS ORDERED: DIGO0.1219 PO (12:08)
[2017-09-24 12:41] LABS: INR 2.1 (0.9-1.1); PROTHROMBIN TIME (PATIENT) 23.6 SECONDS (9.0-12.0)
--- NOTE | 2017-09-24 12:54 | DIAGNOSTIC IMAGING REPORT ---
BILIARY ULTRASOUND CLINICAL HISTORY: Right upper quadrant abdominal pain COMPARISON STUDY: CT scan dated 06/19/2017 FINDINGS: There is a 2.4 cm hypodense lesion within or adjacent to the pancreatic head. The liver appears sonographically normal. The gallbladder surgically absent. Common bile duct is mildly dilated measuring 1 cm. The right kidney appears atrophic. There is no hydronephrosis. There is cortical thinning. IMPRESSION: 1. 2.4 cm hypodense lesion within or adjacent to the pancreatic head. CT correlation is advocated 2. Surgically absent gallbladder. 1 cm common bile duct 3. Atrophic right kidney. No hydronephrosis. Electronically signed by: Miguel Vega M.D. 09/24/2017 12:52 PM Dictated Date/Time: 09/24/2017 12:49 PM
[2017-09-24 12:56] LABS: ALT/SGPT 23 U/L (12-78); AST/SGOT 22 U/L (15-37); BLOOD UREA NITROGEN 22 mg/dl (7-18); BUN/CREATININE RATIO 16.3 (10-20); CALCIUM 8.5 mg/dl (8.5-10.1); CARBON DIOXIDE 25 mmol/L (21-32); CHLORIDE 107 mmol/L (98-107); CREATININE 1.33 mg/dl (0.60-1.20); GLUCOSE 169 mg/dl (70-99); POTASSIUM 4.3 mmol/L (3.5-5.1); SODIUM 138 mmol/L (136-145)
[2017-09-24 12:58] LABS: HEMATOCRIT 37.8 % (37-47); MEAN CELL VOLUME 88.3 fL (80-100); MEAN CORPUSCULAR HGB CONC 31.7 g/dl (32-36); MEAN PLATELET VOLUME 9.7 fL (7.4-10.4); PLATELET COUNT 171 K/uL (130-400); RED BLOOD COUNT 4.28 M/uL (4.2-5.4); WHITE BLOOD COUNT 4.83 K/uL (4.8-10.8)
[2017-09-24 12:59] LABS: BASO % 0.6 %; BASO ABS # 0.03 K/uL (0-0.2); COMPLETE YES; EOS % 2.5 %; IG% 0.2 %; LYMPH % 30.4 %; LYMPH ABS # 1.47 K/uL (1.2-3.4); MONO % 7.7 %; NEUT % 58.6 %; PLT ESTIMATE NORMAL
[2017-09-24 13:01] LABS: ALKALINE PHOSPHATASE 73 U/L (45-117); CKMB/CK RATIO 2.6 (0-3.0)
[2017-09-24 13:22] LABS: URINE APPEARANCE CLEAR (CLEAR); URINE BILIRUBIN NEG (NEG); URINE COLOR DK YELLOW; URINE EPITHELIAL CELL AUTO >30 /lpf (0-5); URINE NITRITE NEG (NEG); URINE SPECIFIC GRAVITY 1.021 (1.000-1.030); UROBILINOGEN NEG (NEG)
[2017-09-24 13:36] LABS: MANUAL MICROSCOPIC REQUIRED? NO; REVIEW REQ? YES
[2017-09-24 13:41] LABS: URINE PATH CASTS 0-3 GRANULAR CASTS /lpf (0)
[2017-09-24 13:45] LABS: ZZUR CULT IF INDIC CLEAN CATCH NO
--- NOTE | 2017-09-24 14:05 | DIAGNOSTIC IMAGING REPORT ---
CT ABD/PELVIS IV CONTRAST ONLY CLINICAL HISTORY: Right upper quadrant abdominal pain COMPARISON STUDY: 06/19/2017, ultrasound study dated 09/24/2017 TECHNIQUE: Following the IV administration of 94 mL of Optiray-320, CT scan of the abdomen and pelvis was performed from the lung bases to the proximal femurs. Images are reviewed in the axial, sagittal, and coronal planes. IV contrast was administered without complication. A dose lowering technique was utilized adhering to the principles of ALARA. CT DOSE: 315.94 mGy.cm FINDINGS: Lower chest: There are bibasal atelectatic changes. Liver: There is mild hepatic steatosis. No focal masses are visualized. Gallbladder: Surgically absent Spleen: There is a stable 6 mm splenic hypodensity. Pancreas: There is a stable 13 mm cystic lesion within the uncinate process. Adrenal glands: There is a new 35mm right adrenal mass. This contiguous with the previous described infiltrative process at the level of the right kidney. Given the rapid interval change, diagnostic considerations include hemorrhage or metastatic disease. A short-term follow-up CT scan or MRI is recommended. Kidneys: The right kidney is atrophic. There is a 28 mm left renal cyst. Bowel: There are no transition zones indicate bowel obstruction. There is colonic diverticulosis. There are no acute peridiverticular inflammatory changes. The appendix is surgically absent. Peritoneum: The small residual mesenteric root mass remains unchanged in size. This measures 15 mm in transverse diameter. Vasculature: The abdominal aorta is normal in course and caliber. Adenopathy: There are mildly prominent central mesenteric lymph nodes similar to the prior study. Mildly prominent iliac lymph nodes are not pathologic by size criteria Pelvic viscera: The bladder, and pelvic viscera are unremarkable. Skeletal structures: Cirrhotic changes involve the right symphysis pubis. IMPRESSION: 1. No evidence of bowel obstruction. No evidence of free air 2. Stable 13 mm pancreatic head cystic lesion 3. Extensive colonic diverticulosis. No evidence of acute diverticulitis 4. Interval development of a 35mm right adrenal mass. This is adjacent to the previously described infiltrative lesion at the level of the right kidney. Diagnostic considerations include metastatic disease versus adrenal hemorrhage. A short-term follow CT scan or MRI is recommended. 5. Stable mesenteric root mass with borderline enlarged adjacent mesenteric lymph nodes Electronically signed by: Miguel Vega M.D. 09/24/2017 2:04 PM Dictated Date/Time: 09/24/2017 1:50 PM
[2017-09-24 15:22] VITALS: BP 127/81; PULSE 63; O2SAT 96
== END 2017-09-24 15:37 | disposition home or self-care (01) ==
LOC: EDBD 11:07 → C.EDB 11:09
DX: E27.49 Other adrenocortical insufficiency (principal); C66.9 Malignant neoplasm of unspecified ureter; I48.91 Unspecified atrial fibrillation; I10 Essential (primary) hypertension; Z90.49 Acquired absence of other specified parts of digestive tract; Z80.9 Family history of malignant neoplasm, unspecified; Z79.82 Long term (current) use of aspirin; Z79.899 Other long term (current) drug therapy; Z79.01 Long term (current) use of anticoagulants

== ENCOUNTER → 2017-10-06 | Outpatient (CLI) | payer BC ==
[~2017-10-06] MED LIST changes: +DIGO0.1219 PO; -METO-452 PO; +METO50TA7 PO; -NRV5 PO; -PANT40TA PO; +PANTPAK PO; -POLY335019 PO; +WARF2.5T8 PO
[2017-10-06 09:01] LABS: BASO % 0.9 %; BASO ABS # 0.04 K/uL (0-0.2); COMPLETE YES; EOS % 3.5 %; HEMATOCRIT 42.8 % (37-47); IG% 0.2 %; LYMPH % 40.6 %; LYMPH ABS # 1.74 K/uL (1.2-3.4); MEAN CELL VOLUME 88.4 fL (80-100); MEAN CORPUSCULAR HEMOGLOBIN 29.1 pg (25-34); MEAN CORPUSCULAR HGB CONC 32.9 g/dl (32-36); MEAN PLATELET VOLUME 9.2 fL (7.4-10.4); MONO % 9.8 %; PLATELET COUNT 231 K/uL (130-400); RED BLOOD COUNT 4.84 M/uL (4.2-5.4); WHITE BLOOD COUNT 4.29 K/uL (4.8-10.8)
[2017-10-06 09:08] LABS: INR 2.3 (0.9-1.1)
[2017-10-06 09:09] LABS: ALT/SGPT 25 U/L (12-78); AST/SGOT 24 U/L (15-37); BLOOD UREA NITROGEN 17 mg/dl (7-18); BUN/CREATININE RATIO 15.4 (10-20); CALCIUM 9.3 mg/dl (8.5-10.1); CARBON DIOXIDE 28 mmol/L (21-32); CHLORIDE 103 mmol/L (98-107); CREATININE 1.08 mg/dl (0.60-1.20); GLUCOSE 94 mg/dl (70-99); MAGNESIUM 2.2 mg/dl (1.8-2.4); POTASSIUM 4.2 mmol/L (3.5-5.1); SODIUM 138 mmol/L (136-145)
[2017-10-06 09:11] LABS: ALB/GLOB RATIO 0.9 (0.9-2); ALKALINE PHOSPHATASE 90 U/L (45-117)
== END | disposition home or self-care (01) ==
LOC: C.LABFOXMH 08:15
PROVIDERS: ATTEND Internal Medicine
DX: Z51.81 Encounter for therapeutic drug level monitoring (principal); Z79.01 Long term (current) use of anticoagulants; C66.1 Malignant neoplasm of right ureter

== ENCOUNTER → 2017-11-07 | Outpatient (CLI) | payer BC ==
[~2017-11-07] MED LIST changes: -ASPEC81 PO; +ASPI-320 PO; -METO50TA7 PO; +METO50TA8 PO
[2017-11-07 12:08] LABS: INR 2.1 (0.9-1.1)
== END | disposition home or self-care (01) ==
LOC: C.LABFOXMH 11:53
PROVIDERS: ATTEND Nurse Practitioner Family
DX: Z51.81 Encounter for therapeutic drug level monitoring (principal); Z79.01 Long term (current) use of anticoagulants

== ENCOUNTER → 2017-11-17 | Outpatient (CLI) | payer BC ==
[~2017-11-17] MED LIST changes: +ASPEC81 PO; -ASPI-320 PO; +METO50TA7 PO; -METO50TA8 PO
[2017-11-17 09:05] LABS: BASO % 0.6 %; BASO ABS # 0.03 K/uL (0-0.2); EOS % 2.9 %; EOS ABS # 0.14 K/uL (0-0.5); HEMATOCRIT 44.9 % (37-47); HEMOGLOBIN 14.6 g/dL (12.0-16.0); IG# 0.02 K/uL (0.00-0.02); LYMPH % 31.7 %; LYMPH ABS # 1.52 K/uL (1.2-3.4); MEAN CORPUSCULAR HEMOGLOBIN 28.6 pg (25-34); MEAN CORPUSCULAR HGB CONC 32.5 g/dl (32-36); MEAN PLATELET VOLUME 9.5 fL (7.4-10.4); MONO % 7.9 %; MONO ABS # 0.38 K/uL (0.11-0.59); NEUT % 56.5 %; PLATELET COUNT 249 K/uL (130-400); RED CELL DISTRIBUTION WIDTH CV 15.2 % (11.5-14.5); RED CELL DISTRIBUTION WIDTH SD 49.1 fL (36.4-46.3); WHITE BLOOD COUNT 4.79 K/uL (4.8-10.8)
[2017-11-17 09:20] LABS: ALBUMIN 3.5 gm/dl (3.4-5.0); ALT/SGPT 25 U/L (12-78); BLOOD UREA NITROGEN 14 mg/dl (7-18); CALCIUM 9.2 mg/dl (8.5-10.1); CARBON DIOXIDE 27 mmol/L (21-32); CREATININE 0.91 mg/dl (0.60-1.20); GLUCOSE 94 mg/dl (70-99); POTASSIUM 4.3 mmol/L (3.5-5.1); SODIUM 137 mmol/L (136-145)
[2017-11-17 09:23] LABS: ALKALINE PHOSPHATASE 79 U/L (45-117); AST/SGOT 29 U/L (15-37)
== END | disposition home or self-care (01) ==
LOC: C.LABSPEC 08:33
PROVIDERS: ATTEND Internal Medicine Hematology & Oncology
DX: C66.1 Malignant neoplasm of right ureter (principal)

== ENCOUNTER → 2017-11-17 | Outpatient (CLI) | payer BC ==
[2017-11-17 09:21] LABS: INR 2.6 (0.9-1.1)
== END | disposition home or self-care (01) ==
LOC: C.LABFOXMH 08:30
PROVIDERS: ATTEND Internal Medicine
DX: Z79.01 Long term (current) use of anticoagulants (principal); Z51.81 Encounter for therapeutic drug level monitoring

== ENCOUNTER → 2017-12-03 | Outpatient (CLI) | payer BC | END | disposition home or self-care (01) | LOC: C.LABFOXMH 13:43 | PROVIDERS: ATTEND Internal Medicine | DX: H10.9 Unspecified conjunctivitis (principal) ==

== ENCOUNTER → 2017-12-08 | Outpatient (CLI) | payer BC ==
[2017-12-08 10:18] LABS: INR 2.5 (0.9-1.1)
[2017-12-08 10:27] LABS: BASO % 0.4 %; BASO ABS # 0.02 K/uL (0-0.2); EOS % 4.2 %; EOS ABS # 0.19 K/uL (0-0.5); HEMATOCRIT 43.3 % (37-47); HEMOGLOBIN 14.5 g/dL (12.0-16.0); IG# 0.01 K/uL (0.00-0.02); LYMPH % 37.8 %; LYMPH ABS # 1.71 K/uL (1.2-3.4); MEAN CELL VOLUME 87.7 fL (80-100); MEAN CORPUSCULAR HEMOGLOBIN 29.4 pg (25-34); MEAN CORPUSCULAR HGB CONC 33.5 g/dl (32-36); MEAN PLATELET VOLUME 9.8 fL (7.4-10.4); MONO % 8.8 %; NEUT % 48.6 %; NEUT ABS # 2.19 K/uL (1.4-6.5); PLATELET COUNT 203 K/uL (130-400); RED CELL DISTRIBUTION WIDTH CV 15.2 % (11.5-14.5); RED CELL DISTRIBUTION WIDTH SD 48.4 fL (36.4-46.3); WHITE BLOOD COUNT 4.52 K/uL (4.8-10.8)
[2017-12-08 10:34] LABS: ALBUMIN 3.6 gm/dl (3.4-5.0); ALT/SGPT 27 U/L (12-78); BLOOD UREA NITROGEN 17 mg/dl (7-18); CALCIUM 9.1 mg/dl (8.5-10.1); CARBON DIOXIDE 22 mmol/L (21-32); CREATININE 0.99 mg/dl (0.60-1.20); GLUCOSE 94 mg/dl (70-99); SODIUM 139 mmol/L (136-145)
[2017-12-08 10:37] LABS: ALKALINE PHOSPHATASE 80 U/L (45-117); AST/SGOT 31 U/L (15-37); TOTAL PROTEIN 7.9 gm/dl (6.4-8.2)
== END | disposition home or self-care (01) ==
LOC: C.LABFOXMH 09:38
PROVIDERS: ATTEND Internal Medicine Hematology & Oncology
DX: Z79.01 Long term (current) use of anticoagulants (principal); C66.1 Malignant neoplasm of right ureter

== ENCOUNTER → 2017-12-12 | Outpatient (CLI) | payer BC ==
[~2017-12-12] MED LIST changes: -METO50TA7 PO; +METO50TA8 PO; +OPTIRAY 320 IV PRN
--- NOTE | 2017-12-12 15:23 | DIAGNOSTIC IMAGING REPORT ---
CT SCAN OF THE CHEST, ABDOMEN, AND PELVIS WITH IV CONTRAST CLINICAL HISTORY: Follow-up ureteral carcinoma. COMPARISON STUDY: Chest CT scans dated 06/19/2017 and 01/25/2014. Abdominal CT scan dated 09/24/2017 and 02/07/2017. TECHNIQUE: Following the IV administration of 116 of Optiray 320, CT scan of the chest, abdomen, and pelvis was performed from the thoracic inlet to the proximal femora. Images are reviewed in the axial, sagittal, and coronal planes. IV contrast was administered without complication. Automated dose control exposure was utilized. A dose lowering technique was utilized adhering to the principles of ALARA. CT DOSE: 575.22 mGy.cm FINDINGS: CHEST: Thyroid: Imaged portions of the thyroid gland are normal in size and attenuation. Bilateral low-attenuation nodules measure up to 11 mm. Thoracic aorta: There is mild atherosclerotic calcification of the thoracic aorta, which is normal in caliber and demonstrates standard 3-vessel arch anatomy. No dissection is seen. A left subclavian central venous infusion port is in place. Pulmonary vasculature: The pulmonary trunk is normal in caliber. There are no filling defects identified in the central pulmonary vessels to indicate pulmonary embolus. Note that this examination was not protocoled for evaluation of the pulmonary arteries. Heart: The heart is enlarged and without pericardial effusion. Lungs and pleural spaces: No airspace consolidation or pleural effusion is identified. A large calcified granuloma is seen in the left lower lobe. The trachea and central airways are clear. Mediastinum: There are calcified mediastinal nodes. There is no mediastinal lymphadenopathy. Dinora: There are calcified hilar lymph nodes. No hilar adenopathy is seen. Axillae: There is no axillary lymphadenopathy. Bony thorax: The skeletal structures are osteopenic. Mild degenerative change and hyperkyphosis are seen in the thoracic spine. No lytic or blastic lesions are identified. Advanced arthritic change is noted in the shoulders. ABDOMEN AND PELVIS: Liver: The contrast-enhanced liver is normal in size, contour, and attenuation. There is no intrahepatic or ductal dilatation. The hepatic veins and portal veins are patent. Gallbladder: Surgically absent noting clips in the gallbladder fossa. Spleen: Normal in size and attenuation. A 9 mm cystic lesion in the spleen seen on image #78 is of doubtful significance. There are calcified splenic granulomas. Pancreas: There is a 1.5 cm cystic lesion in the inferior aspect of the pancreatic head on image #168. This is unchanged from prior studies. The pancreas is otherwise normal in appearance. Adrenal glands: A 4.9 x 3.9 cm right adrenal lesion has modestly increased in size from 09/24/2017. The left adrenal gland is normal in appearance. Kidneys: There is markedly asymmetric cortical atrophy of the right kidney as compared to the left. The left kidney enhances homogeneously. There is heterogeneous perfusion of the right kidney. A 2.8 cm cyst is noted in the left kidney. Additional subcentimeter cortical hypodensities also likely represent cysts but are too small for definitive characterization. There is mild to moderate right hydronephrosis. There is fullness of the left renal collecting system. Ill-defined soft tissue is again seen around the right renal hilum image 119 and measures up to 0.1 cm in thickness. Abdominal vasculature: The abdominal aorta is normal in course and caliber noting moderate to advanced atherosclerotic calcification. Bowel: There is advanced colonic diverticulosis without CT evidence of acute diverticulitis. Moderate constipation is observed. No bowel obstruction is seen. The appendix is not identified and reported surgically absent. Peritoneum: There is no intraperitoneal free air or abdominal ascites. Lymphadenopathy: A small residual mesenteric root lesion seen on image 188 is unchanged and measures 1.7 cm. Prominent surrounding mesenteric lymph nodes are again noted. A mildly enlarged portacaval node on image #101 measures 1.5 cm in short axis. Pelvic viscera: The uterus, and adnexa are normal as visualized. Surgical clips are present in the right hemipelvis. Skeletal structures: The skeletal structures are osteopenic. There is moderate lumbosacral spondylosis. Grade 1 anterolisthesis is seen at L4-L5. Sclerotic change is noted in the sacroiliac joints and pubic symphysis. No lytic or blastic lesions are seen. IMPRESSION: 1. There is no evidence of intrathoracic metastatic disease. 2. No airspace consolidation or pleural effusion is identified. 3. Cardiomegaly. 4. Enlarging right adrenal mass as compared to 09/24/2017. The appearance is highly concerning for metastatic disease. 5. Ill-defined abnormal soft tissue around the right renal hilum is similar to previous, as is a small lesion at the mesenteric root. 6. An enlarged portacaval node is similar to previous. 7. A simple appearing cystic lesion in the pancreatic head is unchanged. 8. Advanced colonic diverticulosis without CT evidence of acute diverticulitis. 9. Moderate constipation. 10. There is asymmetric cortical atrophy of the right kidney as compared to the left with right-sided hydronephrosis. This is similar to previous. 11. Additional findings as above. Electronically signed by: Salinas Coleman M.D. 12/12/2017 3:22 PM Dictated Date/Time: 12/12/2017 3:06 PM
== END ==
LOC: C.CTS 14:17
PROVIDERS: ATTEND Internal Medicine Hematology & Oncology
DX: C66.1 Malignant neoplasm of right ureter (principal)

== ENCOUNTER → 2017-12-29 | Outpatient (CLI) | payer BC ==
[~2017-12-29] MED LIST changes: -OPTIRAY 320 IV PRN
[2017-12-29 08:32] LABS: BASO % 0.9 %; BASO ABS # 0.04 K/uL (0-0.2); EOS % 3.4 %; EOS ABS # 0.15 K/uL (0-0.5); HEMOGLOBIN 14.7 g/dL (12.0-16.0); IG# 0.01 K/uL (0.00-0.02); LYMPH % 40.2 %; LYMPH ABS # 1.75 K/uL (1.2-3.4); MEAN CELL VOLUME 87.4 fL (80-100); MEAN CORPUSCULAR HEMOGLOBIN 29.9 pg (25-34); MEAN CORPUSCULAR HGB CONC 34.2 g/dl (32-36); MEAN PLATELET VOLUME 9.3 fL (7.4-10.4); MONO % 9.7 %; MONO ABS # 0.42 K/uL (0.11-0.59); NEUT % 45.6 %; NEUT ABS # 1.98 K/uL (1.4-6.5); PLATELET COUNT 185 K/uL (130-400); RED CELL DISTRIBUTION WIDTH CV 14.9 % (11.5-14.5); RED CELL DISTRIBUTION WIDTH SD 47.4 fL (36.4-46.3); WHITE BLOOD COUNT 4.35 K/uL (4.8-10.8)
[2017-12-29 08:39] LABS: ALBUMIN 3.6 gm/dl (3.4-5.0); ALT/SGPT 25 U/L (12-78); BLOOD UREA NITROGEN 18 mg/dl (7-18); CALCIUM 9.3 mg/dl (8.5-10.1); CARBON DIOXIDE 27 mmol/L (21-32); CREATININE 1.01 mg/dl (0.60-1.20); GLUCOSE 89 mg/dl (70-99); POTASSIUM 4.4 mmol/L (3.5-5.1); SODIUM 138 mmol/L (136-145)
[2017-12-29 08:42] LABS: ALKALINE PHOSPHATASE 80 U/L (45-117); AST/SGOT 31 U/L (15-37); TOTAL PROTEIN 8.1 gm/dl (6.4-8.2)
[2017-12-29 08:51] LABS: INR 2.3 (0.9-1.1)
== END | disposition home or self-care (01) ==
LOC: C.LABFOXMH 08:17
PROVIDERS: ATTEND Internal Medicine Hematology & Oncology
DX: Z51.81 Encounter for therapeutic drug level monitoring (principal); Z79.01 Long term (current) use of anticoagulants; C66.1 Malignant neoplasm of right ureter

== ENCOUNTER → 2018-01-26 | Outpatient (CLI) | payer BC ==
[2018-01-26 09:07] LABS: INR 1.8 (0.9-1.1)
[2018-01-26 09:09] LABS: BLOOD UREA NITROGEN 16 mg/dl (7-18); CALCIUM 9.3 mg/dl (8.5-10.1); CARBON DIOXIDE 26 mmol/L (21-32); CREATININE 0.98 mg/dl (0.60-1.20); GLUCOSE 87 mg/dl (70-99); POTASSIUM 4.1 mmol/L (3.5-5.1); SODIUM 138 mmol/L (136-145)
--- NOTE | 2018-02-06 06:58 | CODING QUERY MEDICAL NECESSITY ---
CQSUPPORTING DIAGNOSIS NEEDED A supporting diagnosis is required for the test/procedure performed on this patient in order for us to be reimbursed by the patient's insurance. Please provide a supporting diagnosis for the following test/procedure listed below next to the test name along with your signature. *If there is no additional diagnosis for this patient that would support the following test/procedure please document that below next to the test/procedure. Test(s)/Procedure(s) that require a supporting diagnosis: DOS 01/26/18 DIGOXIN THERAPEUTIC Provider Signature: Date: Thank you Kiesha Zimmerman [employer] Once completed, please kindly fax back to [phone] For questions please call [phone]
== END | disposition home or self-care (01) ==
LOC: C.LABFOXMH 08:33
PROVIDERS: ATTEND Internal Medicine
DX: Z79.01 Long term (current) use of anticoagulants (principal)

== ENCOUNTER → 2018-02-23 | Outpatient (CLI) | payer BC ==
[~2018-02-23] MED LIST changes: -ASPEC81 PO; +ASPI-320 PO
[2018-02-23 08:22] LABS: INR 2.9 (0.9-1.1)
== END | disposition home or self-care (01) ==
LOC: C.LABFOXMH 08:00
PROVIDERS: ATTEND Internal Medicine
DX: Z51.81 Encounter for therapeutic drug level monitoring (principal); Z79.01 Long term (current) use of anticoagulants

== ENCOUNTER → 2018-03-23 | Outpatient (CLI) | payer BC ==
[2018-03-23 09:19] LABS: INR 2.3 (0.9-1.1)
== END | disposition home or self-care (01) ==
LOC: C.LABFOXMH 08:52
PROVIDERS: ATTEND Internal Medicine
DX: Z51.81 Encounter for therapeutic drug level monitoring (principal); Z79.01 Long term (current) use of anticoagulants

== ENCOUNTER → 2018-06-02 | Outpatient (CLI) | payer BC ==
[2018-06-02 10:07] LABS: HEMATOCRIT 45.2 % (37-47); HEMOGLOBIN 15.3 g/dL (12.0-16.0); MEAN CORPUSCULAR HEMOGLOBIN 30.5 pg (25-34); MEAN CORPUSCULAR HGB CONC 33.8 g/dl (32-36); MEAN PLATELET VOLUME 9.9 fL (7.4-10.4); PLATELET COUNT 211 K/uL (130-400); RED CELL DISTRIBUTION WIDTH CV 14.4 % (11.5-14.5); RED CELL DISTRIBUTION WIDTH SD 47.1 fL (36.4-46.3); WHITE BLOOD COUNT 4.37 K/uL (4.8-10.8)
[2018-06-02 10:08] LABS: INR 2.6 (0.9-1.1)
[2018-06-02 10:18] LABS: ALBUMIN 3.6 gm/dl (3.4-5.0); ALKALINE PHOSPHATASE 85 U/L (45-117); ALT/SGPT 22 U/L (12-78); AST/SGOT 28 U/L (15-37); BLOOD UREA NITROGEN 15 mg/dl (7-18); CALCIUM 9.3 mg/dl (8.5-10.1); CARBON DIOXIDE 25 mmol/L (21-32); CREATININE 0.96 mg/dl (0.60-1.20); GLUCOSE 94 mg/dl (70-99); POTASSIUM 4.2 mmol/L (3.5-5.1); SODIUM 135 mmol/L (136-145); TOTAL PROTEIN 8.2 gm/dl (6.4-8.2)
== END | disposition home or self-care (01) ==
LOC: C.LABFOXMH 08:23
PROVIDERS: ATTEND Internal Medicine
DX: Z51.81 Encounter for therapeutic drug level monitoring (principal); Z79.01 Long term (current) use of anticoagulants; C66.1 Malignant neoplasm of right ureter

== ENCOUNTER → 2018-06-16 | Outpatient (CLI) | payer BC ==
--- NOTE | 2018-06-16 13:30 | DIAGNOSTIC IMAGING REPORT ---
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 TECHNIQUE: Multidetector CT of the abdomen and pelvis was performed without the use of intravenous contrast. IV contrast: None. A dose lowering technique was used consistent with the principles of ALARA (as low as reasonably achievable). COMPARISON: 12/12/2017. CT DOSE (mGy.cm): The estimated cumulative dose is 390.09 mGycm. FINDINGS: [employer]person [employer] topogram: Cholecystectomy clips. Additionally, surgical clips in the right pelvis noted. Lung bases: Calcified granuloma in the left lower lobe. Normal heart size. Coronary artery and aortic valve calcification. No pericardial or pleural effusion. Liver: Normal morphology. Normal density. Biliary: No gross biliary ductal dilatation allowing for noncontrast technique. Gallbladder surgically absent. Pancreas: Redemonstration of the 1.3 cm cystic lesion in the uncinate process of the pancreas. Spleen: Punctate calcification suggest a history of granulomatous infection. 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 Adrenal glands: Interval increase in the dense right adrenal mass with extension into the surrounding fat. The mass now measures 6.1 cm in diameter, previously 4.9 cm. Left adrenal gland normal. Kidneys and ureters: Chronic atrophy of the right renal parenchyma. Vague soft tissue surrounding the right renal vein near the renal hilum is less well appreciated on the current exam given noncontrast technique. Exophytic hypodense lesion arising from the anterior aspect of the interpolar region of the left kidney likely cyst and unchanged from prior. No nephrolithiasis. No hydronephrosis. Mild urothelial thickening suggested on the left. The left ureter is nondistended. Chronic changes of the proximal right ureter again noted though less well appreciated without intravenous contrast. The right ureter is also nondistended. Bladder: Configuration of the bladder suggests ligamentous laxity. Pelvic organs: Normal noncontrast appearance. Bowel: Extensive diverticulosis of the left colon. Few scattered diverticula noted elsewhere in the colon. Surgical material projects over the right lower quadrant. No bowel obstruction. Peritoneal cavity: No free fluid or intraperitoneal gas. Infiltration of small bowel mesentery nonspecific. Lymph nodes: Enlarged portacaval lymph node measures 12 mm in the short axis. No other sites of pathologically enlarged lymph nodes. Postsurgical changes in the right iliac regions and right pelvic sidewall may represent prior lymphadenectomy. Vasculature: Atherosclerosis of the normal caliber abdominal aorta. Abdominal wall: Postsurgical changes of the midline ventral infra umbilical abdomen. Musculoskeletal: Degenerative changes of the spine. Anterolisthesis of L4 on L5. Degenerative changes of the pubic symphysis IMPRESSION: 1. Evaluation for malignancy is significantly limited by the lack of intravenous contrast. Allowing for this, interval increase in size of the right adrenal mass compatible with worsening metastatic disease. No additional site of disease is identified. 2. Stable enlarged portacaval lymph node. No gross evidence of new lymphadenopathy. 3. Many of the previously noted findings are less well appreciated given the lack of intravenous contrast. 4. Diverticulosis. Electronically signed by: Efrem Patel M.D. 06/16/2018 1:29 PM Dictated Date/Time: 06/16/2018 1:17 PM
== END | disposition home or self-care (01) ==
LOC: C.CTS 12:34
PROVIDERS: ATTEND Urology
DX: C66.9 Malignant neoplasm of unspecified ureter (principal); K57.90 Diverticulosis of intestine, part unspecified, without perforation or abscess without bleeding